=== PATIENT | female | born 1950 | race African-American/Black ===

== ENCOUNTER 2018-04-10 21:10 | Inpatient (IN) | payer OTHER ==
[~2018-04-10] VITALS: Ht 167.6 cm; Wt 100.3 kg
[2018-04-10] MEDS ORDERED: IPRATRPIUM/ALBUTEROL 0.5/2.5MG 3 ML NEBU. NEB ONE (21:15)
[2018-04-10] MEDS ORDERED: ONDANSETRON PF 4 MG/2 ML VIAL. ONE (21:19)
[2018-04-10] MEDS ORDERED: MORPHINE SULFATE 4 MG/ML VIAL. ONE (21:20)
[2018-04-10 21:27] LABS: BASO # 0.1 x10^3/uL (0.0-0.2); BASO % 1 % (0-3); EOS # 0.3 x10^3/uL (0.0-0.7); EOS % 3 % (0-3); HEMATOCRIT 41.5 % (36.0-47.0); HEMOGLOBIN 13.8 g/dL (12.0-15.5); LYMPH # 5.2 x10^3/uL (1.0-4.8); LYMPH % 49 % (24-48); MEAN CORPUSCULAR HEMOGLOBIN 32 pg (25-35); MEAN CORPUSCULAR HGB CONC 33 g/dL (31-37); MEAN CORPUSCULAR VOLUME 95 fL (79-100); MONO # 1.1 x10^3/uL (0.0-1.1); MONO % 10 % (0-9); NEUT # 3.9 x10^3uL (1.8-7.7); NEUT % 37 % (31-73); PLATELET COUNT 227 x10^3/uL (140-400); RED BLOOD COUNT 4.38 x10^6/uL (3.50-5.40); RED CELL DISTRIBUTION WIDTH 17.1 % (11.5-14.5); WHITE BLOOD COUNT 10.6 x10^3/uL (4.0-11.0)
[2018-04-10] MEDS ORDERED: ONDANSETRON PF 4 MG/2 ML VIAL. IV ONE (21:30)
[2018-04-10] MEDS ORDERED: MORPHINE SULFATE 4 MG/ML VIAL. IV ONE (21:30)
[2018-04-10] MEDS ORDERED: ALBUTEROL SULFATE 2.5 MG/3 ML NEBU. CONT NEB ONE (21:30)
--- NOTE | 2018-04-10 21:36 | PHYS DOC ---
Adult General Chief Complaint Chief Complaint: SHORTNESS OF BREATH HPI HPI Patient is a 68-year-old female who presents via EMS with report of acute onset of shortness of breath that started approximately 40 minutes prior to arrival to the emergency room. [email or web address] when the shortness of breath started. Patient indicates that she has no history of respiratory problems. Patient does indicate that she has a history of anxiety. She states that she just feels like she cannot get enough air in. Additional history is limited due to severity of condition. Review of Systems Review of Systems Constitutional: Denies fever or chills [] Respiratory: Complains of shortness of breath[] Cardiovascular: No additional information not addressed in HPI [] Musculoskeletal: Denies back pain or joint pain [] A full review of systems is limited due to severity of patient condition. Current Medications Current Medications Current Medications Medications (Trade) Dose Ordered Sig/Daquan Start Time Stop Time Status Last Admin Dose Admin Albuterol Sulfate (Ventolin Neb Soln) 5 mg 1X ONCE 04/10/18 21:30 04/10/18 21:31 DC Albuterol/ Ipratropium (Duoneb) 3 ml 1X ONCE 04/10/18 21:15 04/10/18 21:27 DC 04/10/18 21:24 3 ML Azithromycin (Zithromax) 500 mg 1X ONCE 04/10/18 23:00 04/10/18 23:01 DC Ceftriaxone Sodium 50 ml @ 100 mls/hr 1X ONCE 04/10/18 23:00 04/10/18 23:29 DC 04/10/18 23:48 100 MLS/HR Furosemide (Lasix) 40 mg 1X ONCE 04/10/18 22:15 04/10/18 22:16 DC 04/10/18 22:22 40 MG Lorazepam (Ativan) 2 mg 1X ONCE 04/10/18 22:00 04/10/18 22:01 DC 04/10/18 22:00 2 MG Morphine Sulfate (Morphine Sulfate) 4 mg STK-MED ONCE 04/10/18 21:20 04/10/18 21:21 DC Ondansetron HCl (Zofran) 4 mg 1X ONCE 04/10/18 21:30 04/10/18 21:31 DC 04/10/18 21:23 4 MG Potassium Chloride (Klor-Con) 40 meq 1X ONCE 04/10/18 22:15 04/10/18 22:16 DC Allergies Allergies Allergies Coded Allergies Type Severity Reaction Last Updated Verified No Known Drug Allergies 04/10/18 No Physical Exam Physical Exam Constitutional: Well developed, well nourished, in moderate respiratory distress with moderate to severe anxiety. [] HENT: Normocephalic, atraumatic, bilateral external ears normal, oropharynx moist, no oral exudates, nose normal. [] Eyes: PERRLA, EOMI, conjunctiva normal, no discharge. [] Neck: Normal range of motion, no tenderness, supple, no stridor. [] Cardiovascular:Heart rate regular rhythm [] Lungs & Thorax: There are coarse rales noted the right lung base. Both inspiratory and expiratory wheezes are noted in the upper lungs bilaterally[] Abdomen: Bowel sounds normal, soft, no tenderness. [] Skin: Warm, dry, no erythema, no rash. [] Extremities: No tenderness, no cyanosis, no clubbing, ROM intact, nonpitting edema is noted bilaterally. [] Neurologic: Alert and oriented X 3, normal motor function, normal sensory function, no focal deficits noted. [] Current Patient Data Vital Signs Vital Signs Date Time Temp Pulse Resp B/P (MAP) Pulse Ox O2 Delivery O2 Flow Rate FiO2 04/10/18 23:51 98 Nasal Cannula 3.0 04/10/18 22:10 56 18 156/71 (99) 04/10/18 21:10 98.9 98.9 Lab Values Laboratory Tests Test 04/10/18 21:19 04/10/18 21:35 White Blood Count 10.6 x10^3/uL (4.0-11.0) Red Blood Count 4.38 x10^6/uL (3.50-5.40) Hemoglobin 13.8 g/dL (12.0-15.5) Hematocrit 41.5 % (36.0-47.0) Mean Corpuscular Volume 95 fL (79-100) Mean Corpuscular Hemoglobin 32 pg (25-35) Mean Corpuscular Hemoglobin Concent 33 g/dL (31-37) Red Cell Distribution Width 17.1 % (11.5-14.5) H Platelet Count 227 x10^3/uL (140-400) Neutrophils (%) (Auto) 37 % (31-73) Lymphocytes (%) (Auto) 49 % (24-48) H Monocytes (%) (Auto) 10 % (0-9) H Eosinophils (%) (Auto) 3 % (0-3) Basophils (%) (Auto) 1 % (0-3) Neutrophils # (Auto) 3.9 x10^3uL (1.8-7.7) Lymphocytes # (Auto) 5.2 x10^3/uL (1.0-4.8) H Monocytes # (Auto) 1.1 x10^3/uL (0.0-1.1) Eosinophils # (Auto) 0.3 x10^3/uL (0.0-0.7) Basophils # (Auto) 0.1 x10^3/uL (0.0-0.2) D-Dimer (Nirmala) < 0.27 ug/mlFEU Sodium Level 147 mmol/L (136-145) H Potassium Level 2.9 mmol/L (3.5-5.1) *L Chloride Level 105 mmol/L (98-107) Carbon Dioxide Level 28 mmol/L (21-32) Anion Gap 14 (6-14) Blood Urea Nitrogen 13 mg/dL (7-20) Creatinine 1.2 mg/dL (0.6-1.0) H Estimated GFR (Cockcroft-Gault) 44.5 BUN/Creatinine Ratio 11 (6-20) Glucose Level 183 mg/dL (70-99) H Calcium Level 9.7 mg/dL (8.5-10.1) Total Bilirubin 0.7 mg/dL (0.2-1.0) Aspartate Amino Transferase (AST) 72 U/L (15-37) H Alanine Aminotransferase (ALT) 58 U/L (14-59) Alkaline Phosphatase 104 U/L (46-116) Troponin I Quantitative < 0.017 ng/mL (0.000-0.055) TF-Gcq-R-Type Natriuretic Peptide 2022 pg/mL (0-124) H Total Protein 7.8 g/dL (6.4-8.2) Albumin 3.8 g/dL (3.4-5.0) Albumin/Globulin Ratio 1.0 (1.0-1.7) O2 Saturation 96 % (92-99) Arterial Blood pH 7.25 (7.35-7.45) L Arterial Blood pCO2 at Patient Temp 56 mmHg (35-46) H Arterial Blood pO2 at Patient Temp 100 mmHg (65-108) Arterial Blood HCO3 24 mmol/L (21-28) Arterial Blood Base Excess -4 mmol/L (-3-3) L FiO2 100.0 Laboratory Tests 04/10/18 21:19 Laboratory Tests 04/10/18 21:19 EKG EKG [] Interpretation Time: EKG demonstrates sinus bradycardia with a rate of 55. Radiology/Procedures Radiology/Procedures [] Impressions: PROCEDURE: PORTABLE CHEST 1V EXAM: Chest, single view. HISTORY: Dyspnea. COMPARISON: None. FINDINGS: A frontal view of the chest obtained. There is diffuse interstitial infiltrate. There is focal opacity overlying the right lower thorax which is likely due to a component of overlying artifact. The possibility of partial consolidated infiltrate is not excluded. There are suspected trace pleural effusions. There is no pneumothorax. There is cardiomegaly. IMPRESSION: 1. Diffuse interstitial infiltrate. This may be infectious or due to congestion. 2. Focal opacity overlying the right lower thorax, a component of which is due to overlying artifact. The possibility of on underlying partial consolidated infiltrate is not completely excluded. 3. Cardiomegaly. Electronically signed by: Mary Finch MD (04/10/2018 9:42 PM) [facility] Course & Med Decision Making Course & Med Decision Making Pertinent Labs and Imaging studies reviewed. (See chart for details) [] Dragon Disclaimer Dragon Disclaimer This electronic medical record was generated, in whole or in part, using a voice recognition dictation system. Departure Departure Impression: Primary Impression: RLL pneumonia Disposition: ADMITTED INPATIENT Admitting Physician: Cristina High Condition: IMPROVED Problem Qualifiers Primary Impression: RLL pneumonia Pneumonia type: due to unspecified organism Qualified Codes: J18.1 - Lobar pneumonia, unspecified organism NEMO RÍOS Jr. DO Apr 10, 2018 21:36
[2018-04-10 21:41] LABS: ALBUMIN 3.8 g/dL (3.4-5.0); CALCIUM 9.7 mg/dL (8.5-10.1); CREATININE 1.2 mg/dL (0.6-1.0); GFR 44.5; TOTAL BILIRUBIN 0.7 mg/dL (0.2-1.0); TOTAL PROTEIN 7.8 g/dL (6.4-8.2)
[2018-04-10 21:44] LABS: POTASSIUM 2.9 mmol/L (3.5-5.1)
[2018-04-10 21:45] LABS: BASE EXCESS ABG -4 mmol/L (-3-3); HCO3 ABG 24 mmol/L (21-28); PCO2 ABG 56 mmHg (35-46); PO2 ABG 100 mmHg (65-108); SAT O2 ABG 96 % (92-99)
--- NOTE | 2018-04-10 21:46 | RAD ---
EXAM: Chest, single view. HISTORY: Dyspnea. COMPARISON: None. FINDINGS: A frontal view of the chest obtained. There is diffuse interstitial infiltrate. There is focal opacity overlying the right lower thorax which is likely due to a component of overlying artifact. The possibility of partial consolidated infiltrate is not excluded. There are suspected trace pleural effusions. There is no pneumothorax. There is cardiomegaly. IMPRESSION: 1. Diffuse interstitial infiltrate. This may be infectious or due to congestion. 2. Focal opacity overlying the right lower thorax, a component of which is due to overlying artifact. The possibility of on underlying partial consolidated infiltrate is not completely excluded. 3. Cardiomegaly. Electronically signed by: Mary Finch MD (04/10/2018 9:42 PM) [facility]
[2018-04-10] MEDS ORDERED: FUROSEMIDE 40 MG/4 ML VIAL. IVP ONE (22:15)
[2018-04-10] MEDS ORDERED: POTASSIUM CHLORIDE 20 MEQ TABLET.ER. PO ONE (22:15)
[2018-04-10] MEDS ORDERED: AMLO5TAB7 PO (22:47)
[2018-04-10] MEDS ORDERED: FOLI1TAB16 PO (22:49)
[2018-04-10] MEDS ORDERED: FLAX10003 PO (22:49)
[2018-04-10] MEDS ORDERED: OMEG1CAP38 PO (22:49)
[2018-04-10] MEDS ORDERED: LANS30CA PO (22:50)
[2018-04-10] MEDS ORDERED: METO-239 PO (22:52)
[2018-04-10] MEDS ORDERED: RIVA20TA2 PO (22:53)
[2018-04-10] MEDS ORDERED: LISI-334 PO (22:53)
[2018-04-10] MEDS ORDERED: ERGO500027 PO (22:54)
[2018-04-10] MEDS ORDERED: ATOR40TA59 PO (22:57)
[2018-04-10] MEDS ORDERED: ESCITALOPRAM OX10 MG PO (22:58)
[2018-04-10] MEDS ORDERED: AZITHROMYCIN 250 MG TABLET. PO ONE (23:00)
[2018-04-11] MEDS ORDERED: ONDANSETRON PF 4 MG/2 ML VIAL. IV PRN
[2018-04-11] MEDS ORDERED: ACETAMINOPHEN 325 MG TABLET. PO PRN
[2018-04-11 03:00] VITALS: BP 110/86
[2018-04-11 05:43] LABS: BASO % 0 % (0-3); EOS # 0.1 x10^3/uL (0.0-0.7); EOS % 1 % (0-3); HEMATOCRIT 34.8 % (36.0-47.0); LYMPH # 1.5 x10^3/uL (1.0-4.8); LYMPH % 24 % (24-48); MEAN CORPUSCULAR HEMOGLOBIN 32 pg (25-35); MEAN CORPUSCULAR HGB CONC 35 g/dL (31-37); MEAN CORPUSCULAR VOLUME 92 fL (79-100); MONO # 0.5 x10^3/uL (0.0-1.1); MONO % 7 % (0-9); NEUT # 4.2 x10^3uL (1.8-7.7); NEUT % 68 % (31-73); PLATELET COUNT 185 x10^3/uL (140-400); RED BLOOD COUNT 3.78 x10^6/uL (3.50-5.40); RED CELL DISTRIBUTION WIDTH 17.3 % (11.5-14.5); WHITE BLOOD COUNT 6.3 x10^3/uL (4.0-11.0)
[2018-04-11 06:28] LABS: ALBUMIN 3.3 g/dL (3.4-5.0); ALBUMIN/GLOBULIN RATIO 1.1 (1.0-1.7); CALCIUM 8.8 mg/dL (8.5-10.1); GFR 66.5; POTASSIUM 4.4 mmol/L (3.5-5.1); TOTAL BILIRUBIN 0.4 mg/dL (0.2-1.0); TOTAL PROTEIN 6.4 g/dL (6.4-8.2)
[2018-04-11 07:20] VITALS: BP 158/67
[2018-04-11] MEDS: IPRATRPIUM/ALBUTEROL 0.5/2.5MG 3 ML NEBU. NEB SCH ×4 (07:29→19:47)
--- NOTE | 2018-04-11 07:49 | EKG ---
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
[2018-04-11] MEDS ORDERED: TEMAZEPAM 15 MG CAPSULE PO PRN (09:30)
[2018-04-11] MEDS ORDERED: OLAN10TA9 PO (10:04)
[2018-04-11] MEDS ORDERED: TEMA15CA PO (10:04)
--- NOTE | 2018-04-11 10:12 | PDOC ---
PROGRESS NOTES Subjective Subjective Patient reports cough and breathing are a little better than last night. Denies CP presently. Objective Objective Vital Signs Date Time Temp Pulse Resp B/P (MAP) Pulse Ox O2 Delivery O2 Flow Rate FiO2 04/11/18 07:22 96 Nasal Cannula 3.0 04/11/18 07:20 98.3 89 18 158/67 (97) 98.3 Intake and Output 04/11/18 07:00 # Voids 1 Physical Exam Abdomen: Normal bowel sounds, Soft, No tenderness Heart: Regular rate (mildly bradycardic), Other (II/ systolic murmur) Extremities: Other (scant edema bilateral LE's) General: Alert, Oriented X3, No acute distress Lungs: Other (BS decreased throughout, especially R base, no wheezes or crackles heard) Assessment Assessment Problems Medical Problems: (1) RLL pneumonia Status: Acute Plan Plan of Care 1. Pneumonia - possible infiltrate seen on CXR and patient does report recent cough and SOA. Continue Rocephin and Zithromax, nebs, O2. CT chest ordered. 2. chest pain with hx of arrhythmias - Troponin mildly elevated but now decreasing. Patient sees an outside Assistant Research Scientist. Reports hx of arrhythmias, possible afib. Denies being told she had CHF or taking a diuretic previously. Will consult Cardiology to help with further evaluation and tx while she is here. 3. HTN - continue home meds and adjust as indicated, patient reports BP has been elevated at home recently. 4. COPD with tobaccoism - smoking cessation advised. Nicotine patch ordered. Patient denies using an inhaler regularly at home. 5. glucose intolerance - patient states she was told she was "borderline" diabetic but has not been prescribed medication for this. Check A1C. 6. Hx of psychosis - patient reports she sees a psychiatrist and has been doing well on present medications, will continue these. Comment Review of Relevant I have reviewed the following items amna (where applicable) has been applied. Labs Laboratory Tests Test 04/10/18 21:19 04/10/18 21:35 04/11/18 03:30 04/11/18 04:50 White Blood Count 10.6 x10^3/uL (4.0-11.0) 6.3 x10^3/uL (4.0-11.0) Red Blood Count 4.38 x10^6/uL (3.50-5.40) 3.78 x10^6/uL (3.50-5.40) Hemoglobin 13.8 g/dL (12.0-15.5) 12.0 g/dL (12.0-15.5) Hematocrit 41.5 % (36.0-47.0) 34.8 % (36.0-47.0) Mean Corpuscular Volume 95 fL (79-100) 92 fL (79-100) Mean Corpuscular Hemoglobin 32 pg (25-35) 32 pg (25-35) Mean Corpuscular Hemoglobin Concent 33 g/dL (31-37) 35 g/dL (31-37) Red Cell Distribution Width 17.1 % (11.5-14.5) 17.3 % (11.5-14.5) Platelet Count 227 x10^3/uL (140-400) 185 x10^3/uL (140-400) Neutrophils (%) (Auto) 37 % (31-73) 68 % (31-73) Lymphocytes (%) (Auto) 49 % (24-48) 24 % (24-48) Monocytes (%) (Auto) 10 % (0-9) 7 % (0-9) Eosinophils (%) (Auto) 3 % (0-3) 1 % (0-3) Basophils (%) (Auto) 1 % (0-3) 0 % (0-3) Neutrophils # (Auto) 3.9 x10^3uL (1.8-7.7) 4.2 x10^3uL (1.8-7.7) Lymphocytes # (Auto) 5.2 x10^3/uL (1.0-4.8) 1.5 x10^3/uL (1.0-4.8) Monocytes # (Auto) 1.1 x10^3/uL (0.0-1.1) 0.5 x10^3/uL (0.0-1.1) Eosinophils # (Auto) 0.3 x10^3/uL (0.0-0.7) 0.1 x10^3/uL (0.0-0.7) Basophils # (Auto) 0.1 x10^3/uL (0.0-0.2) 0.0 x10^3/uL (0.0-0.2) D-Dimer (Nirmala) < 0.27 ug/mlFEU Sodium Level 147 mmol/L (136-145) 144 mmol/L (136-145) Potassium Level 2.9 mmol/L (3.5-5.1) 4.4 mmol/L (3.5-5.1) Chloride Level 105 mmol/L (98-107) 106 mmol/L (98-107) Carbon Dioxide Level 28 mmol/L (21-32) 30 mmol/L (21-32) Anion Gap 14 (6-14) 8 (6-14) Blood Urea Nitrogen 13 mg/dL (7-20) 15 mg/dL (7-20) Creatinine 1.2 mg/dL (0.6-1.0) 1.0 mg/dL (0.6-1.0) Estimated GFR (Cockcroft-Gault) 44.5 66.5 BUN/Creatinine Ratio 11 (6-20) 15 (6-20) Glucose Level 183 mg/dL (70-99) 140 mg/dL (70-99) Calcium Level 9.7 mg/dL (8.5-10.1) 8.8 mg/dL (8.5-10.1) Total Bilirubin 0.7 mg/dL (0.2-1.0) 0.4 mg/dL (0.2-1.0) Aspartate Amino Transf (AST/SGOT) 72 U/L (15-37) 49 U/L (15-37) Alanine Aminotransferase (ALT/SGPT) 58 U/L (14-59) 47 U/L (14-59) Alkaline Phosphatase 104 U/L (46-116) 86 U/L (46-116) Troponin I Quantitative < 0.017 ng/mL (0.000-0.055) 0.324 ng/mL (0.000-0.055) RG-Dut-P-Type Natriuretic Peptide 2022 pg/mL (0-124) Total Protein 7.8 g/dL (6.4-8.2) 6.4 g/dL (6.4-8.2) Albumin 3.8 g/dL (3.4-5.0) 3.3 g/dL (3.4-5.0) Albumin/Globulin Ratio 1.0 (1.0-1.7) 1.1 (1.0-1.7) O2 Saturation 96 % (92-99) Arterial Blood pH 7.25 (7.35-7.45) Arterial Blood pCO2 at Patient Temp 56 mmHg (35-46) Arterial Blood pO2 at Patient Temp 100 mmHg (65-108) Arterial Blood HCO3 24 mmol/L (21-28) Arterial Blood Base Excess -4 mmol/L (-3-3) FiO2 100.0 Test 04/11/18 07:55 Troponin I Quantitative 0.307 ng/mL (0.000-0.055) Laboratory Tests Test 04/10/18 21:19 04/10/18 21:35 04/11/18 03:30 04/11/18 04:50 White Blood Count 10.6 x10^3/uL (4.0-11.0) 6.3 x10^3/uL (4.0-11.0) Red Blood Count 4.38 x10^6/uL (3.50-5.40) 3.78 x10^6/uL (3.50-5.40) Hemoglobin 13.8 g/dL (12.0-15.5) 12.0 g/dL (12.0-15.5) Hematocrit 41.5 % (36.0-47.0) 34.8 % (36.0-47.0) Mean Corpuscular Volume 95 fL (79-100) 92 fL (79-100) Mean Corpuscular Hemoglobin 32 pg (25-35) 32 pg (25-35) Mean Corpuscular Hemoglobin Concent 33 g/dL (31-37) 35 g/dL (31-37) Red Cell Distribution Width 17.1 % (11.5-14.5) 17.3 % (11.5-14.5) Platelet Count 227 x10^3/uL (140-400) 185 x10^3/uL (140-400) Neutrophils (%) (Auto) 37 % (31-73) 68 % (31-73) Lymphocytes (%) (Auto) 49 % (24-48) 24 % (24-48) Monocytes (%) (Auto) 10 % (0-9) 7 % (0-9) Eosinophils (%) (Auto) 3 % (0-3) 1 % (0-3) Basophils (%) (Auto) 1 % (0-3) 0 % (0-3) Neutrophils # (Auto) 3.9 x10^3uL (1.8-7.7) 4.2 x10^3uL (1.8-7.7) Lymphocytes # (Auto) 5.2 x10^3/uL (1.0-4.8) 1.5 x10^3/uL (1.0-4.8) Monocytes # (Auto) 1.1 x10^3/uL (0.0-1.1) 0.5 x10^3/uL (0.0-1.1) Eosinophils # (Auto) 0.3 x10^3/uL (0.0-0.7) 0.1 x10^3/uL (0.0-0.7) Basophils # (Auto) 0.1 x10^3/uL (0.0-0.2) 0.0 x10^3/uL (0.0-0.2) D-Dimer (Nirmala) < 0.27 ug/mlFEU Sodium Level 147 mmol/L (136-145) 144 mmol/L (136-145) Potassium Level 2.9 mmol/L (3.5-5.1) 4.4 mmol/L (3.5-5.1) Chloride Level 105 mmol/L (98-107) 106 mmol/L (98-107) Carbon Dioxide Level 28 mmol/L (21-32) 30 mmol/L (21-32) Anion Gap 14 (6-14) 8 (6-14) Blood Urea Nitrogen 13 mg/dL (7-20) 15 mg/dL (7-20) Creatinine 1.2 mg/dL (0.6-1.0) 1.0 mg/dL (0.6-1.0) Estimated GFR (Cockcroft-Gault) 44.5 66.5 BUN/Creatinine Ratio 11 (6-20) 15 (6-20) Glucose Level 183 mg/dL (70-99) 140 mg/dL (70-99) Calcium Level 9.7 mg/dL (8.5-10.1) 8.8 mg/dL (8.5-10.1) Total Bilirubin 0.7 mg/dL (0.2-1.0) 0.4 mg/dL (0.2-1.0) Aspartate Amino Transf (AST/SGOT) 72 U/L (15-37) 49 U/L (15-37) Alanine Aminotransferase (ALT/SGPT) 58 U/L (14-59) 47 U/L (14-59) Alkaline Phosphatase 104 U/L (46-116) 86 U/L (46-116) Troponin I Quantitative < 0.017 ng/mL (0.000-0.055) 0.324 ng/mL (0.000-0.055) DK-Ywo-S-Type Natriuretic Peptide 2022 pg/mL (0-124) Total Protein 7.8 g/dL (6.4-8.2) 6.4 g/dL (6.4-8.2) Albumin 3.8 g/dL (3.4-5.0) 3.3 g/dL (3.4-5.0) Albumin/Globulin Ratio 1.0 (1.0-1.7) 1.1 (1.0-1.7) O2 Saturation 96 % (92-99) Arterial Blood pH 7.25 (7.35-7.45) Arterial Blood pCO2 at Patient Temp 56 mmHg (35-46) Arterial Blood pO2 at Patient Temp 100 mmHg (65-108) Arterial Blood HCO3 24 mmol/L (21-28) Arterial Blood Base Excess -4 mmol/L (-3-3) FiO2 100.0 Test 04/11/18 07:55 Troponin I Quantitative 0.307 ng/mL (0.000-0.055) Medications Current Medications Albuterol/ Ipratropium (Duoneb) 3 ml 1X ONCE NEB Last administered on at 21:24; Start 04/10/18 at 21:15; Stop 04/10/18 at 21:27; Status DC Albuterol Sulfate (Ventolin Neb Soln) 5 mg 1X ONCE CONT NEB Last administered on 04/10/18at 21:30; Start 04/10/18 at 21:30; Stop 04/10/18 at 21:31; Status DC Lorazepam (Ativan) 1 mg 1X ONCE IV ; Start 04/10/18 at 21:15; Stop 04/10/18 at 21:35; Status DC Ondansetron HCl (Zofran) 4 mg STK-MED ONCE .ROUTE ; Start 04/10/18 at 21:19; Stop 04/10/18 at 21:20; Status DC Morphine Sulfate (Morphine Sulfate) 4 mg 1X ONCE IV Last administered on at 21:23; Start 04/10/18 at 21:30; Stop 04/10/18 at 21:31; Status DC Ondansetron HCl (Zofran) 4 mg 1X ONCE IV Last administered on 04/10/18at 21:23 ; Start 04/10/18 at 21:30; Stop 04/10/18 at 21:31; Status DC Morphine Sulfate (Morphine Sulfate) 4 mg STK-MED ONCE .ROUTE ; Start 04/10/18 at 21:20; Stop 04/10/18 at 21:21; Status DC Lorazepam (Ativan) 2 mg 1X ONCE IV Last administered on 04/10/18at 22:00; Start 04/10/18 at 22:00; Stop 04/10/18 at 22:01; Status DC Potassium Chloride (Klor-Con) 40 meq 1X ONCE PO Last administered on at 00:16; Start 04/10/18 at 22:15; Stop 04/10/18 at 22:16; Status DC Furosemide (Lasix) 40 mg 1X ONCE IVP Last administered on 04/10/18at 22:22; Start 04/10/18 at 22:15; Stop 04/10/18 at 22:16; Status DC Ceftriaxone Sodium 50 ml @ 100 mls/hr 1X ONCE IV Last administered on at 23:48; Start 04/10/18 at 23:00; Stop 04/10/18 at 23:29; Status DC Azithromycin (Zithromax) 500 mg 1X ONCE PO Last administered on 04/11/18at 00: 17; Start 04/10/18 at 23:00; Stop 04/10/18 at 23:01; Status DC Ondansetron HCl (Zofran) 4 mg PRN Q8HRS PRN IV NAUSEA/VOMITING 1ST CHOICE; Start 04/11/18 at 00:00; Stop 04/11/18 at 23:59 Acetaminophen (Tylenol) 650 mg PRN Q4HRS PRN PO FEVER; Start 04/11/18 at 00:00 ; Stop 04/11/18 at 23:59 Albuterol/ Ipratropium (Duoneb) 3 ml RTQID NEB Last administered on 04/11/18at 07:29; Start 04/11/18 at 08:00; Stop 04/12/18 at 07:59 Olanzapine (ZyPREXA) 15 mg QHS PO ; Start 04/11/18 at 21:00 Temazepam (Restoril) 15 mg PRN QHS PRN PO INSOMNIA; Start 04/11/18 at 09:30 Active Scripts Active Temazepam 15 Mg Capsule 1 Cap PO QHS Olanzapine 10 Mg Tablet 1.5 Tab PO QHS Reported Escitalopram Oxalate 10 Mg Tablet 10 Mg PO DAILY Atorvastatin Calcium 40 Mg Tablet 40 Mg PO DAILY Vitamin D2 (Ergocalciferol (Vitamin D2)) 50,000 Unit Capsule 50,000 Unit PO ONCE A WEEK Xarelto (Rivaroxaban) 20 Mg Tablet 20 Mg PO DAILY Lisinopril 20 Mg Tablet 20 Mg PO DAILY Metoprolol Succinate ( Xl ) (Metoprolol Succinate) 25 Mg Tab.er.24h 25 Mg PO DAILY Lansoprazole 30 Mg Capsule.dr 30 Mg PO DAILY [place] 3 Fish Oil Softgel ([place]-3 Fatty Acids/Fish Oil) 1 Each Capsule.dr 1 Each PO DAILY Folic Acid 1 Mg Tablet 1 Tab PO DAILY Flax Oil (Flaxseed Oil) 1,000 Mg Capsule 1,000 Mg PO Amlodipine Besylate 5 Mg Tablet 5 Mg PO DAILY Vitals/I & O Vital Sign - Last 24 Hours 04/10/18 04/10/18 04/10/18 04/10/18 21:10 21:10 21:23 21:33 Temp 98.9 98.9 Pulse 99 99 Resp 40 38 16 B/P (MAP) 151/102 (118) 151/102 (118) Pulse Ox 86 86 100 97 O2 Delivery NonRebreather Mask Room Air NonRebreather Mask O2 Flow Rate 15.0 04/10/18 04/10/18 04/10/18 04/10/18 21:40 21:42 21:50 22:10 Pulse 68 67 56 Resp 26 25 18 B/P (MAP) 219/108 (145) 166/75 (105) 156/71 (99) Pulse Ox 99 99 98 O2 Delivery NonRebreather Mask continuous nebulizer NonRebreather Mask BiPAP/ CPAP O2 Flow Rate 15.0 15.0 04/10/18 04/10/18 04/10/18 04/10/18 22:22 22:30 23:00 23:30 Pulse 54 55 48 Resp 17 16 15 B/P (MAP) 133/65 (87) 159/77 (104) 170/82 (111) Pulse Ox 100 99 100 100 O2 Delivery BiPAP/CPAP BiPAP/CPAP BiPAP/CPAP BiPAP/CPAP 04/10/18 04/10/18 04/10/18 04/11/18 23:31 23:45 23:51 00:22 Pulse 53 54 Resp 18 18 B/P (MAP) 185/81 (115) 156/72 (100) Pulse Ox 100 100 98 99 O2 Delivery BiPAP/CPAP BiPAP/CPAP Nasal Cannula Room Air O2 Flow Rate 3.0 04/11/18 04/11/18 04/11/18 04/11/18 00:42 02:05 03:00 07:20 Temp 97.6 98.3 97.6 98.3 Pulse 60 59 89 Resp 19 18 18 B/P (MAP) 176/77 (110) 110/86 (94) 158/67 (97) Pulse Ox 96 98 96 O2 Delivery Room Air Nasal Cannula Room Air Nasal Cannula O2 Flow Rate 3.0 3.0 04/11/18 07:22 Pulse Ox 96 O2 Delivery Nasal Cannula O2 Flow Rate 3.0 FERNANDO NEELY MD Apr 11, 2018 10:12
[2018-04-11] MEDS ORDERED: ANTI-COAG MONITOR BY PHARMACY. MC PRN (10:15)
--- NOTE | 2018-04-11 10:41 | HP ---
ADMIT DATE: 04/11/2018 CHIEF COMPLAINT: Shortness of breath. HISTORY OF PRESENT ILLNESS: The patient is a 68-year-old female who presented to the Emergency Room with the above complaint. She reported the abrupt onset of shortness of breath and fatigue when she was out shopping. She had been feeling some tiredness and gradually increasing dyspnea for several days, however, her symptoms abruptly worsened. She sat down and rested in the store, but did not improve and EMS was called. Initial evaluation in the Emergency Room showed the patient to be moderately short of breath. Chest x-ray showed a possible infiltrate. Treatment was started and she was admitted for further care. PAST MEDICAL HISTORY: History of cardiac arrhythmias. The patient is unsure of what kind of arrhythmia and there are no records presently available. 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 Hypertension, glucose intolerance, previous psychotic illness, hyperlipidemia, hearing loss. PAST SURGICAL HISTORY: Hysterectomy and cholecystectomy. ALLERGIES: The patient has no known drug allergies. HOME MEDICATIONS: Amlodipine 5 mg daily, atorvastatin 40 mg daily, vitamin D 50,000 units weekly, escitalopram 10 mg daily, flax seed oil daily, folic acid 1 mg daily, lansoprazole 30 mg daily, lisinopril 20 mg daily, Toprol-XL 25 mg daily, olanzapine 15 mg at bedtime, Xarelto 20 mg daily, temazepam 15 mg at bedtime p.r.n. FAMILY HISTORY: Noncontributory. SOCIAL HISTORY: The patient is retired. She smoked cigarettes about one-half pack per day. REVIEW OF SYSTEMS: The patient denies fever or chills. She denies a chronic cough, but has noticed a dry cough for the last several days with some dyspnea on exertion, which is not usual for her. She had some chest pain with her shortness of air last night in the Emergency Room, but denies other episodes of chest pain recently. She sees Dr. Bartlett for Cardiology. She denies abdominal pain, nausea or vomiting. She denies dysuria or problems with her urine. She was told that she was a borderline diabetic, but has not been prescribed medications for her blood sugar. The patient reports she had a psychiatric illness several years ago that was accompanied by some hallucinations. She sees a psychiatrist and she reports that she is doing very well on her present medications. PHYSICAL EXAMINATION: GENERAL: The patient is alert and oriented x 3, resting comfortably in bed, in no acute distress. HEENT: PERRL, EOMI, sclerae clear. Oropharynx: Mucous membranes moist. NECK: Supple, without lymphadenopathy. CHEST: Breath sounds mildly decreased throughout, moderately decreased in the right base. No wheezes heard. No cough during exam. CARDIOVASCULAR: Regular rhythm, mildly bradycardic, 2/6 systolic murmur. ABDOMEN: Soft, nontender, normoactive bowel sounds are present. EXTREMITIES: Show a trace of edema in the bilateral lower extremities. ASSESSMENT AND PLAN: 1. Pneumonia. A possible infiltrate was seen on the chest x-ray and the patient does report symptoms of cough and shortness of breath. She has been started on Rocephin and Zithromax with nebulized treatments and oxygen. A CT of the chest has been ordered for better evaluation of her cardiac and pulmonary issues. 2. Chest pain with a history of arrhythmias. Initial EKG in the Emergency Room reportedly showed sinus bradycardia. The patient's troponin was initially negative and did increase to 0.324 with the next troponin being 0.307. The patient denies any chest pain at this time. We will consult Cardiology to help with further evaluation and treatment of this. Her BNP was elevated and the chest x-ray showed possible pulmonary vascular congestion. She apparently received one dose of IV Lasix in the Emergency Room. 3. Hypertension. Continue home medications and adjust as indicated. The patient reports her blood pressure had been elevated at home recently, but she was continuing to take her medication daily. 4. Chronic obstructive pulmonary disease with tobaccoism. Smoking cessation was advised. We will have her to use a nicotine patch while she is here. 5. Glucose intolerance. The patient's blood sugar was 183 in the Emergency Room yesterday, but she was not fasting. We will check an A1c and give the patient a diabetic diet. 6. History of psychotic illness. The patient seems to be doing very well on present medications and we will continue these. FERNANDO NEELY MD DR: MADELINE/melani JOB#: [id number] / [id number] DALJIT
[2018-04-11 10:44] LABS: FREE T4 0.82 ng/dL (0.76-1.46); THYROID STIM HORMONE (TSH) 0.794 uIU/mL (0.358-3.74)
[2018-04-11 11:42] VITALS: BP 155/50
[2018-04-11] MEDS: NICOTINE 14MG PATCH. TD SCH (11:46)
[2018-04-11] MEDS: CITALOPRAM 20 MG TABLET. PO SCH (11:46)
[2018-04-11] MEDS: amLODIPine BESYLATE 5 MG TABLET PO SCH (11:46)
[2018-04-11] MEDS: PANTOPRAZOLE 40 MG TABLET.DR. PO SCH (11:46)
[2018-04-11] MEDS: METOPROLOL SUCC 24HR ER 25 MG TAB.ER.24H. PO SCH (11:47)
[2018-04-11] MEDS: LISINOPRIL 20 MG TABLET PO SCH (11:47)
[2018-04-11] MEDS: FOLIC ACID 1 MG TABLET. PO SCH (11:47)
[2018-04-11] MEDS: OMEGA-3 FATTY ACIDS/FISH OIL 1,000 MG CAPSULE. PO SCH (11:53)
[2018-04-11] MEDS ORDERED: IOHEXOL 300 MG/ML 100ML VIAL. IV ONE (12:00)
--- NOTE | 2018-04-11 12:14 | RAD ---
CT chest with contrast. HISTORY: Short of breath, cough CT scan of the chest was done using 75 mL Omnipaque 300 contrast. Comparison is made with a recent chest x-ray. Thyroid is homogeneous. Visualized portions of the liver and spleen are unremarkable. Patient's had a cholecystectomy. Pancreas was normal. There is no renal mass or hydronephrosis. There is atherosclerotic change in the aorta without an aneurysm. There is no pneumothorax or pleural effusion. There is atelectasis or infiltrate in both lower lobes. There is hilar adenopathy more on the right than on the left etiology is not determined. There are low-density mediastinal lymph nodes which are prominent as well. A follow-up study could be of benefit. IMPRESSION: 1. Low-density mediastinal and hilar lymph nodes which are mildly prominent, etiology is not determined. 2. Atelectasis or infiltrates in both lower lobes PQRS Compliance Statement: One or more of the following individualized dose reduction techniques were utilized for this examination: 1. Automated exposure control 2. Adjustment of the mA and/or kV according to patient size 3. Use of iterative reconstruction technique Electronically signed by: Fredy Marin MD (04/11/2018 12:11 PM) [facility]
[2018-04-11] MEDS ORDERED: CONTRAST GIVEN. MC PRN (12:15)
--- NOTE | 2018-04-11 13:17 | PDOC2 ---
CONSULT Date of Consult Date of Consult DATE: 04/11/18 TIME: 13:09 Reason for Consult Reason for Consult: Possible heart failure and history of arrhythmias Referring Physician Referring Physician: Dr. High Identification/Chief Complaint Chief Complaint Shortness of breath Source Source: Patient History of Present Illness Reason for Visit: The patient is a 68-year-old female who was admitted for abrupt onset of shortness of breath. Initial workup showed diffuse infiltrates in her lungs on chest x-ray. D-dimer levels were normal. EKG showed diffuse nonspecific ST-T wave changes but no acute ischemic changes. She was treated for pneumonia and this morning he reports feeling much better. Her shortness of breath has improved. She denies any chest pain. Her history from a cardiac viewpoint is significant for possible arrhythmia. Patient is on chronic anticoagulation. She also states that she has had heart catheterizations in the past but has had no stents or balloon placement. She is followed by Dr. Bartlett at [place]. This morning she is feeling much better. Past Medical History Cardiovascular: Hyperlipidemia, Other (cardiac arrhythmias, possible coronary artery disease.) Pulmonary: COPD Psych: Anxiety Past Surgical History Past Surgical History: Other (previous heart catheterization but no balloon or stent placement by patient report) Family History Family History: Heart Disease Social History <1 pack per day Current Problem List Problem List Problems Medical Problems: (1) RLL pneumonia Status: Acute Current Medications Current Medications Current Medications Albuterol/ Ipratropium (Duoneb) 3 ml 1X ONCE NEB Last administered on at 21:24; Start 04/10/18 at 21:15; Stop 04/10/18 at 21:27; Status DC Albuterol Sulfate (Ventolin Neb Soln) 5 mg 1X ONCE CONT NEB Last administered on 04/10/18at 21:30; Start 04/10/18 at 21:30; Stop 04/10/18 at 21:31; Status DC Lorazepam (Ativan) 1 mg 1X ONCE IV ; Start 04/10/18 at 21:15; Stop 04/10/18 at 21:35; Status DC Ondansetron HCl (Zofran) 4 mg STK-MED ONCE .ROUTE ; Start 04/10/18 at 21:19; Stop 04/10/18 at 21:20; Status DC Morphine Sulfate (Morphine Sulfate) 4 mg 1X ONCE IV Last administered on at 21:23; Start 04/10/18 at 21:30; Stop 04/10/18 at 21:31; Status DC Ondansetron HCl (Zofran) 4 mg 1X ONCE IV Last administered on 04/10/18at 21:23 ; Start 04/10/18 at 21:30; Stop 04/10/18 at 21:31; Status DC Morphine Sulfate (Morphine Sulfate) 4 mg STK-MED ONCE .ROUTE ; Start 04/10/18 at 21:20; Stop 04/10/18 at 21:21; Status DC Lorazepam (Ativan) 2 mg 1X ONCE IV Last administered on 04/10/18at 22:00; Start 04/10/18 at 22:00; Stop 04/10/18 at 22:01; Status DC Potassium Chloride (Klor-Con) 40 meq 1X ONCE PO Last administered on at 00:16; Start 04/10/18 at 22:15; Stop 04/10/18 at 22:16; Status DC Furosemide (Lasix) 40 mg 1X ONCE IVP Last administered on 04/10/18at 22:22; Start 04/10/18 at 22:15; Stop 04/10/18 at 22:16; Status DC Ceftriaxone Sodium 50 ml @ 100 mls/hr 1X ONCE IV Last administered on at 23:48; Start 04/10/18 at 23:00; Stop 04/10/18 at 23:29; Status DC Azithromycin (Zithromax) 500 mg 1X ONCE PO Last administered on 04/11/18at 00: 17; Start 04/10/18 at 23:00; Stop 04/10/18 at 23:01; Status DC Ondansetron HCl (Zofran) 4 mg PRN Q8HRS PRN IV NAUSEA/VOMITING 1ST CHOICE; Start 04/11/18 at 00:00; Stop 04/11/18 at 23:59 Acetaminophen (Tylenol) 650 mg PRN Q4HRS PRN PO FEVER; Start 04/11/18 at 00:00 ; Stop 04/11/18 at 23:59 Albuterol/ Ipratropium (Duoneb) 3 ml RTQID NEB Last administered on 04/11/18at 11:43; Start 04/11/18 at 08:00; Stop 04/12/18 at 07:59 Olanzapine (ZyPREXA) 15 mg QHS PO ; Start 04/11/18 at 21:00 Temazepam (Restoril) 15 mg PRN QHS PRN PO INSOMNIA; Start 04/11/18 at 09:30 Amlodipine Besylate (Norvasc) 5 mg DAILY PO Last administered on 04/11/18at 11: 46; Start 04/11/18 at 11:00 Atorvastatin Calcium (Lipitor) 40 mg QHS PO ; Start 04/11/18 at 21:00 Folic Acid (Folic Acid) 1 mg DAILY PO Last administered on 04/11/18at 11:47; Start 04/11/18 at 11:00 Lisinopril (Prinivil) 20 mg DAILY PO Last administered on 04/11/18at 11:47; Start 04/11/18 at 11:00 Metoprolol Succinate (Toprol Xl) 25 mg DAILY PO Last administered on at 11:47; Start 04/11/18 at 11:00 Citalopram Hydrobromide (CeleXA) 20 mg DAILY PO Last administered on at 11:46; Start 04/11/18 at 11:00 Pantoprazole Sodium (Protonix) 40 mg DAILYAC PO Last administered on at 11:46; Start 04/11/18 at 11:00 Fish Oil (Fish Oil) 1,000 mg DAILY PO Last administered on 04/11/18at 11:53; Start 04/11/18 at 11:00 Rivaroxaban (Xarelto) 20 mg DAILYWSUP PO ; Start 04/11/18 at 17:00 Nicotine (Nicoderm Cq 14mg) 1 patch DAILY TD Last administered on 04/11/18at 11 :46; Start 04/11/18 at 11:00 Info (Anti-Coagulation Monitoring By Pharmacy) 1 each PRN DAILY PRN MC SEE COMMENTS; Start 04/11/18 at 10:15 Ceftriaxone Sodium 1 gm/ Dextrose 50 ml @ 100 mls/hr Q24H IV ; Start 04/11/18 at 22:00; Status UNV Azithromycin (Zithromax) 250 mg QHS PO ; Start 04/12/18 at 21:00 Ceftriaxone Sodium (Rocephin) 1 gm Q24H IVP ; Start 04/11/18 at 21:00 Lactobacillus Rhamnosus (Culturelle) 1 cap BID PO ; Start 04/11/18 at 21:00 Iohexol (Omnipaque 300 Mg/ml) 75 ml 1X ONCE IV ; Start 04/11/18 at 12:00; Stop 04/11/18 at 12:01; Status DC Info (CONTRAST GIVEN -- Rx MONITORING) 1 each PRN DAILY PRN [facility] SEE COMMENTS; Start 04/11/18 at 12:15; Stop 04/13/18 at 12:14 Active Scripts Active Temazepam 15 Mg Capsule 1 Cap PO QHS Olanzapine 10 Mg Tablet 1.5 Tab PO QHS Reported Escitalopram Oxalate 10 Mg Tablet 10 Mg PO DAILY Atorvastatin Calcium 40 Mg Tablet 40 Mg PO DAILY Vitamin D2 (Ergocalciferol (Vitamin D2)) 50,000 Unit Capsule 50,000 Unit PO ONCE A WEEK Xarelto (Rivaroxaban) 20 Mg Tablet 20 Mg PO DAILY Lisinopril 20 Mg Tablet 20 Mg PO DAILY Metoprolol Succinate ( Xl ) (Metoprolol Succinate) 25 Mg Tab.er.24h 25 Mg PO DAILY Lansoprazole 30 Mg Capsule.dr 30 Mg PO DAILY [place] 3 Fish Oil Softgel ([place]-3 Fatty Acids/Fish Oil) 1 Each Capsule.dr 1 Each PO DAILY Folic Acid 1 Mg Tablet 1 Tab PO DAILY Flax Oil (Flaxseed Oil) 1,000 Mg Capsule 1,000 Mg PO Amlodipine Besylate 5 Mg Tablet 5 Mg PO DAILY Allergies Allergies: Coded Allergies: No Known Drug Allergies (Unverified , 04/10/18) ROS Respiratory: YES: Shortness of breath, SOB with excertion Physical Exam General: mild distress HEENT: Atraumatic Lungs: Other (decreased breath sounds bilaterally) Heart: Regular rate Abdomen: Normal bowel sounds Vitals VITALS Vital Signs Date Time Temp Pulse Resp B/P (MAP) Pulse Ox O2 Delivery O2 Flow Rate FiO2 04/11/18 11:47 85 155/50 04/11/18 11:45 Nasal Cannula 3.0 04/11/18 11:42 98.3 19 100 98.3 Labs Labs Laboratory Tests Test 04/10/18 21:19 04/10/18 21:35 04/11/18 03:30 04/11/18 04:50 White Blood Count 10.6 x10^3/uL (4.0-11.0) 6.3 x10^3/uL (4.0-11.0) Red Blood Count 4.38 x10^6/uL (3.50-5.40) 3.78 x10^6/uL (3.50-5.40) Hemoglobin 13.8 g/dL (12.0-15.5) 12.0 g/dL (12.0-15.5) Hematocrit 41.5 % (36.0-47.0) 34.8 % (36.0-47.0) Mean Corpuscular Volume 95 fL (79-100) 92 fL (79-100) Mean Corpuscular Hemoglobin 32 pg (25-35) 32 pg (25-35) Mean Corpuscular Hemoglobin Concent 33 g/dL (31-37) 35 g/dL (31-37) Red Cell Distribution Width 17.1 % (11.5-14.5) 17.3 % (11.5-14.5) Platelet Count 227 x10^3/uL (140-400) 185 x10^3/uL (140-400) Neutrophils (%) (Auto) 37 % (31-73) 68 % (31-73) Lymphocytes (%) (Auto) 49 % (24-48) 24 % (24-48) Monocytes (%) (Auto) 10 % (0-9) 7 % (0-9) Eosinophils (%) (Auto) 3 % (0-3) 1 % (0-3) Basophils (%) (Auto) 1 % (0-3) 0 % (0-3) Neutrophils # (Auto) 3.9 x10^3uL (1.8-7.7) 4.2 x10^3uL (1.8-7.7) Lymphocytes # (Auto) 5.2 x10^3/uL (1.0-4.8) 1.5 x10^3/uL (1.0-4.8) Monocytes # (Auto) 1.1 x10^3/uL (0.0-1.1) 0.5 x10^3/uL (0.0-1.1) Eosinophils # (Auto) 0.3 x10^3/uL (0.0-0.7) 0.1 x10^3/uL (0.0-0.7) Basophils # (Auto) 0.1 x10^3/uL (0.0-0.2) 0.0 x10^3/uL (0.0-0.2) D-Dimer ([place]irmala) < 0.27 ug/mlFEU Sodium Level 147 mmol/L (136-145) 144 mmol/L (136-145) Potassium Level 2.9 mmol/L (3.5-5.1) 4.4 mmol/L (3.5-5.1) Chloride Level 105 mmol/L (98-107) 106 mmol/L (98-107) Carbon Dioxide Level 28 mmol/L (21-32) 30 mmol/L (21-32) Anion Gap 14 (6-14) 8 (6-14) Blood Urea Nitrogen 13 mg/dL (7-20) 15 mg/dL (7-20) Creatinine 1.2 mg/dL (0.6-1.0) 1.0 mg/dL (0.6-1.0) Estimated GFR (Cockcroft-Gault) 44.5 66.5 BUN/Creatinine Ratio 11 (6-20) 15 (6-20) Glucose Level 183 mg/dL (70-99) 140 mg/dL (70-99) Calcium Level 9.7 mg/dL (8.5-10.1) 8.8 mg/dL (8.5-10.1) Total Bilirubin 0.7 mg/dL (0.2-1.0) 0.4 mg/dL (0.2-1.0) Aspartate Amino Transf (AST/SGOT) 72 U/L (15-37) 49 U/L (15-37) Alanine Aminotransferase (ALT/SGPT) 58 U/L (14-59) 47 U/L (14-59) Alkaline Phosphatase 104 U/L (46-116) 86 U/L (46-116) Troponin I Quantitative < 0.017 ng/mL (0.000-0.055) 0.324 ng/mL (0.000-0.055) DP-Fca-O-Type Natriuretic Peptide 2022 pg/mL (0-124) Total Protein 7.8 g/dL (6.4-8.2) 6.4 g/dL (6.4-8.2) Albumin 3.8 g/dL (3.4-5.0) 3.3 g/dL (3.4-5.0) Albumin/Globulin Ratio 1.0 (1.0-1.7) 1.1 (1.0-1.7) O2 Saturation 96 % (92-99) Arterial Blood pH 7.25 (7.35-7.45) Arterial Blood pCO2 at Patient Temp 56 mmHg (35-46) Arterial Blood pO2 at Patient Temp 100 mmHg (65-108) Arterial Blood HCO3 24 mmol/L (21-28) Arterial Blood Base Excess -4 mmol/L (-3-3) FiO2 100.0 Test 04/11/18 07:55 Troponin I Quantitative 0.307 ng/mL (0.000-0.055) Thyroid Stimulating Hormone (TSH) 0.794 uIU/mL (0.358-3.74) Free Thyroxine 0.82 ng/dL (0.76-1.46) Laboratory Tests Test 04/10/18 21:19 04/10/18 21:35 04/11/18 03:30 04/11/18 04:50 White Blood Count 10.6 x10^3/uL (4.0-11.0) 6.3 x10^3/uL (4.0-11.0) Red Blood Count 4.38 x10^6/uL (3.50-5.40) 3.78 x10^6/uL (3.50-5.40) Hemoglobin 13.8 g/dL (12.0-15.5) 12.0 g/dL (12.0-15.5) Hematocrit 41.5 % (36.0-47.0) 34.8 % (36.0-47.0) Mean Corpuscular Volume 95 fL (79-100) 92 fL (79-100) Mean Corpuscular Hemoglobin 32 pg (25-35) 32 pg (25-35) Mean Corpuscular Hemoglobin Concent 33 g/dL (31-37) 35 g/dL (31-37) Red Cell Distribution Width 17.1 % (11.5-14.5) 17.3 % (11.5-14.5) Platelet Count 227 x10^3/uL (140-400) 185 x10^3/uL (140-400) Neutrophils (%) (Auto) 37 % (31-73) 68 % (31-73) Lymphocytes (%) (Auto) 49 % (24-48) 24 % (24-48) Monocytes (%) (Auto) 10 % (0-9) 7 % (0-9) Eosinophils (%) (Auto) 3 % (0-3) 1 % (0-3) Basophils (%) (Auto) 1 % (0-3) 0 % (0-3) Neutrophils # (Auto) 3.9 x10^3uL (1.8-7.7) 4.2 x10^3uL (1.8-7.7) Lymphocytes # (Auto) 5.2 x10^3/uL (1.0-4.8) 1.5 x10^3/uL (1.0-4.8) Monocytes # (Auto) 1.1 x10^3/uL (0.0-1.1) 0.5 x10^3/uL (0.0-1.1) Eosinophils # (Auto) 0.3 x10^3/uL (0.0-0.7) 0.1 x10^3/uL (0.0-0.7) Basophils # (Auto) 0.1 x10^3/uL (0.0-0.2) 0.0 x10^3/uL (0.0-0.2) D-Dimer (Nirmala) < 0.27 ug/mlFEU Sodium Level 147 mmol/L (136-145) 144 mmol/L (136-145) Potassium Level 2.9 mmol/L (3.5-5.1) 4.4 mmol/L (3.5-5.1) Chloride Level 105 mmol/L (98-107) 106 mmol/L (98-107) Carbon Dioxide Level 28 mmol/L (21-32) 30 mmol/L (21-32) Anion Gap 14 (6-14) 8 (6-14) Blood Urea Nitrogen 13 mg/dL (7-20) 15 mg/dL (7-20) Creatinine 1.2 mg/dL (0.6-1.0) 1.0 mg/dL (0.6-1.0) Estimated GFR (Cockcroft-Gault) 44.5 66.5 BUN/Creatinine Ratio 11 (6-20) 15 (6-20) Glucose Level 183 mg/dL (70-99) 140 mg/dL (70-99) Calcium Level 9.7 mg/dL (8.5-10.1) 8.8 mg/dL (8.5-10.1) Total Bilirubin 0.7 mg/dL (0.2-1.0) 0.4 mg/dL (0.2-1.0) Aspartate Amino Transf (AST/SGOT) 72 U/L (15-37) 49 U/L (15-37) Alanine Aminotransferase (ALT/SGPT) 58 U/L (14-59) 47 U/L (14-59) Alkaline Phosphatase 104 U/L (46-116) 86 U/L (46-116) Troponin I Quantitative < 0.017 ng/mL (0.000-0.055) 0.324 ng/mL (0.000-0.055) CT-Irk-V-Type Natriuretic Peptide 2022 pg/mL (0-124) Total Protein 7.8 g/dL (6.4-8.2) 6.4 g/dL (6.4-8.2) Albumin 3.8 g/dL (3.4-5.0) 3.3 g/dL (3.4-5.0) Albumin/Globulin Ratio 1.0 (1.0-1.7) 1.1 (1.0-1.7) O2 Saturation 96 % (92-99) Arterial Blood pH 7.25 (7.35-7.45) Arterial Blood pCO2 at Patient Temp 56 mmHg (35-46) Arterial Blood pO2 at Patient Temp 100 mmHg (65-108) Arterial Blood HCO3 24 mmol/L (21-28) Arterial Blood Base Excess -4 mmol/L (-3-3) FiO2 100.0 Test 04/11/18 07:55 Troponin I Quantitative 0.307 ng/mL (0.000-0.055) Thyroid Stimulating Hormone (TSH) 0.794 uIU/mL (0.358-3.74) Free Thyroxine 0.82 ng/dL (0.76-1.46) Images Images Chest x-ray with diffuse interstitial infiltrates. Assessment/Plan Assessment/Plan 1. Probable pneumonia. On antibiotics and pulmonary treatments. 2. Possible heart failure. We'll check an echocardiogram. We'll monitor lab. 3. Possible history of coronary disease and cardiac arrhythmias. Patient is somewhat a difficult historian regarding this but as noted above reports previous heart catheterizations but no interventions performed. Additionally she is on chronic anticoagulation for possible atrial arrhythmias. At this time will continue present medications and telemetry. Echocardiogram as above. We'll attempt to obtain further records from [facility]. 4. Hypertension. We'll continue present medications and monitor. 5. Hyperlipidemia. We'll check lab. 6. History of COPD. Continued tobacco abuse. Continue medical treatment. Patient counseled on discontinuing smoking. Thank you for allowing us to participate in the care of your patient. JOSH PINON MD Apr 11, 2018 13:17
[2018-04-11 15:13] VITALS: BP 131/50
[2018-04-11] MEDS: RIVAROXABAN 10 MG TABLET. PO SCH (17:52)
[2018-04-11 19:00] VITALS: BP 154/67
[2018-04-11] MEDS: cefTRIAXone IV Push 1 GM VIAL. IVP SCH (21:03)
[2018-04-11] MEDS: LACTOBACILLUS RHAMNOSUS GG 1 CAPSULE. PO SCH (21:03)
[2018-04-11] MEDS: OLANZapine 5 MG TABLET PO SCH (21:03)
[2018-04-11] MEDS: ATORVASTATIN CALCIUM 40 MG TABLET. PO SCH (21:04)
[2018-04-11 23:00] VITALS: BP 187/83
[2018-04-12 03:00] VITALS: BP 199/86
[2018-04-12 05:14] LABS: CHOLESTEROL/HDL RATIO 3.3
[2018-04-12 07:38] VITALS: BP 183/104
[2018-04-12] MEDS: IPRATRPIUM/ALBUTEROL 0.5/2.5MG 3 ML NEBU. NEB SCH ×4 (07:44→19:56)
[2018-04-12] MEDS: METOPROLOL SUCC 24HR ER 25 MG TAB.ER.24H. PO SCH (09:03)
[2018-04-12] MEDS: OMEGA-3 FATTY ACIDS/FISH OIL 1,000 MG CAPSULE. PO SCH (09:03)
[2018-04-12] MEDS: CITALOPRAM 20 MG TABLET. PO SCH (09:04)
[2018-04-12] MEDS: amLODIPine BESYLATE 5 MG TABLET PO SCH (09:04)
[2018-04-12] MEDS: LISINOPRIL 20 MG TABLET PO SCH (09:05)
[2018-04-12] MEDS: LACTOBACILLUS RHAMNOSUS GG 1 CAPSULE. PO SCH ×2 (09:05→21:14)
[2018-04-12] MEDS: PANTOPRAZOLE 40 MG TABLET.DR. PO SCH (09:05)
[2018-04-12] MEDS: FOLIC ACID 1 MG TABLET. PO SCH (09:05)
[2018-04-12] MEDS: NICOTINE 14MG PATCH. TD SCH (09:06)
--- NOTE | 2018-04-12 10:02 | PDOC ---
PROGRESS NOTES Subjective Subjective Patient reports some cough and TRIVEDI persist. Denies CP or palpitations. Objective Objective Vital Signs Date Time Temp Pulse Resp B/P (MAP) Pulse Ox O2 Delivery O2 Flow Rate FiO2 04/12/18 09:05 130 183/104 04/12/18 07:44 95 Room Air 04/12/18 07:38 98.2 21 98.2 04/11/18 15:45 3.0 Intake and Output 04/12/18 07:00 Intake Total 1440 ml Balance 1440 ml Intake Oral 1440 ml # Voids 4 Physical Exam Abdomen: Normal bowel sounds, Soft, No tenderness Heart: Regular rate (frequent prematurities), Other (II/ systolic murmur) Extremities: No edema General: Alert, Oriented X3, No acute distress Lungs: Other (BS decreased throughout, no crackles or wheezes heard) Assessment Assessment Problems Medical Problems: (1) RLL pneumonia Status: Acute Plan Plan of Care 1. Possible pneumonia with COPD - CT chest showed atelectasis vs infiltrate bilateral lower lobes. Patient's symptoms are improving, continue O2, nebs and abx. 2. arrhythmias with possible CHF - frequent PVC's on telemetry. Vital sign report on chart shows HR of 130 this AM but telemetry does not show this and may be an error. Continue B pavel. Has been seen by Cardiology, Echo report pending. 3. glucose intolerance - A1C ordered yesterday but not back yet. Continue ADA diet. 4. HTN - BP elevated with home meds, will increase Lisinopril and Amlodipine and follow. 5. hx of psychiatric illness - stable, continue home meds. Comment Review of Relevant I have reviewed the following items amna (where applicable) has been applied. Labs Laboratory Tests Test 04/10/18 21:19 04/10/18 21:35 04/11/18 03:30 04/11/18 04:50 White Blood Count 10.6 x10^3/uL (4.0-11.0) 6.3 x10^3/uL (4.0-11.0) Red Blood Count 4.38 x10^6/uL (3.50-5.40) 3.78 x10^6/uL (3.50-5.40) Hemoglobin 13.8 g/dL (12.0-15.5) 12.0 g/dL (12.0-15.5) Hematocrit 41.5 % (36.0-47.0) 34.8 % (36.0-47.0) Mean Corpuscular Volume 95 fL (79-100) 92 fL (79-100) Mean Corpuscular Hemoglobin 32 pg (25-35) 32 pg (25-35) Mean Corpuscular Hemoglobin Concent 33 g/dL (31-37) 35 g/dL (31-37) Red Cell Distribution Width 17.1 % (11.5-14.5) 17.3 % (11.5-14.5) Platelet Count 227 x10^3/uL (140-400) 185 x10^3/uL (140-400) Neutrophils (%) (Auto) 37 % (31-73) 68 % (31-73) Lymphocytes (%) (Auto) 49 % (24-48) 24 % (24-48) Monocytes (%) (Auto) 10 % (0-9) 7 % (0-9) Eosinophils (%) (Auto) 3 % (0-3) 1 % (0-3) Basophils (%) (Auto) 1 % (0-3) 0 % (0-3) Neutrophils # (Auto) 3.9 x10^3uL (1.8-7.7) 4.2 x10^3uL (1.8-7.7) Lymphocytes # (Auto) 5.2 x10^3/uL (1.0-4.8) 1.5 x10^3/uL (1.0-4.8) Monocytes # (Auto) 1.1 x10^3/uL (0.0-1.1) 0.5 x10^3/uL (0.0-1.1) Eosinophils # (Auto) 0.3 x10^3/uL (0.0-0.7) 0.1 x10^3/uL (0.0-0.7) Basophils # (Auto) 0.1 x10^3/uL (0.0-0.2) 0.0 x10^3/uL (0.0-0.2) D-Dimer (Nirmala) < 0.27 ug/mlFEU Sodium Level 147 mmol/L (136-145) 144 mmol/L (136-145) Potassium Level 2.9 mmol/L (3.5-5.1) 4.4 mmol/L (3.5-5.1) Chloride Level 105 mmol/L (98-107) 106 mmol/L (98-107) Carbon Dioxide Level 28 mmol/L (21-32) 30 mmol/L (21-32) Anion Gap 14 (6-14) 8 (6-14) Blood Urea Nitrogen 13 mg/dL (7-20) 15 mg/dL (7-20) Creatinine 1.2 mg/dL (0.6-1.0) 1.0 mg/dL (0.6-1.0) Estimated GFR (Cockcroft-Gault) 44.5 66.5 BUN/Creatinine Ratio 11 (6-20) 15 (6-20) Glucose Level 183 mg/dL (70-99) 140 mg/dL (70-99) Calcium Level 9.7 mg/dL (8.5-10.1) 8.8 mg/dL (8.5-10.1) Total Bilirubin 0.7 mg/dL (0.2-1.0) 0.4 mg/dL (0.2-1.0) Aspartate Amino Transf (AST/SGOT) 72 U/L (15-37) 49 U/L (15-37) Alanine Aminotransferase (ALT/SGPT) 58 U/L (14-59) 47 U/L (14-59) Alkaline Phosphatase 104 U/L (46-116) 86 U/L (46-116) Troponin I Quantitative < 0.017 ng/mL (0.000-0.055) 0.324 ng/mL (0.000-0.055) UO-Nse-C-Type Natriuretic Peptide 2022 pg/mL (0-124) Total Protein 7.8 g/dL (6.4-8.2) 6.4 g/dL (6.4-8.2) Albumin 3.8 g/dL (3.4-5.0) 3.3 g/dL (3.4-5.0) Albumin/Globulin Ratio 1.0 (1.0-1.7) 1.1 (1.0-1.7) O2 Saturation 96 % (92-99) Arterial Blood pH 7.25 (7.35-7.45) Arterial Blood pCO2 at Patient Temp 56 mmHg (35-46) Arterial Blood pO2 at Patient Temp 100 mmHg (65-108) Arterial Blood HCO3 24 mmol/L (21-28) Arterial Blood Base Excess -4 mmol/L (-3-3) FiO2 100.0 Test 04/11/18 07:55 04/12/18 04:30 Troponin I Quantitative 0.307 ng/mL (0.000-0.055) Thyroid Stimulating Hormone (TSH) 0.794 uIU/mL (0.358-3.74) Free Thyroxine 0.82 ng/dL (0.76-1.46) Triglycerides Level 80 mg/dL (0-150) Cholesterol Level 170 mg/dL (0-200) LDL Cholesterol, Calculated 103 mg/dL (0-100) VLDL Cholesterol, Calculated 16 mg/dL (0-40) Non-HDL Cholesterol Calculated 119 mg/dL (0-129) HDL Cholesterol 51 mg/dL (40-60) Cholesterol/HDL Ratio 3.3 Laboratory Tests Test 04/12/18 04:30 Triglycerides Level 80 mg/dL (0-150) Cholesterol Level 170 mg/dL (0-200) LDL Cholesterol, Calculated 103 mg/dL (0-100) VLDL Cholesterol, Calculated 16 mg/dL (0-40) Non-HDL Cholesterol Calculated 119 mg/dL (0-129) HDL Cholesterol 51 mg/dL (40-60) Cholesterol/HDL Ratio 3.3 Microbiology 04/10/18 Blood Culture - Preliminary, Resulted NO GROWTH AFTER 1 DAY Medications Current Medications Albuterol/ Ipratropium (Duoneb) 3 ml 1X ONCE NEB Last administered on at 21:24; Start 04/10/18 at 21:15; Stop 04/10/18 at 21:27; Status DC Albuterol Sulfate (Ventolin Neb Soln) 5 mg 1X ONCE CONT NEB Last administered on 04/10/18at 21:30; Start 04/10/18 at 21:30; Stop 04/10/18 at 21:31; Status DC Lorazepam (Ativan) 1 mg 1X ONCE IV ; Start 04/10/18 at 21:15; Stop 04/10/18 at 21:35; Status DC Ondansetron HCl (Zofran) 4 mg STK-MED ONCE .ROUTE ; Start 04/10/18 at 21:19; Stop 04/10/18 at 21:20; Status DC Morphine Sulfate (Morphine Sulfate) 4 mg 1X ONCE IV Last administered on at 21:23; Start 04/10/18 at 21:30; Stop 04/10/18 at 21:31; Status DC Ondansetron HCl (Zofran) 4 mg 1X ONCE IV Last administered on 04/10/18at 21:23 ; Start 04/10/18 at 21:30; Stop 04/10/18 at 21:31; Status DC Morphine Sulfate (Morphine Sulfate) 4 mg STK-MED ONCE .ROUTE ; Start 04/10/18 at 21:20; Stop 04/10/18 at 21:21; Status DC Lorazepam (Ativan) 2 mg 1X ONCE IV Last administered on 04/10/18at 22:00; Start 04/10/18 at 22:00; Stop 04/10/18 at 22:01; Status DC Potassium Chloride (Klor-Con) 40 meq 1X ONCE PO Last administered on at 00:16; Start 04/10/18 at 22:15; Stop 04/10/18 at 22:16; Status DC Furosemide (Lasix) 40 mg 1X ONCE IVP Last administered on 04/10/18at 22:22; Start 04/10/18 at 22:15; Stop 04/10/18 at 22:16; Status DC Ceftriaxone Sodium 50 ml @ 100 mls/hr 1X ONCE IV Last administered on at 23:48; Start 04/10/18 at 23:00; Stop 04/10/18 at 23:29; Status DC Azithromycin (Zithromax) 500 mg 1X ONCE PO Last administered on 04/11/18at 00: 17; Start 04/10/18 at 23:00; Stop 04/10/18 at 23:01; Status DC Ondansetron HCl (Zofran) 4 mg PRN Q8HRS PRN IV NAUSEA/VOMITING 1ST CHOICE; Start 04/11/18 at 00:00; Stop 04/11/18 at 23:59; Status DC Acetaminophen (Tylenol) 650 mg PRN Q4HRS PRN PO FEVER; Start 04/11/18 at 00:00 ; Stop 04/11/18 at 23:59; Status DC Albuterol/ Ipratropium (Duoneb) 3 ml RTQID NEB Last administered on 04/12/18at 07:44; Start 04/11/18 at 08:00; Stop 04/12/18 at 07:59; Status DC Olanzapine (ZyPREXA) 15 mg QHS PO Last administered on 04/11/18at 21:03; Start 04/11/18 at 21:00 Temazepam (Restoril) 15 mg PRN QHS PRN PO INSOMNIA; Start 04/11/18 at 09:30 Amlodipine Besylate (Norvasc) 5 mg DAILY PO Last administered on 04/12/18at 09: 04; Start 04/11/18 at 11:00 Atorvastatin Calcium (Lipitor) 40 mg QHS PO Last administered on 04/11/18at 21: 04; Start 04/11/18 at 21:00 Folic Acid (Folic Acid) 1 mg DAILY PO Last administered on 04/12/18at 09:05; Start 04/11/18 at 11:00 Lisinopril (Prinivil) 20 mg DAILY PO Last administered on 04/12/18at 09:05; Start 04/11/18 at 11:00 Metoprolol Succinate (Toprol Xl) 25 mg DAILY PO Last administered on at 09:03; Start 04/11/18 at 11:00 Citalopram Hydrobromide (CeleXA) 20 mg DAILY PO Last administered on at 09:04; Start 04/11/18 at 11:00 Pantoprazole Sodium (Protonix) 40 mg DAILYAC PO Last administered on at 09:05; Start 04/11/18 at 11:00 Fish Oil (Fish Oil) 1,000 mg DAILY PO Last administered on 04/12/18at 09:03; Start 04/11/18 at 11:00 Rivaroxaban (Xarelto) 20 mg DAILYWSUP PO Last administered on 04/11/18at 17:52 ; Start 04/11/18 at 17:00 Nicotine (Nicoderm Cq 14mg) 1 patch DAILY TD Last administered on 04/12/18at 09 :06; Start 04/11/18 at 11:00 Info (Anti-Coagulation Monitoring By Pharmacy) 1 each PRN DAILY PRN MC SEE COMMENTS; Start 04/11/18 at 10:15 Ceftriaxone Sodium 1 gm/ Dextrose 50 ml @ 100 mls/hr Q24H IV ; Start 04/11/18 at 22:00; Status UNV Azithromycin (Zithromax) 250 mg QHS PO ; Start 04/12/18 at 21:00 Ceftriaxone Sodium (Rocephin) 1 gm Q24H IVP Last administered on 04/11/18at 21: 03; Start 04/11/18 at 21:00 Lactobacillus Rhamnosus (Culturelle) 1 cap BID PO Last administered on at 09:05; Start 04/11/18 at 21:00 Iohexol (Omnipaque 300 Mg/ml) 75 ml 1X ONCE IV Last administered on at 12:00; Start 04/11/18 at 12:00; Stop 04/11/18 at 12:01; Status DC Info (CONTRAST GIVEN -- Rx MONITORING) 1 each PRN DAILY PRN MC SEE COMMENTS; Start 04/11/18 at 12:15; Stop 04/13/18 at 12:14 Active Scripts Active Temazepam 15 Mg Capsule 1 Cap PO QHS Olanzapine 10 Mg Tablet 1.5 Tab PO QHS Reported Escitalopram Oxalate 10 Mg Tablet 10 Mg PO DAILY Atorvastatin Calcium 40 Mg Tablet 40 Mg PO DAILY Vitamin D2 (Ergocalciferol (Vitamin D2)) 50,000 Unit Capsule 50,000 Unit PO ONCE A WEEK Xarelto (Rivaroxaban) 20 Mg Tablet 20 Mg PO DAILY Lisinopril 20 Mg Tablet 20 Mg PO DAILY Metoprolol Succinate ( Xl ) (Metoprolol Succinate) 25 Mg Tab.er.24h 25 Mg PO DAILY Lansoprazole 30 Mg Capsule.dr 30 Mg PO DAILY [place] 3 Fish Oil Softgel ([place]-3 Fatty Acids/Fish Oil) 1 Each Capsule.dr 1 Each PO DAILY Folic Acid 1 Mg Tablet 1 Tab PO DAILY Flax Oil (Flaxseed Oil) 1,000 Mg Capsule 1,000 Mg PO Amlodipine Besylate 5 Mg Tablet 5 Mg PO DAILY Vitals/I & O Vital Sign - Last 24 Hours 04/11/18 04/11/18 04/11/18 04/11/18 11:42 11:45 11:46 11:47 Temp 98.3 98.3 Pulse 85 85 85 Resp 19 B/P (MAP) 155/50 (85) 155/50 155/50 Pulse Ox 100 O2 Delivery Nasal Cannula Nasal Cannula O2 Flow Rate 3.0 3.0 04/11/18 04/11/18 04/11/18 04/11/18 11:47 15:13 15:45 19:00 Temp 98.6 98.3 98.6 98.3 Pulse 85 80 Resp 19 20 B/P (MAP) 155/50 131/50 (77) 154/67 (96) Pulse Ox 99 94 O2 Delivery Nasal Cannula Nasal Cannula Room Air O2 Flow Rate 3.0 3.0 04/11/18 04/11/18 04/11/18 04/12/18 19:48 20:00 23:00 03:00 Temp 97.6 98.0 97.6 98.0 Pulse 58 63 Resp 20 20 B/P (MAP) 187/83 (117) 199/86 (123) Pulse Ox 99 93 95 O2 Delivery Room Air Room Air Room Air Room Air 04/12/18 04/12/18 04/12/18 04/12/18 07:38 07:44 09:03 09:04 Temp 98.2 98.2 Pulse 130 130 130 Resp 21 B/P (MAP) 183/104 (130) 183/104 183/104 Pulse Ox 95 95 O2 Delivery Room Air Room Air 04/12/18 09:05 Pulse 130 B/P (MAP) 183/104 Intake and Output 04/11/18 04/11/18 04/12/18 15:00 23:00 07:00 Intake Total 360 ml 540 ml 540 ml Balance 360 ml 540 ml 540 ml FERNANDO NEELY MD Apr 12, 2018 10:02
[2018-04-12] MEDS ORDERED: amLODIPine BESYLATE 5 MG TABLET PO ONE (10:30)
[2018-04-12] MEDS ORDERED: LISINOPRIL 10 MG TABLET PO ONE (10:30)
--- NOTE | 2018-04-12 11:04 | CARD ---
MR#: [id number] Date of Study: 04/12/2018 Ordering Physician: JOSH JAY, Referring Physician: FERNANDO NEELY Tech: Paulina Block MAGALIE APPROVED REPORT EXAM: Two-dimensional and M-mode echocardiogram with Doppler and color Doppler. Other Information Quality : GoodHR: 67bpm Rhythm : PVC's INDICATION Dyspnea 2D DIMENSIONS Left Atrium(2D)4.4 (1.6-4.0cm)IVSd1.4 (0.7-1.1cm) Aortic Root(2D)2.3 (2.0-3.7cm)LVDd5.0 (3.9-5.9cm) LVOT Diameter2.1 (1.8-2.4cm)PWd1.4 (0.7-1.1cm) LA Rvwjfq93 (18-58mL)LVDs3.1 (2.5-4.0cm) FS (%) 38.8 %SV81.8 ml CO7.0 L/min M-Mode DIMENSIONS Aortic Cusp Exc1.65 (1.5-2.0cm) Aortic Valve AoV Peak Socrates.228.8cm/sAoV VTI36.6cm AO Peak GR.20.9mmHgLVOT VTI 23.22cm AO Mean GR.8mmHg Mitral Valve MV E Mnhocjxz216.2cm/sMV DECEL [id number] MV A Uwospgmy599.5cm/sE/A Ratio0.9 MV A [id number] TDI Lateral E' P. V5.02cm/sMedial E' P. V7.66cm/s E/Lateral E'20.6E/Medial E'13.5 Pulmonary Valve PV Peak Ttssmtyg212.7cm/s Tricuspid Valve TR P. Zpnmzoju092ez/sTR Peak Gr.32mmHg Pulmonary Vein S1 Hndeeiqh51.9cm/sS2 Sxcthwds58.76cm/s D2 Peuveboi90.8cm/s LEFT VENTRICLE The left ventricle is normal size. There is mild left ventricular hypertrophy with mild to moderate s eptal hypertrophy. The left ventricular systolic function is normal and the ejection fraction is with in normal range. Left ventricular ejection fraction is 55-60%. There is normal LV segmental wall bernardino on. Transmitral Doppler flow pattern is Grade I-abnormal relaxation pattern. No left ventricle thromb us noted on this study. There is no ventricular septal defect visualized. There is no left ventricula r aneurysm. There is no mass noted in the left ventricle. RIGHT VENTRICLE The right ventricle is normal size. There is normal right ventricular wall thickness. The right ventr icular systolic function is normal. ATRIA The left atrium is mildly dilated. The right atrium size is normal. The interatrial septum is intact with no evidence for an atrial septal defect or patent foramen ovale as noted on 2-D or Doppler imagi ng. AORTIC VALVE The aortic valve is normal in structure and function. Doppler and Color Flow revealed no significant aortic regurgitation. There is no significant aortic valvular stenosis. There is no aortic valvular v egetation. MITRAL VALVE The mitral valve is normal in structure and function. There is no evidence of mitral valve prolapse. There is no mitral valve stenosis. Doppler and Color-flow revealed mild mitral regurgitation. TRICUSPID VALVE The tricuspid valve is normal in structure and function. Doppler and Color Flow revealed trace tricus pid regurgitation. There is no tricuspid valve prolapse or vegetation. There is no tricuspid valve st enosis. PULMONIC VALVE The pulmonary valve is normal in structure and function. Doppler and Color Flow revealed mild pulmoni c valvular regurgitation. There is no pulmonic valvular stenosis. GREAT VESSELS The aortic root is normal in size. Normal pulmonary venous flow (Doppler). The IVC is normal in size and collapses >50% with inspiration. PERICARDIAL EFFUSION There is no pleural effusion. There is no evidence of significant pericardial effusion. Critical Notification Critical Value: No <Conclusion> The left ventricle is normal size. The left ventricular systolic function is normal and the ejection fraction is within normal range. Left ventricular ejection fraction is 55-60%. There is mild left ventricular hypertrophy with mild to moderate septal hypertrophy. There is no significant aortic valvular stenosis. Doppler and Color Flow revealed no significant aortic regurgitation. Doppler and Color-flow revealed mild mitral regurgitation. Doppler and Color Flow revealed trace tricuspid regurgitation. Signed by : Josh Jay MD Electronically Approved : 04/12/2018 11:02:26
[2018-04-12 11:34] VITALS: BP 208/78
--- NOTE | 2018-04-12 11:50 | PDOC ---
PROGRESS NOTES Subjective Subjective Patient seen and examined She feels mildly better today. No chest discomfort. Objective Objective Vital Signs Date Time Temp Pulse Resp B/P (MAP) Pulse Ox O2 Delivery O2 Flow Rate FiO2 04/12/18 11:39 Nasal Cannula 2.0 04/12/18 11:34 97.5 94 20 208/78 (121) 93 97.5 Intake and Output 04/12/18 07:00 Intake Total 1440 ml Balance 1440 ml Intake Oral 1440 ml # Voids 4 Physical Exam Abdomen: Normal bowel sounds Heart: Regular rate General: mild distress Lungs: Other (decreased breath sounds) Assessment Assessment Problems Medical Problems: (1) RLL pneumonia Status: Acute 1. Probable pneumonia. On antibiotics and pulmonary treatments. 2. Possible heart failure. Echocardiogram today shows normal left ventricular systolic function with mild mitral regurgitation. Continuing present treatment. 3. Possible history of coronary disease and cardiac arrhythmias. Patient is a difficult historian regarding this but as noted above reports previous heart catheterizations but no interventions performed. Additionally she is on chronic anticoagulation for possible atrial arrhythmias. Rhythm has been stable. Troponin is mildly elevated at 0.307 and 0.324 consistent with demand ischemia. Normal LV systolic function on echocardiogram. Awaiting records from [facility]. Continuing medical treatment. Possible outpatient stress testing. 4. Hypertension. The patient's BP remains elevated. Medications increased as per the primary service. 5. Hyperlipidemia. 6. History of COPD. Continued tobacco abuse. Continue medical treatment. Patient counseled on discontinuing smoking. Comment Review of Relevant I have reviewed the following items amna (where applicable) has been applied. Labs Laboratory Tests Test 04/10/18 21:19 04/10/18 21:35 04/11/18 03:30 04/11/18 04:50 White Blood Count 10.6 x10^3/uL (4.0-11.0) 6.3 x10^3/uL (4.0-11.0) Red Blood Count 4.38 x10^6/uL (3.50-5.40) 3.78 x10^6/uL (3.50-5.40) Hemoglobin 13.8 g/dL (12.0-15.5) 12.0 g/dL (12.0-15.5) Hematocrit 41.5 % (36.0-47.0) 34.8 % (36.0-47.0) Mean Corpuscular Volume 95 fL (79-100) 92 fL (79-100) Mean Corpuscular Hemoglobin 32 pg (25-35) 32 pg (25-35) Mean Corpuscular Hemoglobin Concent 33 g/dL (31-37) 35 g/dL (31-37) Red Cell Distribution Width 17.1 % (11.5-14.5) 17.3 % (11.5-14.5) Platelet Count 227 x10^3/uL (140-400) 185 x10^3/uL (140-400) Neutrophils (%) (Auto) 37 % (31-73) 68 % (31-73) Lymphocytes (%) (Auto) 49 % (24-48) 24 % (24-48) Monocytes (%) (Auto) 10 % (0-9) 7 % (0-9) Eosinophils (%) (Auto) 3 % (0-3) 1 % (0-3) Basophils (%) (Auto) 1 % (0-3) 0 % (0-3) Neutrophils # (Auto) 3.9 x10^3uL (1.8-7.7) 4.2 x10^3uL (1.8-7.7) Lymphocytes # (Auto) 5.2 x10^3/uL (1.0-4.8) 1.5 x10^3/uL (1.0-4.8) Monocytes # (Auto) 1.1 x10^3/uL (0.0-1.1) 0.5 x10^3/uL (0.0-1.1) Eosinophils # (Auto) 0.3 x10^3/uL (0.0-0.7) 0.1 x10^3/uL (0.0-0.7) Basophils # (Auto) 0.1 x10^3/uL (0.0-0.2) 0.0 x10^3/uL (0.0-0.2) D-Dimer (Nirmala) < 0.27 ug/mlFEU Sodium Level 147 mmol/L (136-145) 144 mmol/L (136-145) Potassium Level 2.9 mmol/L (3.5-5.1) 4.4 mmol/L (3.5-5.1) Chloride Level 105 mmol/L (98-107) 106 mmol/L (98-107) Carbon Dioxide Level 28 mmol/L (21-32) 30 mmol/L (21-32) Anion Gap 14 (6-14) 8 (6-14) Blood Urea Nitrogen 13 mg/dL (7-20) 15 mg/dL (7-20) Creatinine 1.2 mg/dL (0.6-1.0) 1.0 mg/dL (0.6-1.0) Estimated GFR (Cockcroft-Gault) 44.5 66.5 BUN/Creatinine Ratio 11 (6-20) 15 (6-20) Glucose Level 183 mg/dL (70-99) 140 mg/dL (70-99) Calcium Level 9.7 mg/dL (8.5-10.1) 8.8 mg/dL (8.5-10.1) Total Bilirubin 0.7 mg/dL (0.2-1.0) 0.4 mg/dL (0.2-1.0) Aspartate Amino Transf (AST/SGOT) 72 U/L (15-37) 49 U/L (15-37) Alanine Aminotransferase (ALT/SGPT) 58 U/L (14-59) 47 U/L (14-59) Alkaline Phosphatase 104 U/L (46-116) 86 U/L (46-116) Troponin I Quantitative < 0.017 ng/mL (0.000-0.055) 0.324 ng/mL (0.000-0.055) WF-Xwa-X-Type Natriuretic Peptide 2022 pg/mL (0-124) Total Protein 7.8 g/dL (6.4-8.2) 6.4 g/dL (6.4-8.2) Albumin 3.8 g/dL (3.4-5.0) 3.3 g/dL (3.4-5.0) Albumin/Globulin Ratio 1.0 (1.0-1.7) 1.1 (1.0-1.7) O2 Saturation 96 % (92-99) Arterial Blood pH 7.25 (7.35-7.45) Arterial Blood pCO2 at Patient Temp 56 mmHg (35-46) Arterial Blood pO2 at Patient Temp 100 mmHg (65-108) Arterial Blood HCO3 24 mmol/L (21-28) Arterial Blood Base Excess -4 mmol/L (-3-3) FiO2 100.0 Test 04/11/18 07:55 04/12/18 04:30 Troponin I Quantitative 0.307 ng/mL (0.000-0.055) Thyroid Stimulating Hormone (TSH) 0.794 uIU/mL (0.358-3.74) Free Thyroxine 0.82 ng/dL (0.76-1.46) Triglycerides Level 80 mg/dL (0-150) Cholesterol Level 170 mg/dL (0-200) LDL Cholesterol, Calculated 103 mg/dL (0-100) VLDL Cholesterol, Calculated 16 mg/dL (0-40) Non-HDL Cholesterol Calculated 119 mg/dL (0-129) HDL Cholesterol 51 mg/dL (40-60) Cholesterol/HDL Ratio 3.3 Laboratory Tests Test 04/12/18 04:30 Triglycerides Level 80 mg/dL (0-150) Cholesterol Level 170 mg/dL (0-200) LDL Cholesterol, Calculated 103 mg/dL (0-100) VLDL Cholesterol, Calculated 16 mg/dL (0-40) Non-HDL Cholesterol Calculated 119 mg/dL (0-129) HDL Cholesterol 51 mg/dL (40-60) Cholesterol/HDL Ratio 3.3 Microbiology 04/10/18 Blood Culture - Preliminary, Resulted NO GROWTH AFTER 1 DAY Medications Current Medications Albuterol/ Ipratropium (Duoneb) 3 ml 1X ONCE NEB Last administered on at 21:24; Start 04/10/18 at 21:15; Stop 04/10/18 at 21:27; Status DC Albuterol Sulfate (Ventolin Neb Soln) 5 mg 1X ONCE CONT NEB Last administered on 04/10/18at 21:30; Start 04/10/18 at 21:30; Stop 04/10/18 at 21:31; Status DC Lorazepam (Ativan) 1 mg 1X ONCE IV ; Start 04/10/18 at 21:15; Stop 04/10/18 at 21:35; Status DC Ondansetron HCl (Zofran) 4 mg STK-MED ONCE .ROUTE ; Start 04/10/18 at 21:19; Stop 04/10/18 at 21:20; Status DC Morphine Sulfate (Morphine Sulfate) 4 mg 1X ONCE IV Last administered on at 21:23; Start 04/10/18 at 21:30; Stop 04/10/18 at 21:31; Status DC Ondansetron HCl (Zofran) 4 mg 1X ONCE IV Last administered on 04/10/18at 21:23 ; Start 04/10/18 at 21:30; Stop 04/10/18 at 21:31; Status DC Morphine Sulfate (Morphine Sulfate) 4 mg STK-MED ONCE .ROUTE ; Start 04/10/18 at 21:20; Stop 04/10/18 at 21:21; Status DC Lorazepam (Ativan) 2 mg 1X ONCE IV Last administered on 04/10/18at 22:00; Start 04/10/18 at 22:00; Stop 04/10/18 at 22:01; Status DC Potassium Chloride (Klor-Con) 40 meq 1X ONCE PO Last administered on at 00:16; Start 04/10/18 at 22:15; Stop 04/10/18 at 22:16; Status DC Furosemide (Lasix) 40 mg 1X ONCE IVP Last administered on 04/10/18at 22:22; Start 04/10/18 at 22:15; Stop 04/10/18 at 22:16; Status DC Ceftriaxone Sodium 50 ml @ 100 mls/hr 1X ONCE IV Last administered on at 23:48; Start 04/10/18 at 23:00; Stop 04/10/18 at 23:29; Status DC Azithromycin (Zithromax) 500 mg 1X ONCE PO Last administered on 04/11/18at 00: 17; Start 04/10/18 at 23:00; Stop 04/10/18 at 23:01; Status DC Ondansetron HCl (Zofran) 4 mg PRN Q8HRS PRN IV NAUSEA/VOMITING 1ST CHOICE; Start 04/11/18 at 00:00; Stop 04/11/18 at 23:59; Status DC Acetaminophen (Tylenol) 650 mg PRN Q4HRS PRN PO FEVER; Start 04/11/18 at 00:00 ; Stop 04/11/18 at 23:59; Status DC Albuterol/ Ipratropium (Duoneb) 3 ml RTQID NEB Last administered on 04/12/18at 11:39; Start 04/11/18 at 08:00; Stop 04/12/18 at 07:59; Status DC Olanzapine (ZyPREXA) 15 mg QHS PO Last administered on 04/11/18at 21:03; Start 04/11/18 at 21:00 Temazepam (Restoril) 15 mg PRN QHS PRN PO INSOMNIA; Start 04/11/18 at 09:30 Amlodipine Besylate (Norvasc) 5 mg DAILY PO Last administered on 04/12/18at 09: 04; Start 04/11/18 at 11:00; Stop 04/12/18 at 09:53; Status DC Atorvastatin Calcium (Lipitor) 40 mg QHS PO Last administered on 04/11/18at 21: 04; Start 04/11/18 at 21:00 Folic Acid (Folic Acid) 1 mg DAILY PO Last administered on 04/12/18at 09:05; Start 04/11/18 at 11:00 Lisinopril (Prinivil) 20 mg DAILY PO Last administered on 04/12/18at 09:05; Start 04/11/18 at 11:00; Stop 04/12/18 at 09:53; Status DC Metoprolol Succinate (Toprol Xl) 25 mg DAILY PO Last administered on at 09:03; Start 04/11/18 at 11:00 Citalopram Hydrobromide (CeleXA) 20 mg DAILY PO Last administered on at 09:04; Start 04/11/18 at 11:00 Pantoprazole Sodium (Protonix) 40 mg DAILYAC PO Last administered on at 09:05; Start 04/11/18 at 11:00 Fish Oil (Fish Oil) 1,000 mg DAILY PO Last administered on 04/12/18at 09:03; Start 04/11/18 at 11:00 Rivaroxaban (Xarelto) 20 mg DAILYWSUP PO Last administered on 04/11/18at 17:52 ; Start 04/11/18 at 17:00 Nicotine (Nicoderm Cq 14mg) 1 patch DAILY TD Last administered on 04/12/18at 09 :06; Start 04/11/18 at 11:00 Info (Anti-Coagulation Monitoring By Pharmacy) 1 each PRN DAILY PRN MC SEE COMMENTS; Start 04/11/18 at 10:15 Ceftriaxone Sodium 1 gm/ Dextrose 50 ml @ 100 mls/hr Q24H IV ; Start 04/11/18 at 22:00; Status UNV Azithromycin (Zithromax) 250 mg QHS PO ; Start 04/12/18 at 21:00 Ceftriaxone Sodium (Rocephin) 1 gm Q24H IVP Last administered on 04/11/18at 21: 03; Start 04/11/18 at 21:00 Lactobacillus Rhamnosus (Culturelle) 1 cap BID PO Last administered on at 09:05; Start 04/11/18 at 21:00 Iohexol (Omnipaque 300 Mg/ml) 75 ml 1X ONCE IV Last administered on at 12:00; Start 04/11/18 at 12:00; Stop 04/11/18 at 12:01; Status DC Info (CONTRAST GIVEN -- Rx MONITORING) 1 each PRN DAILY PRN MC SEE COMMENTS; Start 04/11/18 at 12:15; Stop 04/13/18 at 12:14 Amlodipine Besylate (Norvasc) 10 mg DAILY PO ; Start 04/13/18 at 09:00 Amlodipine Besylate (Norvasc) 5 mg 1X ONCE PO Last administered on 04/12/18at 10:48; Start 04/12/18 at 10:30; Stop 04/12/18 at 10:31; Status DC Lisinopril (Prinivil) 40 mg DAILY PO ; Start 04/13/18 at 09:00 Lisinopril (Prinivil) 20 mg 1X ONCE PO Last administered on 04/12/18at 10:47; Start 04/12/18 at 10:30; Stop 04/12/18 at 10:31; Status DC Active Scripts Active Temazepam 15 Mg Capsule 1 Cap PO QHS Olanzapine 10 Mg Tablet 1.5 Tab PO QHS Reported Escitalopram Oxalate 10 Mg Tablet 10 Mg PO DAILY Atorvastatin Calcium 40 Mg Tablet 40 Mg PO DAILY Vitamin D2 (Ergocalciferol (Vitamin D2)) 50,000 Unit Capsule 50,000 Unit PO ONCE A WEEK Xarelto (Rivaroxaban) 20 Mg Tablet 20 Mg PO DAILY Lisinopril 20 Mg Tablet 20 Mg PO DAILY Metoprolol Succinate ( Xl ) (Metoprolol Succinate) 25 Mg Tab.er.24h 25 Mg PO DAILY Lansoprazole 30 Mg Capsule.dr 30 Mg PO DAILY [place] 3 Fish Oil Softgel ([place]-3 Fatty Acids/Fish Oil) 1 Each Capsule.dr 1 Each PO DAILY Folic Acid 1 Mg Tablet 1 Tab PO DAILY Flax Oil (Flaxseed Oil) 1,000 Mg Capsule 1,000 Mg PO Amlodipine Besylate 5 Mg Tablet 5 Mg PO DAILY Vitals/I & O Vital Sign - Last 24 Hours 04/11/18 04/11/18 04/11/18 04/11/18 11:45 11:46 11:47 11:47 Pulse 85 85 85 B/P (MAP) 155/50 155/50 155/50 O2 Delivery Nasal Cannula O2 Flow Rate 3.0 04/11/18 04/11/18 04/11/18 04/11/18 15:13 15:45 19:00 19:48 Temp 98.6 98.3 98.6 98.3 Pulse 80 Resp 19 20 B/P (MAP) 131/50 (77) 154/67 (96) Pulse Ox 99 94 99 O2 Delivery Nasal Cannula Nasal Cannula Room Air Room Air O2 Flow Rate 3.0 3.0 04/11/18 04/11/18 04/12/18 04/12/18 20:00 23:00 03:00 07:38 Temp 97.6 98.0 98.2 97.6 98.0 98.2 Pulse 58 63 130 Resp 20 20 21 B/P (MAP) 187/83 (117) 199/86 (123) 183/104 (130) Pulse Ox 93 95 95 O2 Delivery Room Air Room Air Room Air Room Air 04/12/18 04/12/18 04/12/18 04/12/18 07:44 09:03 09:04 09:05 Pulse 130 130 130 B/P (MAP) 183/104 183/104 183/104 Pulse Ox 95 O2 Delivery Room Air 04/12/18 04/12/18 04/12/18 04/12/18 10:47 10:48 11:34 11:39 Temp 97.5 97.5 Pulse 130 130 94 Resp 20 B/P (MAP) 183/104 183/104 208/78 (121) Pulse Ox 93 O2 Delivery Room Air Nasal Cannula O2 Flow Rate 2.0 Intake and Output 04/11/18 04/11/18 04/12/18 15:00 23:00 07:00 Intake Total 360 ml 540 ml 540 ml Balance 360 ml 540 ml 540 ml JOSH PINON MD Apr 12, 2018 11:50
[2018-04-12 15:01] VITALS: BP 183/72
[2018-04-12] MEDS: RIVAROXABAN 10 MG TABLET. PO SCH (17:00)
[2018-04-12] MEDS ORDERED: ACETAMINOPHEN 500 MG TABLET PO PRN (18:45)
[2018-04-12 19:00] VITALS: BP 189/77
[2018-04-12] MEDS: ATORVASTATIN CALCIUM 40 MG TABLET. PO SCH (21:14)
[2018-04-12] MEDS: cefTRIAXone IV Push 1 GM VIAL. IVP SCH (21:14)
[2018-04-12] MEDS: OLANZapine 5 MG TABLET PO SCH (21:14)
[2018-04-12] MEDS: AZITHROMYCIN 250 MG TABLET. PO SCH (21:14)
[2018-04-12 23:00] VITALS: BP 182/80
[2018-04-13 03:00] VITALS: BP 193/92
[2018-04-13 07:00] VITALS: BP 188/80
[2018-04-13] MEDS: IPRATRPIUM/ALBUTEROL 0.5/2.5MG 3 ML NEBU. NEB SCH ×4 (07:31→20:05)
[2018-04-13] MEDS ORDERED: amLODIPine BESYLATE 10 MG TABLET PO SCH (09:00)
[2018-04-13] MEDS ORDERED: LISINOPRIL 20 MG TABLET PO SCH (09:00)
[2018-04-13] MEDS: OMEGA-3 FATTY ACIDS/FISH OIL 1,000 MG CAPSULE. PO SCH (09:41)
[2018-04-13] MEDS: CITALOPRAM 20 MG TABLET. PO SCH (09:42)
[2018-04-13] MEDS: METOPROLOL SUCC 24HR ER 25 MG TAB.ER.24H. PO SCH (09:42)
[2018-04-13] MEDS: LACTOBACILLUS RHAMNOSUS GG 1 CAPSULE. PO SCH ×2 (09:42→21:29)
[2018-04-13] MEDS: NICOTINE 14MG PATCH. TD SCH (09:43)
[2018-04-13] MEDS: FOLIC ACID 1 MG TABLET. PO SCH (09:44)
[2018-04-13] MEDS: PANTOPRAZOLE 40 MG TABLET.DR. PO SCH (09:44)
[2018-04-13 11:00] VITALS: BP 140/77
[2018-04-13 14:00] VITALS: BP 168/86
--- NOTE | 2018-04-13 14:21 | PDOC ---
PROGRESS NOTES Subjective Subjective Patient feeling much better. Patient wants to switch from Xarelto to coumadin. patient states her BP has gone up since she started Xarelto. Explained to patient that Xarelto does not usually increase BP. patient BP meds are being adjusted and that with control her BP. Old records from cardiology reviewed and placed in paper chart here in hospital. Old psych admit reviewed from [facility] from 2016. 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 Labs Laboratory Tests Test 04/12/18 04:30 Triglycerides Level 80 mg/dL (0-150) Cholesterol Level 170 mg/dL (0-200) LDL Cholesterol, Calculated 103 mg/dL (0-100) VLDL Cholesterol, Calculated 16 mg/dL (0-40) Non-HDL Cholesterol Calculated 119 mg/dL (0-129) HDL Cholesterol 51 mg/dL (40-60) Cholesterol/HDL Ratio 3.3 Microbiology 04/10/18 Blood Culture - Preliminary, Resulted NO GROWTH AFTER 2 DAYS Medications Current Medications Albuterol/ Ipratropium (Duoneb) 3 ml 1X ONCE NEB Last administered on at 21:24; Start 04/10/18 at 21:15; Stop 04/10/18 at 21:27; Status DC Albuterol Sulfate (Ventolin Neb Soln) 5 mg 1X ONCE CONT NEB Last administered on 04/10/18at 21:30; Start 04/10/18 at 21:30; Stop 04/10/18 at 21:31; Status DC Lorazepam (Ativan) 1 mg 1X ONCE IV ; Start 04/10/18 at 21:15; Stop 04/10/18 at 21:35; Status DC Ondansetron HCl (Zofran) 4 mg STK-MED ONCE .ROUTE ; Start 04/10/18 at 21:19; Stop 04/10/18 at 21:20; Status DC Morphine Sulfate (Morphine Sulfate) 4 mg 1X ONCE IV Last administered on at 21:23; Start 04/10/18 at 21:30; Stop 04/10/18 at 21:31; Status DC Ondansetron HCl (Zofran) 4 mg 1X ONCE IV Last administered on 04/10/18at 21:23 ; Start 04/10/18 at 21:30; Stop 04/10/18 at 21:31; Status DC Morphine Sulfate (Morphine Sulfate) 4 mg STK-MED ONCE .ROUTE ; Start 04/10/18 at 21:20; Stop 04/10/18 at 21:21; Status DC Lorazepam (Ativan) 2 mg 1X ONCE IV Last administered on 04/10/18at 22:00; Start 04/10/18 at 22:00; Stop 04/10/18 at 22:01; Status DC Potassium Chloride (Klor-Con) 40 meq 1X ONCE PO Last administered on at 00:16; Start 04/10/18 at 22:15; Stop 04/10/18 at 22:16; Status DC Furosemide (Lasix) 40 mg 1X ONCE IVP Last administered on 04/10/18at 22:22; Start 04/10/18 at 22:15; Stop 04/10/18 at 22:16; Status DC Ceftriaxone Sodium 50 ml @ 100 mls/hr 1X ONCE IV Last administered on at 23:48; Start 04/10/18 at 23:00; Stop 04/10/18 at 23:29; Status DC Azithromycin (Zithromax) 500 mg 1X ONCE PO Last administered on 04/11/18at 00: 17; Start 04/10/18 at 23:00; Stop 04/10/18 at 23:01; Status DC Ondansetron HCl (Zofran) 4 mg PRN Q8HRS PRN IV NAUSEA/VOMITING 1ST CHOICE; Start 04/11/18 at 00:00; Stop 04/11/18 at 23:59; Status DC Acetaminophen (Tylenol) 650 mg PRN Q4HRS PRN PO FEVER; Start 04/11/18 at 00:00 ; Stop 04/11/18 at 23:59; Status DC Albuterol/ Ipratropium (Duoneb) 3 ml RTQID NEB Last administered on 04/12/18at 11:39; Start 04/11/18 at 08:00; Stop 04/12/18 at 07:59; Status DC Olanzapine (ZyPREXA) 15 mg QHS PO Last administered on 04/12/18at 21:14; Start 04/11/18 at 21:00 Temazepam (Restoril) 15 mg PRN QHS PRN PO INSOMNIA; Start 04/11/18 at 09:30 Amlodipine Besylate (Norvasc) 5 mg DAILY PO Last administered on 04/12/18at 09: 04; Start 04/11/18 at 11:00; Stop 04/12/18 at 09:53; Status DC Atorvastatin Calcium (Lipitor) 40 mg QHS PO Last administered on 04/12/18at 21: 14; Start 04/11/18 at 21:00 Folic Acid (Folic Acid) 1 mg DAILY PO Last administered on 04/13/18at 09:44; Start 04/11/18 at 11:00 Lisinopril (Prinivil) 20 mg DAILY PO Last administered on 04/12/18at 09:05; Start 04/11/18 at 11:00; Stop 04/12/18 at 09:53; Status DC Metoprolol Succinate (Toprol Xl) 25 mg DAILY PO Last administered on at 09:42; Start 04/11/18 at 11:00 Citalopram Hydrobromide (CeleXA) 20 mg DAILY PO Last administered on at 09:42; Start 04/11/18 at 11:00 Pantoprazole Sodium (Protonix) 40 mg DAILYAC PO Last administered on at 09:44; Start 04/11/18 at 11:00 Fish Oil (Fish Oil) 1,000 mg DAILY PO Last administered on 04/13/18at 09:41; Start 04/11/18 at 11:00 Rivaroxaban (Xarelto) 20 mg DAILYWSUP PO Last administered on 04/12/18at 17:00 ; Start 04/11/18 at 17:00 Nicotine (Nicoderm Cq 14mg) 1 patch DAILY TD Last administered on 04/13/18at 09 :43; Start 04/11/18 at 11:00 Info (Anti-Coagulation Monitoring By Pharmacy) 1 each PRN DAILY PRN MC SEE COMMENTS; Start 04/11/18 at 10:15 Ceftriaxone Sodium 1 gm/ Dextrose 50 ml @ 100 mls/hr Q24H IV ; Start 04/11/18 at 22:00; Status UNV Azithromycin (Zithromax) 250 mg QHS PO Last administered on 04/12/18at 21:14; Start 04/12/18 at 21:00 Ceftriaxone Sodium (Rocephin) 1 gm Q24H IVP Last administered on 04/12/18at 21: 14; Start 04/11/18 at 21:00 Lactobacillus Rhamnosus (Culturelle) 1 cap BID PO Last administered on at 09:42; Start 04/11/18 at 21:00 Iohexol (Omnipaque 300 Mg/ml) 75 ml 1X ONCE IV Last administered on at 12:00; Start 04/11/18 at 12:00; Stop 04/11/18 at 12:01; Status DC Info (CONTRAST GIVEN -- Rx MONITORING) 1 each PRN DAILY PRN MC SEE COMMENTS; Start 04/11/18 at 12:15; Stop 04/13/18 at 12:14; Status DC Amlodipine Besylate (Norvasc) 10 mg DAILY PO Last administered on 04/13/18at 09 :44; Start 04/13/18 at 09:00 Amlodipine Besylate (Norvasc) 5 mg 1X ONCE PO Last administered on 04/12/18at 10:48; Start 04/12/18 at 10:30; Stop 04/12/18 at 10:31; Status DC Lisinopril (Prinivil) 40 mg DAILY PO Last administered on 04/13/18at 09:44; Start 04/13/18 at 09:00 Lisinopril (Prinivil) 20 mg 1X ONCE PO Last administered on 04/12/18at 10:47; Start 04/12/18 at 10:30; Stop 04/12/18 at 10:31; Status DC Albuterol/ Ipratropium (Duoneb) 3 ml RTQID NEB Last administered on 04/13/18at 11:18; Start 04/12/18 at 16:30 Acetaminophen (Tylenol) 1,000 mg PRN Q6HRS PRN PO HEADACHE Last administered on 04/12/18at 18:54; Start 04/12/18 at 18:45 Active Scripts Active Temazepam 15 Mg Capsule 1 Cap PO QHS Olanzapine 10 Mg Tablet 1.5 Tab PO QHS Reported Escitalopram Oxalate 10 Mg Tablet 10 Mg PO DAILY Atorvastatin Calcium 40 Mg Tablet 40 Mg PO DAILY Vitamin D2 (Ergocalciferol (Vitamin D2)) 50,000 Unit Capsule 50,000 Unit PO ONCE A WEEK Xarelto (Rivaroxaban) 20 Mg Tablet 20 Mg PO DAILY Lisinopril 20 Mg Tablet 20 Mg PO DAILY Metoprolol Succinate ( Xl ) (Metoprolol Succinate) 25 Mg Tab.er.24h 25 Mg PO BID Lansoprazole 30 Mg Capsule.dr 30 Mg PO DAILY [place] 3 Fish Oil Softgel ([place]-3 Fatty Acids/Fish Oil) 1 Each Capsule.dr 1 Each PO DAILY Folic Acid 1 Mg Tablet 1 Tab PO DAILY Flax Oil (Flaxseed Oil) 1,000 Mg Capsule 1,000 Mg PO Amlodipine Besylate 5 Mg Tablet 5 Mg PO DAILY Vitals/I & O Vital Sign - Last 24 Hours 04/12/18 04/12/18 04/12/18 04/12/18 15:01 16:08 19:00 19:58 Temp 98.7 98.3 98.7 98.3 Pulse 107 67 Resp 20 20 B/P (MAP) 183/72 (109) 189/77 (114) Pulse Ox 93 94 98 O2 Delivery Room Air Room Air Room Air Room Air 04/12/18 04/12/18 04/12/18 04/13/18 20:30 23:00 23:27 03:00 Temp 98.5 97.8 98.5 97.8 Pulse 67 59 Resp 20 20 B/P (MAP) 182/80 (114) 193/92 (125) Pulse Ox 94 100 95 O2 Delivery Room Air Room Air BiPAP/CPAP Room Air 04/13/18 04/13/18 04/13/18 04/13/18 07:00 07:32 09:42 09:44 Temp 97.8 97.8 Pulse 63 63 63 Resp 20 B/P (MAP) 188/80 (116) 188/80 188/80 Pulse Ox 94 99 O2 Delivery Nasal Cannula Room Air O2 Flow Rate 3.0 04/13/18 04/13/18 04/13/18 09:44 11:00 11:21 Temp 97.7 97.7 Pulse 63 66 Resp 22 B/P (MAP) 188/80 140/77 (98) Pulse Ox 97 99 O2 Delivery Nasal Cannula Room Air O2 Flow Rate 3.0 Intake and Output 04/12/18 04/12/18 04/13/18 15:00 23:00 07:00 Intake Total 700 ml 840 ml 240 ml Balance 700 ml 840 ml 240 ml LEIGHA CAMPOS MD Apr 13, 2018 14:21
--- NOTE | 2018-04-13 14:59 | PDOC ---
PROGRESS NOTES Subjective Subjective Patient seen and examined She looks and feels better today. Objective Objective Vital Signs Date Time Temp Pulse Resp B/P (MAP) Pulse Ox O2 Delivery O2 Flow Rate FiO2 04/13/18 14:00 64 18 168/86 (113) 96 Room Air 04/13/18 11:00 97.7 3.0 97.7 Intake and Output 04/13/18 07:00 Intake Total 1780 ml Balance 1780 ml Intake Oral 1780 ml # Voids 2 Physical Exam Abdomen: Normal bowel sounds Heart: Regular rate General: mild distress Lungs: Other (slightly decreased breath sounds) Assessment Assessment Problems Medical Problems: (1) RLL pneumonia Status: Acute 1. Probable pneumonia. On antibiotics and pulmonary treatments. 2. Possible heart failure. Echocardiogram shows normal left ventricular systolic function with mild mitral regurgitation. Continuing present treatment. 3. History of coronary disease and cardiac arrhythmias. Patient is a difficult historian regarding this but as noted above reports previous heart catheterizations but no interventions performed. Additionally she is on chronic anticoagulation for possible atrial arrhythmias. Rhythm has been stable. Troponin is mildly elevated at 0.307 and 0.324 consistent with demand ischemia. Normal LV systolic function on echocardiogram. Will review records from [facility]. Continuing medical treatment. Possible outpatient stress testing. 4. Hypertension. The patient's BP remains elevated but improved. Continue medical treatment. 5. Hyperlipidemia. 6. History of COPD. Continued tobacco abuse. Continue medical treatment. Patient counseled on discontinuing smoking. Comment Review of Relevant I have reviewed the following items amna (where applicable) has been applied. Labs Laboratory Tests Test 04/12/18 04:30 Triglycerides Level 80 mg/dL (0-150) Cholesterol Level 170 mg/dL (0-200) LDL Cholesterol, Calculated 103 mg/dL (0-100) VLDL Cholesterol, Calculated 16 mg/dL (0-40) Non-HDL Cholesterol Calculated 119 mg/dL (0-129) HDL Cholesterol 51 mg/dL (40-60) Cholesterol/HDL Ratio 3.3 Microbiology 04/10/18 Blood Culture - Preliminary, Resulted NO GROWTH AFTER 2 DAYS Medications Current Medications Albuterol/ Ipratropium (Duoneb) 3 ml 1X ONCE NEB Last administered on at 21:24; Start 04/10/18 at 21:15; Stop 04/10/18 at 21:27; Status DC Albuterol Sulfate (Ventolin Neb Soln) 5 mg 1X ONCE CONT NEB Last administered on 04/10/18at 21:30; Start 04/10/18 at 21:30; Stop 04/10/18 at 21:31; Status DC Lorazepam (Ativan) 1 mg 1X ONCE IV ; Start 04/10/18 at 21:15; Stop 04/10/18 at 21:35; Status DC Ondansetron HCl (Zofran) 4 mg STK-MED ONCE .ROUTE ; Start 04/10/18 at 21:19; Stop 04/10/18 at 21:20; Status DC Morphine Sulfate (Morphine Sulfate) 4 mg 1X ONCE IV Last administered on at 21:23; Start 04/10/18 at 21:30; Stop 04/10/18 at 21:31; Status DC Ondansetron HCl (Zofran) 4 mg 1X ONCE IV Last administered on 04/10/18at 21:23 ; Start 04/10/18 at 21:30; Stop 04/10/18 at 21:31; Status DC Morphine Sulfate (Morphine Sulfate) 4 mg STK-MED ONCE .ROUTE ; Start 04/10/18 at 21:20; Stop 04/10/18 at 21:21; Status DC Lorazepam (Ativan) 2 mg 1X ONCE IV Last administered on 04/10/18at 22:00; Start 04/10/18 at 22:00; Stop 04/10/18 at 22:01; Status DC Potassium Chloride (Klor-Con) 40 meq 1X ONCE PO Last administered on at 00:16; Start 04/10/18 at 22:15; Stop 04/10/18 at 22:16; Status DC Furosemide (Lasix) 40 mg 1X ONCE IVP Last administered on 04/10/18at 22:22; Start 04/10/18 at 22:15; Stop 04/10/18 at 22:16; Status DC Ceftriaxone Sodium 50 ml @ 100 mls/hr 1X ONCE IV Last administered on at 23:48; Start 04/10/18 at 23:00; Stop 04/10/18 at 23:29; Status DC Azithromycin (Zithromax) 500 mg 1X ONCE PO Last administered on 04/11/18at 00: 17; Start 04/10/18 at 23:00; Stop 04/10/18 at 23:01; Status DC Ondansetron HCl (Zofran) 4 mg PRN Q8HRS PRN IV NAUSEA/VOMITING 1ST CHOICE; Start 04/11/18 at 00:00; Stop 04/11/18 at 23:59; Status DC Acetaminophen (Tylenol) 650 mg PRN Q4HRS PRN PO FEVER; Start 04/11/18 at 00:00 ; Stop 04/11/18 at 23:59; Status DC Albuterol/ Ipratropium (Duoneb) 3 ml RTQID NEB Last administered on 04/12/18at 11:39; Start 04/11/18 at 08:00; Stop 04/12/18 at 07:59; Status DC Olanzapine (ZyPREXA) 15 mg QHS PO Last administered on 04/12/18at 21:14; Start 04/11/18 at 21:00; Stop 04/13/18 at 14:06; Status DC Temazepam (Restoril) 15 mg PRN QHS PRN PO INSOMNIA; Start 04/11/18 at 09:30 Amlodipine Besylate (Norvasc) 5 mg DAILY PO Last administered on 04/12/18at 09: 04; Start 04/11/18 at 11:00; Stop 04/12/18 at 09:53; Status DC Atorvastatin Calcium (Lipitor) 40 mg QHS PO Last administered on 04/12/18at 21: 14; Start 04/11/18 at 21:00 Folic Acid (Folic Acid) 1 mg DAILY PO Last administered on 04/13/18at 09:44; Start 04/11/18 at 11:00 Lisinopril (Prinivil) 20 mg DAILY PO Last administered on 04/12/18at 09:05; Start 04/11/18 at 11:00; Stop 04/12/18 at 09:53; Status DC Metoprolol Succinate (Toprol Xl) 25 mg DAILY PO Last administered on at 09:42; Start 04/11/18 at 11:00; Stop 04/13/18 at 14:06; Status DC Citalopram Hydrobromide (CeleXA) 20 mg DAILY PO Last administered on at 09:42; Start 04/11/18 at 11:00 Pantoprazole Sodium (Protonix) 40 mg DAILYAC PO Last administered on at 09:44; Start 04/11/18 at 11:00 Fish Oil (Fish Oil) 1,000 mg DAILY PO Last administered on 04/13/18at 09:41; Start 04/11/18 at 11:00 Rivaroxaban (Xarelto) 20 mg DAILYWSUP PO Last administered on 04/12/18at 17:00 ; Start 04/11/18 at 17:00 Nicotine (Nicoderm Cq 14mg) 1 patch DAILY TD Last administered on 04/13/18at 09 :43; Start 04/11/18 at 11:00 Info (Anti-Coagulation Monitoring By Pharmacy) 1 each PRN DAILY PRN MC SEE COMMENTS; Start 04/11/18 at 10:15 Ceftriaxone Sodium 1 gm/ Dextrose 50 ml @ 100 mls/hr Q24H IV ; Start 04/11/18 at 22:00; Status UNV Azithromycin (Zithromax) 250 mg QHS PO Last administered on 04/12/18at 21:14; Start 04/12/18 at 21:00 Ceftriaxone Sodium (Rocephin) 1 gm Q24H IVP Last administered on 04/12/18at 21: 14; Start 04/11/18 at 21:00 Lactobacillus Rhamnosus (Culturelle) 1 cap BID PO Last administered on at 09:42; Start 04/11/18 at 21:00 Iohexol (Omnipaque 300 Mg/ml) 75 ml 1X ONCE IV Last administered on at 12:00; Start 04/11/18 at 12:00; Stop 04/11/18 at 12:01; Status DC Info (CONTRAST GIVEN -- Rx MONITORING) 1 each PRN DAILY PRN MC SEE COMMENTS; Start 04/11/18 at 12:15; Stop 04/13/18 at 12:14; Status DC Amlodipine Besylate (Norvasc) 10 mg DAILY PO Last administered on 04/13/18at 09 :44; Start 04/13/18 at 09:00; Stop 04/13/18 at 14:06; Status DC Amlodipine Besylate (Norvasc) 5 mg 1X ONCE PO Last administered on 04/12/18at 10:48; Start 04/12/18 at 10:30; Stop 04/12/18 at 10:31; Status DC Lisinopril (Prinivil) 40 mg DAILY PO Last administered on 04/13/18at 09:44; Start 04/13/18 at 09:00; Stop 04/13/18 at 14:06; Status DC Lisinopril (Prinivil) 20 mg 1X ONCE PO Last administered on 04/12/18at 10:47; Start 04/12/18 at 10:30; Stop 04/12/18 at 10:31; Status DC Albuterol/ Ipratropium (Duoneb) 3 ml RTQID NEB Last administered on 04/13/18at 11:18; Start 04/12/18 at 16:30 Acetaminophen (Tylenol) 1,000 mg PRN Q6HRS PRN PO HEADACHE Last administered on 04/12/18at 18:54; Start 04/12/18 at 18:45 Amlodipine Besylate (Norvasc) 5 mg DAILY PO ; Start 04/14/18 at 09:00 Lisinopril (Prinivil) 20 mg BID PO ; Start 04/14/18 at 09:00 Quetiapine Fumarate (SEROquel) 50 mg QHS PO ; Start 04/13/18 at 21:00 Metoprolol Tartrate (Lopressor) 50 mg BID PO ; Start 04/13/18 at 21:00 Active Scripts Active Temazepam 15 Mg Capsule 1 Cap PO QHS Olanzapine 10 Mg Tablet 1.5 Tab PO QHS Reported Escitalopram Oxalate 10 Mg Tablet 10 Mg PO DAILY Atorvastatin Calcium 40 Mg Tablet 40 Mg PO DAILY Vitamin D2 (Ergocalciferol (Vitamin D2)) 50,000 Unit Capsule 50,000 Unit PO ONCE A WEEK Xarelto (Rivaroxaban) 20 Mg Tablet 20 Mg PO DAILY Lisinopril 20 Mg Tablet 20 Mg PO DAILY Metoprolol Succinate ( Xl ) (Metoprolol Succinate) 25 Mg Tab.er.24h 25 Mg PO BID Lansoprazole 30 Mg Capsule.dr 30 Mg PO DAILY [place] 3 Fish Oil Softgel ([place]-3 Fatty Acids/Fish Oil) 1 Each Capsule.dr 1 Each PO DAILY Folic Acid 1 Mg Tablet 1 Tab PO DAILY Flax Oil (Flaxseed Oil) 1,000 Mg Capsule 1,000 Mg PO Amlodipine Besylate 5 Mg Tablet 5 Mg PO DAILY Vitals/I & O Vital Sign - Last 24 Hours 04/12/18 04/12/18 04/12/18 04/12/18 15:01 16:08 19:00 19:58 Temp 98.7 98.3 98.7 98.3 Pulse 107 67 Resp 20 20 B/P (MAP) 183/72 (109) 189/77 (114) Pulse Ox 93 94 98 O2 Delivery Room Air Room Air Room Air Room Air 04/12/18 04/12/18 04/12/18 04/13/18 20:30 23:00 23:27 03:00 Temp 98.5 97.8 98.5 97.8 Pulse 67 59 Resp 20 20 B/P (MAP) 182/80 (114) 193/92 (125) Pulse Ox 94 100 95 O2 Delivery Room Air Room Air BiPAP/CPAP Room Air 04/13/18 04/13/18 04/13/18 04/13/18 07:00 07:32 09:42 09:44 Temp 97.8 97.8 Pulse 63 63 63 Resp 20 B/P (MAP) 188/80 (116) 188/80 188/80 Pulse Ox 94 99 O2 Delivery Nasal Cannula Room Air O2 Flow Rate 3.0 04/13/18 04/13/18 04/13/18 04/13/18 09:44 11:00 11:21 14:00 Temp 97.7 97.7 Pulse 63 66 64 Resp 22 18 B/P (MAP) 188/80 140/77 (98) 168/86 (113) Pulse Ox 97 99 96 O2 Delivery Nasal Cannula Room Air Room Air O2 Flow Rate 3.0 Intake and Output 04/12/18 04/12/18 04/13/18 15:00 23:00 07:00 Intake Total 700 ml 840 ml 240 ml Balance 700 ml 840 ml 240 ml JOSH PINON MD Apr 13, 2018 14:59
--- NOTE | 2018-04-13 16:17 | CONS ---
DATE OF CONSULTATION: ATTENDING PHYSICIAN: Dr. High. REASON FOR CONSULTATION: Dyspnea. HISTORY OF PRESENT ILLNESS: The patient is a 68-year-old female who probably has been a smoker for 30 years and was still smoking before coming to the hospital. She says she has chronic chest pains because of her cardiac history. She was brought into the hospital with chest pain. She had some abrupt onset of shortness of breath and fatigue. She did not have any significant cough. No fever, no chills. No leg edema or calf pain. No nausea, vomiting or diarrhea. The patient underwent a CT chest done on 04/11/2018 with contrast, which was reviewed by me. This was not with a pulmonary embolism protocol. There was mild hilar adenopathy, more on the right than on the left and there are also very mild mediastinal adenopathy. There was some atelectasis at the bases. She says she no longer has chest pain. She was in the interim treated with antibiotics. She is feeling much better. She said she has a history of aneurysm in her brain. She also had a history of a stroke. She has been on chronic anticoagulation. Currently, she is on Xarelto. I have been asked to see him for further evaluation. D-dimer was less than 0.5. PAST MEDICAL HISTORY: Significant for history of cardiac arrhythmias. History of tobacco use, suspect underlying COPD, history of hypertension, history of hearing loss, history of cerebrovascular accident, history of brain aneurysm. PAST SURGICAL HISTORY: Hysterectomy and cholecystectomy. ALLERGIES: None. REVIEW OF SYSTEMS: Twelve-point system obtained. Pertinent positives discussed in my history of present illness, otherwise noncontributory. All systems that were negative were reviewed as well. MEDICATIONS: All reviewed as listed in MRAD. FAMILY HISTORY: Noncontributory to lungs. SOCIAL HISTORY: She smokes cigarettes about a half pack a day and been still smoking for 30 years at least. PHYSICAL EXAMINATION: VITAL SIGNS: Reviewed. Blood pressure on the high side 168/86, pulse ox 96% room air. HEENT: His sclerae are nonicteric. NECK: Supple. LUNGS: Clear. CARDIOVASCULAR: Regular rate and rhythm. ABDOMEN: Soft. EXTREMITIES: With no pitting edema. LABORATORY DATA: Reviewed. D-dimer less than 0.27. BUN and creatinine 15 and 1.0. ABGs with a pH of 7.25, pCO2 of 56 and a pO2 100 on 100% FiO2 on admission on 04/10/2018. IMPRESSION: 1. Dyspnea secondary to acute exacerbation of chronic obstructive pulmonary disease. 2. Acute hypercapnic respiratory failure secondary to chronic obstructive pulmonary disease exacerbation. Clinically resolved. 3. Abnormal CT chest with mild hilar adenopathy and mediastinal adenopathy. Probably reactive. Needs to follow up to rule out the possibility of sarcoidosis. 5. Mild basal atelectasis. Clinically, less likely pneumonia. She has no symptoms suggesting pneumonia. 6. D-dimer less than 0.27. No reason to suspect pulmonary embolism. She is already on Xarelto. RECOMMENDATIONS: 1. Smoking cessation counseling provided. 2. Finished course of oral antibiotics with Zithromax and Rocephin can be discontinued. 3. Continue DuoNeb. 4. PFTs as an outpatient. 5. Anticoagulation to continue. 6. The patient could be discharged home from a pulmonary standpoint. 7. Repeat CT chest in 6 months with contrast to make sure adenopathy is resolved. TERI SHARP MD DR: GILBERTO/melani JOB#: [id number] / [id number] DALJIT
[2018-04-13] MEDS: RIVAROXABAN 10 MG TABLET. PO SCH (17:51)
[2018-04-13 19:00] VITALS: BP 168/73
[2018-04-13] MEDS ORDERED: QUEtiapine 25 MG TABLET. PO SCH (21:00)
[2018-04-13] MEDS: cefTRIAXone IV Push 1 GM VIAL. IVP SCH (21:29)
[2018-04-13] MEDS: ATORVASTATIN CALCIUM 40 MG TABLET. PO SCH (21:29)
[2018-04-13] MEDS: AZITHROMYCIN 250 MG TABLET. PO SCH (21:29)
[2018-04-13] MEDS: METOPROLOL TART IMMED RELEASE 50 MG TABLET. PO SCH (21:29)
[2018-04-13 23:00] VITALS: BP 131/66
[2018-04-13] MEDS ORDERED: OLANZapine 5 MG TABLET PO SCH (23:00)
[2018-04-14 03:00] VITALS: BP 179/91
[2018-04-14 07:00] VITALS: BP 123/66
[2018-04-14] MEDS: IPRATRPIUM/ALBUTEROL 0.5/2.5MG 3 ML NEBU. NEB SCH ×2 (07:25→11:04)
[2018-04-14] MEDS: PANTOPRAZOLE 40 MG TABLET.DR. PO SCH (08:22)
[2018-04-14] MEDS: LACTOBACILLUS RHAMNOSUS GG 1 CAPSULE. PO SCH (08:22)
[2018-04-14] MEDS: CITALOPRAM 20 MG TABLET. PO SCH (08:22)
[2018-04-14] MEDS: FOLIC ACID 1 MG TABLET. PO SCH (08:22)
[2018-04-14] MEDS: OMEGA-3 FATTY ACIDS/FISH OIL 1,000 MG CAPSULE. PO SCH (08:22)
[2018-04-14] MEDS: METOPROLOL TART IMMED RELEASE 50 MG TABLET. PO SCH (08:22)
[2018-04-14] MEDS: NICOTINE 14MG PATCH. TD SCH (08:24)
[2018-04-14] MEDS ORDERED: LISINOPRIL 20 MG TABLET PO SCH (09:00)
[2018-04-14] MEDS ORDERED: amLODIPine BESYLATE 5 MG TABLET PO SCH (09:00)
[2018-04-14 11:00] VITALS: BP 130/68
--- NOTE | 2018-04-14 11:44 | PDOC ---
CARDIO Progress Notes Date and Time Date of Service 04/14/2018 Time of Evaluation 1120 Subjective Subjective: No Chest Pain, No shortness of breath, No Palpitations Vitals Vitals Vital Signs Date Time Temp Pulse Resp B/P (MAP) Pulse Ox O2 Delivery O2 Flow Rate FiO2 04/14/18 11:05 96 Room Air 04/14/18 08:23 62 179/91 04/14/18 07:00 98.1 20 98.1 04/14/18 03:00 3.0 Weight Weight [ ] Input and Output Intake and Output Intake and Output 04/14/18 07:00 Intake Total 1190 ml Output Total 600 ml Balance 590 ml Intake Oral 1190 ml Output Urine Total 600 ml # Voids 1 Microbiology Micro Microbiology 04/10/18 Blood Culture - Preliminary, Resulted NO GROWTH AFTER 3 DAYS Physical Exam HEENT: Neck Supple W Full Motion Chest: Symmetric LUNGS: Clear to Auscultation Heart: S1S2, RRR (sb WITH pvcS) Abdomen: Soft N/T Extremities: No Calf Tenderness Neurology: alert, oriented, follow commands Assessment Assessment 1. AECOPD: per pulmonary 2. Suspect chronic diastolic CHF: compensated 3. NSTEMI: troponin peaked at 0.32. EKG SR with LVH. TTE with nml EF and WM. Possibly demand mediated, type2. 4. HTN: labile 5. Hyperlipidemia. 6. Chronic anticoagulation therapy: on xarelto. SR/SB lowest in the mid 40s. 7. CAD: see below 8. Arrhythmia: frequent PVC, known. Reviewed [facility] records. 1. Notable for LV aneurysm with noted anterior NE with suspicion of vasospasm in 1996- no significant CAD in 09/1998 2. Last MPI 10/2005 with large fixed anteroseptal defect with no ischemia 3. 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 TTE in 07/2017 with EF of 30-35% with akinesis to mid apical and anteroapical gonzalez and grade 2 diastolic dysfunction. Mod MR/Mild TR. PAP 54 mmHg 5. Prior holter monitor with multifocal PVC, past EP study negative for inducible VT nor SVT in 12/2000 Recommendations 1. Amlodipine has been added. Continue metoprolol. Obtain EKG and note QTc, check BMP and Mg. Replace K and/or Mg if low. 2. Continue xarelto therapy. 81 mg ECASA. 3. Continue with secondary prevention measures. 4. Remains CP free and with normal EF. Will plan for outpt stress test. Discussed with primary program coordinator executive education, DORI ALCALA APRN Apr 14, 2018 11:44
--- NOTE | 2018-04-14 12:02 | EKG ---
[facility] [address] [place] [address] Test Date: 2018-04-14 Test Time: 11:59:11 Pat Name: JOHAN CAMARGO Department: Room: 576 1 Gender: F Group Segment Consultant: AUGIE : 1950 Requested By: DORI ALCALA Order Number: [id number] Reading MD: Adalid Jay Measurements Intervals [place] Rate: 56 P: 32 IA: 194 QRS: -37 QRSD: 106 T: -94 QT: 500 QTc: 485 Interpretive Statements SINUS RHYTHM VENTRICULAR PREMATURE COMPLEX(ES) LEFT ATRIAL ABNORMALITY ABNORMAL LEFT AXIS DEVIATION R-S TRANSITION ZONE IN V LEADS DISPLACED TO THE LEFT LEFT ANTERIOR FASCICULAR BLOCK LVH WITH REPOLARIZATION ABNORMALITY PROLONGED QT ABNORMAL ECG RI6.01 Electronically Signed On 04-14-2018 16:08:22 [employer] by Adalid Jay
[2018-04-14] MEDS ORDERED: IPRA3AMP29 NEB (12:30)
[2018-04-14] MEDS ORDERED: LISI-130 PO (12:30)
--- NOTE | 2018-04-14 12:38 | PDOC ---
PULMONARY PROGRESS NOTES Subjective no soa Vitals Vital Signs Date Time Temp Pulse Resp B/P (MAP) Pulse Ox O2 Delivery O2 Flow Rate FiO2 04/14/18 11:05 96 Room Air 04/14/18 11:00 98.0 60 20 130/68 (88) 98.0 04/14/18 08:00 3.0 ROS: No Increase Cough General: Alert, No acute distress Lungs: Clear Cardiovascular: S1 Abdomen: Soft Neuro Exam: Alert Extremities: No Edema Skin: Warm Medications Active Scripts Medications Dose Route/Sig Max Daily Dose Days Date Category Lisinopril 40 Mg Tablet 20 Mg PO BID 90 04/14/18 Rx Duoneb 0.5-3(2.5) Mg/3 Ml (Albuterol/Ipratropium) 3 Ml Ampul.neb 3 Ml NEB RTQID 30 04/14/18 Rx Temazepam 15 Mg Capsule 1 Cap PO QHS 04/11/18 Rx Olanzapine 10 Mg Tablet 1.5 Tab PO QHS 04/11/18 Rx Escitalopram Oxalate 10 Mg Tablet 10 Mg PO DAILY 04/10/18 Reported Atorvastatin Calcium 40 Mg Tablet 40 Mg PO DAILY 04/10/18 Reported Vitamin D2 (Ergocalciferol (Vitamin D2)) 50,000 Unit Capsule 50,000 Unit PO ONCE A WEEK 04/10/18 Reported Xarelto (Rivaroxaban) 20 Mg Tablet 20 Mg PO DAILY 04/10/18 Reported Lisinopril 20 Mg Tablet 20 Mg PO DAILY 04/10/18 Reported Metoprolol Succinate ( Xl ) (Metoprolol Succinate) 25 Mg Tab.er.24h 25 Mg PO BID 04/10/18 Reported Lansoprazole 30 Mg Capsule.dr 30 Mg PO DAILY 04/10/18 Reported [place] 3 Fish Oil Softgel ([place]-3 Fatty Acids/Fish Oil) 1 Each Capsule.dr 1 Each PO DAILY 04/10/18 Reported Folic Acid 1 Mg Tablet 1 Tab PO DAILY 04/10/18 Reported Flax Oil (Flaxseed Oil) 1,000 Mg Capsule 1,000 Mg PO 04/10/18 Reported Amlodipine Besylate 5 Mg Tablet 5 Mg PO DAILY 04/10/18 Reported Impression . 1. Dyspnea secondary to acute exacerbation of chronic obstructive pulmonary disease. 2. Acute hypercapnic respiratory failure secondary to chronic obstructive pulmonary disease exacerbation. Clinically resolved. 3. Abnormal CT chest with mild hilar adenopathy and mediastinal adenopathy. Probably reactive. Needs to follow up to rule out the possibility of sarcoidosis. 5. Mild basal atelectasis. Clinically, less likely pneumonia. She has no symptoms suggesting pneumonia. 6. D-dimer less than 0.27. No reason to suspect pulmonary embolism. She is already on Xarelto. Plan . 1. Smoking cessation counseling provided. 2. Finished course of oral antibiotics with Zithromax and Rocephin can be discontinued. 3. Continue DuoNeb. 4. PFTs as an outpatient. 5. Anticoagulation to continue. 6. The patient could be discharged home from a pulmonary standpoint. 7. Repeat CT chest with with DR Campbell in 6 months with contrast to make sure adenopathy is resolved. d/w TERI WEBBER MD Apr 14, 2018 12:38
[2018-04-14] MEDS ORDERED: METO50TA6 PO (12:54)
[2018-04-14 13:06] LABS: CALCIUM 9.3 mg/dL (8.5-10.1); GFR 66.5; MAGNESIUM 2.1 mg/dL (1.8-2.4); POTASSIUM 3.8 mmol/L (3.5-5.1)
[2018-04-14] MEDS ORDERED: ASPIRIN ENTERIC COATED 81 MG TABLET.DR. PO SCH (14:00)
--- NOTE | 2018-04-14 17:54 | DS ---
DATE OF DISCHARGE: 04/14/2018 ADMITTING DIAGNOSIS: Acute respiratory failure. SECONDARY DIAGNOSES: 1. Suspected pneumonia. 2. Non-ST elevated myocardial infarction. 3. Sinus bradycardia. 4. Hypertension. 5. Chronic obstructive pulmonary disease with exacerbation. 6. Glucose intolerance. 7. Schizoaffective disorder. 8. Major depression. CHRONIC DIAGNOSES: 1. History of cardiac aneurysm with thrombus. 2. History of cerebrovascular accident. 3. History of myocardial infarction due to coronary spasm. 4. Hearing loss with history of cochlear implant. 5. History of atrial fibrillation. HOSPITAL COURSE: This patient was admitted with shortness of breath and weakness. She was found to have evidence of possible pneumonia and ongoing respiratory failure as well as significant hypokalemia and elevated troponin. Due to constellation of symptoms, the patient was admitted for further evaluation by Cardiology and Pulmonary Medicine and treatment for pneumonia was begun. The patient showed no further signs of pneumonia and antibiotics were discontinued at time of discharge. The patient's symptoms improved with pulmonary toilet and respiratory treatments and previous cardiac records were obtained and the patient's cardiac status stabilized during hospital stay. Blood pressure was controlled and the patient was back to baseline on room air oxygen; therefore, plans for discharge were made with cardiac followup planned with home manager federal. DISCHARGE MEDICATIONS: She will be discharged on the following medications: DuoNeb nebulizer treatments q.6h., lisinopril 20 mg b.i.d., amlodipine 5 mg daily, atorvastatin 40 mg daily, vitamin D 50,000 units weekly, Lexapro 10 mg daily, folic acid 1 mg daily, Prevacid 30 mg daily, metoprolol XL 25 mg daily, Zyprexa 15 mg at bedtime, Xarelto 20 mg daily, temazepam 50 mg at bedtime. DISCHARGE INSTRUCTIONS: She will follow up in the clinic in 1 week and with Cardiology in 1-2 weeks. LEIGHA CAMPOS MD DR: ANNETTE/melani JOB#: [id number] / [id number]
== END 2018-04-14 13:40 | disposition home or self-care (01) | DRG 871 ==
LOC: ER 21:10 → 5 SOUTH 04-11 00:23
PROVIDERS: ADMIT Family Medicine; ATTEND Family Medicine
PROC: 5A09357 Assistance with Respiratory Ventilation, Less than 24 Consecutive Hours, Continuous Positive Airway Pressure (ICD-10-PCS; principal; 2018-04-10)
PROC: 5A09357 Assistance with Respiratory Ventilation, Less than 24 Consecutive Hours, Continuous Positive Airway Pressure (ICD-10-PCS; 2018-04-12)
DX: A41.9 Sepsis, unspecified organism (principal); J18.9 Pneumonia, unspecified organism; J96.02 Acute respiratory failure with hypercapnia; I21.4 Non-ST elevation (NSTEMI) myocardial infarction; I24.8 Other forms of acute ischemic heart disease; J44.0 Chronic obstructive pulmonary disease with (acute) lower respiratory infection; J44.1 Chronic obstructive pulmonary disease with (acute) exacerbation; J98.11 Atelectasis; F41.9 Anxiety disorder, unspecified; E74.39 Other disorders of intestinal carbohydrate absorption; E78.5 Hyperlipidemia, unspecified; F25.9 Schizoaffective disorder, unspecified; F17.210 Nicotine dependence, cigarettes, uncomplicated; I10 Essential (primary) hypertension; H91.90 Unspecified hearing loss, unspecified ear; F32.9 Major depressive disorder, single episode, unspecified; E87.6 Hypokalemia; I25.10 Atherosclerotic heart disease of native coronary artery without angina pectoris; I34.0 Nonrheumatic mitral (valve) insufficiency; I49.3 Ventricular premature depolarization; I48.91 Unspecified atrial fibrillation; Z90.710 Acquired absence of both cervix and uterus; Z86.73 Personal history of transient ischemic attack (TIA), and cerebral infarction without residual deficits; Z86.79 Personal history of other diseases of the circulatory system; Z71.6 Tobacco abuse counseling; Z79.01 Long term (current) use of anticoagulants; I25.2 Old myocardial infarction; Z90.49 Acquired absence of other specified parts of digestive tract; Z79.899 Other long term (current) drug therapy; Z82.49 Family history of ischemic heart disease and other diseases of the circulatory system
CPT/HCPCS: 36415; 36600; 71045; 71260; 80048; 80053; 80061; 82805; 83036; 83735; 83880; 84439; 84443; 84484; 85025; 85379; 87040; 93005; 93306; 94618; 94640; 94660; 94760; 96374; 96375; J0690; J0696; J1940; J2060; J2270; J2405; J7613; J7620; Q0144; Q9967; 99285-25

== ENCOUNTER → 2018-04-28 | Outpatient (CLI) | payer OTHER ==
[2018-04-14 11:00] VITALS: BP 130/68
[~2018-04-28] MED LIST: AMLO5TAB7 PO; ATOR40TA59 PO; ERGO500027 PO; ESCITALOPRAM OX10 MG PO; FLAX10003 PO; FOLI1TAB16 PO; IPRA3AMP29 NEB; LANS30CA PO; LISI-130 PO; LISI-334 PO; METO-239 PO; METO50TA6 PO; OLAN10TA9 PO; OMEG1CAP38 PO; REGADENOSON 0.4 MG/5 ML DISP.SYRIN. IV ONE; RIVA20TA2 PO; TEMA15CA PO
--- NOTE | 2018-04-28 12:05 | RAD ---
MR#: [id number] Date of Study: 04/28/2018 Ordering Physician: JOSH PINON, Referring Physician: LAURA BARCLAY Tech: DEEPTHI Esteban APPROVED REPORT Test Type: Pharmacological Stress Nurse/Tech: Isi Pierson R.N. Test Indications: CAD Cardiac History: Family history, Hypertension, smoker, IA, Medications: See Electronic Medical Record Medical History: See Electronic Medical Record Resting ECG: NSR with freq. multifocal PVC's and couplets Resting Heart Rate: 63 bpm Resting Blood Pressure: 175/84mmHg Pretest Chest Pain: No chest pain Nurse/Tech Notes S1S2, coarse breath sounds Consent: The procedure was explained to the patient in lay terms. Informed consent was witnessed. Andres eout was entered into Dr. Scribbles. History and Stress Test performed by José De La RosaNGeorgina Pharm. Details Pharmacologic stress testing was performed using 0.4mg per 5ml of regadenoson given intravenously ove r 7-10 seconds. POST EXERCISE Reason for Termination: Infusion complete Target HR: 128 Max HR: 89 bpm Max Blood Pressure: 215/67mmHg Blood Pressure response to exercise: Normal blood pressure response during stress. Chest Pain: No. Arrhythmia: Yes. cont. to have a lot of PVCs, multifocal and couplets ST Change: No. INTERPRETATION Stress EKG Conclusion: Abnormal EKG response. Frequent PVC's. Imaging Protocol IMAGE PROTOCOL: Rest Tc-99m/stress Tc-99m 1 day Rest: Stress: Viability: Radiopharm.Tc99m [id number] [id number] Yxfh17gZw 34.6mCi Duration 17min. 13min. Img Date 04/28/2018 04/28/2018 Inj-Img Kyik09xai. 60min. Rest Admin Site:IV - Left AntecubitalAdministrator:Jama Bardales, RT (R)(N) Stress Admin Site: IV - Left AntecubitalAdministrator: Mary García, RT (R)(N) STRESS DATA End Diast. Vol.202.0mlLVEDV index BSA99.0ml End Syst. Vol.122.0mlLVESV index BSA60.0ml Myocardial Cbwh676.0gEject. Ekjmjgsv52.0% Stress Scores Regional WT1.00Summed WT34.00 Regional WM0.00Summed WM23.00 LV Perfusion There is a large sized, severe in intensity FIXED defect in the mid to distal anterior, septal, apica l and apical inferior gonzalez suggestive of prior LAD territory infarct without active ischemia. Wall Motion Severe LV dysfunction. EF 40% LV Perf. Quant 17 Seg. SSS22.00 17 Seg. SRS27.00 17 Seg. SDS1.00 Stress Defect Extent (% LAD)55.60Rest Defect Extent (% LAD)55.00Rev. Defect Extent (% LAD)0.00 Stress Defect Extent (% LCX) 36.30Rest Defect Extent (% LCX)50.00Rev. Defect Extent (% LCX)0.00 Stress Defect Extent (% RCA)31.10Rest Defect Extent (% RCA)38.90Rev. Defect Extent (% RCA)0.00 Stress Defect Extent (% DIA)46.30Rest Defect Extent (% DIA)52.20Rev. Defect Extent (% DIA)0.00 Other Information Quality:Average Risk Assessment: Moderate-High Risk Conclusion 1. Abnormal EKG with frequent PVC's. 2. Large fixed LAD territory infarct, no new ischemia. 3. Severe LV dysfunction. EF 40% 4. Moderate to high risk for future CV events. Signed by : Kranthi Augustine, Electronically Approved : 04/28/2018 12:04:38
== END | disposition home or self-care (01) ==
LOC: NM 08:28
PROVIDERS: ATTEND Internal Medicine Cardiovascular Disease
DX: R94.31 Abnormal electrocardiogram [ECG] [EKG] (principal); I49.3 Ventricular premature depolarization; I25.10 Atherosclerotic heart disease of native coronary artery without angina pectoris; I10 Essential (primary) hypertension; E66.9 Obesity, unspecified; F32.9 Major depressive disorder, single episode, unspecified; F17.200 Nicotine dependence, unspecified, uncomplicated; Z90.49 Acquired absence of other specified parts of digestive tract; Z90.710 Acquired absence of both cervix and uterus
CPT/HCPCS: 78452; 93017; 96374; 96375; 96376; A9500; J2785

== ENCOUNTER 2018-07-23 09:00 | Inpatient (IN) | payer OTHER ==
[~2018-07-23] VITALS: Ht 168.9 cm; Wt 102.7 kg
[~2018-07-23 09:00] MED LIST changes: +AMLO5TAB10 PO; -AMLO5TAB7 PO; -REGADENOSON 0.4 MG/5 ML DISP.SYRIN. IV ONE
[2018-07-23] MEDS ORDERED: LABETALOL 20 MG/4 ML DISP.SYRIN. IVP ONE (09:30)
[2018-07-23] MEDS ORDERED: ASPIRIN 325 MG TABLET PO ONE (09:30)
[2018-07-23] MEDS ORDERED: IPRATRPIUM/ALBUTEROL 0.5/2.5MG 3 ML NEBU. NEB ONE (09:30)
[2018-07-23 10:22] LABS: BASO # 0.1 x10^3/uL (0.0-0.2); BASO % 1 % (0-3); EOS % 1 % (0-3); HEMOGLOBIN 13.3 g/dL (12.0-15.5); LYMPH # 1.6 x10^3/uL (1.0-4.8); LYMPH % 31 % (24-48); MEAN CORPUSCULAR HEMOGLOBIN 30 pg (25-35); MEAN CORPUSCULAR HGB CONC 33 g/dL (31-37); MEAN CORPUSCULAR VOLUME 89 fL (79-100); MONO # 0.5 x10^3/uL (0.0-1.1); MONO % 9 % (0-9); NEUT % 58 % (31-73); PLATELET COUNT 222 x10^3/uL (140-400); RED CELL DISTRIBUTION WIDTH 15.9 % (11.5-14.5); WHITE BLOOD COUNT 5.2 x10^3/uL (4.0-11.0)
[2018-07-23 10:28] LABS: PROTHROMBIN TIME PATIENT 14.7 SEC (11.7-14.0)
[2018-07-23 10:29] LABS: BASE EXCESS ABG 1 mmol/L (-3-3); HCO3 ABG 24 mmol/L (21-28); PCO2 ABG 35 mmHg (35-46); PO2 ABG 52 mmHg (65-108); SAT O2 ABG 88 % (92-99)
[2018-07-23 10:31] LABS: FIO2 ABG 21
[2018-07-23 10:32] LABS: D-DIMER 0.7 ug/mlFEU (0.00-0.50)
--- NOTE | 2018-07-23 10:41 | RAD ---
Portable chest, 07/23/2018: HISTORY: Shortness of breath Comparison is made to a study from 04/10/2018. The heart is enlarged. The pulmonary vascularity is at the upper limits of normal. There is moderate patchy infiltrate in the left lower chest obscuring the hemidiaphragm. There is a lesser degree of atelectasis/infiltrate in the right base. No definite pleural fluid is seen. IMPRESSION: 1. Cardiomegaly with borderline vascular congestion. 2. Moderate left basilar infiltrate may reflect pneumonia or pulmonary edema. 3. Minimal right basilar infiltrate Electronically signed by: Jarod Ferrell MD (07/23/2018 10:38 AM) [facility]
[2018-07-23 10:53] LABS: CALCIUM 9.4 mg/dL (8.5-10.1); GFR 66.5; POTASSIUM 3.5 mmol/L (3.5-5.1)
[2018-07-23 11:00] LABS: ALBUMIN 3.9 g/dL (3.4-5.0); ALBUMIN/GLOBULIN RATIO 1.1 (1.0-1.7); MAGNESIUM 1.9 mg/dL (1.8-2.4); TOTAL BILIRUBIN 0.8 mg/dL (0.2-1.0); TOTAL PROTEIN 7.4 g/dL (6.4-8.2)
[2018-07-23] MEDS ORDERED: cloNIDine HCL 0.1 MG TABLET PO ONE (11:00)
[2018-07-23] MEDS ORDERED: CONTRAST GIVEN. MC PRN (11:15)
[2018-07-23] MEDS ORDERED: IOHEXOL 350 MG/ML 100 ML VIAL. IV ONE (11:15)
--- NOTE | 2018-07-23 11:42 | RAD ---
Examination: CT angiography chest HISTORY: History of chest pain, elevated d-dimer COMPARISON: 04/11/2018 TECHNIQUE: Axial CT angiographic images were performed with IV contrast. Coronal and sagittal 3-D MIP reformats are performed Exposure: One or more of the following individualized dose reduction techniques were utilized for this examination: 1. Automated exposure control 2. Adjustment of the mA and/or kV according to patient size 3. Use of iterative reconstruction technique FINDINGS: The central airways are patent. Moderate cardiomegaly. Coronary artery calcifications identified. There is no evidence of filling defect identified in the main pulmonary arterial trunk and right and left main pulmonary arteries. The evaluation of the the distal lobar, segmental branches of the pulmonary arteries is limited. Moderate lung emphysematous changes. Moderate bilateral pleural effusions right greater than left. There are patchy bibasilar lung airspace opacities likely atelectasis or infiltrates. The visualized liver demonstrates mild decreased attenuation. The visualized spleen, adrenals grossly appears unremarkable. Mild degenerative changes thoracic spine. IMPRESSION: 1. No evidence of central pulmonary embolism. 2. Moderate congestive changes with moderate bilateral pleural effusions, right greater than left. 3. Patchy bibasilar lung airspace opacities likely atelectasis or infiltrates. Follow-up to resolution. Electronically signed by: Yuri Castellanos MD (07/23/2018 11:39 AM) [place] [id number]
[2018-07-23] MEDS ORDERED: cefTRIAXone IV Push 1 GM VIAL. IVP ONE (12:00)
--- NOTE | 2018-07-23 12:37 | PHYS DOC ---
Past Medical History Past Medical History: CHF, Hypertension, [place], Stroke Past Surgical History: Hysterectomy Additional Past Surgical Histo: cardiac cath, cochlear implant Alcohol Use: None Drug Use: None Adult General Chief Complaint Chief Complaint: SHORTNESS OF BREATH HPI HPI Patient is a 68 year old female with a history of CHF, hypertension, CVA, who presents to the ED complaining of shortness of breath that she states has been going on since April 2018 when she was diagnosed with pneumonia. Patient is also complaining of chest pain that she believes has been going on since then, she states she has been following up with a catalogue librarian. Patient is currently had on hearing , she has a cochlear implant that has failed communication is difficult we are trying writing to communicate. Patient is also very poor historian. Review of Systems Review of Systems Constitutional: Denies fever or chills [] Eyes: Denies change in visual acuity, redness, or eye pain [] HENT: Denies nasal congestion or sore throat [] Respiratory: Reports shortness of breath Cardiovascular: Reports chest pain GI: Denies abdominal pain, nausea, vomiting, bloody stools or diarrhea [] : Denies dysuria or hematuria [] Musculoskeletal: Denies back pain or joint pain [] Integument: Denies rash or skin lesions [] Neurologic: Denies headache, focal weakness or sensory changes [] All other systems were reviewed and found to be within normal limits, except as documented in this note. Current Medications Current Medications Current Medications Medications (Trade) Dose Ordered Sig/Daquan Start Time Stop Time Status Last Admin Dose Admin Albuterol/ Ipratropium (Duoneb) 3 ml 1X ONCE 07/23/18 09:30 07/23/18 09:36 DC 07/23/18 09:52 3 ML Aspirin (Angel Aspirin) 325 mg 1X ONCE 07/23/18 09:30 07/23/18 09:36 DC 07/23/18 10:01 325 MG Ceftriaxone Sodium (Rocephin) 1 gm 1X ONCE 07/23/18 12:00 07/23/18 12:01 DC Clonidine HCl (Catapres) 0.2 mg 1X ONCE 07/23/18 11:00 07/23/18 11:01 DC Info (CONTRAST GIVEN -- Rx MONITORING) 1 each PRN DAILY PRN 07/23/18 11:15 07/25/18 11:14 Iohexol (Omnipaque 350 Mg/ml) 100 ml 1X ONCE 07/23/18 11:15 07/23/18 11:16 DC 07/23/18 11:19 100 ML Labetalol HCl (Normodyne Iv Push) 10 mg 1X ONCE 07/23/18 09:30 07/23/18 09:36 DC 07/23/18 09:58 10 MG Levofloxacin/ Dextrose 100 ml @ 100 mls/hr 1X ONCE 07/23/18 12:00 07/23/18 12:59 DC Allergies Allergies Allergies Coded Allergies Type Severity Reaction Last Updated Verified No Known Drug Allergies 04/10/18 No Physical Exam Physical Exam Constitutional: Well developed, well nourished, no acute distress, non-toxic appearance. [] HENT: Normocephalic, atraumatic, bilateral external ears normal, oropharynx moist, no oral exudates, nose normal. [place] Eyes: PERRLA, EOMI, conjunctiva normal, no discharge. [] Neck: Normal range of motion, no tenderness, supple, no stridor. [] Cardiovascular:Heart rate regular rhythm, no murmur [] Lungs & Thorax: Coarse lung sounds. Abdomen: Bowel sounds normal, soft, no tenderness, no masses, no pulsatile masses. [] Skin: Warm, dry, no erythema, no rash. [] Back: No tenderness, no CVA tenderness. [] Extremities: No tenderness, no cyanosis, no clubbing, ROM intact, no edema. [] Neurologic: Alert and oriented X 3, normal motor function, normal sensory function, no focal deficits noted. [] Psychologic: Affect normal, judgement normal, mood normal. [] Current Patient Data Vital Signs Vital Signs Date Time Temp Pulse Resp B/P (MAP) Pulse Ox O2 Delivery O2 Flow Rate FiO2 07/23/18 09:58 59 247/107 07/23/18 09:52 95 Room Air 07/23/18 09:03 97.4 40 97.4 Lab Values Laboratory Tests Test 07/23/18 10:10 07/23/18 10:20 White Blood Count 5.2 x10^3/uL (4.0-11.0) Red Blood Count 4.50 x10^6/uL (3.50-5.40) Hemoglobin 13.3 g/dL (12.0-15.5) Hematocrit 40.0 % (36.0-47.0) Mean Corpuscular Volume 89 fL (79-100) Mean Corpuscular Hemoglobin 30 pg (25-35) Mean Corpuscular Hemoglobin Concent 33 g/dL (31-37) Red Cell Distribution Width 15.9 % (11.5-14.5) H Platelet Count 222 x10^3/uL (140-400) Neutrophils (%) (Auto) 58 % (31-73) Lymphocytes (%) (Auto) 31 % (24-48) Monocytes (%) (Auto) 9 % (0-9) Eosinophils (%) (Auto) 1 % (0-3) Basophils (%) (Auto) 1 % (0-3) Neutrophils # (Auto) 3.0 x10^3uL (1.8-7.7) Lymphocytes # (Auto) 1.6 x10^3/uL (1.0-4.8) Monocytes # (Auto) 0.5 x10^3/uL (0.0-1.1) Eosinophils # (Auto) 0.0 x10^3/uL (0.0-0.7) Basophils # (Auto) 0.1 x10^3/uL (0.0-0.2) Prothrombin Time 14.7 SEC (11.7-14.0) H Prothrombin Time INR 1.2 (0.8-1.1) H D-Dimer (Nirmala) 0.70 ug/mlFEU (0.00-0.50) H Sodium Level 141 mmol/L (136-145) Potassium Level 3.5 mmol/L (3.5-5.1) Chloride Level 101 mmol/L (98-107) Carbon Dioxide Level 29 mmol/L (21-32) Anion Gap 11 (6-14) Blood Urea Nitrogen 9 mg/dL (7-20) Creatinine 1.0 mg/dL (0.6-1.0) Estimated GFR (Cockcroft-Gault) 66.5 BUN/Creatinine Ratio 9 (6-20) Glucose Level 115 mg/dL (70-99) H Calcium Level 9.4 mg/dL (8.5-10.1) Magnesium Level 1.9 mg/dL (1.8-2.4) Total Bilirubin 0.8 mg/dL (0.2-1.0) Aspartate Amino Transferase (AST) 27 U/L (15-37) Alanine Aminotransferase (ALT) 49 U/L (14-59) Alkaline Phosphatase 81 U/L (46-116) Creatine Kinase 99 U/L (26-192) Creatine Kinase MB (Mass) 1.6 ng/mL (0.0-3.6) Creatine Kinase MB Relative Index 1.6 % (0-4) Troponin I Quantitative 0.077 ng/mL (0.000-0.055) YI-Ctw-L-Type Natriuretic Peptide 8528 pg/mL (0-124) H Total Protein 7.4 g/dL (6.4-8.2) Albumin 3.9 g/dL (3.4-5.0) Albumin/Globulin Ratio 1.1 (1.0-1.7) Thyroid Stimulating Hormone (TSH) 2.517 uIU/mL (0.358-3.74) O2 Saturation 88 % (92-99) L Arterial Blood pH 7.46 (7.35-7.45) H Arterial Blood pCO2 at Patient Temp 35 mmHg (35-46) Arterial Blood pO2 at Patient Temp 52 mmHg (65-108) L Arterial Blood HCO3 24 mmol/L (21-28) Arterial Blood Base Excess 1 mmol/L (-3-3) FiO2 21 Laboratory Tests 07/23/18 10:10 Laboratory Tests 07/23/18 10:10 EKG EKG Interpreted by Dr. Sotelo sinus rhythm with occasional PVCs on the monitor, heart rate 61, no STEMI.[] Radiology/Procedures Radiology/Procedures []PROCEDURE: PORTABLE CHEST 1V Portable chest, 07/23/2018: HISTORY: Shortness of breath Comparison is made to a study from 04/10/2018. The heart is enlarged. The pulmonary vascularity is at the upper limits of normal. There is moderate patchy infiltrate in the left lower chest obscuring the hemidiaphragm. There is a lesser degree of atelectasis/infiltrate in the right base. No definite pleural fluid is seen. IMPRESSION: 1. Cardiomegaly with borderline vascular congestion. 2. Moderate left basilar infiltrate may reflect pneumonia or pulmonary edema. 3. Minimal right basilar infiltrate Electronically signed by: Jarod Ferrell MD (07/23/2018 10:38 AM) [facility] DICTATED and SIGNED BY: JAROD FERRELL MD DATE: 07/23/18 1036 Course & Med Decision Making Course & Med Decision Making Pertinent Labs and Imaging studies reviewed. (See chart for details) This is a 68-year-old female patient presenting to the ED today complaining of chest pain and shortness of breath. Symptoms since April 2018. CBC with normal WBC, 0.077, troponin was elevated during the previous admission in April. Chest x-ray noted for right lower lobe infiltrate. Patient was started on Rocephin and Levaquin. She is admitted. Dr. De Leon accepted patient for admission on behalf of Dr. Flynn. Spoke with Jessica PLATT catalogue librarian who will also follow-up with patient. Dragon Disclaimer Dragon Disclaimer This electronic medical record was generated, in whole or in part, using a voice recognition dictation system. Departure Departure Impression: Primary Impression: Right lower lobe pneumonia Additional Impressions: NSTEMI (non-ST elevated myocardial infarction) Acute and chronic respiratory failure Disposition: ADMITTED INPATIENT Condition: STABLE Referrals: LEIGHA FLYNN MD (PCP) Problem Qualifiers Primary Impression: Right lower lobe pneumonia Pneumonia type: due to unspecified organism Qualified Codes: J18.1 - Lobar pneumonia, unspecified organism JULIETTE LUIS APRN Jul 23, 2018 12:37
[2018-07-23] MEDS ORDERED: ONDANSETRON PF 4 MG/2 ML VIAL. IV PRN (13:00)
[2018-07-23] MEDS ORDERED: NITROGLYCERIN SUBLINGUAL 0.4 MG BOTTLE OF 25. SL PRN (13:00)
--- NOTE | 2018-07-23 13:52 | EKG ---
[facility] [address] [place] [address] Test Date: 2018-07-23 Test Time: 09:30:25 Pat Name: JOHAN CAMARGO Department: Room: 206 1 Gender: F Network Lead: : 1950 Requested By: JULIETTE LUIS Order Number: [id number] Reading MD: Kranthi Augustine MD Measurements Intervals [place] Rate: 61 P: 54 OK: 172 QRS: -28 QRSD: 114 T: -151 QT: 416 QTc: 420 Interpretive Statements SINUS RHYTHM PVC'S POOR R WAVE PROGRESSION Electronically Signed On 08-03-2018 12:12:34 [employer] by Kranthi Augustine MD
[2018-07-23 14:20] VITALS: BP 185/103
[2018-07-23] MEDS ORDERED: IMIP50TA3 PO (14:25)
[2018-07-23] MEDS ORDERED: LEVO5TAB2 PO (14:25)
[2018-07-23] MEDS ORDERED: ERGO500027 PO (14:25)
[2018-07-23] MEDS ORDERED: FURO40TA4 PO (14:25)
[2018-07-23] MEDS ORDERED: TRAZ-118 PO (14:25)
[2018-07-23] MEDS ORDERED: OMEG100021 PO (14:28)
[2018-07-23] MEDS ORDERED: OLAN15TA3 PO (15:00)
[2018-07-23] MEDS ORDERED: QUET25TA5 PO (15:00)
[2018-07-23] MEDS ORDERED: LANS30CA66 PO (15:00)
[2018-07-23] MEDS ORDERED: FOLI1TAB16 PO (15:00)
[2018-07-23] MEDS ORDERED: ESCITALOPRAM OX10 MG PO (15:00)
[2018-07-23] MEDS ORDERED: FURO20TA3 PO (15:00)
[2018-07-23] MEDS: hydrALAZINE 20 MG/ML VIAL. IVP PRN (15:54)
[2018-07-23] MEDS: IPRATRPIUM/ALBUTEROL 0.5/2.5MG 3 ML NEBU. NEB SCH ×2 (16:08→19:49)
[2018-07-23] MEDS: ACETAMINOPHEN 325 MG TABLET. PO PRN (17:33)
[2018-07-23] MEDS: MORPHINE SULFATE 4 MG/ML VIAL. IV PRN (17:33)
[2018-07-23 19:38] VITALS: BP 171/72
[2018-07-23 22:28] VITALS: BP 170/83
[2018-07-24] VITALS (18 sets, daily range): BP systolic 126–228; BP diastolic 58–97
[2018-07-24] MEDS: hydrALAZINE 20 MG/ML VIAL. IVP PRN (03:32)
[2018-07-24] MEDS: ACETAMINOPHEN 325 MG TABLET. PO PRN (04:20)
[2018-07-24] MEDS: MORPHINE SULFATE 4 MG/ML VIAL. IV PRN (04:22)
[2018-07-24 04:24] LABS: CALCIUM 9.2 mg/dL (8.5-10.1); GFR 66.5
[2018-07-24 04:28] LABS: BASO % 1 % (0-3); EOS # 0.1 x10^3/uL (0.0-0.7); EOS % 3 % (0-3); HEMATOCRIT 37.5 % (36.0-47.0); HEMOGLOBIN 12.6 g/dL (12.0-15.5); LYMPH # 1.8 x10^3/uL (1.0-4.8); LYMPH % 37 % (24-48); MEAN CORPUSCULAR HEMOGLOBIN 30 pg (25-35); MEAN CORPUSCULAR HGB CONC 34 g/dL (31-37); MEAN CORPUSCULAR VOLUME 89 fL (79-100); MONO # 0.6 x10^3/uL (0.0-1.1); MONO % 12 % (0-9); NEUT # 2.4 x10^3uL (1.8-7.7); NEUT % 48 % (31-73); PLATELET COUNT 203 x10^3/uL (140-400); RED BLOOD COUNT 4.21 x10^6/uL (3.50-5.40)
[2018-07-24 04:40] LABS: POTASSIUM 2.9 mmol/L (3.5-5.1)
[2018-07-24] MEDS ORDERED: POTASSIUM CHLORIDE 20 MEQ TABLET.ER. PO ONE ×3 (05:00→11:30)
[2018-07-24] MEDS ORDERED: LISINOPRIL 10 MG TABLET PO ONE (05:00)
--- NOTE | 2018-07-24 05:51 | NUR ---
CRITICAL POTASSIUM 2.9. BP 219/[address] PINON. SEE ORDERS. PLACED NEW IV IN RIGHT WRIST. LEFT AC RED AND LEAKING. PLACED NEW IV IN RIGHT WRIST. #20. AND GAVE PO MEDS. LCRN
[2018-07-24] MEDS: IPRATRPIUM/ALBUTEROL 0.5/2.5MG 3 ML NEBU. NEB SCH ×4 (07:06→20:56)
[2018-07-24] MEDS: CITALOPRAM 20 MG TABLET. PO SCH (10:15)
[2018-07-24] MEDS: LISINOPRIL 20 MG TABLET PO SCH ×2 (10:18→21:53)
[2018-07-24] MEDS: CETIRIZINE HCL 10 MG TABLET. PO SCH (10:18)
[2018-07-24] MEDS: OLANZapine 5 MG TABLET PO SCH (10:19)
[2018-07-24] MEDS: PANTOPRAZOLE 40 MG TABLET.DR. PO SCH (10:19)
[2018-07-24] MEDS: OMEGA-3 FATTY ACIDS/FISH OIL 1,000 MG CAPSULE. PO SCH (10:19)
[2018-07-24] MEDS: METOPROLOL TART IMMED RELEASE 50 MG TABLET. PO SCH ×2 (10:19→21:00)
[2018-07-24] MEDS: cefTRIAXone IV Push 1 GM VIAL. IVP SCH (10:20)
--- NOTE | 2018-07-24 10:25 | PDOC2 ---
CARDIAC CONSULT DATE OF CONSULT Date of Consult DATE: 07/24/18 TIME: 10:09 REASON FOR CONSULT Reason for Consult: Chest pain REFERRING PHYSICIAN Referring Physician: Rina SOURCE Source: Chart review, Patient HISTORY OF PRESENT ILLNESS HISTORY OF PRESENT ILLNESS This is a 68 yo female admitted for complains of SOA and chest pain. She said that her CP and SOA has been going since 04/2018 since she had pneumonia. she has been treated with multiple antibiotics. Her cough and productive cough have decreased and it s better according to her. She remains to be weak, SOA particularly with exertion and having chest pressure and nausea and diaphoresis sometimes. No vomiting or palpitations. She has been complaint with her medications. She has been frustrated as her hearing aid is not helping she also continues to be exhausted, tired still has CP and SOA. Pt is [place] [employer] and I communicated with her by writing. PAST MEDICAL HISTORY Cardiovascular: AFIB, CAD, CHF, HTN, Hyperlipidemia, Other (PVs- Prior holter monitor with multifocal PVC, past EP study negative for inducible VT nor SVT in 12/2000; LV thormbus; cardiomyopathy) Pulmonary: COPD, Pneumonia CENTRAL NERVOUS SYSTEM: CVA GI: GERD Hepatobiliary: No pertinent hx Psych: Anxiety, Depression Musculoskeletal: Osteoarthritis ENT: Other (BAD R[place]) PAST SURGICAL HISTORY Past Surgical History: Hysterectomy (partial) FAMILY HISTORY Family History: Stroke (sister) SOCIAL HISTORY Smoke: Quit ALCOHOL: none Drugs: None Lives: Alone CURRENT MEDICATIONS CURRENT MEDICATIONS Current Medications Medications (Trade) Dose Ordered Sig/Daquan Route PRN Reason Start Time Stop Time Status Last Admin Dose Admin Iohexol (Omnipaque 350 Mg/ml) 100 ml 1X ONCE IV 07/23/18 11:15 07/23/18 11:16 DC 07/23/18 11:19 Ceftriaxone Sodium (Rocephin) 1 gm 1X ONCE IVP 07/23/18 12:00 07/23/18 12:01 DC 07/23/18 13:30 Levofloxacin/ Dextrose 100 ml @ 100 mls/hr 1X ONCE IV 07/23/18 12:00 07/23/18 12:59 DC 07/23/18 13:36 Morphine Sulfate (Morphine Sulfate) 2 mg PRN Q2HR PRN IV PAIN 07/23/18 13:00 07/24/18 12:59 07/24/18 04:22 Acetaminophen (Tylenol) 650 mg PRN Q4HRS PRN PO FEVER 07/23/18 13:00 07/24/18 12:59 07/24/18 04:20 Albuterol/ Ipratropium (Duoneb) 3 ml RTQID NEB 07/23/18 16:00 07/24/18 07:06 Hydralazine HCl (Apresoline Inj) 10 mg PRN Q4HRS PRN IVP ELEVATED BP, SEE COMMENTS 07/23/18 15:15 07/24/18 03:32 Nicardipine HCl 50 mg/Sodium Chloride 250 ml @ 25 mls/hr CONT PRN IV SEE I/O RECORD 07/24/18 05:00 07/24/18 05:23 Potassium Chloride (Klor-Con) 40 meq 1X ONCE PO 07/24/18 05:00 07/24/18 05:06 DC 07/24/18 05:25 Lisinopril (Prinivil) 20 mg 1X ONCE PO 07/24/18 05:00 07/24/18 05:06 DC 07/24/18 05:24 ALLERGIES ALLERGIES: Coded Allergies: No Known Drug Allergies (Unverified , 04/10/18) ROS Review of System 14 point ROS evaluated with pertinent positives noted per HPI PHYSICAL EXAM General: Alert, Oriented X3, Cooperative, No acute distress HEENT: Atraumatic, Mucous membr. moist/pink Lungs: Other (faint basilar crackles) Heart: Regular rate (Sr with PVCs), Normal S1, Normal S2, Other (2/6 systolic murmur to LLS border) Extremities: No cyanosis, Other (1+ bilateral LE pitting edema) Skin: No significant lesion Neuro: Normal speech, Sensation intact Psych/Mental Status: Mental status NL, Mood NL MUSCULOSKELETAL: Osteoarthritic changes both hands VITALS VITALS Vital Signs Date Time Temp Pulse Resp B/P (MAP) Pulse Ox O2 Delivery O2 Flow Rate FiO2 07/24/18 08:16 Nasal Cannula 4.0 07/24/18 07:22 97.7 66 20 162/69 (100) 96 97.7 LABS Lab: Laboratory Tests Test 07/23/18 10:10 07/23/18 10:20 07/23/18 14:10 07/24/18 03:00 White Blood Count 5.2 x10^3/uL (4.0-11.0) 5.0 x10^3/uL (4.0-11.0) Red Blood Count 4.50 x10^6/uL (3.50-5.40) 4.21 x10^6/uL (3.50-5.40) Hemoglobin 13.3 g/dL (12.0-15.5) 12.6 g/dL (12.0-15.5) Hematocrit 40.0 % (36.0-47.0) 37.5 % (36.0-47.0) Mean Corpuscular Volume 89 fL (79-100) 89 fL (79-100) Mean Corpuscular Hemoglobin 30 pg (25-35) 30 pg (25-35) Mean Corpuscular Hemoglobin Concent 33 g/dL (31-37) 34 g/dL (31-37) Red Cell Distribution Width 15.9 % (11.5-14.5) 16.0 % (11.5-14.5) Platelet Count 222 x10^3/uL (140-400) 203 x10^3/uL (140-400) Neutrophils (%) (Auto) 58 % (31-73) 48 % (31-73) Lymphocytes (%) (Auto) 31 % (24-48) 37 % (24-48) Monocytes (%) (Auto) 9 % (0-9) 12 % (0-9) Eosinophils (%) (Auto) 1 % (0-3) 3 % (0-3) Basophils (%) (Auto) 1 % (0-3) 1 % (0-3) Neutrophils # (Auto) 3.0 x10^3uL (1.8-7.7) 2.4 x10^3uL (1.8-7.7) Lymphocytes # (Auto) 1.6 x10^3/uL (1.0-4.8) 1.8 x10^3/uL (1.0-4.8) Monocytes # (Auto) 0.5 x10^3/uL (0.0-1.1) 0.6 x10^3/uL (0.0-1.1) Eosinophils # (Auto) 0.0 x10^3/uL (0.0-0.7) 0.1 x10^3/uL (0.0-0.7) Basophils # (Auto) 0.1 x10^3/uL (0.0-0.2) 0.0 x10^3/uL (0.0-0.2) Prothrombin Time 14.7 SEC (11.7-14.0) Prothromb Time International Ratio 1.2 (0.8-1.1) D-Dimer (Nirmala) 0.70 ug/mlFEU (0.00-0.50) Sodium Level 141 mmol/L (136-145) 143 mmol/L (136-145) Potassium Level 3.5 mmol/L (3.5-5.1) 2.9 mmol/L (3.5-5.1) Chloride Level 101 mmol/L (98-107) 106 mmol/L (98-107) Carbon Dioxide Level 29 mmol/L (21-32) 29 mmol/L (21-32) Anion Gap 11 (6-14) 8 (6-14) Blood Urea Nitrogen 9 mg/dL (7-20) 10 mg/dL (7-20) Creatinine 1.0 mg/dL (0.6-1.0) 1.0 mg/dL (0.6-1.0) Estimated GFR (Cockcroft-Gault) 66.5 66.5 BUN/Creatinine Ratio 9 (6-20) Glucose Level 115 mg/dL (70-99) 88 mg/dL (70-99) Calcium Level 9.4 mg/dL (8.5-10.1) 9.2 mg/dL (8.5-10.1) Magnesium Level 1.9 mg/dL (1.8-2.4) Total Bilirubin 0.8 mg/dL (0.2-1.0) Aspartate Amino Transf (AST/SGOT) 27 U/L (15-37) Alanine Aminotransferase (ALT/SGPT) 49 U/L (14-59) Alkaline Phosphatase 81 U/L (46-116) Creatine Kinase 99 U/L (26-192) Creatine Kinase MB (Mass) 1.6 ng/mL (0.0-3.6) Creatine Kinase MB Relative Index 1.6 % (0-4) Troponin I Quantitative 0.077 ng/mL (0.000-0.055) 0.091 ng/mL (0.000-0.055) 0.086 ng/mL (0.000-0.055) SG-Rmt-H-Type Natriuretic Peptide 8528 pg/mL (0-124) Total Protein 7.4 g/dL (6.4-8.2) Albumin 3.9 g/dL (3.4-5.0) Albumin/Globulin Ratio 1.1 (1.0-1.7) Thyroid Stimulating Hormone (TSH) 2.517 uIU/mL (0.358-3.74) O2 Saturation 88 % (92-99) Arterial Blood pH 7.46 (7.35-7.45) Arterial Blood pCO2 at Patient Temp 35 mmHg (35-46) Arterial Blood pO2 at Patient Temp 52 mmHg (65-108) Arterial Blood HCO3 24 mmol/L (21-28) Arterial Blood Base Excess 1 mmol/L (-3-3) FiO2 21 ECHOCARDIOGRAM ECHOCARDIOGRAM <Conclusion> The left ventricle is normal size. The left ventricular systolic function is normal and the ejection fraction is within normal range. Left ventricular ejection fraction is 55-60%. There is mild left ventricular hypertrophy with mild to moderate septal hypertrophy. There is no significant aortic valvular stenosis. Doppler and Color Flow revealed no significant aortic regurgitation. Doppler and Color-flow revealed mild mitral regurgitation. Doppler and Color Flow revealed trace tricuspid regurgitation. DATE: 04/12/18 1102 STRESS TEST STRESS TEST Conclusion 1. Abnormal EKG with frequent PVC's. 2. Large fixed LAD territory infarct, no new ischemia. 3. Severe LV dysfunction. EF 40% 4. Moderate to high risk for future CV events. DATE: 04/28/18 1204 ASSESSMENT/PLAN ASSESSMENT/PLAN 1. Chest pain: possibly ischemic induced as pt continues to have UA features. 2. Accelerated HTN: highest at 228/97 3. Acute on chronic diastolic CHF 4. AECOPD: recently treated with PO antibiotics with past pneumonia. 5. Elevated troponin: peaked at 0.09, EKG SR LVH without acute changes by comparison. Multifactorial. but concerning for ischemia. 6. Hypokalemia 7. CAD: Last LHC>5 yrs ago. No interventions per pt 8. Hx of cardiomyopathy: recovered to 55% 9. PAFIB with past hx of cardioembolic CVA 10. Chronic anticoagulation 11. 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 B[employer] [place] [employer]: hx of cochlear implant and its broken. Recommendations 1. Recent MPI 04/22/2018 with large fixed defect. Continues tohave UA features. Will completely rule out ischemia, LHC today, risks and benefits discussed and agreeable to proceed. Staff will provide video if available. 2. On cardene will titrate off, and will restart home meds. Hold xarelto. Limited TTE 3. Replace K. Lasix therapy 4. May need REJI outpt w/u DORI ALCALA APRN Jul 24, 2018 10:25
--- NOTE | 2018-07-24 11:40 | NUR ---
SS following for discharge planning. SS reviewed pt chart. Pt is from home and currently requiring oxygen. No discharge needs noted at this time. SS will continue to follow for pending discharge needs.
[2018-07-24] MEDS ORDERED: FUROSEMIDE 20 MG TABLET PO SCH (12:00)
[2018-07-24] MEDS ORDERED: RIVAROXABAN 10 MG TABLET. PO SCH (12:00)
--- NOTE | 2018-07-24 12:00 | NUR ---
Holding Xarelto for possible cath tomorrow per Dr. Jay.
[2018-07-24] MEDS: FUROSEMIDE 40 MG/4 ML VIAL. IVP SCH (12:27)
[2018-07-24] MEDS: FOLIC ACID 1 MG TABLET. PO SCH (12:27)
--- NOTE | 2018-07-24 13:13 | CONS ---
DATE OF CONSULTATION: ATTENDING PHYSICIAN: Dr. Flynn. REASON FOR CONSULTATION: Dyspnea. HISTORY OF PRESENT ILLNESS: The patient is a 68-year-old who has history of 40 years of tobacco use. She also has history of inducible VT. The patient was brought into the hospital with increasing shortness of breath. She had a cough which has been nonproductive. No fever, no chills. The patient had some chest pain as well. The patient underwent imaging study, which was reviewed by me. There was no evidence of any pulmonary embolism. She has evidence of bilateral pleural effusion, more on the right than on the left and interstitial markings suggesting congestive heart failure. The findings have worsened since her films from April of last year. She denies any significant increase in her leg edema, but she does have some ankle edema. Her last echo had a normal ejection fraction, but evidence of LVH. Her systolic blood pressure was high of 215 on admission. She is on a Cardene drip. PAST MEDICAL HISTORY: Significant for atrial fibrillation on chronic anticoagulation, history of CAD, CHF, diastolic CHF, hypertension, hyperlipidemia, history of prior Holter monitor with multifocal PVCs. History of EP study, which was negative for inducible VT. History of cerebrovascular accident, anxiety and depression. PAST SURGICAL HISTORY: Hysterectomy. REVIEW OF SYSTEMS: Twelve-point system obtained. Pertinent positives discussed in my history of present illness, otherwise noncontributory. All systems that were negative were reviewed as well. FAMILY HISTORY: Stroke in the sister. SOCIAL HISTORY: Smoker for 40 years. MEDICATIONS: Reviewed as listed in the MRAD including antibiotic Rocephin and Zithromax. PHYSICAL EXAMINATION: VITAL SIGNS: Reviewed. Systolic blood pressure was 215 now down to 182. Afebrile, pulse ox 95% on 2 liters. NECK: Supple. LUNGS: With diminished breath sounds at the bases. CARDIOVASCULAR: Regular rate. ABDOMEN: Soft and nontender. Obese. EXTREMITIES: With trace ankle edema. LABORATORY DATA: Reviewed. White cell count 5.0, hemoglobin 12.6 and platelets are 203. Potassium 2.9. BUN 10 and creatinine 1.0. Troponin level 0.091. ABGs with a pH of 7.46, pCO2 of 35 and pO2 of 52 on room air. IMPRESSION: 1. Acute hypoxic respiratory failure secondary to acute on chronic diastolic heart failure. 2. Abnormal CT chest with evidence of congestive heart failure. She has interstitial infiltrates and bilateral pleural effusions more on the right than on the left. 3. Clinically less likely pneumonia. 4. Chest pain, possible non-ST myocardial infarction. Cardiac catheterization is planned by Cardiology. 5. Chronic atrial fibrillation on home Xarelto. RECOMMENDATIONS: 1. Continue with present oxygen to keep saturation 92-94% and gradually wean off. 2. Diuresis as you have ordered. 3. Obtain procalcitonin level. Clinically, less likely pneumonia and if the level is normal antibiotics can be discontinued. 4. Cardiac catheterization per Cardiology. 5. Xarelto on hold in anticipation of her cath. 6. Continue DuoNeb. Smoking cessation counseling provided. Discussed with RN. TERI SHARP MD DR: GILBERTO/melani JOB#: [id number] / [id number]
--- NOTE | 2018-07-24 14:01 | HP ---
ADMIT DATE: 07/23/2018 CHIEF COMPLAINT: Shortness of breath. HISTORY OF PRESENT ILLNESS AND HOSPITAL COURSE: This patient is a 68-year-old -Maldivian female with multiple medical issues. States for the last several months, she has been having difficulty with cough and congestion. She states she has received at least one treatment with antibiotics and steroids in April and since then she has also gone to urgent care and Emergency Clinics and been treating at least over the last 4 weeks without significant improvement. These ER visits cannot be documented in the office chart or in the current hospital chart. The patient states on the day of admission, she began having increasing shortness of breath and more pressure along the front of her chest. She came to the Emergency Room for evaluation, where she was found to have evidence of right basilar pneumonia, as well as evidence of vascular congestion and early congestive heart failure. The patient also had elevated troponins. Due to these findings, she was admitted for cardiac evaluation and pulmonary evaluation, and started on IV antibiotics and routine pulmonary toilet. PAST MEDICAL HISTORY: Significant for: 1. Coronary artery disease. 2. Previous CVA. 3. Severe hearing loss with history of cochlear implant. 4. Hypertension. 5. Hyperlipidemia. 6. Type 2 diabetes. 7. Major depression. 8. History of dementia with psychosis. 9. Atrial fibrillation. 10. Hypertension. 11. Chronic obstructive pulmonary disease. 12. Diastolic heart failure. 13. Chronic sinusitis. FAMILY HISTORY: Significant for a stroke in her sister at age 59; otherwise, unknown family history. SOCIAL HISTORY: The patient is a previous smoker, but quit smoking more than 5 years ago. The patient is . She does not use alcohol. She does live alone. She has moderate support from son and family members in town. PAST SURGICAL HISTORY: Significant for partial hysterectomy as well as cochlear implant. ALLERGIES: The patient denies drug allergies. REVIEW OF SYSTEMS: Positive for chest pain, shortness of breath and productive cough. Negative for nausea, vomiting, diarrhea or weight loss. PHYSICAL EXAMINATION: GENERAL: This is a well-nourished, moderately obese -Maldivian female who is very hard of hearing and unable to give clear history and unable to understand questions. HEENT: Otherwise benign. NECK: Supple. CARDIAC: Regular rate and rhythm. LUNGS: Revealed crackles in the right base and diminished breath sounds in bilateral bases. EXTREMITIES: Revealed 2+ pulses. NEUROLOGIC: Showed no significant residual from CVA. ASSESSMENT: 1. Mofkh-sd-gbtgbnm respiratory failure. 2. Community-acquired pneumonia. 3. Wucxv-dw-ilbbwer diastolic congestive heart failure. 4. Severe hearing loss. 5. Non-ST elevated myocardial infarction. 6. Hypokalemia. 7. Type 2 diabetes. PLAN: To proceed with IV antibiotics, pulmonary toilet. Consult Pulmonary Medicine. Consult Cardiology. Restart home medications and monitor the patient's progress. Also, ST, PT and OT modalities. LEIGHA CAMPOS MD DR: ANNETTE/melani JOB#: [id number] / [id number]
[2018-07-24] MEDS ORDERED: RIVAROXABAN 10 MG TABLET. PO ONE (14:15)
--- NOTE | 2018-07-24 14:15 | CARD ---
MR#: [id number] Date of Study: 07/24/2018 Ordering Physician: DORI ALCALA, Referring Physician: LEIGHA CAMPOS Tech: Anca Arreguin MAGALIE APPROVED REPORT EXAM: LIMITED Two-dimensional and M-mode echocardiogram with Doppler and color Doppler. Other Information Quality : GoodHR: 67bpm Rhythm : NSR INDICATION Cardiomyopathy 2D DIMENSIONS RVDd2.5 (2.9-3.5cm)Left Atrium(2D)4.4 (1.6-4.0cm) IVSd1.7 (0.7-1.1cm)Aortic Root(2D)3.0 (2.0-3.7cm) LVDd5.4 (3.9-5.9cm)PWd1.4 (0.7-1.1cm) LVDs3.7 (2.5-4.0cm)FS (%) 31.1 % SV81.3 mlLVEF(%)55.0 (>50%) LEFT VENTRICLE The left ventricle is normal size. There is mild to moderate concentric left ventricular hypertrophy. Left ventricle systolic function is low normal. The Ejection Fraction is 50-55%. There is severe hyp okinesis in the apical septal wall. No left ventricle thrombus noted on this study. AORTIC VALVE The aortic valve is thickened but opens well. The aortic valve is trileaflet. GREAT VESSELS The aortic root is normal in size. PERICARDIAL EFFUSION There is no evidence of significant pericardial effusion. Critical Notification Critical Value: No <Conclusion> The left ventricle is normal size. Left ventricle systolic function is low normal. The Ejection Fraction is 50-55%. There is severe hypokinesis in the apical septal wall. There is mild to moderate concentric left ventricular hypertrophy. Signed by : Adalid Jay MD Electronically Approved : 07/24/2018 14:15:14
[2018-07-24] MEDS: AZITHROMYCIN 500 MG in IV NORMAL SALINE 250ML 250 ML IV SCH (14:28)
[2018-07-24] MEDS: TEMAZEPAM 15 MG CAPSULE PO SCH (21:00)
[2018-07-24] MEDS: QUEtiapine 25 MG TABLET. PO SCH (21:52)
[2018-07-24] MEDS: ATORVASTATIN CALCIUM 40 MG TABLET. PO SCH (21:53)
[2018-07-24] MEDS: traZODone 50 MG TABLET. PO SCH (21:53)
[2018-07-25] VITALS (11 sets, daily range): BP systolic 147–227; BP diastolic 57–102
[2018-07-25 04:28] LABS: BASO % 1 % (0-3); EOS # 0.2 x10^3/uL (0.0-0.7); EOS % 2 % (0-3); HEMATOCRIT 41.2 % (36.0-47.0); HEMOGLOBIN 13.4 g/dL (12.0-15.5); LYMPH # 1.9 x10^3/uL (1.0-4.8); LYMPH % 27 % (24-48); MEAN CORPUSCULAR HEMOGLOBIN 29 pg (25-35); MEAN CORPUSCULAR HGB CONC 33 g/dL (31-37); MEAN CORPUSCULAR VOLUME 90 fL (79-100); MONO # 0.7 x10^3/uL (0.0-1.1); MONO % 10 % (0-9); NEUT # 4.2 x10^3uL (1.8-7.7); NEUT % 61 % (31-73); PLATELET COUNT 244 x10^3/uL (140-400); RED CELL DISTRIBUTION WIDTH 16.1 % (11.5-14.5)
[2018-07-25 04:46] LABS: CALCIUM 9.5 mg/dL (8.5-10.1); CREATININE 1.1 mg/dL (0.6-1.0); GFR 59.6
--- NOTE | 2018-07-25 07:18 | PDOC ---
PULMONARY PROGRESS NOTES Subjective deaf, sob better, no pain, has occ cough Vitals Vital Signs Date Time Temp Pulse Resp B/P (MAP) Pulse Ox O2 Delivery O2 Flow Rate FiO2 07/25/18 03:00 98.1 62 18 162/73 (102) 94 Room Air 98.1 07/24/18 20:57 3.5 ROS: No Nausea General: Alert, No acute distress HEENT: Other (nc at perrl) Lungs: Crackles Cardiovascular: Other (irreg irreg) Abdomen: Soft Neuro Exam: Alert Extremities: No Edema Skin: Warm Labs Laboratory Tests Test 07/23/18 10:10 07/23/18 10:20 07/23/18 14:10 07/24/18 03:00 White Blood Count 5.2 x10^3/uL (4.0-11.0) 5.0 x10^3/uL (4.0-11.0) Red Blood Count 4.50 x10^6/uL (3.50-5.40) 4.21 x10^6/uL (3.50-5.40) Hemoglobin 13.3 g/dL (12.0-15.5) 12.6 g/dL (12.0-15.5) Hematocrit 40.0 % (36.0-47.0) 37.5 % (36.0-47.0) Mean Corpuscular Volume 89 fL (79-100) 89 fL (79-100) Mean Corpuscular Hemoglobin 30 pg (25-35) 30 pg (25-35) Mean Corpuscular Hemoglobin Concent 33 g/dL (31-37) 34 g/dL (31-37) Red Cell Distribution Width 15.9 % (11.5-14.5) 16.0 % (11.5-14.5) Platelet Count 222 x10^3/uL (140-400) 203 x10^3/uL (140-400) Neutrophils (%) (Auto) 58 % (31-73) 48 % (31-73) Lymphocytes (%) (Auto) 31 % (24-48) 37 % (24-48) Monocytes (%) (Auto) 9 % (0-9) 12 % (0-9) Eosinophils (%) (Auto) 1 % (0-3) 3 % (0-3) Basophils (%) (Auto) 1 % (0-3) 1 % (0-3) Neutrophils # (Auto) 3.0 x10^3uL (1.8-7.7) 2.4 x10^3uL (1.8-7.7) Lymphocytes # (Auto) 1.6 x10^3/uL (1.0-4.8) 1.8 x10^3/uL (1.0-4.8) Monocytes # (Auto) 0.5 x10^3/uL (0.0-1.1) 0.6 x10^3/uL (0.0-1.1) Eosinophils # (Auto) 0.0 x10^3/uL (0.0-0.7) 0.1 x10^3/uL (0.0-0.7) Basophils # (Auto) 0.1 x10^3/uL (0.0-0.2) 0.0 x10^3/uL (0.0-0.2) Prothrombin Time 14.7 SEC (11.7-14.0) Prothromb Time International Ratio 1.2 (0.8-1.1) D-Dimer (Nirmala) 0.70 ug/mlFEU (0.00-0.50) Sodium Level 141 mmol/L (136-145) 143 mmol/L (136-145) Potassium Level 3.5 mmol/L (3.5-5.1) 2.9 mmol/L (3.5-5.1) Chloride Level 101 mmol/L (98-107) 106 mmol/L (98-107) Carbon Dioxide Level 29 mmol/L (21-32) 29 mmol/L (21-32) Anion Gap 11 (6-14) 8 (6-14) Blood Urea Nitrogen 9 mg/dL (7-20) 10 mg/dL (7-20) Creatinine 1.0 mg/dL (0.6-1.0) 1.0 mg/dL (0.6-1.0) Estimated GFR (Cockcroft-Gault) 66.5 66.5 BUN/Creatinine Ratio 9 (6-20) Glucose Level 115 mg/dL (70-99) 88 mg/dL (70-99) Calcium Level 9.4 mg/dL (8.5-10.1) 9.2 mg/dL (8.5-10.1) Magnesium Level 1.9 mg/dL (1.8-2.4) 2.0 mg/dL (1.8-2.4) Total Bilirubin 0.8 mg/dL (0.2-1.0) Aspartate Amino Transf (AST/SGOT) 27 U/L (15-37) Alanine Aminotransferase (ALT/SGPT) 49 U/L (14-59) Alkaline Phosphatase 81 U/L (46-116) Creatine Kinase 99 U/L (26-192) Creatine Kinase MB (Mass) 1.6 ng/mL (0.0-3.6) Creatine Kinase MB Relative Index 1.6 % (0-4) Troponin I Quantitative 0.077 ng/mL (0.000-0.055) 0.091 ng/mL (0.000-0.055) 0.086 ng/mL (0.000-0.055) HC-Yde-Q-Type Natriuretic Peptide 8528 pg/mL (0-124) Total Protein 7.4 g/dL (6.4-8.2) Albumin 3.9 g/dL (3.4-5.0) Albumin/Globulin Ratio 1.1 (1.0-1.7) Thyroid Stimulating Hormone (TSH) 2.517 uIU/mL (0.358-3.74) O2 Saturation 88 % (92-99) Arterial Blood pH 7.46 (7.35-7.45) Arterial Blood pCO2 at Patient Temp 35 mmHg (35-46) Arterial Blood pO2 at Patient Temp 52 mmHg (65-108) Arterial Blood HCO3 24 mmol/L (21-28) Arterial Blood Base Excess 1 mmol/L (-3-3) FiO2 21 Procalcitonin < 0.10 ng/mL (0.00-0.10) Test 07/25/18 04:00 White Blood Count 7.0 x10^3/uL (4.0-11.0) Red Blood Count 4.60 x10^6/uL (3.50-5.40) Hemoglobin 13.4 g/dL (12.0-15.5) Hematocrit 41.2 % (36.0-47.0) Mean Corpuscular Volume 90 fL (79-100) Mean Corpuscular Hemoglobin 29 pg (25-35) Mean Corpuscular Hemoglobin Concent 33 g/dL (31-37) Red Cell Distribution Width 16.1 % (11.5-14.5) Platelet Count 244 x10^3/uL (140-400) Neutrophils (%) (Auto) 61 % (31-73) Lymphocytes (%) (Auto) 27 % (24-48) Monocytes (%) (Auto) 10 % (0-9) Eosinophils (%) (Auto) 2 % (0-3) Basophils (%) (Auto) 1 % (0-3) Neutrophils # (Auto) 4.2 x10^3uL (1.8-7.7) Lymphocytes # (Auto) 1.9 x10^3/uL (1.0-4.8) Monocytes # (Auto) 0.7 x10^3/uL (0.0-1.1) Eosinophils # (Auto) 0.2 x10^3/uL (0.0-0.7) Basophils # (Auto) 0.0 x10^3/uL (0.0-0.2) Sodium Level 144 mmol/L (136-145) Potassium Level 4.0 mmol/L (3.5-5.1) Chloride Level 106 mmol/L (98-107) Carbon Dioxide Level 27 mmol/L (21-32) Anion Gap 11 (6-14) Blood Urea Nitrogen 12 mg/dL (7-20) Creatinine 1.1 mg/dL (0.6-1.0) Estimated GFR (Cockcroft-Gault) 59.6 Glucose Level 95 mg/dL (70-99) Calcium Level 9.5 mg/dL (8.5-10.1) Magnesium Level 2.1 mg/dL (1.8-2.4) Laboratory Tests Test 07/25/18 04:00 White Blood Count 7.0 x10^3/uL (4.0-11.0) Red Blood Count 4.60 x10^6/uL (3.50-5.40) Hemoglobin 13.4 g/dL (12.0-15.5) Hematocrit 41.2 % (36.0-47.0) Mean Corpuscular Volume 90 fL (79-100) Mean Corpuscular Hemoglobin 29 pg (25-35) Mean Corpuscular Hemoglobin Concent 33 g/dL (31-37) Red Cell Distribution Width 16.1 % (11.5-14.5) Platelet Count 244 x10^3/uL (140-400) Neutrophils (%) (Auto) 61 % (31-73) Lymphocytes (%) (Auto) 27 % (24-48) Monocytes (%) (Auto) 10 % (0-9) Eosinophils (%) (Auto) 2 % (0-3) Basophils (%) (Auto) 1 % (0-3) Neutrophils # (Auto) 4.2 x10^3uL (1.8-7.7) Lymphocytes # (Auto) 1.9 x10^3/uL (1.0-4.8) Monocytes # (Auto) 0.7 x10^3/uL (0.0-1.1) Eosinophils # (Auto) 0.2 x10^3/uL (0.0-0.7) Basophils # (Auto) 0.0 x10^3/uL (0.0-0.2) Sodium Level 144 mmol/L (136-145) Potassium Level 4.0 mmol/L (3.5-5.1) Chloride Level 106 mmol/L (98-107) Carbon Dioxide Level 27 mmol/L (21-32) Anion Gap 11 (6-14) Blood Urea Nitrogen 12 mg/dL (7-20) Creatinine 1.1 mg/dL (0.6-1.0) Estimated GFR (Cockcroft-Gault) 59.6 Glucose Level 95 mg/dL (70-99) Calcium Level 9.5 mg/dL (8.5-10.1) Magnesium Level 2.1 mg/dL (1.8-2.4) Medications Active Scripts Medications Dose Route/Sig Max Daily Dose Days Date Category Seroquel (Quetiapine Fumarate) 25 Mg Tablet 25 Mg PO HS 07/23/18 Reported Furosemide 20 Mg Tablet 20 Mg PO DAILY 07/23/18 Reported Zyprexa (Olanzapine) 15 Mg Tablet 15 Mg PO DAILY 07/23/18 Reported Prevacid (Lansoprazole) 30 Mg Capsule.dr 30 Mg PO DAILY 07/23/18 Reported Folic Acid 1 Mg Tablet 1 Mg PO DAILY 07/23/18 Reported Escitalopram Oxalate 10 Mg Tablet 10 Mg PO DAILY 07/23/18 Reported Fish Oil 1,000 mg Softgel ([place]-3/Dha/Epa/Fish Oil) 1,000 Mg Capsule 1,000 Mg PO DAILY 07/23/18 Reported Trazodone Hcl 50 Mg Tablet 50 Mg PO HS 07/23/18 Reported Vitamin D2 (Ergocalciferol (Vitamin D2)) 50,000 Unit Capsule 50,000 Unit PO WEEKLY 07/23/18 Reported Levocetirizine Dihydrochloride 5 Mg Tablet 5 Mg PO DAILY 07/23/18 Reported Metoprolol Tartrate 50 Mg Tablet 50 Mg PO BID 90 04/14/18 Rx Lisinopril 40 Mg Tablet 20 Mg PO BID 90 04/14/18 Rx Temazepam 15 Mg Capsule 1 Cap PO QHS 04/11/18 Rx Atorvastatin Calcium 40 Mg Tablet 40 Mg PO DAILY 04/10/18 Reported Xarelto (Rivaroxaban) 20 Mg Tablet 20 Mg PO DAILY 04/10/18 Reported Lansoprazole 30 Mg Capsule.dr 30 Mg PO DAILY 04/10/18 Reported Impression . IMPRESSION: 1. Acute hypoxic respiratory failure secondary to acute on chronic diastolic heart failure. 2. Abnormal CT chest with evidence of congestive heart failure. She has interstitial infiltrates and bilateral pleural effusions more on the right than on the left. 3. Clinically less likely pneumonia. 4. Chest pain, possible non-ST myocardial infarction. Cardiac catheterization is planned by Cardiology. 5. Chronic atrial fibrillation on home Xarelto. Plan . RECOMMENDATIONS: 1. oxygen titration to keep saturation 91% 2. Diuresis, keep I<O, monitor k, cr 3. procalcitonin level <0.1, low risk of infection, antibiotics can be discontinued. 4. Cardiac catheterization per Cardiology on Friday. 5. Xarelto . 6. Continue BD, DuoNeb. Smoking cessation counseling provided. ken w rn, pt SAVANNAH NATHONY MD Jul 25, 2018 07:18
[2018-07-25] MEDS: IPRATRPIUM/ALBUTEROL 0.5/2.5MG 3 ML NEBU. NEB SCH ×4 (07:38→19:36)
[2018-07-25] MEDS: CETIRIZINE HCL 10 MG TABLET. PO SCH (09:28)
[2018-07-25] MEDS: CITALOPRAM 20 MG TABLET. PO SCH (09:28)
[2018-07-25] MEDS: OLANZapine 5 MG TABLET PO SCH (09:28)
[2018-07-25] MEDS: FOLIC ACID 1 MG TABLET. PO SCH (09:28)
[2018-07-25] MEDS: OMEGA-3 FATTY ACIDS/FISH OIL 1,000 MG CAPSULE. PO SCH (09:28)
[2018-07-25] MEDS: METOPROLOL TART IMMED RELEASE 50 MG TABLET. PO SCH ×2 (09:29)
[2018-07-25] MEDS: PANTOPRAZOLE 40 MG TABLET.DR. PO SCH (09:29)
[2018-07-25] MEDS: LISINOPRIL 20 MG TABLET PO SCH ×2 (09:29→21:17)
[2018-07-25] MEDS: FUROSEMIDE 40 MG/4 ML VIAL. IVP SCH (09:29)
[2018-07-25] MEDS: AZITHROMYCIN 500 MG in IV NORMAL SALINE 250ML 250 ML IV SCH (09:31)
[2018-07-25] MEDS: hydrALAZINE 20 MG/ML VIAL. IVP PRN ×3 (10:30→23:12)
[2018-07-25] MEDS: cefTRIAXone IV Push 1 GM VIAL. IVP SCH (10:31)
--- NOTE | 2018-07-25 11:55 | PDOC ---
PROGRESS NOTES Subjective Subjective Patient reports she still has TRIVEDI with some CP. Symptoms better with rest. Objective Objective Vital Signs Date Time Temp Pulse Resp B/P (MAP) Pulse Ox O2 Delivery O2 Flow Rate FiO2 07/25/18 11:25 99 Room Air 07/25/18 10:52 60 161/69 (99) 07/25/18 07:39 3.5 07/25/18 07:30 97.4 20 97.4 Intake and Output 07/25/18 06:59 Intake Total 1624 ml Output Total 2025 ml Balance -401 ml Intake Oral 1130 ml IV Total 494 ml Output Urine Total 2025 ml # Voids 3 Physical Exam Abdomen: Normal bowel sounds, Soft, No tenderness Heart: Regular rate Extremities: No edema General: Alert, Oriented X3, No acute distress Lungs: Other (BS decreased throughout, CTA, no cough during exam) Assessment Assessment Problems Medical Problems: (1) Right lower lobe pneumonia Status: Acute Plan Plan of Care 1. Acute respiratory failure with COPD and possible pneumonia - stable, continue abx, nebs and O2. Pulmonary following. 2. AMI with AE diastolic CHF - continue Lasix daily. Cardiology plans cath on Friday. 3. hypokalemia - improved, will continue daily po dose and follow lab. 4. HTN - fair control, adjust meds as indicated. 5. PAF - stable, anticoagulation on hold for cath. Comment Review of Relevant I have reviewed the following items amna (where applicable) has been applied. Labs Laboratory Tests Test 07/23/18 14:10 07/24/18 03:00 07/25/18 04:00 Troponin I Quantitative 0.091 ng/mL (0.000-0.055) 0.086 ng/mL (0.000-0.055) White Blood Count 5.0 x10^3/uL (4.0-11.0) 7.0 x10^3/uL (4.0-11.0) Red Blood Count 4.21 x10^6/uL (3.50-5.40) 4.60 x10^6/uL (3.50-5.40) Hemoglobin 12.6 g/dL (12.0-15.5) 13.4 g/dL (12.0-15.5) Hematocrit 37.5 % (36.0-47.0) 41.2 % (36.0-47.0) Mean Corpuscular Volume 89 fL (79-100) 90 fL (79-100) Mean Corpuscular Hemoglobin 30 pg (25-35) 29 pg (25-35) Mean Corpuscular Hemoglobin Concent 34 g/dL (31-37) 33 g/dL (31-37) Red Cell Distribution Width 16.0 % (11.5-14.5) 16.1 % (11.5-14.5) Platelet Count 203 x10^3/uL (140-400) 244 x10^3/uL (140-400) Neutrophils (%) (Auto) 48 % (31-73) 61 % (31-73) Lymphocytes (%) (Auto) 37 % (24-48) 27 % (24-48) Monocytes (%) (Auto) 12 % (0-9) 10 % (0-9) Eosinophils (%) (Auto) 3 % (0-3) 2 % (0-3) Basophils (%) (Auto) 1 % (0-3) 1 % (0-3) Neutrophils # (Auto) 2.4 x10^3uL (1.8-7.7) 4.2 x10^3uL (1.8-7.7) Lymphocytes # (Auto) 1.8 x10^3/uL (1.0-4.8) 1.9 x10^3/uL (1.0-4.8) Monocytes # (Auto) 0.6 x10^3/uL (0.0-1.1) 0.7 x10^3/uL (0.0-1.1) Eosinophils # (Auto) 0.1 x10^3/uL (0.0-0.7) 0.2 x10^3/uL (0.0-0.7) Basophils # (Auto) 0.0 x10^3/uL (0.0-0.2) 0.0 x10^3/uL (0.0-0.2) Sodium Level 143 mmol/L (136-145) 144 mmol/L (136-145) Potassium Level 2.9 mmol/L (3.5-5.1) 4.0 mmol/L (3.5-5.1) Chloride Level 106 mmol/L (98-107) 106 mmol/L (98-107) Carbon Dioxide Level 29 mmol/L (21-32) 27 mmol/L (21-32) Anion Gap 8 (6-14) 11 (6-14) Blood Urea Nitrogen 10 mg/dL (7-20) 12 mg/dL (7-20) Creatinine 1.0 mg/dL (0.6-1.0) 1.1 mg/dL (0.6-1.0) Estimated GFR (Cockcroft-Gault) 66.5 59.6 Glucose Level 88 mg/dL (70-99) 95 mg/dL (70-99) Calcium Level 9.2 mg/dL (8.5-10.1) 9.5 mg/dL (8.5-10.1) Magnesium Level 2.0 mg/dL (1.8-2.4) 2.1 mg/dL (1.8-2.4) Procalcitonin < 0.10 ng/mL (0.00-0.10) Laboratory Tests Test 07/25/18 04:00 White Blood Count 7.0 x10^3/uL (4.0-11.0) Red Blood Count 4.60 x10^6/uL (3.50-5.40) Hemoglobin 13.4 g/dL (12.0-15.5) Hematocrit 41.2 % (36.0-47.0) Mean Corpuscular Volume 90 fL (79-100) Mean Corpuscular Hemoglobin 29 pg (25-35) Mean Corpuscular Hemoglobin Concent 33 g/dL (31-37) Red Cell Distribution Width 16.1 % (11.5-14.5) Platelet Count 244 x10^3/uL (140-400) Neutrophils (%) (Auto) 61 % (31-73) Lymphocytes (%) (Auto) 27 % (24-48) Monocytes (%) (Auto) 10 % (0-9) Eosinophils (%) (Auto) 2 % (0-3) Basophils (%) (Auto) 1 % (0-3) Neutrophils # (Auto) 4.2 x10^3uL (1.8-7.7) Lymphocytes # (Auto) 1.9 x10^3/uL (1.0-4.8) Monocytes # (Auto) 0.7 x10^3/uL (0.0-1.1) Eosinophils # (Auto) 0.2 x10^3/uL (0.0-0.7) Basophils # (Auto) 0.0 x10^3/uL (0.0-0.2) Sodium Level 144 mmol/L (136-145) Potassium Level 4.0 mmol/L (3.5-5.1) Chloride Level 106 mmol/L (98-107) Carbon Dioxide Level 27 mmol/L (21-32) Anion Gap 11 (6-14) Blood Urea Nitrogen 12 mg/dL (7-20) Creatinine 1.1 mg/dL (0.6-1.0) Estimated GFR (Cockcroft-Gault) 59.6 Glucose Level 95 mg/dL (70-99) Calcium Level 9.5 mg/dL (8.5-10.1) Magnesium Level 2.1 mg/dL (1.8-2.4) Microbiology 07/23/18 Blood Culture - Preliminary, Resulted NO GROWTH AFTER 1 DAY Medications Current Medications Albuterol/ Ipratropium (Duoneb) 3 ml 1X ONCE NEB Last administered on at 09:52; Start 07/23/18 at 09:30; Stop 07/23/18 at 09:36; Status DC Labetalol HCl (Normodyne Iv Push) 10 mg 1X ONCE IVP Last administered on at 09:58; Start 07/23/18 at 09:30; Stop 07/23/18 at 09:36; Status DC Aspirin (Angel Aspirin) 325 mg 1X ONCE PO Last administered on 07/23/18at 10:01 ; Start 07/23/18 at 09:30; Stop 07/23/18 at 09:36; Status DC Clonidine HCl (Catapres) 0.2 mg 1X ONCE PO ; Start 07/23/18 at 11:00; Stop at 11:01; Status DC Iohexol (Omnipaque 350 Mg/ml) 100 ml 1X ONCE IV Last administered on at 11:19; Start 07/23/18 at 11:15; Stop 07/23/18 at 11:16; Status DC Info (CONTRAST GIVEN -- Rx MONITORING) 1 each PRN DAILY PRN MC SEE COMMENTS; Start 07/23/18 at 11:15; Stop 07/25/18 at 11:14; Status DC Ceftriaxone Sodium (Rocephin) 1 gm 1X ONCE IVP Last administered on 07/23/18at 13:30; Start 07/23/18 at 12:00; Stop 07/23/18 at 12:01; Status DC Levofloxacin/ Dextrose 100 ml @ 100 mls/hr 1X ONCE IV Last administered on at 13:36; Start 07/23/18 at 12:00; Stop 07/23/18 at 12:59; Status DC Ondansetron HCl (Zofran) 4 mg PRN Q8HRS PRN IV NAUSEA/VOMITING; Start 07/23/18 at 13:00; Stop 07/24/18 at 12:59; Status DC Morphine Sulfate (Morphine Sulfate) 2 mg PRN Q2HR PRN IV PAIN Last administered on 07/24/18at 04:22; Start 07/23/18 at 13:00; Stop 07/24/18 at 12:59 ; Status DC Acetaminophen (Tylenol) 650 mg PRN Q4HRS PRN PO FEVER Last administered on 07/24at 04:20; Start 07/23/18 at 13:00; Stop 07/24/18 at 12:59; Status DC Nitroglycerin (Nitrostat) 0.4 mg PRN Q5MIN PRN SL CHEST PAIN; Start 07/23/18 at 13:00; Stop 07/24/18 at 12:59; Status DC Albuterol/ Ipratropium (Duoneb) 3 ml RTQID NEB Last administered on 07/25/18at 11:23; Start 07/23/18 at 16:00 Hydralazine HCl (Apresoline Inj) 10 mg PRN Q4HRS PRN IVP ELEVATED BP, SEE COMMENTS Last administered on 07/25/18at 10:30; Start 07/23/18 at 15:15 Nicardipine HCl 50 mg/Sodium Chloride 250 ml @ 25 mls/hr CONT PRN IV SEE I/O RECORD Last administered on 07/24/18at 05:23; Start 07/24/18 at 05:00 Potassium Chloride (Klor-Con) 40 meq 1X ONCE PO Last administered on at 05:25; Start 07/24/18 at 05:00; Stop 07/24/18 at 05:06; Status DC Potassium Chloride (Klor-Con) 20 meq 1X ONCE PO ; Start 07/24/18 at 11:30; Stop 07/24/18 at 11:30; Status DC Lisinopril (Prinivil) 20 mg 1X ONCE PO Last administered on 07/24/18at 05:24; Start 07/24/18 at 05:00; Stop 07/24/18 at 05:06; Status DC Atorvastatin Calcium (Lipitor) 40 mg QHS PO Last administered on 07/24/18at 21: 53; Start 07/24/18 at 21:00 Ergocalciferol (Vitamin D2) 50,000 unit WEEKLY PO ; Start 07/31/18 at 09:00 Folic Acid (Folic Acid) 1 mg DAILY PO Last administered on 07/25/18 09:28; Start 07/24/18 at 12:00 Furosemide (Lasix) 20 mg DAILY PO ; Start 07/24/18 at 12:00; Stop 07/24/18 at 12 :00; Status DC Lisinopril (Prinivil) 20 mg BID PO Last administered on 07/25/18 09:29; Start 07/24/18 at 10:00 Metoprolol Tartrate (Lopressor) 50 mg BID PO Last administered on 07/25/18 09: 29; Start 07/24/18 at 10:00 Temazepam (Restoril) 15 mg QHS PO ; Start 07/24/18 at 21:00 Trazodone HCl (Desyrel) 50 mg HS PO Last administered on 07/24/18 21:53; Start 07/24/18 at 21:00 Citalopram Hydrobromide (CeleXA) 20 mg DAILY PO Last administered on 07/25/18 09:28; Start 07/24/18 at 10:00 Pantoprazole Sodium (Protonix) 40 mg DAILYAC PO Last administered on 07/25/18 09:29; Start 07/24/18 at 10:00 Cetirizine HCl (ZyrTEC) 10 mg DAILY PO Last administered on 07/25/18 09:28; Start 07/24/18 at 10:00 Olanzapine (ZyPREXA) 15 mg DAILY PO Last administered on 07/25/18 09:28; Start 07/24/18 at 10:00 Fish Oil (Fish Oil) 1,000 mg DAILY PO Last administered on 07/25/18 09:28; Start 07/24/18 at 10:00 Quetiapine Fumarate (SEROquel) 25 mg QHS PO Last administered on 07/24/18 21: 52; Start 07/24/18 at 21:00 Rivaroxaban (Xarelto) 20 mg DAILYWBKFT PO ; Start 07/24/18 at 12:00; Stop at 12:57; Status DC Ceftriaxone Sodium (Rocephin) 1 gm Q24H IVP Last administered on 07/25/18 10: 31; Start 07/24/18 at 11:00 Azithromycin 500 mg/Sodium Chloride 250 ml @ 250 mls/hr Q24H IV Last administered on 07/25/18 09:31; Start 07/24/18 at 10:00; Stop 07/26/18 at 09:59 Potassium Chloride (Klor-Con) 40 meq 1X ONCE PO Last administered on 12:27; Start 07/24/18 at 10:45; Stop 07/24/18 at 10:48; Status DC Furosemide (Lasix) 40 mg DAILY IVP Last administered on 07/25/18 09:29; Start 07/24/18 at 11:00 Rivaroxaban (Xarelto) 20 mg 1X ONCE PO Last administered on 07/24/18 14:29; Start 07/24/18 at 14:15; Stop 07/24/18 at 14:16; Status DC Active Scripts Active Metoprolol Tartrate 50 Mg Tablet 50 Mg PO BID 90 Days Lisinopril 40 Mg Tablet 20 Mg PO BID 90 Days Temazepam 15 Mg Capsule 1 Cap PO QHS Reported Seroquel (Quetiapine Fumarate) 25 Mg Tablet 25 Mg PO HS Furosemide 20 Mg Tablet 20 Mg PO DAILY Zyprexa (Olanzapine) 15 Mg Tablet 15 Mg PO DAILY Prevacid (Lansoprazole) 30 Mg Capsule.dr 30 Mg PO DAILY Folic Acid 1 Mg Tablet 1 Mg PO DAILY Escitalopram Oxalate 10 Mg Tablet 10 Mg PO DAILY Fish Oil 1,000 mg Softgel ([place]-3/Dha/Epa/Fish Oil) 1,000 Mg Capsule 1,000 Mg PO DAILY Trazodone Hcl 50 Mg Tablet 50 Mg PO HS Vitamin D2 (Ergocalciferol (Vitamin D2)) 50,000 Unit Capsule 50,000 Unit PO WEEKLY Levocetirizine Dihydrochloride 5 Mg Tablet 5 Mg PO DAILY Atorvastatin Calcium 40 Mg Tablet 40 Mg PO DAILY Xarelto (Rivaroxaban) 20 Mg Tablet 20 Mg PO DAILY Lansoprazole 30 Mg Capsule.dr 30 Mg PO DAILY Vitals/I & O Vital Sign - Last 24 Hours 07/24/18 07/24/18 07/24/18 07/24/18 12:10 13:15 14:30 15:03 Pulse 58 56 59 B/P (MAP) 143/67 (92) 131/63 (85) 146/65 (92) Pulse Ox 95 O2 Delivery Nasal Cannula O2 Flow Rate 3.5 07/24/18 07/24/18 07/24/18 07/24/18 15:15 19:00 19:39 20:57 Temp 97.9 98.3 97.9 98.3 Pulse 61 63 Resp 20 18 B/P (MAP) 126/58 (80) 157/72 (100) Pulse Ox 98 97 96 O2 Delivery Nasal Cannula Nasal Cannula Room Air Nasal Cannula O2 Flow Rate 3.5 3.5 3.5 07/24/18 07/24/18 07/25/18 07/25/18 21:53 23:20 00:00 03:00 Temp 98.0 98.1 98.0 98.1 Pulse 63 67 67 62 Resp 18 18 B/P (MAP) 157/72 182/78 (112) 182/78 162/73 (102) Pulse Ox 96 94 O2 Delivery Room Air Room Air 07/25/18 07/25/18 07/25/18 07/25/18 07:30 07:39 09:25 09:27 Temp 97.4 97.4 Pulse 67 65 Resp 20 B/P (MAP) 174/57 (96) 200/86 (124) 189/78 (115) Pulse Ox 99 96 O2 Delivery Nasal Cannula Nasal Cannula O2 Flow Rate 3.0 3.5 07/25/18 07/25/18 07/25/18 07/25/18 09:29 09:29 10:25 10:30 Pulse 65 65 65 65 B/P (MAP) 189/78 189/78 206/95 (132) 206/95 07/25/18 07/25/18 10:52 11:25 Pulse 60 B/P (MAP) 161/69 (99) Pulse Ox 99 O2 Delivery Room Air Intake and Output 07/24/18 07/24/18 07/25/18 14:59 22:59 06:59 Intake Total 1124 ml 250 ml 250 ml Output Total 1775 ml 250 ml Balance -651 ml 250 ml 0 ml FERNANDO NEELY MD Jul 25, 2018 11:55
[2018-07-25] MEDS: POTASSIUM CHLORIDE 10 MEQ TABLET.ER. PO SCH (12:04)
--- NOTE | 2018-07-25 15:50 | PDOC ---
PROGRESS NOTES Subjective Subjective Somnolent but comfortable Objective Objective Vital Signs Date Time Temp Pulse Resp B/P (MAP) Pulse Ox O2 Delivery O2 Flow Rate FiO2 07/25/18 15:44 61 192/81 07/25/18 15:16 99 Room Air 07/25/18 15:15 97.5 12 97.5 07/25/18 12:00 2.0 Intake and Output 07/25/18 07:00 Intake Total 1624 ml Output Total 2025 ml Balance -401 ml Intake Oral 1130 ml IV Total 494 ml Output Urine Total 2025 ml # Voids 3 Physical Exam Abdomen: Normal bowel sounds, Soft, No tenderness Heart: Regular rate Extremities: No edema General: No acute distress HEENT: Atraumatic, Mucous membr. moist/pink Lungs: Other (BS decreased throughout, CTA, no cough during exam) Neck: Supple Skin: No significant lesion Assessment Assessment 1. Chest pain: Suspicious for unstable angina. 2-D echo showed LVEF 50-55% with wall motion abnormalities. Plan for cardiac catheterization on Friday. Hold Xarelto. 2. Accelerated HTN: Blood pressure continues to be elevated. Change metoprolol to labetalol and check renal arterial duplex scan to rule out renal vascular hypertension. 3. Acute on chronic diastolic CHF: Better compensated. Continue diuresis. 4. AECOPD: Per pulmonary team. 5. PAFIB with past hx of cardioembolic CVA. Maintaining sinus rhythm. Hold Xarelto for cardiac catheterization as stated above and resume post procedure. Plan Plan of Care Problems Medical Problems: (1) Right lower lobe pneumonia Status: Acute Comment Review of Relevant I have reviewed the following items amna (where applicable) has been applied. Labs Laboratory Tests Test 07/25/18 04:00 White Blood Count 7.0 x10^3/uL (4.0-11.0) Red Blood Count 4.60 x10^6/uL (3.50-5.40) Hemoglobin 13.4 g/dL (12.0-15.5) Hematocrit 41.2 % (36.0-47.0) Mean Corpuscular Volume 90 fL (79-100) Mean Corpuscular Hemoglobin 29 pg (25-35) Mean Corpuscular Hemoglobin Concent 33 g/dL (31-37) Red Cell Distribution Width 16.1 % (11.5-14.5) Platelet Count 244 x10^3/uL (140-400) Neutrophils (%) (Auto) 61 % (31-73) Lymphocytes (%) (Auto) 27 % (24-48) Monocytes (%) (Auto) 10 % (0-9) Eosinophils (%) (Auto) 2 % (0-3) Basophils (%) (Auto) 1 % (0-3) Neutrophils # (Auto) 4.2 x10^3uL (1.8-7.7) Lymphocytes # (Auto) 1.9 x10^3/uL (1.0-4.8) Monocytes # (Auto) 0.7 x10^3/uL (0.0-1.1) Eosinophils # (Auto) 0.2 x10^3/uL (0.0-0.7) Basophils # (Auto) 0.0 x10^3/uL (0.0-0.2) Sodium Level 144 mmol/L (136-145) Potassium Level 4.0 mmol/L (3.5-5.1) Chloride Level 106 mmol/L (98-107) Carbon Dioxide Level 27 mmol/L (21-32) Anion Gap 11 (6-14) Blood Urea Nitrogen 12 mg/dL (7-20) Creatinine 1.1 mg/dL (0.6-1.0) Estimated GFR (Cockcroft-Gault) 59.6 Glucose Level 95 mg/dL (70-99) Calcium Level 9.5 mg/dL (8.5-10.1) Magnesium Level 2.1 mg/dL (1.8-2.4) Microbiology 07/23/18 Blood Culture - Preliminary, Resulted NO GROWTH AFTER 2 DAYS Medications Current Medications Atorvastatin Calcium (Lipitor) 40 mg QHS PO Last administered on 07/24/18at 21: 53; Start 07/24/18 at 21:00 Ergocalciferol (Vitamin D2) 50,000 unit WEEKLY PO ; Start 07/31/18 at 09:00 Potassium Chloride (Klor-Con) 10 meq DAILYWBKFT PO Last administered on at 12:04; Start 07/25/18 at 11:45 Quetiapine Fumarate (SEROquel) 25 mg QHS PO Last administered on 07/24/18at 21: 52; Start 07/24/18 at 21:00 Temazepam (Restoril) 15 mg QHS PO ; Start 07/24/18 at 21:00 Trazodone HCl (Desyrel) 50 mg HS PO Last administered on 07/24/18at 21:53; Start 07/24/18 at 21:00 Vitals/I & O Vital Sign - Last 24 Hours 07/24/18 07/24/18 07/24/18 07/24/18 19:00 19:39 20:57 21:53 Temp 98.3 98.3 Pulse 63 63 Resp 18 B/P (MAP) 157/72 (100) 157/72 Pulse Ox 97 96 O2 Delivery Nasal Cannula Room Air Nasal Cannula O2 Flow Rate 3.5 3.5 07/24/18 07/25/18 07/25/18 07/25/18 23:20 00:00 03:00 07:30 Temp 98.0 98.1 97.4 98.0 98.1 97.4 Pulse 67 67 62 67 Resp 18 18 20 B/P (MAP) 182/78 (112) 182/78 162/73 (102) 174/57 (96) Pulse Ox 96 94 99 O2 Delivery Room Air Room Air Nasal Cannula O2 Flow Rate 3.0 07/25/18 07/25/18 07/25/18 07/25/18 07:39 08:00 09:25 09:27 Pulse 65 B/P (MAP) 200/86 (124) 189/78 (115) Pulse Ox 96 O2 Delivery Nasal Cannula Room Air O2 Flow Rate 3.5 07/25/18 07/25/18 07/25/18 07/25/18 09:29 09:29 10:25 10:30 Pulse 65 65 65 65 B/P (MAP) 189/78 189/78 206/95 (132) 206/95 07/25/18 07/25/18 07/25/18 07/25/18 10:52 11:25 12:00 15:15 Temp 97.1 97.5 97.1 97.5 Pulse 60 58 61 Resp 28 12 B/P (MAP) 161/69 (99) 147/65 (92) 192/81 (118) Pulse Ox 99 100 98 O2 Delivery Room Air Nasal Cannula Room Air O2 Flow Rate 2.0 07/25/18 07/25/18 15:16 15:44 Pulse 61 B/P (MAP) 192/81 Pulse Ox 99 O2 Delivery Room Air Intake and Output 07/24/18 07/24/18 07/25/18 15:00 23:00 07:00 Intake Total 1124 ml 250 ml 250 ml Output Total 1775 ml 250 ml Balance -651 ml 250 ml 0 ml ASMITA MARROQUIN MD Jul 25, 2018 15:50
--- NOTE | 2018-07-25 21:00 | NUR ---
PT APPEARED VERY AGITATED. PT VERBALIZED CONCERNS REGARDING RENAL US, AND WHY TEST ARE BEING DONE. PT HAS CONCERNS REGARDING HEART CATH SCHEDULED FOR FRIDAY. SUPPORT OFFERED/GIVEN TO PT AND FAMILY. CALL LIGHT IN REACH WILL CONT TO MONITOR. PMRN
[2018-07-25] MEDS: TEMAZEPAM 15 MG CAPSULE PO SCH (21:16)
[2018-07-25] MEDS: QUEtiapine 25 MG TABLET. PO SCH (21:16)
[2018-07-25] MEDS: traZODone 50 MG TABLET. PO SCH (21:16)
[2018-07-25] MEDS: LABETALOL HCL 200 MG TABLET PO SCH (21:17)
[2018-07-25] MEDS: ATORVASTATIN CALCIUM 40 MG TABLET. PO SCH (21:17)
[2018-07-25] MEDS ORDERED: HYDROcodone/APAP 5/325MG 1 TAB TABLET PO PRN (23:45)
[2018-07-25] MEDS ORDERED: ACETAMINOPHEN 500 MG TABLET PO PRN (23:45)
[2018-07-26] VITALS (9 sets, daily range): BP systolic 145–203; BP diastolic 65–90
[2018-07-26] MEDS ORDERED: IMIP50TA3 PO (04:20)
[2018-07-26 04:24] LABS: CALCIUM 9.1 mg/dL (8.5-10.1); CREATININE 1.2 mg/dL (0.6-1.0); GFR 53.9; POTASSIUM 3.6 mmol/L (3.5-5.1)
--- NOTE | 2018-07-26 06:59 | PDOC ---
PULMONARY PROGRESS NOTES Subjective deaf, has episodes of sob, no pain, has occ cough Vitals Vital Signs Date Time Temp Pulse Resp B/P (MAP) Pulse Ox O2 Delivery O2 Flow Rate FiO2 07/26/18 03:15 97.5 63 16 174/72 (106) 99 Nasal Cannula 3.0 97.5 ROS: No Nausea General: Alert, No acute distress HEENT: Other (nc at perrl) Lungs: Crackles Cardiovascular: Other (irreg irreg) Abdomen: Soft, Non-tender Neuro Exam: Alert Extremities: No Edema Skin: Warm Labs Laboratory Tests Test 07/25/18 04:00 07/26/18 03:30 White Blood Count 7.0 x10^3/uL (4.0-11.0) Red Blood Count 4.60 x10^6/uL (3.50-5.40) Hemoglobin 13.4 g/dL (12.0-15.5) Hematocrit 41.2 % (36.0-47.0) Mean Corpuscular Volume 90 fL (79-100) Mean Corpuscular Hemoglobin 29 pg (25-35) Mean Corpuscular Hemoglobin Concent 33 g/dL (31-37) Red Cell Distribution Width 16.1 % (11.5-14.5) Platelet Count 244 x10^3/uL (140-400) Neutrophils (%) (Auto) 61 % (31-73) Lymphocytes (%) (Auto) 27 % (24-48) Monocytes (%) (Auto) 10 % (0-9) Eosinophils (%) (Auto) 2 % (0-3) Basophils (%) (Auto) 1 % (0-3) Neutrophils # (Auto) 4.2 x10^3uL (1.8-7.7) Lymphocytes # (Auto) 1.9 x10^3/uL (1.0-4.8) Monocytes # (Auto) 0.7 x10^3/uL (0.0-1.1) Eosinophils # (Auto) 0.2 x10^3/uL (0.0-0.7) Basophils # (Auto) 0.0 x10^3/uL (0.0-0.2) Sodium Level 144 mmol/L (136-145) 141 mmol/L (136-145) Potassium Level 4.0 mmol/L (3.5-5.1) 3.6 mmol/L (3.5-5.1) Chloride Level 106 mmol/L (98-107) 104 mmol/L (98-107) Carbon Dioxide Level 27 mmol/L (21-32) 26 mmol/L (21-32) Anion Gap 11 (6-14) 11 (6-14) Blood Urea Nitrogen 12 mg/dL (7-20) 17 mg/dL (7-20) Creatinine 1.1 mg/dL (0.6-1.0) 1.2 mg/dL (0.6-1.0) Estimated GFR (Cockcroft-Gault) 59.6 53.9 Glucose Level 95 mg/dL (70-99) 120 mg/dL (70-99) Calcium Level 9.5 mg/dL (8.5-10.1) 9.1 mg/dL (8.5-10.1) Magnesium Level 2.1 mg/dL (1.8-2.4) Laboratory Tests Test 07/26/18 03:30 Sodium Level 141 mmol/L (136-145) Potassium Level 3.6 mmol/L (3.5-5.1) Chloride Level 104 mmol/L (98-107) Carbon Dioxide Level 26 mmol/L (21-32) Anion Gap 11 (6-14) Blood Urea Nitrogen 17 mg/dL (7-20) Creatinine 1.2 mg/dL (0.6-1.0) Estimated GFR (Cockcroft-Gault) 53.9 Glucose Level 120 mg/dL (70-99) Calcium Level 9.1 mg/dL (8.5-10.1) Medications Active Scripts Medications Dose Route/Sig Max Daily Dose Days Date Category Seroquel (Quetiapine Fumarate) 25 Mg Tablet 25 Mg PO HS 07/23/18 Reported Furosemide 20 Mg Tablet 20 Mg PO DAILY 07/23/18 Reported Zyprexa (Olanzapine) 15 Mg Tablet 15 Mg PO DAILY 07/23/18 Reported Prevacid (Lansoprazole) 30 Mg Capsule.dr 30 Mg PO DAILY 07/23/18 Reported Folic Acid 1 Mg Tablet 1 Mg PO DAILY 07/23/18 Reported Escitalopram Oxalate 10 Mg Tablet 10 Mg PO DAILY 07/23/18 Reported Fish Oil 1,000 mg Softgel ([place]-3/Dha/Epa/Fish Oil) 1,000 Mg Capsule 1,000 Mg PO DAILY 07/23/18 Reported Trazodone Hcl 50 Mg Tablet 50 Mg PO HS 07/23/18 Reported Vitamin D2 (Ergocalciferol (Vitamin D2)) 50,000 Unit Capsule 50,000 Unit PO WEEKLY 07/23/18 Reported Levocetirizine Dihydrochloride 5 Mg Tablet 5 Mg PO DAILY 07/23/18 Reported Metoprolol Tartrate 50 Mg Tablet 50 Mg PO BID 90 04/14/18 Rx Lisinopril 40 Mg Tablet 20 Mg PO BID 90 04/14/18 Rx Temazepam 15 Mg Capsule 1 Cap PO QHS 04/11/18 Rx Atorvastatin Calcium 40 Mg Tablet 40 Mg PO DAILY 04/10/18 Reported Xarelto (Rivaroxaban) 20 Mg Tablet 20 Mg PO DAILY 04/10/18 Reported Lansoprazole 30 Mg Capsule.dr 30 Mg PO DAILY 04/10/18 Reported Impression . IMPRESSION: 1. Acute hypoxic respiratory failure secondary to acute on chronic diastolic heart failure. 2. Abnormal CT chest with evidence of congestive heart failure. She has interstitial infiltrates and bilateral pleural effusions more on the right than on the left. 3. Clinically less likely pneumonia. 4. Chest pain, possible non-ST myocardial infarction. Cardiac catheterization is planned by Cardiology. 5. Chronic atrial fibrillation on home Xarelto. 6. obesity, ? dahlia Plan . RECOMMENDATIONS: 1. oxygen titration to keep saturation 91% 2. Diuresis, keep I<O, monitor k, cr 3. procalcitonin level <0.1, low risk of infection, antibiotics can be discontinued. 4. Cardiac catheterization per Cardiology on Friday. 5. Xarelto . 6. Continue BD, DuoNeb. Smoking cessation counseling provided. 7. may consider psg as out pt ken w rn, pt SAVANNAH ANTHONY MD Jul 26, 2018 06:59
[2018-07-26] MEDS: IPRATRPIUM/ALBUTEROL 0.5/2.5MG 3 ML NEBU. NEB SCH ×4 (07:17→20:08)
[2018-07-26] MEDS: CITALOPRAM 20 MG TABLET. PO SCH (07:35)
[2018-07-26] MEDS: PANTOPRAZOLE 40 MG TABLET.DR. PO SCH (08:04)
[2018-07-26] MEDS: OLANZapine 5 MG TABLET PO SCH (08:04)
[2018-07-26] MEDS: FOLIC ACID 1 MG TABLET. PO SCH (08:04)
[2018-07-26] MEDS: LISINOPRIL 20 MG TABLET PO SCH (08:05)
[2018-07-26] MEDS: OMEGA-3 FATTY ACIDS/FISH OIL 1,000 MG CAPSULE. PO SCH (08:05)
[2018-07-26] MEDS: CETIRIZINE HCL 10 MG TABLET. PO SCH (08:05)
[2018-07-26] MEDS: LABETALOL HCL 200 MG TABLET PO SCH ×2 (08:05→20:41)
[2018-07-26] MEDS: POTASSIUM CHLORIDE 10 MEQ TABLET.ER. PO SCH (08:06)
--- NOTE | 2018-07-26 10:04 | PDOC ---
PROGRESS NOTES Subjective Subjective Patient denied any chest pain today Objective Objective Vital Signs Date Time Temp Pulse Resp B/P (MAP) Pulse Ox O2 Delivery O2 Flow Rate FiO2 07/26/18 09:50 58 156/68 (97) 07/26/18 08:00 Room Air 07/26/18 07:48 97.3 18 98 97.3 07/26/18 07:17 3.5 Intake and Output 07/26/18 06:59 Intake Total 1120 ml Output Total 2600 ml Balance -1480 ml Intake Oral 1120 ml Output Urine Total 2600 ml # Voids 1 Physical Exam Abdomen: Normal bowel sounds, Soft, No tenderness Heart: Regular rate Extremities: No edema General: No acute distress HEENT: Atraumatic, Mucous membr. moist/pink Lungs: Other (BS decreased throughout, CTA, no cough during exam) Neck: Supple Skin: No significant lesion Assessment Assessment 1. Chest pain: Suspicious for unstable angina. 2-D echo showed LVEF 50-55% with wall motion abnormalities. Plan for cardiac catheterization on Friday. Hold Xarelto. 2. Accelerated HTN: Blood pressure continues to be elevated despite changing metoprolol to labetalol yesterday. Start Norvasc for better blood pressure control. Renal arterial duplex scan to rule out renal artery stenosis pending. 3. Acute on chronic diastolic CHF: Better compensated. Continue diuresis. 4. AECOPD: Per pulmonary team. 5. PAFIB with past hx of cardioembolic CVA. Maintaining sinus rhythm. Hold Xarelto for cardiac catheterization as stated above and resume post procedure. Plan Plan of Care Problems Medical Problems: (1) Right lower lobe pneumonia Status: Acute Comment Review of Relevant I have reviewed the following items amna (where applicable) has been applied. Labs Laboratory Tests Test 07/26/18 03:30 Sodium Level 141 mmol/L (136-145) Potassium Level 3.6 mmol/L (3.5-5.1) Chloride Level 104 mmol/L (98-107) Carbon Dioxide Level 26 mmol/L (21-32) Anion Gap 11 (6-14) Blood Urea Nitrogen 17 mg/dL (7-20) Creatinine 1.2 mg/dL (0.6-1.0) Estimated GFR (Cockcroft-Gault) 53.9 Glucose Level 120 mg/dL (70-99) Calcium Level 9.1 mg/dL (8.5-10.1) Microbiology 07/23/18 Blood Culture - Preliminary, Resulted NO GROWTH AFTER 2 DAYS Medications Current Medications Acetaminophen (Tylenol) 1,000 mg PRN Q6HRS PRN PO PAIN Last administered on at 00:00; Start 07/25/18 at 23:45 Acetaminophen/ Hydrocodone Bitart (Lortab 5/325) 1 tab PRN Q6HRS PRN PO PAIN; Start 07/25/18 at 23:45 Ergocalciferol (Vitamin D2) 50,000 unit WEEKLY PO ; Start 07/31/18 at 09:00 Labetalol HCl (Trandate) 200 mg BID PO Last administered on 07/26/18at 08:05; Start 07/25/18 at 21:00 Potassium Chloride (Klor-Con) 10 meq DAILYWBKFT PO Last administered on at 08:06; Start 07/25/18 at 11:45 Vitals/I & O Vital Sign - Last 24 Hours 07/25/18 07/25/18 07/25/18 07/25/18 10:25 10:30 10:52 11:25 Pulse 65 65 60 B/P (MAP) 206/95 (132) 206/95 161/69 (99) Pulse Ox 99 O2 Delivery Room Air 07/25/18 07/25/18 07/25/18 07/25/18 12:00 15:15 15:16 15:44 Temp 97.1 97.5 97.1 97.5 Pulse 58 61 61 Resp 28 12 B/P (MAP) 147/65 (92) 192/81 (118) 192/81 Pulse Ox 100 98 99 O2 Delivery Nasal Cannula Room Air Room Air O2 Flow Rate 2.0 07/25/18 07/25/18 07/25/18 07/25/18 16:16 19:15 20:15 21:17 Temp 97.9 97.9 Pulse 67 74 74 Resp 16 B/P (MAP) 177/74 (108) 227/102 (143) 227/102 Pulse Ox 99 O2 Delivery Room Air Room Air 07/25/18 07/25/18 07/25/18 07/26/18 21:17 23:12 23:17 03:15 Temp 98.0 97.5 98.0 97.5 Pulse 74 74 66 63 Resp 16 16 B/P (MAP) 227/102 227/102 208/79 (122) 174/72 (106) Pulse Ox 100 99 O2 Delivery Room Air Nasal Cannula O2 Flow Rate 3.0 07/26/18 07/26/18 07/26/18 07/26/18 07:17 07:48 08:00 08:05 Temp 97.3 97.3 Pulse 78 78 Resp 18 B/P (MAP) 203/84 (123) 203/84 Pulse Ox 100 98 O2 Delivery Nasal Cannula Room Air Room Air O2 Flow Rate 3.5 07/26/18 07/26/18 08:05 09:50 Pulse 78 58 B/P (MAP) 203/84 156/68 (97) Intake and Output 07/25/18 07/25/18 07/26/18 14:59 22:59 06:59 Intake Total 0 ml 480 ml 640 ml Output Total 1050 ml 1150 ml 400 ml Balance -1050 ml -670 ml 240 ml ASMITA MARROQUIN MD Jul 26, 2018 10:04
[2018-07-26] MEDS: amLODIPine BESYLATE 10 MG TABLET PO SCH (11:01)
--- NOTE | 2018-07-26 12:33 | PDOC ---
PROGRESS NOTES Subjective Subjective Patient sleeping soundly, does not awaken with exam. Objective Objective Vital Signs Date Time Temp Pulse Resp B/P (MAP) Pulse Ox O2 Delivery O2 Flow Rate FiO2 07/26/18 11:44 59 149/65 (93) 07/26/18 11:32 97 Room Air 07/26/18 10:40 97.9 18 97.9 07/26/18 07:17 3.5 Intake and Output 07/26/18 06:59 Intake Total 1120 ml Output Total 2600 ml Balance -1480 ml Intake Oral 1120 ml Output Urine Total 2600 ml # Voids 1 Physical Exam Abdomen: Normal bowel sounds, Soft, No tenderness Heart: Regular rate Extremities: No edema General: No acute distress Lungs: Clear to auscultation (anteriorly) Assessment Assessment Problems Medical Problems: (1) Right lower lobe pneumonia Status: Acute Plan Plan of Care 1. Acute respiratory failure with COPD - improved. Abx now d/c per Pulmonary. Continue nebs and O2 if needed. 2. AMI with diastolic CHF - stable, continue lasix and telemetry. Cardiology plans cardiac cath tomorrow. 3. HTN - BP continues elevated, Dr Cruz adjusting meds, renal dopplers ordered. 4. hypokalemia - good, continue po replacement. 5. PAF - remains in sinus on telemetry. Anticoagulation on hold for cath. 6. psychiatric disorder - adjusting meds per family report of home meds she actually takes. Comment Review of Relevant I have reviewed the following items amna (where applicable) has been applied. Labs Laboratory Tests Test 07/25/18 04:00 07/26/18 03:30 White Blood Count 7.0 x10^3/uL (4.0-11.0) Red Blood Count 4.60 x10^6/uL (3.50-5.40) Hemoglobin 13.4 g/dL (12.0-15.5) Hematocrit 41.2 % (36.0-47.0) Mean Corpuscular Volume 90 fL (79-100) Mean Corpuscular Hemoglobin 29 pg (25-35) Mean Corpuscular Hemoglobin Concent 33 g/dL (31-37) Red Cell Distribution Width 16.1 % (11.5-14.5) Platelet Count 244 x10^3/uL (140-400) Neutrophils (%) (Auto) 61 % (31-73) Lymphocytes (%) (Auto) 27 % (24-48) Monocytes (%) (Auto) 10 % (0-9) Eosinophils (%) (Auto) 2 % (0-3) Basophils (%) (Auto) 1 % (0-3) Neutrophils # (Auto) 4.2 x10^3uL (1.8-7.7) Lymphocytes # (Auto) 1.9 x10^3/uL (1.0-4.8) Monocytes # (Auto) 0.7 x10^3/uL (0.0-1.1) Eosinophils # (Auto) 0.2 x10^3/uL (0.0-0.7) Basophils # (Auto) 0.0 x10^3/uL (0.0-0.2) Sodium Level 144 mmol/L (136-145) 141 mmol/L (136-145) Potassium Level 4.0 mmol/L (3.5-5.1) 3.6 mmol/L (3.5-5.1) Chloride Level 106 mmol/L (98-107) 104 mmol/L (98-107) Carbon Dioxide Level 27 mmol/L (21-32) 26 mmol/L (21-32) Anion Gap 11 (6-14) 11 (6-14) Blood Urea Nitrogen 12 mg/dL (7-20) 17 mg/dL (7-20) Creatinine 1.1 mg/dL (0.6-1.0) 1.2 mg/dL (0.6-1.0) Estimated GFR (Cockcroft-Gault) 59.6 53.9 Glucose Level 95 mg/dL (70-99) 120 mg/dL (70-99) Calcium Level 9.5 mg/dL (8.5-10.1) 9.1 mg/dL (8.5-10.1) Magnesium Level 2.1 mg/dL (1.8-2.4) Laboratory Tests Test 07/26/18 03:30 Sodium Level 141 mmol/L (136-145) Potassium Level 3.6 mmol/L (3.5-5.1) Chloride Level 104 mmol/L (98-107) Carbon Dioxide Level 26 mmol/L (21-32) Anion Gap 11 (6-14) Blood Urea Nitrogen 17 mg/dL (7-20) Creatinine 1.2 mg/dL (0.6-1.0) Estimated GFR (Cockcroft-Gault) 53.9 Glucose Level 120 mg/dL (70-99) Calcium Level 9.1 mg/dL (8.5-10.1) Microbiology 07/23/18 Blood Culture - Preliminary, Resulted NO GROWTH AFTER 2 DAYS Medications Current Medications Albuterol/ Ipratropium (Duoneb) 3 ml 1X ONCE NEB Last administered on at 09:52; Start 07/23/18 at 09:30; Stop 07/23/18 at 09:36; Status DC Labetalol HCl (Normodyne Iv Push) 10 mg 1X ONCE IVP Last administered on at 09:58; Start 07/23/18 at 09:30; Stop 07/23/18 at 09:36; Status DC Aspirin (Angel Aspirin) 325 mg 1X ONCE PO Last administered on 07/23/18at 10:01 ; Start 07/23/18 at 09:30; Stop 07/23/18 at 09:36; Status DC Clonidine HCl (Catapres) 0.2 mg 1X ONCE PO ; Start 07/23/18 at 11:00; Stop at 11:01; Status DC Iohexol (Omnipaque 350 Mg/ml) 100 ml 1X ONCE IV Last administered on at 11:19; Start 07/23/18 at 11:15; Stop 07/23/18 at 11:16; Status DC Info (CONTRAST GIVEN -- Rx MONITORING) 1 each PRN DAILY PRN MC SEE COMMENTS; Start 07/23/18 at 11:15; Stop 07/25/18 at 11:14; Status DC Ceftriaxone Sodium (Rocephin) 1 gm 1X ONCE IVP Last administered on 07/23/18at 13:30; Start 07/23/18 at 12:00; Stop 07/23/18 at 12:01; Status DC Levofloxacin/ Dextrose 100 ml @ 100 mls/hr 1X ONCE IV Last administered on at 13:36; Start 07/23/18 at 12:00; Stop 07/23/18 at 12:59; Status DC Ondansetron HCl (Zofran) 4 mg PRN Q8HRS PRN IV NAUSEA/VOMITING; Start 07/23/18 at 13:00; Stop 07/24/18 at 12:59; Status DC Morphine Sulfate (Morphine Sulfate) 2 mg PRN Q2HR PRN IV PAIN Last administered on 07/24/18at 04:22; Start 07/23/18 at 13:00; Stop 07/24/18 at 12:59 ; Status DC Acetaminophen (Tylenol) 650 mg PRN Q4HRS PRN PO FEVER Last administered on 07/24at 04:20; Start 07/23/18 at 13:00; Stop 07/24/18 at 12:59; Status DC Nitroglycerin (Nitrostat) 0.4 mg PRN Q5MIN PRN SL CHEST PAIN; Start 07/23/18 at 13:00; Stop 07/24/18 at 12:59; Status DC Albuterol/ Ipratropium (Duoneb) 3 ml RTQID NEB Last administered on 07/26/18at 11:31; Start 07/23/18 at 16:00 Hydralazine HCl (Apresoline Inj) 10 mg PRN Q4HRS PRN IVP ELEVATED BP, SEE COMMENTS Last administered on 07/25/18at 23:12; Start 07/23/18 at 15:15 Nicardipine HCl 50 mg/Sodium Chloride 250 ml @ 25 mls/hr CONT PRN IV SEE I/O RECORD Last administered on 07/24/18at 05:23; Start 07/24/18 at 05:00 Potassium Chloride (Klor-Con) 40 meq 1X ONCE PO Last administered on at 05:25; Start 07/24/18 at 05:00; Stop 07/24/18 at 05:06; Status DC Potassium Chloride (Klor-Con) 20 meq 1X ONCE PO ; Start 07/24/18 at 11:30; Stop 07/24/18 at 11:30; Status DC Lisinopril (Prinivil) 20 mg 1X ONCE PO Last administered on 07/24/18at 05:24; Start 07/24/18 at 05:00; Stop 07/24/18 at 05:06; Status DC Atorvastatin Calcium (Lipitor) 40 mg QHS PO Last administered on 07/25/18at 21: 17; Start 07/24/18 at 21:00 Ergocalciferol (Vitamin D2) 50,000 unit WEEKLY PO ; Start 07/31/18 at 09:00 Folic Acid (Folic Acid) 1 mg DAILY PO Last administered on 07/26/18 08:04; Start 07/24/18 at 12:00 Furosemide (Lasix) 20 mg DAILY PO ; Start 07/24/18 at 12:00; Stop 07/24/18 at 12 :00; Status DC Lisinopril (Prinivil) 20 mg BID PO Last administered on 07/26/18 08:05; Start 07/24/18 at 10:00; Stop 07/26/18 at 10:05; Status DC Metoprolol Tartrate (Lopressor) 50 mg BID PO Last administered on 07/25/18 09: 29; Start 07/24/18 at 10:00; Stop 07/25/18 at 17:18; Status DC Temazepam (Restoril) 15 mg QHS PO Last administered on 07/25/18 21:16; Start 07/24/18 at 21:00 Trazodone HCl (Desyrel) 50 mg HS PO Last administered on 07/25/18 21:16; Start 07/24/18 at 21:00 Citalopram Hydrobromide (CeleXA) 20 mg DAILY PO Last administered on 07/25/18 09:28; Start 07/24/18 at 10:00 Pantoprazole Sodium (Protonix) 40 mg DAILYAC PO Last administered on 07/26/18 08:04; Start 07/24/18 at 10:00 Cetirizine HCl (ZyrTEC) 10 mg DAILY PO Last administered on 07/26/18 08:05; Start 07/24/18 at 10:00 Olanzapine (ZyPREXA) 15 mg DAILY PO Last administered on 07/26/18 08:04; Start 07/24/18 at 10:00 Fish Oil (Fish Oil) 1,000 mg DAILY PO Last administered on 07/26/18 08:05; Start 07/24/18 at 10:00 Quetiapine Fumarate (SEROquel) 25 mg QHS PO Last administered on 07/25/18 21: 16; Start 07/24/18 at 21:00 Rivaroxaban (Xarelto) 20 mg DAILYWBKFT PO ; Start 07/24/18 at 12:00; Stop at 12:57; Status DC Ceftriaxone Sodium (Rocephin) 1 gm Q24H IVP Last administered on 07/25/18 10: 31; Start 07/24/18 at 11:00; Stop 07/26/18 at 10:56; Status DC Azithromycin 500 mg/Sodium Chloride 250 ml @ 250 mls/hr Q24H IV Last administered on 07/25/18 09:31; Start 07/24/18 at 10:00; Stop 07/26/18 at 09:59 ; Status DC Potassium Chloride (Klor-Con) 40 meq 1X ONCE PO Last administered on at 12:27; Start 07/24/18 at 10:45; Stop 07/24/18 at 10:48; Status DC Furosemide (Lasix) 40 mg DAILY IVP Last administered on 07/25/18 09:29; Start 07/24/18 at 11:00 Rivaroxaban (Xarelto) 20 mg 1X ONCE PO Last administered on 07/24/18 14:29; Start 07/24/18 at 14:15; Stop 07/24/18 at 14:16; Status DC Potassium Chloride (Klor-Con) 10 meq DAILYWBKFT PO Last administered on 08:06; Start 07/25/18 at 11:45 Labetalol HCl (Trandate) 200 mg BID PO Last administered on 07/26/18 08:05; Start 07/25/18 at 21:00 Acetaminophen (Tylenol) 1,000 mg PRN Q6HRS PRN PO PAIN Last administered on at 00:00; Start 07/25/18 at 23:45 Acetaminophen/ Hydrocodone Bitart (Lortab 5/325) 1 tab PRN Q6HRS PRN PO PAIN; Start 07/25/18 at 23:45 Lisinopril (Prinivil) 40 mg DAILY PO ; Start 07/27/18 at 09:00 Amlodipine Besylate (Norvasc) 10 mg DAILY PO Last administered on 07/26/18at 11: 01; Start 07/26/18 at 10:15 Active Scripts Active Metoprolol Tartrate 50 Mg Tablet 50 Mg PO BID 90 Days Lisinopril 40 Mg Tablet 20 Mg PO BID 90 Days Temazepam 15 Mg Capsule 1 Cap PO QHS Reported Imipramine Hcl 50 Mg Tablet 50 Mg PO DAILY Seroquel (Quetiapine Fumarate) 25 Mg Tablet 25 Mg PO HS Furosemide 20 Mg Tablet 20 Mg PO DAILY Zyprexa (Olanzapine) 15 Mg Tablet 15 Mg PO DAILY Prevacid (Lansoprazole) 30 Mg Capsule.dr 30 Mg PO DAILY Folic Acid 1 Mg Tablet 1 Mg PO DAILY Escitalopram Oxalate 10 Mg Tablet 10 Mg PO DAILY Fish Oil 1,000 mg Softgel ([place]-3/Dha/Epa/Fish Oil) 1,000 Mg Capsule 1,000 Mg PO DAILY Trazodone Hcl 50 Mg Tablet 50 Mg PO HS Vitamin D2 (Ergocalciferol (Vitamin D2)) 50,000 Unit Capsule 50,000 Unit PO WEEKLY Levocetirizine Dihydrochloride 5 Mg Tablet 5 Mg PO DAILY Atorvastatin Calcium 40 Mg Tablet 40 Mg PO DAILY Xarelto (Rivaroxaban) 20 Mg Tablet 20 Mg PO DAILY Lansoprazole 30 Mg Capsule.dr 30 Mg PO DAILY Vitals/I & O Vital Sign - Last 24 Hours 07/25/18 07/25/18 07/25/18 07/25/18 15:15 15:16 15:44 16:16 Temp 97.5 97.5 Pulse 61 61 67 Resp 12 B/P (MAP) 192/81 (118) 192/81 177/74 (108) Pulse Ox 98 99 O2 Delivery Room Air Room Air 07/25/18 07/25/18 07/25/18 07/25/18 19:15 20:15 21:17 21:17 Temp 97.9 97.9 Pulse 74 74 74 Resp 16 B/P (MAP) 227/102 (143) 227/102 227/102 Pulse Ox 99 O2 Delivery Room Air Room Air 07/25/18 07/25/18 07/26/18 07/26/18 23:12 23:17 03:15 07:17 Temp 98.0 97.5 98.0 97.5 Pulse 74 66 63 Resp 16 16 B/P (MAP) 227/102 208/79 (122) 174/72 (106) Pulse Ox 100 99 100 O2 Delivery Room Air Nasal Cannula Nasal Cannula O2 Flow Rate 3.0 3.5 07/26/18 07/26/18 07/26/18 07/26/18 07:48 08:00 08:05 08:05 Temp 97.3 97.3 Pulse 78 78 78 Resp 18 B/P (MAP) 203/84 (123) 203// Pulse Ox 98 O2 Delivery Room Air Room Air 07/26/18 07/26/18 07/26/18 07/26/18 09:45 09:50 10:40 11:01 Temp 97.9 97.9 Pulse 58 62 62 Resp 18 B/P (MAP) 156/68 (97) 156/68 (97) 187/77 (113) 187/77 Pulse Ox 97 O2 Delivery Room Air 07/26/18 07/26/18 11:32 11:44 Pulse 59 B/P (MAP) 149/65 (93) Pulse Ox 97 O2 Delivery Room Air Intake and Output 07/25/18 07/25/18 07/26/18 14:59 22:59 06:59 Intake Total 0 ml 480 ml 640 ml Output Total 1050 ml 1150 ml 400 ml Balance -1050 ml -670 ml 240 ml FERNANDO NEELY MD Jul 26, 2018 12:33
[2018-07-26] MEDS ORDERED: IMIPRAMINE 25 MG TABLET PO SCH (12:45)
[2018-07-26] MEDS: FUROSEMIDE 40 MG TABLET. PO SCH (14:33)
[2018-07-26] MEDS: ATORVASTATIN CALCIUM 40 MG TABLET. PO SCH (20:42)
[2018-07-26] MEDS: traZODone 50 MG TABLET. PO SCH (20:42)
[2018-07-26] MEDS: QUEtiapine 25 MG TABLET. PO SCH (20:42)
[2018-07-26] MEDS: TEMAZEPAM 15 MG CAPSULE PO SCH (20:42)
[2018-07-27] VITALS (15 sets, daily range): BP systolic 125–197; BP diastolic 58–103
[2018-07-27] MEDS ORDERED: HEPARIN for ARTERIAL LINE 0 ML ONE (07:20)
[2018-07-27] MEDS ORDERED: IODIXANOL 320 MG/ML 100 ML VIAL. ONE (07:20)
[2018-07-27] MEDS ORDERED: LIDOCAINE 1% Multi-Dose 20 ML VIAL. ONE ×2 (07:20→10:00)
[2018-07-27 07:45] LABS: CALCIUM 9.6 mg/dL (8.5-10.1); CREATININE 0.9 mg/dL (0.6-1.0); GFR 75.1; POTASSIUM 4.3 mmol/L (3.5-5.1)
[2018-07-27] MEDS: IPRATRPIUM/ALBUTEROL 0.5/2.5MG 3 ML NEBU. NEB SCH ×4 (08:33→19:49)
[2018-07-27] MEDS: LABETALOL HCL 200 MG TABLET PO SCH ×2 (08:57→21:07)
[2018-07-27] MEDS: amLODIPine BESYLATE 10 MG TABLET PO SCH (08:58)
[2018-07-27] MEDS: LISINOPRIL 20 MG TABLET PO SCH (08:58)
[2018-07-27] MEDS: hydrALAZINE 20 MG/ML VIAL. IVP PRN (08:59)
[2018-07-27] MEDS ORDERED: FUROSEMIDE 40 MG TABLET. PO SCH (09:00)
--- NOTE | 2018-07-27 09:14 | RAD ---
RENAL ARTERY ARTERIAL DOPPLER ULTRASOUND Clinical Indication: Uncontrolled HTN Comparison: CT chest with contrast, 2 days ago Technique: Multiple grayscale, color flow, and Doppler spectral waveform analysis images of the abdominal aorta and renal arteries were obtained. Findings: Abdominal aorta peak systolic velocity: 69 cm/sec. Right main renal artery peak systolic velocity: 145 cm/sec. Right renal artery to aorta ratio: 2.1 Left main renal artery peak systolic velocity: 116 cm/sec. Left renal artery to aorta ratio: 1.7 Renal veins are patent. The right kidney measures 9.6 cm. The left kidney measures 11.8 cm. Kidneys are normal in echotexture. No hydronephrosis. IMPRESSION: No evidence of hemodynamically significant renal artery stenosis. Electronically signed by: Marcio Littlejohn MD (07/27/2018 9:11 AM) [id number]
--- NOTE | 2018-07-27 10:23 | PDOC ---
PULMONARY PROGRESS NOTES Subjective deaf, NO SOA Vitals Vital Signs Date Time Temp Pulse Resp B/P (MAP) Pulse Ox O2 Delivery O2 Flow Rate FiO2 07/27/18 08:59 75 197/86 07/27/18 08:34 Room Air 07/27/18 07:45 97.4 24 97 97.4 07/26/18 07:17 3.5 ROS: No Nausea General: Alert, No acute distress HEENT: Other (nc at perrl) Lungs: Other Cardiovascular: Other (irreg irreg) Abdomen: Soft, Non-tender Neuro Exam: Alert Extremities: No Edema Skin: Warm Labs Laboratory Tests Test 07/26/18 03:30 07/27/18 06:30 Sodium Level 141 mmol/L (136-145) 144 mmol/L (136-145) Potassium Level 3.6 mmol/L (3.5-5.1) 4.3 mmol/L (3.5-5.1) Chloride Level 104 mmol/L (98-107) 107 mmol/L (98-107) Carbon Dioxide Level 26 mmol/L (21-32) 28 mmol/L (21-32) Anion Gap 11 (6-14) 9 (6-14) Blood Urea Nitrogen 17 mg/dL (7-20) 12 mg/dL (7-20) Creatinine 1.2 mg/dL (0.6-1.0) 0.9 mg/dL (0.6-1.0) Estimated GFR (Cockcroft-Gault) 53.9 75.1 Glucose Level 120 mg/dL (70-99) 94 mg/dL (70-99) Calcium Level 9.1 mg/dL (8.5-10.1) 9.6 mg/dL (8.5-10.1) Laboratory Tests Test 07/27/18 06:30 Sodium Level 144 mmol/L (136-145) Potassium Level 4.3 mmol/L (3.5-5.1) Chloride Level 107 mmol/L (98-107) Carbon Dioxide Level 28 mmol/L (21-32) Anion Gap 9 (6-14) Blood Urea Nitrogen 12 mg/dL (7-20) Creatinine 0.9 mg/dL (0.6-1.0) Estimated GFR (Cockcroft-Gault) 75.1 Glucose Level 94 mg/dL (70-99) Calcium Level 9.6 mg/dL (8.5-10.1) Medications Active Scripts Medications Dose Route/Sig Max Daily Dose Days Date Category Seroquel (Quetiapine Fumarate) 25 Mg Tablet 25 Mg PO HS 07/23/18 Reported Furosemide 20 Mg Tablet 20 Mg PO DAILY 07/23/18 Reported Zyprexa (Olanzapine) 15 Mg Tablet 15 Mg PO DAILY 07/23/18 Reported Prevacid (Lansoprazole) 30 Mg Capsule.dr 30 Mg PO DAILY 07/23/18 Reported Folic Acid 1 Mg Tablet 1 Mg PO DAILY 07/23/18 Reported Escitalopram Oxalate 10 Mg Tablet 10 Mg PO DAILY 07/23/18 Reported Fish Oil 1,000 mg Softgel ([place]-3/Dha/Epa/Fish Oil) 1,000 Mg Capsule 1,000 Mg PO DAILY 07/23/18 Reported Trazodone Hcl 50 Mg Tablet 50 Mg PO HS 07/23/18 Reported Vitamin D2 (Ergocalciferol (Vitamin D2)) 50,000 Unit Capsule 50,000 Unit PO WEEKLY 07/23/18 Reported Levocetirizine Dihydrochloride 5 Mg Tablet 5 Mg PO DAILY 07/23/18 Reported Metoprolol Tartrate 50 Mg Tablet 50 Mg PO BID 90 04/14/18 Rx Lisinopril 40 Mg Tablet 20 Mg PO BID 90 04/14/18 Rx Temazepam 15 Mg Capsule 1 Cap PO QHS 04/11/18 Rx Atorvastatin Calcium 40 Mg Tablet 40 Mg PO DAILY 04/10/18 Reported Xarelto (Rivaroxaban) 20 Mg Tablet 20 Mg PO DAILY 04/10/18 Reported Lansoprazole 30 Mg Capsule.dr 30 Mg PO DAILY 04/10/18 Reported Impression . IMPRESSION: 1. Acute hypoxic respiratory failure secondary to acute on chronic diastolic heart failure. 2. Abnormal CT chest with evidence of congestive heart failure. She has interstitial infiltrates and bilateral pleural effusions more on the right than on the left. 3. Clinically less likely pneumonia. 4. Chest pain, possible non-ST myocardial infarction. Cardiac catheterization is planned by Cardiology. 5. Chronic atrial fibrillation on home Xarelto. 6. obesity, ? dahlia Plan . RECOMMENDATIONS: 1. oxygen titration to keep saturation 91% 2. Diuresis, keep I<O, monitor k, cr 3. procalcitonin level <0.1, low risk of infection, antibiotics discontinued. 4. Cardiac catheterization per Cardiology today 5. Xarelto on hold 6. Continue BD, DuoNeb. Smoking cessation counseling provided. 7. may consider psg as out pt ken w rn, pt TERI SHARP MD Jul 27, 2018 10:23
[2018-07-27] MEDS ORDERED: IOHEXOL 300 MG/ML 100ML VIAL. ONE ×3 (11:26→13:22)
--- NOTE | 2018-07-27 11:56 | PDOC ---
MODERATE SEDATION ASSESSMENT RISKS/ALTERNATIVES Risks/Alternatives Risks and alternatives of this type of sedation and procedure discussed with: RISK/ALTERNATIVES: Patient H & P ON CHART H & P H & P on chart and reviewed for co-morbid conditions and appropriate labs. H&P ON CHART: Yes STATUS PREG STATUS ASSESSED: Yes MEDS/ALLERGIES REVIEWED Meds/Allergies Reviewed Medications and Allergies including time and route of recently administered narcotics and sedatives. MEDS/ALLERGIES REVIEWED: Yes ASA RATING ASA RATING: II AIRWAY ASSESSMENT Airway Assessment Airway patency, oral function limitations, presence of caps, crowns, dentures, partials, and ability to extend neck assessed. AIRWAY ASSESSMENT: Yes MALLAMPATI SCORE MALLAMPATI SCORE: II PRE-SEDATION ASSESSMENT PRE-SEDATION ASSESSMENT: Yes JOSH PINON MD Jul 27, 2018 11:56
[2018-07-27] MEDS ORDERED: fentaNYL PF VIAL 100 MCG/2 ML VIAL ONE (12:01)
[2018-07-27] MEDS ORDERED: MIDAZOLAM HCL/PF 2 MG/2 ML VIAL. ONE ×2 (12:01→12:36)
[2018-07-27] MEDS ORDERED: NITROGLYCERIN OINT 1 GM PACKET. ONE (12:01)
[2018-07-27] MEDS ORDERED: VERAPAMIL 5 MG/2 ML VIAL. ONE (12:05)
[2018-07-27] MEDS ORDERED: HEPARIN for IV BOLUS 10,000 UNIT/10 ML VIAL. ONE (12:05)
[2018-07-27] MEDS ORDERED: NITROGLYCERIN 200 MCG/2 ML SYRINGE FOR CATH/VASC LAB. ONE (12:05)
--- NOTE | 2018-07-27 12:09 | NUR ---
SS following up with discharge planning. Pt receiving Heart Cath today. Pt is from home and has had services with [facility] in the past for nebulizer. PT evaluated pt and recommending home with home health at discharge. SS will continue to follow for pending discharge needs.
[2018-07-27] MEDS ORDERED: MIDAZOLAM HCL/PF 2 MG/2 ML VIAL. IV ONE ×2 (12:15→12:45)
[2018-07-27] MEDS ORDERED: IOHEXOL 350 MG/ML 100 ML VIAL. IART ONE (12:15)
[2018-07-27] MEDS ORDERED: VERAPAMIL 5 MG/2 ML VIAL. IART ONE (12:15)
[2018-07-27] MEDS ORDERED: NITROGLYCERIN 200 MCG/2 ML SYRINGE FOR CATH/VASC LAB. IART ONE (12:15)
[2018-07-27] MEDS ORDERED: LIDOCAINE 1% PF 2 ML VIAL. INJ ONE (12:15)
[2018-07-27] MEDS ORDERED: HEPARIN for IV BOLUS 10,000 UNIT/10 ML VIAL. IART ONE (12:15)
[2018-07-27] MEDS ORDERED: NITROGLYCERIN OINT 1 GM PACKET. TP ONE (12:15)
[2018-07-27] MEDS ORDERED: fentaNYL PF VIAL 100 MCG/2 ML VIAL IV ONE (12:15)
[2018-07-27] MEDS ORDERED: CONTRAST GIVEN. MC PRN (12:30)
[2018-07-27] MEDS ORDERED: BIVALIRUDIN 250 MG VIAL. IV ONE ×4 (12:32→13:30)
[2018-07-27] MEDS ORDERED: IV NORMAL SALINE 1000ML BAG 1,000 ML IV SCH (13:34)
[2018-07-27] MEDS ORDERED: CLOPIDOGREL BISULFATE 75 MG TABLET ONE (13:39)
--- NOTE | 2018-07-27 13:41 | PDOC4 ---
PROCEDURE Procedure Brief note. No significant lesions in the left system >95% lesion in RCA. Placed bare metal stent to RCA with residual 0%. ASA and Plavix today. Resume anticoagulation tomorrow. Discussed with the family. Full report to follow. JOSH PINON MD Jul 27, 2018 13:41
[2018-07-27] MEDS ORDERED: 0.9 % SODIUM CHLORIDE 10 ML DISP.SYRIN. IV PRN (13:45)
[2018-07-27] MEDS ORDERED: ACETAMINOPHEN 325 MG TABLET. PO PRN (13:45)
[2018-07-27] MEDS ORDERED: LIDOCAINE 2% 100 MG/5 ML SYRINGE. IV PRN (13:45)
[2018-07-27] MEDS ORDERED: CLOPIDOGREL BISULFATE 75 MG TABLET PO ONE (13:45)
[2018-07-27] MEDS ORDERED: AMIODARONE 150 MG in IV DEXTROSE 5% 100ML 100 ML IV PRN (13:45)
[2018-07-27] MEDS ORDERED: ATROPINE 0.5 MG/5 ML DISP.SYRINGE. IV PRN (13:45)
[2018-07-27] MEDS ORDERED: fentaNYL PF VIAL 100 MCG/2 ML VIAL IV PRN (13:45)
[2018-07-27] MEDS ORDERED: ASPIRIN ENTERIC COATED 325 MG TABLET.DR. PO ONE (13:45)
[2018-07-27] MEDS ORDERED: NITROGLYCERIN SUBLINGUAL 0.4 MG BOTTLE OF 25. SL PRN (13:45)
[2018-07-27] MEDS: OMEGA-3 FATTY ACIDS/FISH OIL 1,000 MG CAPSULE. PO SCH (14:34)
[2018-07-27] MEDS: CETIRIZINE HCL 10 MG TABLET. PO SCH (14:34)
[2018-07-27] MEDS: PANTOPRAZOLE 40 MG TABLET.DR. PO SCH (14:34)
[2018-07-27] MEDS: POTASSIUM CHLORIDE 10 MEQ TABLET.ER. PO SCH (14:34)
[2018-07-27] MEDS: FOLIC ACID 1 MG TABLET. PO SCH (14:35)
[2018-07-27] MEDS: OLANZapine 5 MG TABLET PO SCH (14:35)
[2018-07-27] MEDS: FUROSEMIDE 40 MG TABLET. PO SCH (14:35)
--- NOTE | 2018-07-27 16:14 | EKG ---
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
--- NOTE | 2018-07-27 17:01 | PDOC ---
PROGRESS NOTES Subjective Subjective Patient s/p cath with stent to RCA. Patient in good spirits and chest pain gone. Objective Objective Vital Signs Date Time Temp Pulse Resp B/P (MAP) Pulse Ox O2 Delivery O2 Flow Rate FiO2 07/27/18 16:27 94 Room Air 07/27/18 15:45 66 07/27/18 15:15 1.0 07/27/18 15:00 96.5 16 130/66 (87) 96.5 Intake and Output 07/27/18 07:00 Intake Total 1600 ml Output Total 400 ml Balance 1200 ml Intake Oral 1600 ml Output Urine Total 400 ml # Voids 2 Physical Exam Abdomen: Normal bowel sounds Heart: Regular rate Extremities: No edema General: Alert Lungs: Clear to auscultation Assessment Assessment Problems Medical Problems: (1) Right lower lobe pneumonia Status: Acute 1. CAD s/p Cath with stent to RCA 2. AMI with diastolic CHF 3. HTN 4. hypokalemia 5. PAF 6. Bipolar disorder suspected 7. Acute respiratory failure with COPD Plan Plan of Care Continue care care Proceed with PO meds 6 min walk tomorrow Comment Review of Relevant I have reviewed the following items amna (where applicable) has been applied. Labs Laboratory Tests Test 07/26/18 03:30 07/27/18 06:30 Sodium Level 141 mmol/L (136-145) 144 mmol/L (136-145) Potassium Level 3.6 mmol/L (3.5-5.1) 4.3 mmol/L (3.5-5.1) Chloride Level 104 mmol/L (98-107) 107 mmol/L (98-107) Carbon Dioxide Level 26 mmol/L (21-32) 28 mmol/L (21-32) Anion Gap 11 (6-14) 9 (6-14) Blood Urea Nitrogen 17 mg/dL (7-20) 12 mg/dL (7-20) Creatinine 1.2 mg/dL (0.6-1.0) 0.9 mg/dL (0.6-1.0) Estimated GFR (Cockcroft-Gault) 53.9 75.1 Glucose Level 120 mg/dL (70-99) 94 mg/dL (70-99) Calcium Level 9.1 mg/dL (8.5-10.1) 9.6 mg/dL (8.5-10.1) Laboratory Tests Test 07/27/18 06:30 Sodium Level 144 mmol/L (136-145) Potassium Level 4.3 mmol/L (3.5-5.1) Chloride Level 107 mmol/L (98-107) Carbon Dioxide Level 28 mmol/L (21-32) Anion Gap 9 (6-14) Blood Urea Nitrogen 12 mg/dL (7-20) Creatinine 0.9 mg/dL (0.6-1.0) Estimated GFR (Cockcroft-Gault) 75.1 Glucose Level 94 mg/dL (70-99) Calcium Level 9.6 mg/dL (8.5-10.1) Microbiology 07/23/18 Blood Culture - Preliminary, Resulted NO GROWTH AFTER 4 DAYS Medications Current Medications Albuterol/ Ipratropium (Duoneb) 3 ml 1X ONCE NEB Last administered on at 09:52; Start 07/23/18 at 09:30; Stop 07/23/18 at 09:36; Status DC Labetalol HCl (Normodyne Iv Push) 10 mg 1X ONCE IVP Last administered on at 09:58; Start 07/23/18 at 09:30; Stop 07/23/18 at 09:36; Status DC Aspirin (Angel Aspirin) 325 mg 1X ONCE PO Last administered on 07/23/18at 10:01 ; Start 07/23/18 at 09:30; Stop 07/23/18 at 09:36; Status DC Clonidine HCl (Catapres) 0.2 mg 1X ONCE PO ; Start 07/23/18 at 11:00; Stop at 11:01; Status DC Iohexol (Omnipaque 350 Mg/ml) 100 ml 1X ONCE IV Last administered on at 11:19; Start 07/23/18 at 11:15; Stop 07/23/18 at 11:16; Status DC Info (CONTRAST GIVEN -- Rx MONITORING) 1 each PRN DAILY PRN MC SEE COMMENTS; Start 07/23/18 at 11:15; Stop 07/25/18 at 11:14; Status DC Ceftriaxone Sodium (Rocephin) 1 gm 1X ONCE IVP Last administered on 07/23/18at 13:30; Start 07/23/18 at 12:00; Stop 07/23/18 at 12:01; Status DC Levofloxacin/ Dextrose 100 ml @ 100 mls/hr 1X ONCE IV Last administered on at 13:36; Start 07/23/18 at 12:00; Stop 07/23/18 at 12:59; Status DC Ondansetron HCl (Zofran) 4 mg PRN Q8HRS PRN IV NAUSEA/VOMITING; Start 07/23/18 at 13:00; Stop 07/24/18 at 12:59; Status DC Morphine Sulfate (Morphine Sulfate) 2 mg PRN Q2HR PRN IV PAIN Last administered on 07/24/18at 04:22; Start 07/23/18 at 13:00; Stop 07/24/18 at 12:59 ; Status DC Acetaminophen (Tylenol) 650 mg PRN Q4HRS PRN PO FEVER Last administered on 07/24at 04:20; Start 07/23/18 at 13:00; Stop 07/24/18 at 12:59; Status DC Nitroglycerin (Nitrostat) 0.4 mg PRN Q5MIN PRN SL CHEST PAIN; Start 07/23/18 at 13:00; Stop 07/24/18 at 12:59; Status DC Albuterol/ Ipratropium (Duoneb) 3 ml RTQID NEB Last administered on 07/27/18at 16:27; Start 07/23/18 at 16:00 Hydralazine HCl (Apresoline Inj) 10 mg PRN Q4HRS PRN IVP ELEVATED BP, SEE COMMENTS Last administered on 07/27/18at 08:59; Start 07/23/18 at 15:15 Nicardipine HCl 50 mg/Sodium Chloride 250 ml @ 25 mls/hr CONT PRN IV SEE I/O RECORD Last administered on 07/24/18at 05:23; Start 07/24/18 at 05:00 Potassium Chloride (Klor-Con) 40 meq 1X ONCE PO Last administered on at 05:25; Start 07/24/18 at 05:00; Stop 07/24/18 at 05:06; Status DC Potassium Chloride (Klor-Con) 20 meq 1X ONCE PO ; Start 07/24/18 at 11:30; Stop 07/24/18 at 11:30; Status DC Lisinopril (Prinivil) 20 mg 1X ONCE PO Last administered on 07/24/18 05:24; Start 07/24/18 at 05:00; Stop 07/24/18 at 05:06; Status DC Atorvastatin Calcium (Lipitor) 40 mg QHS PO Last administered on 07/26/18 20: 42; Start 07/24/18 at 21:00 Ergocalciferol (Vitamin D2) 50,000 unit WEEKLY PO ; Start 07/31/18 at 09:00 Folic Acid (Folic Acid) 1 mg DAILY PO Last administered on 07/27/18 14:35; Start 07/24/18 at 12:00 Furosemide (Lasix) 20 mg DAILY PO ; Start 07/24/18 at 12:00; Stop 07/24/18 at 12 :00; Status DC Lisinopril (Prinivil) 20 mg BID PO Last administered on 07/26/18 08:05; Start 07/24/18 at 10:00; Stop 07/26/18 at 10:05; Status DC Metoprolol Tartrate (Lopressor) 50 mg BID PO Last administered on 07/25/18 09: 29; Start 07/24/18 at 10:00; Stop 07/25/18 at 17:18; Status DC Temazepam (Restoril) 15 mg QHS PO Last administered on 07/26/18 20:42; Start 07/24/18 at 21:00 Trazodone HCl (Desyrel) 50 mg HS PO Last administered on 07/26/18 20:42; Start 07/24/18 at 21:00 Citalopram Hydrobromide (CeleXA) 20 mg DAILY PO Last administered on 07/25/18 09:28; Start 07/24/18 at 10:00; Stop 07/26/18 at 12:34; Status DC Pantoprazole Sodium (Protonix) 40 mg DAILYAC PO Last administered on 07/27/18 14:34; Start 07/24/18 at 10:00 Cetirizine HCl (ZyrTEC) 10 mg DAILY PO Last administered on 07/27/18 14:34; Start 07/24/18 at 10:00 Olanzapine (ZyPREXA) 15 mg DAILY PO Last administered on 07/27/18 14:35; Start 07/24/18 at 10:00 Fish Oil (Fish Oil) 1,000 mg DAILY PO Last administered on 07/27/18 14:34; Start 07/24/18 at 10:00 Quetiapine Fumarate (SEROquel) 25 mg QHS PO Last administered on 07/26/18at 20: 42; Start 07/24/18 at 21:00 Rivaroxaban (Xarelto) 20 mg DAILYWBKFT PO ; Start 07/24/18 at 12:00; Stop at 12:57; Status DC Ceftriaxone Sodium (Rocephin) 1 gm Q24H IVP Last administered on 07/25/18 10: 31; Start 07/24/18 at 11:00; Stop 07/26/18 at 10:56; Status DC Azithromycin 500 mg/Sodium Chloride 250 ml @ 250 mls/hr Q24H IV Last administered on 07/25/18 09:31; Start 07/24/18 at 10:00; Stop 07/26/18 at 09:59 ; Status DC Potassium Chloride (Klor-Con) 40 meq 1X ONCE PO Last administered on 12:27; Start 07/24/18 at 10:45; Stop 07/24/18 at 10:48; Status DC Furosemide (Lasix) 40 mg DAILY IVP Last administered on 07/25/18 09:29; Start 07/24/18 at 11:00; Stop 07/26/18 at 12:28; Status DC Rivaroxaban (Xarelto) 20 mg 1X ONCE PO Last administered on 07/24/18 14:29; Start 07/24/18 at 14:15; Stop 07/24/18 at 14:16; Status DC Potassium Chloride (Klor-Con) 10 meq DAILYWBKFT PO Last administered on 14:34; Start 07/25/18 at 11:45 Labetalol HCl (Trandate) 200 mg BID PO Last administered on 07/27/18 08:57; Start 07/25/18 at 21:00 Acetaminophen (Tylenol) 1,000 mg PRN Q6HRS PRN PO PAIN Last administered on 00:00; Start 07/25/18 at 23:45 Acetaminophen/ Hydrocodone Bitart (Lortab 5/325) 1 tab PRN Q6HRS PRN PO PAIN; Start 07/25/18 at 23:45 Lisinopril (Prinivil) 40 mg DAILY PO Last administered on 07/27/18at 08:58; Start 07/27/18 at 09:00 Amlodipine Besylate (Norvasc) 10 mg DAILY PO Last administered on 07/27/18at 08: 58; Start 07/26/18 at 10:15 Furosemide (Lasix) 40 mg DAILY PO ; Start 07/27/18 at 09:00; Stop 07/27/18 at 09 :00; Status DC Imipramine HCl (Tofranil) 50 mg 07/26/18 PO Last administered on 07/26/18at 14: 32; Start 07/26/18 at 12:45; Stop 07/26/18 at 12:46; Status DC Furosemide (Lasix) 40 mg DAILY PO Last administered on 07/27/18at 14:35; Start 07/26/18 at 14:15 Iodixanol (Visipaque 320) 100 ml STK-MED ONCE .ROUTE ; Start 07/27/18 at 07:20; Stop 07/27/18 at 07:21; Status DC Lidocaine HCl (Lidocaine 1% 20ml Vial) 20 ml STK-MED ONCE .ROUTE ; Start at 07:20; Stop 07/27/18 at 07:21; Status DC Heparin Sodium/ Sodium Chloride 0 ml @ As Directed STK-MED ONCE .ROUTE ; Start 07/27/18 at 07:20; Stop 07/27/18 at 07:21; Status DC Lidocaine HCl (Lidocaine 1% 20ml Vial) 20 ml STK-MED ONCE .ROUTE ; Start at 10:00; Stop 07/27/18 at 10:01; Status DC Heparin Sodium/ Sodium Chloride 1,000 ml @ As Directed STK-MED ONCE .ROUTE ; Start 07/27/18 at 10:00; Stop 07/27/18 at 10:01; Status DC Iohexol (Omnipaque 300 Mg/ml) 100 ml STK-MED ONCE .ROUTE ; Start 07/27/18 at 11: 26; Stop 07/27/18 at 11:27; Status DC Midazolam HCl (Versed) 2 mg STK-MED ONCE .ROUTE ; Start 07/27/18 at 12:01; Stop 07/27/18 at 12:02; Status DC Fentanyl Citrate (Fentanyl 2ml Vial) 100 mcg STK-MED ONCE .ROUTE ; Start at 12:01; Stop 07/27/18 at 12:02; Status DC Nitroglycerin (Nitro-Bid Oint) 1 inch STK-MED ONCE .ROUTE ; Start 07/27/18 at 12 :01; Stop 07/27/18 at 12:02; Status DC Verapamil HCl (Verapamil) 5 mg STK-MED ONCE .ROUTE ; Start 07/27/18 at 12:05; Stop 07/27/18 at 12:06; Status DC Heparin Sodium (Porcine) (Heparin Sodium) 10,000 unit STK-MED ONCE .ROUTE ; Start 07/27/18 at 12:05; Stop 07/27/18 at 12:06; Status DC Nitroglycerin (Nitroglycerin) 200 mcg STK-MED ONCE .ROUTE ; Start 07/27/18 at 12 :05; Stop 07/27/18 at 12:06; Status DC Nitroglycerin (Nitroglycerin) 200 mcg 1X ONCE IART Last administered on at 12:15; Start 07/27/18 at 12:15; Stop 07/27/18 at 12:21; Status DC Verapamil HCl (Verapamil) 2.5 mg 1X ONCE IART Last administered on 07/27/18at 12:15; Start 07/27/18 at 12:15; Stop 07/27/18 at 12:21; Status DC Heparin Sodium (Porcine) (Heparin Sodium) 2,500 unit 1X ONCE IART Last administered on 07/27/18at 12:15; Start 07/27/18 at 12:15; Stop 07/27/18 at 12:21 ; Status DC Heparin Sodium/ Sodium Chloride (HEPARIN for ARTERIAL LINE FLUSH) 1,000 unit 1X ONCE IART Last administered on 07/27/18at 12:15; Start 07/27/18 at 12:15; Stop 07/27/18 at 12:21; Status DC Midazolam HCl (Versed) 2 mg 1X ONCE IV Last administered on 07/27/18at 12:15; Start 07/27/18 at 12:15; Stop 07/27/18 at 12:21; Status DC Fentanyl Citrate (Fentanyl 2ml Vial) 100 mcg 1X ONCE IV Last administered on at 12:15; Start 07/27/18 at 12:15; Stop 07/27/18 at 12:21; Status DC Iohexol (Omnipaque 350 Mg/ml) 100 ml 1X ONCE IART Last administered on at 12:15; Start 07/27/18 at 12:15; Stop 07/27/18 at 12:21; Status DC Lidocaine HCl (Xylocaine-Mpf 1% 2ml Vial) 2 ml 1X ONCE INJ Last administered on 07/27/18at 12:15; Start 07/27/18 at 12:15; Stop 07/27/18 at 12:21; Status DC Nitroglycerin (Nitro-Bid Oint) 2 inch 1X ONCE TP Last administered on at 12:15; Start 07/27/18 at 12:15; Stop 07/27/18 at 12:21; Status DC Info (CONTRAST GIVEN -- Rx MONITORING) 1 each PRN DAILY PRN MC SEE COMMENTS; Start 07/27/18 at 12:30; Stop 07/29/18 at 12:29 Iohexol (Omnipaque 300 Mg/ml) 100 ml STK-MED ONCE .ROUTE ; Start 07/27/18 at 12: 31; Stop 07/27/18 at 12:32; Status DC Bivalirudin (Angiomax) 250 mg STK-MED ONCE IV ; Start 07/27/18 at 12:32; Stop at 12:33; Status DC Midazolam HCl (Versed) 2 mg STK-MED ONCE .ROUTE ; Start 07/27/18 at 12:36; Stop 07/27/18 at 12:37; Status DC Midazolam HCl (Versed) 2 mg 1X ONCE IV Last administered on 07/27/18at 12:45; Start 07/27/18 at 12:45; Stop 07/27/18 at 12:49; Status DC Bivalirudin (Angiomax) 250 mg 1X ONCE IV Last administered on 07/27/18at 12:45 ; Start 07/27/18 at 12:45; Stop 07/27/18 at 12:49; Status DC Bivalirudin (Angiomax) 250 mg STK-MED ONCE IV ; Start 07/27/18 at 13:18; Stop at 13:19; Status DC Iohexol (Omnipaque 300 Mg/ml) 100 ml STK-MED ONCE .ROUTE ; Start 07/27/18 at 13: 22; Stop 07/27/18 at 13:23; Status DC Bivalirudin (Angiomax) 250 mg 1X ONCE IV Last administered on 07/27/18at 13:29 ; Start 07/27/18 at 13:30; Stop 07/27/18 at 13:31; Status DC Sodium Chloride (Normal Saline Flush) 3 ml QSHIFT PRN IV AFTER MEDS AND BLOOD DRAWS; Start 07/27/18 at 13:45 Sodium Chloride 1,000 ml @ 75 mls/hr [id number] IV Last administered on at 14:37; Start 07/27/18 at 13:34; Stop 07/27/18 at 18:33 Aspirin (Ecotrin) 325 mg 1X ONCE PO Last administered on 07/27/18at 14:34; Start 07/27/18 at 13:45; Stop 07/27/18 at 13:46; Status DC Aspirin (Ecotrin) 325 mg DAILYWBKFT PO ; Start 07/28/18 at 08:00 Clopidogrel Bisulfate (Plavix) 75 mg DAILYWBKFT PO ; Start 07/28/18 at 08:00 Acetaminophen (Tylenol) 650 mg PRN Q6HRS PRN PO MILD PAIN / TEMP; Start at 13:45 Fentanyl Citrate (Fentanyl 2ml Vial) 50 mcg PRN Q1HR PRN IV MODERATE OR SEVERE PAIN; Start 07/27/18 at 13:45 Nitroglycerin (Nitrostat) 0.4 mg PRN Q5MIN PRN SL CHEST PAIN; Start 07/27/18 at 13:45 Amiodarone HCl 150 mg/Dextrose 103 ml @ 600 mls/hr 1X PRN PRN IV FOR VENTRICULAR TACHYCARDIA; Start 07/27/18 at 13:45 Lidocaine HCl (Lidocaine HCl 2% Abboject) 100 mg 1X PRN PRN IV FOR VENTRICULAR TACHYCARDIA; Start 07/27/18 at 13:45 Atropine Sulfate (ATROPINE 0.5mg SYRINGE) 0.5 mg PRN 1X PRN IV BRADYCARDIA; Start 07/27/18 at 13:45 Clopidogrel Bisulfate (Plavix) 75 mg STK-MED ONCE .ROUTE ; Start 07/27/18 at 13: 39; Stop 07/27/18 at 13:40; Status DC Clopidogrel Bisulfate (Plavix) 600 mg 1X ONCE PO Last administered on at 13:45; Start 07/27/18 at 13:45; Stop 07/27/18 at 13:46; Status DC Active Scripts Active Metoprolol Tartrate 50 Mg Tablet 50 Mg PO BID 90 Days Lisinopril 40 Mg Tablet 20 Mg PO BID 90 Days Temazepam 15 Mg Capsule 1 Cap PO QHS Reported Imipramine Hcl 50 Mg Tablet 50 Mg PO DAILY Seroquel (Quetiapine Fumarate) 25 Mg Tablet 25 Mg PO HS Furosemide 20 Mg Tablet 20 Mg PO DAILY Zyprexa (Olanzapine) 15 Mg Tablet 15 Mg PO DAILY Prevacid (Lansoprazole) 30 Mg Capsule.dr 30 Mg PO DAILY Folic Acid 1 Mg Tablet 1 Mg PO DAILY Escitalopram Oxalate 10 Mg Tablet 10 Mg PO DAILY Fish Oil 1,000 mg Softgel ([place]-3/Dha/Epa/Fish Oil) 1,000 Mg Capsule 1,000 Mg PO DAILY Trazodone Hcl 50 Mg Tablet 50 Mg PO HS Vitamin D2 (Ergocalciferol (Vitamin D2)) 50,000 Unit Capsule 50,000 Unit PO WEEKLY Levocetirizine Dihydrochloride 5 Mg Tablet 5 Mg PO DAILY Atorvastatin Calcium 40 Mg Tablet 40 Mg PO DAILY Xarelto (Rivaroxaban) 20 Mg Tablet 20 Mg PO DAILY Lansoprazole 30 Mg Capsule.dr 30 Mg PO DAILY Vitals/I & O Vital Sign - Last 24 Hours 07/26/18 07/26/18 07/26/18 07/26/18 18:56 19:30 20:09 20:41 Temp 97.7 97.7 Pulse 71 71 Resp 18 B/P (MAP) 145/90 (108) 145/90 Pulse Ox 99 O2 Delivery Room Air Room Air Room Air 07/26/18 07/27/18 07/27/18 07/27/18 22:22 02:26 07:45 08:00 Temp 97.9 97.9 97.4 97.9 97.9 97.4 Pulse 68 70 75 Resp 17 17 24 B/P (MAP) 169/77 (107) 169/103 (125) 197/86 (123) Pulse Ox 99 99 97 O2 Delivery Room Air Room Air Room Air Room Air O2 Flow Rate 3.5 07/27/18 07/27/18 07/27/18 07/27/18 08:34 08:57 08:58 08:58 Pulse 75 75 75 B/P (MAP) 197/86 197/86 197/86 O2 Delivery Room Air 07/27/18 07/27/18 07/27/18 07/27/18 08:59 11:20 12:15 12:15 Temp 97.4 97.4 Pulse 75 67 64 Resp 24 14 B/P (MAP) 197/86 159/73 (101) Pulse Ox 97 94 O2 Delivery Room Air Nasal Cannula O2 Flow Rate 2.0 07/27/18 07/27/18 07/27/18 07/27/18 12:15 13:37 14:00 14:00 Temp 97.4 97.4 Pulse 64 61 91 91 Resp 22 20 18 B/P (MAP) 183/83 139/65 (89) Pulse Ox 93 97 97 O2 Delivery Nasal Cannula Nasal Cannula Nasal Cannula O2 Flow Rate 3.0 1.0 1.0 07/27/18 07/27/18 07/27/18 07/27/18 14:15 14:30 14:45 15:00 Temp 96.5 96.5 Pulse 62 64 66 61 Resp 16 B/P (MAP) 130/66 (87) Pulse Ox 97 97 97 98 O2 Delivery Nasal Cannula Nasal Cannula Nasal Cannula Room Air O2 Flow Rate 1.0 1.0 1.0 07/27/18 07/27/18 07/27/18 15:15 15:45 16:27 Pulse 68 66 Pulse Ox 98 98 94 O2 Delivery Nasal Cannula Room Air Room Air O2 Flow Rate 1.0 Intake and Output 07/26/18 07/26/18 07/27/18 15:00 23:00 07:00 Intake Total 300 ml 1300 ml Output Total 400 ml 0 ml Balance -100 ml 1300 ml 0 ml LEIGHA CAMPOS MD Jul 27, 2018 17:01
[2018-07-27] MEDS: ATORVASTATIN CALCIUM 40 MG TABLET. PO SCH (21:07)
[2018-07-27] MEDS: traZODone 50 MG TABLET. PO SCH (21:08)
[2018-07-27] MEDS: QUEtiapine 25 MG TABLET. PO SCH (21:08)
[2018-07-27] MEDS: TEMAZEPAM 15 MG CAPSULE PO SCH (21:08)
--- NOTE | 2018-07-27 22:42 | NUR ---
TR band removed at 1944, site cleaned and tegaderm applied. Arm board in place, instructed patient that the arm board will remain in place until tomorrow after breakfast. Pt v/u. no complaints of pain, no evidence of hematoma or bleeding. Will continue to monitor.
[2018-07-28 02:54] VITALS: BP 167/72
[2018-07-28 04:39] LABS: CALCIUM 9.1 mg/dL (8.5-10.1); CREATININE 1.1 mg/dL (0.6-1.0); GFR 59.6; POTASSIUM 4.2 mmol/L (3.5-5.1)
[2018-07-28 05:16] LABS: BASO % 1 % (0-3); EOS # 0.2 x10^3/uL (0.0-0.7); EOS % 4 % (0-3); HEMATOCRIT 36.2 % (36.0-47.0); HEMOGLOBIN 12.1 g/dL (12.0-15.5); LYMPH # 1.7 x10^3/uL (1.0-4.8); LYMPH % 34 % (24-48); MEAN CORPUSCULAR HEMOGLOBIN 30 pg (25-35); MEAN CORPUSCULAR HGB CONC 33 g/dL (31-37); MEAN CORPUSCULAR VOLUME 89 fL (79-100); MONO # 0.6 x10^3/uL (0.0-1.1); MONO % 11 % (0-9); NEUT # 2.4 x10^3uL (1.8-7.7); NEUT % 50 % (31-73); PLATELET COUNT 268 x10^3/uL (140-400); RED BLOOD COUNT 4.06 x10^6/uL (3.50-5.40); RED CELL DISTRIBUTION WIDTH 16.8 % (11.5-14.5); WHITE BLOOD COUNT 4.9 x10^3/uL (4.0-11.0)
[2018-07-28 07:10] VITALS: BP 173/112
[2018-07-28] MEDS: IPRATRPIUM/ALBUTEROL 0.5/2.5MG 3 ML NEBU. NEB SCH ×3 (07:13→15:57)
[2018-07-28] MEDS ORDERED: CLOPIDOGREL BISULFATE 75 MG TABLET PO SCH (08:00)
[2018-07-28] MEDS ORDERED: ASPIRIN ENTERIC COATED 325 MG TABLET.DR. PO SCH (08:00)
[2018-07-28] MEDS: amLODIPine BESYLATE 10 MG TABLET PO SCH (09:07)
[2018-07-28] MEDS: OLANZapine 5 MG TABLET PO SCH (09:07)
--- NOTE | 2018-07-28 09:07 | PDOC ---
PULMONARY PROGRESS NOTES Subjective deaf, NO SOA Vitals Vital Signs Date Time Temp Pulse Resp B/P (MAP) Pulse Ox O2 Delivery O2 Flow Rate FiO2 07/28/18 07:33 Room Air 07/28/18 07:15 97 07/28/18 07:10 97.3 70 17 173/112 (132) 97.3 07/27/18 17:15 1.0 ROS: No Nausea General: Alert, No acute distress HEENT: Other (nc at perrl) Lungs: Other Cardiovascular: Other (irreg irreg) Abdomen: Soft, Non-tender Neuro Exam: Alert Extremities: No Edema Skin: Warm Labs Laboratory Tests Test 07/27/18 06:30 07/28/18 02:50 Sodium Level 144 mmol/L (136-145) 141 mmol/L (136-145) Potassium Level 4.3 mmol/L (3.5-5.1) 4.2 mmol/L (3.5-5.1) Chloride Level 107 mmol/L (98-107) 106 mmol/L (98-107) Carbon Dioxide Level 28 mmol/L (21-32) 27 mmol/L (21-32) Anion Gap 9 (6-14) 8 (6-14) Blood Urea Nitrogen 12 mg/dL (7-20) 11 mg/dL (7-20) Creatinine 0.9 mg/dL (0.6-1.0) 1.1 mg/dL (0.6-1.0) Estimated GFR (Cockcroft-Gault) 75.1 59.6 Glucose Level 94 mg/dL (70-99) 85 mg/dL (70-99) Calcium Level 9.6 mg/dL (8.5-10.1) 9.1 mg/dL (8.5-10.1) White Blood Count 4.9 x10^3/uL (4.0-11.0) Red Blood Count 4.06 x10^6/uL (3.50-5.40) Hemoglobin 12.1 g/dL (12.0-15.5) Hematocrit 36.2 % (36.0-47.0) Mean Corpuscular Volume 89 fL (79-100) Mean Corpuscular Hemoglobin 30 pg (25-35) Mean Corpuscular Hemoglobin Concent 33 g/dL (31-37) Red Cell Distribution Width 16.8 % (11.5-14.5) Platelet Count 268 x10^3/uL (140-400) Neutrophils (%) (Auto) 50 % (31-73) Lymphocytes (%) (Auto) 34 % (24-48) Monocytes (%) (Auto) 11 % (0-9) Eosinophils (%) (Auto) 4 % (0-3) Basophils (%) (Auto) 1 % (0-3) Neutrophils # (Auto) 2.4 x10^3uL (1.8-7.7) Lymphocytes # (Auto) 1.7 x10^3/uL (1.0-4.8) Monocytes # (Auto) 0.6 x10^3/uL (0.0-1.1) Eosinophils # (Auto) 0.2 x10^3/uL (0.0-0.7) Basophils # (Auto) 0.0 x10^3/uL (0.0-0.2) Laboratory Tests Test 07/28/18 02:50 White Blood Count 4.9 x10^3/uL (4.0-11.0) Red Blood Count 4.06 x10^6/uL (3.50-5.40) Hemoglobin 12.1 g/dL (12.0-15.5) Hematocrit 36.2 % (36.0-47.0) Mean Corpuscular Volume 89 fL (79-100) Mean Corpuscular Hemoglobin 30 pg (25-35) Mean Corpuscular Hemoglobin Concent 33 g/dL (31-37) Red Cell Distribution Width 16.8 % (11.5-14.5) Platelet Count 268 x10^3/uL (140-400) Neutrophils (%) (Auto) 50 % (31-73) Lymphocytes (%) (Auto) 34 % (24-48) Monocytes (%) (Auto) 11 % (0-9) Eosinophils (%) (Auto) 4 % (0-3) Basophils (%) (Auto) 1 % (0-3) Neutrophils # (Auto) 2.4 x10^3uL (1.8-7.7) Lymphocytes # (Auto) 1.7 x10^3/uL (1.0-4.8) Monocytes # (Auto) 0.6 x10^3/uL (0.0-1.1) Eosinophils # (Auto) 0.2 x10^3/uL (0.0-0.7) Basophils # (Auto) 0.0 x10^3/uL (0.0-0.2) Sodium Level 141 mmol/L (136-145) Potassium Level 4.2 mmol/L (3.5-5.1) Chloride Level 106 mmol/L (98-107) Carbon Dioxide Level 27 mmol/L (21-32) Anion Gap 8 (6-14) Blood Urea Nitrogen 11 mg/dL (7-20) Creatinine 1.1 mg/dL (0.6-1.0) Estimated GFR (Cockcroft-Gault) 59.6 Glucose Level 85 mg/dL (70-99) Calcium Level 9.1 mg/dL (8.5-10.1) Medications Active Scripts Medications Dose Route/Sig Max Daily Dose Days Date Category Seroquel (Quetiapine Fumarate) 25 Mg Tablet 25 Mg PO HS 07/23/18 Reported Furosemide 20 Mg Tablet 20 Mg PO DAILY 07/23/18 Reported Zyprexa (Olanzapine) 15 Mg Tablet 15 Mg PO DAILY 07/23/18 Reported Prevacid (Lansoprazole) 30 Mg Capsule.dr 30 Mg PO DAILY 07/23/18 Reported Folic Acid 1 Mg Tablet 1 Mg PO DAILY 07/23/18 Reported Escitalopram Oxalate 10 Mg Tablet 10 Mg PO DAILY 07/23/18 Reported Fish Oil 1,000 mg Softgel (Ismay-3/Dha/Epa/Fish Oil) 1,000 Mg Capsule 1,000 Mg PO DAILY 07/23/18 Reported Trazodone Hcl 50 Mg Tablet 50 Mg PO HS 07/23/18 Reported Vitamin D2 (Ergocalciferol (Vitamin D2)) 50,000 Unit Capsule 50,000 Unit PO WEEKLY 07/23/18 Reported Levocetirizine Dihydrochloride 5 Mg Tablet 5 Mg PO DAILY 07/23/18 Reported Metoprolol Tartrate 50 Mg Tablet 50 Mg PO BID 04/14/18 Rx Lisinopril 40 Mg Tablet 20 Mg PO BID 04/14/18 Rx Temazepam 15 Mg Capsule 1 Cap PO QHS 04/11/18 Rx Atorvastatin Calcium 40 Mg Tablet 40 Mg PO DAILY 04/10/18 Reported Xarelto (Rivaroxaban) 20 Mg Tablet 20 Mg PO DAILY 04/10/18 Reported Lansoprazole 30 Mg Capsule. 30 Mg PO DAILY 04/10/18 Reported Impression . IMPRESSION: 1. Acute hypoxic respiratory failure secondary to acute on chronic diastolic heart failure. 2. Abnormal CT chest with evidence of congestive heart failure. She has interstitial infiltrates and bilateral pleural effusions more on the right than on the left. 3. Clinically less likely pneumonia. 4. Chest pain, possible non-ST myocardial infarction. Cardiac catheterization is planned by Cardiology. 5. Chronic atrial fibrillation on home Xarelto. 6. obesity, ? dahlia Plan . home ok today 6 min walk follow up with dr avalos if she needs 02 RAMY DEMPSEY MD Jul 28, 2018 09:06
[2018-07-28] MEDS: POTASSIUM CHLORIDE 10 MEQ TABLET.ER. PO SCH (09:08)
[2018-07-28] MEDS: LISINOPRIL 20 MG TABLET PO SCH (09:08)
[2018-07-28] MEDS: FOLIC ACID 1 MG TABLET. PO SCH (09:08)
[2018-07-28] MEDS: PANTOPRAZOLE 40 MG TABLET.DR. PO SCH (09:09)
[2018-07-28] MEDS: LABETALOL HCL 200 MG TABLET PO SCH (09:09)
[2018-07-28] MEDS: CETIRIZINE HCL 10 MG TABLET. PO SCH (09:09)
[2018-07-28] MEDS: OMEGA-3 FATTY ACIDS/FISH OIL 1,000 MG CAPSULE. PO SCH (09:09)
[2018-07-28] MEDS: FUROSEMIDE 40 MG TABLET. PO SCH (09:09)
[2018-07-28 11:00] VITALS: BP 144/100
--- NOTE | 2018-07-28 13:01 | CARD ---
MR#: [id number] Date of Study: 07/27/2018 Ordering Physician: LEIGHA CAMPOS, Referring Physician: LEIGHA CAMPOS, Tech: VANNA CONNAULISSETTEOBEY RTR APPROVED REPORT Procedures Left heart catheterization Selective coronary angiogram Left ventriculogram Bare-metal stent placement to the right coronary artery The patient is a 68-year-old female with episodes of chest discomfort and shortness of breath. Previo us nuclear stress testing showed a fixed anterior wall defect. Patient however had new-onset of incre ased chest discomfort that was progressive. Cardiac catheter was recommended. Risks and benefits were discussed the patient and she agreed to proceed. After informed consent was obtained the patient was brought to the heart catheterization lab. The are a of the right radial artery was prepared in the usual manner with Betadine, sterile draping and loca l anesthetic after a acceptable Jono's test. A quick catheter device was used to enter the right rad ial artery, a wire placed and a 6 Maldivian sheath placed over the wire. The standard mixture of heparin and anti-spasm medications was administered through the sheath. A J-wire was used and 6 Maldivian JL3.5 diagnostic catheter was advanced to the ascending aorta. This catheter was used to engage the left c oronary system and sequential injections in various views were obtained. It also engage the right cor onary artery and sequential injections in various views were obtained. A pigtail catheter was advance d to the ascending aorta. It was passed to the left ventricle. A 30 MARCIAL left ventricular gram was pe rformed. Pullback pressures were measured. At this time a 95% mid right coronary lesion was identifie d and we proceeded to revascularize the vessel. Angiomax as per protocol was administered. A 6 Maldivian JR4 guide with side holes was used to engage th e right coronary system. A PT choice wire was used to cross the lesion. A 2.5 x 15 Trek balloon was u sed to cross the lesion and 3 inflations maximum pressure of 12 fide maximum time of 20 seconds was us ed to dilate the lesion but the tightest point of the lesion did not dilate. The balloon was removed and a 2.5 x 15 noncompliant Trek was attempted to be placed. This balloon would not cross the lesion . After discussion, Dr. Moses then used a guide liner for increased support. After extensive manipu lation a 2.5 x 15 NC trek was able to engage the lesion and 2 inflations at 12 fide for 15 seconds wer e performed. This balloon was removed and a 3.0 Trek balloon was then used and was able to be cross t he lesion cleanly. An additional 2 inflations at 12 fide for 20 seconds was performed. Then a 3.0 x 18 mm MultiLink vision bare metal stent was deployed with one inflation at 12 fide for 15 seconds. The lesion was then postdilated with a noncompliant 3.25 x 12 Trek with 2 inflations at 14 fide for 10 se conds. Residual lesion was less than 10%. The guiding system and guide liner were removed from the pa tient. The sheath was removed in standard fashion using TR band for hemostasis. The patient was moved to the holding area in stable condition. Findings. Hemodynamics. LV pressure of 140/16 , Aortic root pressure of 138/78 Coronaries. Left main. The left main was a moderate size vessel with no lesions. Left anterior descending. The LAD was a moderate size vessel with a mid 20% lesion and a distal 20% l esion. Left circumflex. The left circumflex vessel was a dominant vessel with a mid 30% lesion. Right coronary artery the right coronary was a moderate size vessel with a mid calcified 95% lesion. LV gram The left ventrical had distal septal,apical hypokinesis. EF was estimated at 50%. 3 g. <Conclusion> Severe single-vessel coronary disease with a 95% mid right coronary lesion. Mild to moderate disease in the LAD and left circumflex. Successful bare metal stenting of the right coronary artery and a difficult case decreasing the lesio n to less than 10%. Distal septal apical hypokinesis on LV gram with overall intact LV systolic function. Signed by : Adalid Jay MD Electronically Approved : 07/28/2018 13:01:23
[2018-07-28] MEDS ORDERED: AMLO10TA8 PO (13:05)
[2018-07-28] MEDS ORDERED: POTA10TA12 PO (13:05)
[2018-07-28] MEDS ORDERED: ASPI-630 PO (13:05)
[2018-07-28] MEDS ORDERED: HYDR-2869 PO (13:05)
[2018-07-28] MEDS ORDERED: CLOP75TA PO (13:05)
[2018-07-28] MEDS ORDERED: LABE200T4 PO (13:05)
[2018-07-28] MEDS ORDERED: IPRA3AMP29 NEB (13:05)
--- NOTE | 2018-07-28 13:09 | DISCH ---
DISCHARGE WITH HOME HEALTH DISCHARGE INFORMATION: Final Diagnosis: Problems Medical Problems: (1) Right lower lobe pneumonia Status: Acute Condition on Discharge: Stable CODE STATUS: Code Status: Full HOME HEALTH: Face to Face: I certify this patient is under my care and that I, or a nurse practitioner or physician's assistant corporate controller working with me, had a face to face encounter that meets the physician face to face encounter requirements with this patient on []. 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 Home Meds Active Scripts Aspirin (ASPIRIN) 81 Mg Tab.chew, 1 TAB PO DAILY for cad, #30 TAB 3 Refills Prov:LEIGHA FLYNN MD 07/28/18 Potassium Chloride (KLOR-CON 10) 10 Meq Tablet.er, 10 MEQ PO DAILYWBKFT for chf for 30 Days, #30 TAB.SR Prov:LEIGHA FLYNN MD 07/28/18 Amlodipine Besylate (AMLODIPINE BESYLATE) 10 Mg Tablet, 10 MG PO DAILY for htn for 30 Days, #30 TAB Prov:LEIGHA FLYNN MD 07/28/18 Labetalol Hcl (LABETALOL HCL) 200 Mg Tablet, 200 MG PO BID for htn for 30 Days, #60 TAB Prov:LEIGHA FLYNN MD 07/28/18 Hydralazine Hcl (HYDRALAZINE HCL) 50 Mg Tablet, 50 MG PO BID for htn for 30 Days , #60 TAB Prov:LEIGHA FLYNN MD 07/28/18 Clopidogrel Bisulfate (CLOPIDOGREL) 75 Mg Tablet, 75 MG PO DAILYWBKFT for stent for 30 Days, #30 TAB Prov:LEIGHA FLYNN MD 07/28/18 Ipratropium/Albuterol Sulfate (DUONEB 0.5-3(2.5) MG/3 ML) 3 Ml Ampul.neb, 3 ML NEB RTQID for copd for 30 Days, #120 EACH Prov:LEIGHA FLYNN MD 07/28/18 Lisinopril (LISINOPRIL) 40 Mg Tablet, 20 MG PO BID for htn for 90 Days, #90 TAB 3 Refills Prov:LEIGHA FLYNN MD 04/14/18 Temazepam (TEMAZEPAM) 15 Mg Capsule, 1 CAP PO QHS for sleep, #30 CAP 1 Refill Prov:FERNANDO NEELY MD 04/11/18 Reported Medications Imipramine Hcl (IMIPRAMINE HCL) 50 Mg Tablet, 50 MG PO DAILY for ANTIDEPRESSANT , TAB 07/26/18 Quetiapine Fumarate (SEROQUEL) 25 Mg Tablet, 25 MG PO HS for Qhs, TAB 07/23/18 Furosemide (FUROSEMIDE) 20 Mg Tablet, 20 MG PO DAILY for diurisis, TAB 07/23/18 Olanzapine (ZYPREXA) 15 Mg Tablet, 15 MG PO DAILY for med, TAB 07/23/18 Lansoprazole (PREVACID) 30 Mg Capsule.dr, 30 MG PO DAILY for Dr. Flynn , TAB 07/23/18 Folic Acid (FOLIC ACID) 1 Mg Tablet, 1 MG PO DAILY for vitamin, TAB 07/23/18 Escitalopram Oxalate (ESCITALOPRAM OXALATE) 10 Mg Tablet, 10 MG PO DAILY for ANTI-DEPRESSANT, #30 TAB 0 Refills 07/23/18 [place]-3/Dha/Epa/Fish Oil (Fish Oil 1,000 mg Softgel) 1,000 Mg Capsule, 1000 MG PO DAILY for vitamin, CAP 07/23/18 Trazodone Hcl (TRAZODONE HCL) 50 Mg Tablet, 50 MG PO HS for ds, TAB 07/23/18 Ergocalciferol (Vitamin D2) (VITAMIN D2) 50,000 Unit Capsule, 01118 UNIT PO WEEKLY for sdf, CAP 07/23/18 Levocetirizine Dihydrochloride (LEVOCETIRIZINE DIHYDROCHLORIDE) 5 Mg Tablet, 5 MG PO DAILY for MD order, TAB 07/23/18 Atorvastatin Calcium (ATORVASTATIN CALCIUM) 40 Mg Tablet, 40 MG PO DAILY for FOR CHOLESTEROL, #30 TAB 0 Refills 04/10/18 Rivaroxaban (XARELTO) 20 Mg Tablet, 20 MG PO DAILY, TAB 04/10/18 Lansoprazole (LANSOPRAZOLE) 30 Mg Capsule.dr, 30 MG PO DAILY, CAP 04/10/18 Discontinued Reported Medications Imipramine Hcl (IMIPRAMINE HCL) 50 Mg Tablet, 50 MG PO QHS for we, TAB 07/23/18 Escitalopram Oxalate (ESCITALOPRAM OXALATE) 10 Mg Tablet, 10 MG PO DAILY for ANTI-DEPRESSANT, #30 TAB 0 Refills 04/10/18 Ergocalciferol (Vitamin D2) (VITAMIN D2) 50,000 Unit Capsule, 46416 UNIT PO once a week, CAP 04/10/18 Folic Acid (FOLIC ACID) 1 Mg Tablet, 1 TAB PO DAILY, #90 TAB 1 Refill 04/10/18 Amlodipine Besylate (AMLODIPINE BESYLATE) 5 Mg Tablet, 5 MG PO DAILY, TAB 04/10/18 Discontinued Scripts Metoprolol Tartrate (METOPROLOL TARTRATE) 50 Mg Tablet, 50 MG PO BID for pvc for 90 Days, #180 TAB Prov:LEIGHA FLYNN MD 04/14/18 LEIGHA FLYNN MD Jul 28, 2018 13:09
--- NOTE | 2018-07-28 14:15 | NUR ---
SS following up with discharge planning. Discharge orders received for home healthcare. Pt agreeable to [facility] at discharge. SS phoned and faxed discharge orders and referral to [facility], ; fax [phone]. Pt's RN notified.
[2018-07-28 15:00] VITALS: BP 135/87
--- NOTE | 2018-07-28 15:15 | PDOC ---
CARDIO Progress Notes Date and Time Date of Service 07/28/2018 Time of Evaluation 1500 Subjective Subjective: No Chest Pain, No shortness of breath, No Palpitations Vitals Vitals Vital Signs Date Time Temp Pulse Resp B/P (MAP) Pulse Ox O2 Delivery O2 Flow Rate FiO2 07/28/18 13:10 73 144/100 07/28/18 11:49 Room Air 07/28/18 11:00 98.6 18 96 98.6 07/27/18 17:15 1.0 Weight Weight [ ] Input and Output Intake and Output Intake and Output 07/28/18 07:00 Intake Total 900 ml Output Total 3400 ml Balance -2500 ml Intake Oral 900 ml Output Urine Total 3400 ml Laboratory Labs Laboratory Tests Test 07/28/18 02:50 White Blood Count 4.9 x10^3/uL (4.0-11.0) Red Blood Count 4.06 x10^6/uL (3.50-5.40) Hemoglobin 12.1 g/dL (12.0-15.5) Hematocrit 36.2 % (36.0-47.0) Mean Corpuscular Volume 89 fL (79-100) Mean Corpuscular Hemoglobin 30 pg (25-35) Mean Corpuscular Hemoglobin Concent 33 g/dL (31-37) Red Cell Distribution Width 16.8 % (11.5-14.5) Platelet Count 268 x10^3/uL (140-400) Neutrophils (%) (Auto) 50 % (31-73) Lymphocytes (%) (Auto) 34 % (24-48) Monocytes (%) (Auto) 11 % (0-9) Eosinophils (%) (Auto) 4 % (0-3) Basophils (%) (Auto) 1 % (0-3) Neutrophils # (Auto) 2.4 x10^3uL (1.8-7.7) Lymphocytes # (Auto) 1.7 x10^3/uL (1.0-4.8) Monocytes # (Auto) 0.6 x10^3/uL (0.0-1.1) Eosinophils # (Auto) 0.2 x10^3/uL (0.0-0.7) Basophils # (Auto) 0.0 x10^3/uL (0.0-0.2) Sodium Level 141 mmol/L (136-145) Potassium Level 4.2 mmol/L (3.5-5.1) Chloride Level 106 mmol/L (98-107) Carbon Dioxide Level 27 mmol/L (21-32) Anion Gap 8 (6-14) Blood Urea Nitrogen 11 mg/dL (7-20) Creatinine 1.1 mg/dL (0.6-1.0) Estimated GFR (Cockcroft-Gault) 59.6 Glucose Level 85 mg/dL (70-99) Calcium Level 9.1 mg/dL (8.5-10.1) Microbiology Micro Microbiology 07/23/18 Blood Culture - Final, Complete NO GROWTH AFTER 5 DAYS Physical Exam HEENT: Neck Supple W Full Motion Chest: Symmetric LUNGS: Clear to Auscultation Heart: S1S2, RRR (SR) Abdomen: Soft N/T Extremities: No Calf Tenderness Neurology: alert, oriented, follow commands Other Exams right wrist arteriotomy site intact, no swelling, redness. Neurovascualr status to right hand intact. Assessment Assessment 1. NSTEMI: PCI/BMS to RCA 2. HTN: controlled 3. AECOPD: better 4. Acute on chronic diastolic CHF: compensated 5. CAD 6. Hx of cardiomyopathy: recovered to 55% 7. PAFIB with past hx of cardioembolic CVA 8. Known hx of frequent PVCs Recommendations 1. ASA 325 and plavix. Will consider reducing antiplatelet to 1 in a month with xarelto use. 2. Continue with BP regimen, hydralazine just got added. HBPM bid then BP check next week. 3. Cardiac rehab 4. Follow up in 1 month. 5. Will consider event monitor and note PVC burden if none done recent DORI ALCALA APRN Jul 28, 2018 15:15
[2018-07-28] MEDS ORDERED: ASPI325T8 PO (15:16)
--- NOTE | 2018-07-28 16:10 | NUR ---
Discharge Note: JOHAN CAMARGO Discharge instructions and discharge home medications reviewed with Patient and family and a copy given. All questions have been answered and understanding verbalized. The following instructions and handouts were given to the patient. Patient was wheeled to private vehicle with family and was A&Ox4. Cath site was c/d/i.
[2018-07-28] MEDS ORDERED: RIVAROXABAN 10 MG TABLET. PO SCH (17:00)
--- NOTE | 2018-07-28 22:01 | DS ---
DATE OF DISCHARGE: 07/28/2018 ADMITTING DIAGNOSIS: Acute on chronic respiratory failure. SECONDARY DIAGNOSES: 1. Suspected Community-acquired pneumonia. 2. Acute on chronic congestive heart failure. 3. Chest pain. 4. Non-ST elevated myocardial infarction. 5. Type 2 diabetes. 6. Hypokalemia. 7. Severe chronic hearing loss. HISTORY OF PRESENT ILLNESS AND HOSPITAL COURSE: This patient is a 68-year-old female who states she has been having cough and congestion for over a month. On the day of admission, the patient had increasing cough and congestion, this time became short of breath and had chest pressure. She came to the Emergency Room, was felt to have a lower lobe infiltrate as well as evidence of pulmonary vascular congestion. She was admitted and treated initially for pneumonia and Cardiology was consulted due to a small bump in troponin. Pulmonary was also consulted and the patient's x-ray changes became more consistent with congestive heart failure. The patient's story became more consistent with unstable angina. She underwent cardiac catheterization discovering a right coronary artery lesion which was stented. Her pain completely resolved. The patient had significantly high blood pressures during hospitalization and medicines were adjusted. The patient was back nearly to baseline, was able to ambulate without assistance for over 200 feet and passed a 6-minute walk O2 sats test. DISCHARGE MEDICATIONS: She will be sent home with home health and the following medications: 1. Amlodipine 10 mg daily. 2. Plavix 75 mg daily. 3. Hydralazine 50 mg b.i.d. 4. DuoNeb nebulizer treatments q.i.d. 5. Labetalol 200 mg b.i.d. 6. Potassium 10 mEq daily. 7. Aspirin 325 mg daily. 8. Aspirin 40 mg daily. 9. Vitamin D 50,000 international units daily. 10. Lexapro 10 mg daily. 11. Folic acid 1 mg daily. 12. Lasix 20 mg daily. 13. Imipramine 50 mg at bedtime. 14. Prevacid 30 mg daily. 15. Xyzal 5 mg daily. 16. Lisinopril 20 mg b.i.d. 17. Zyprexa 15 mg daily. 18. Fish oil 1000 mg daily. 19. Seroquel 25 mg at bedtime. 20. Xarelto 20 mg daily. 21. Temazepam 15 mg at bedtime. 22. Trazodone 50 mg at bedtime. 23. Metoprolol was discontinued on this admission. DISCHARGE INSTRUCTIONS: The patient will follow up in the office in 1 week for continued management and medical evaluation and monitoring of medication use and follow up with Cardiology in 2-4 weeks. LEIGHA CAMPOS MD DR: ANNETTE/melani JOB#: [id number] / [id number]
[2018-07-31] MEDS ORDERED: ERGOCALCIFEROL (VITAMIN D2) 50,000 UNIT CAPSULE. PO SCH (09:00)
== END 2018-07-28 16:10 | disposition home health service (06) | DRG 248 ==
LOC: ER 09:00 → 2 NORTH 12:09
PROVIDERS: ADMIT Family Medicine; ATTEND Family Medicine
PROC: 02703DZ Dilation of Coronary Artery, One Artery with Intraluminal Device, Percutaneous Approach (ICD-10-PCS; principal; 2018-07-28)
PROC: 4A023N7 Measurement of Cardiac Sampling and Pressure, Left Heart, Percutaneous Approach (ICD-10-PCS; 2018-07-28)
PROC: B2111ZZ Fluoroscopy of Multiple Coronary Arteries using Low Osmolar Contrast (ICD-10-PCS; 2018-07-28)
PROC: B2151ZZ Fluoroscopy of Left Heart using Low Osmolar Contrast (ICD-10-PCS; 2018-07-28)
DX: I21.4 Non-ST elevation (NSTEMI) myocardial infarction (principal); I50.33 Acute on chronic diastolic (congestive) heart failure; J96.21 Acute and chronic respiratory failure with hypoxia; J18.1 Lobar pneumonia, unspecified organism; I42.9 Cardiomyopathy, unspecified; J44.1 Chronic obstructive pulmonary disease with (acute) exacerbation; J44.0 Chronic obstructive pulmonary disease with (acute) lower respiratory infection; E11.9 Type 2 diabetes mellitus without complications; E78.5 Hyperlipidemia, unspecified; E87.6 Hypokalemia; F03.90 Unspecified dementia, unspecified severity, without behavioral disturbance, psychotic disturbance, mood disturbance, and anxiety; G47.33 Obstructive sleep apnea (adult) (pediatric); H91.90 Unspecified hearing loss, unspecified ear; I11.0 Hypertensive heart disease with heart failure; F41.9 Anxiety disorder, unspecified; F32.9 Major depressive disorder, single episode, unspecified; M19.90 Unspecified osteoarthritis, unspecified site; I48.0 Paroxysmal atrial fibrillation; I25.10 Atherosclerotic heart disease of native coronary artery without angina pectoris; I48.2 Chronic atrial fibrillation; J32.9 Chronic sinusitis, unspecified; K21.9 Gastro-esophageal reflux disease without esophagitis; Z96.21 Cochlear implant status; E66.9 Obesity, unspecified; Z79.01 Long term (current) use of anticoagulants; Z82.3 Family history of stroke; Z86.73 Personal history of transient ischemic attack (TIA), and cerebral infarction without residual deficits; Z87.891 Personal history of nicotine dependence; Z90.710 Acquired absence of both cervix and uterus; Z71.6 Tobacco abuse counseling; Z68.36 Body mass index [BMI] 36.0-36.9, adult
CPT/HCPCS: 36415; 36600; 71045; 71275; 76770; 80048; 80053; 82553; 82805; 83735; 83880; 84145; 84443; 84484; 85025; 85379; 85610; 87040; 92928; 93005; 93308; 93325; 93458; 94618; 94640; 94760; 96374; 96375; 99152; 99153; C1725; C1769; C1876; C1887; C1892; J0360; J0456; J0583; J0696; J1644; J1940; J1956; J2250; J2270; J3010; J3490; J7030; J7050; J7620; Q9967; 97110; 97530; 99285-25

== ENCOUNTER 2020-01-12 21:07 | Inpatient (IN) | payer OTHER, MEDICAID ==
[~2020-01-12] VITALS: Ht 167.6 cm; Wt 110.7 kg
[~2020-01-12 21:07] MED LIST changes: +AMLO10TA8 PO; +ASPI-630 PO; +ASPI325T8 PO; +CLOP75TA PO; +ERGOCALCIFEROL (VITAMIN D2) 50,000 UNIT CAPSULE. PO SCH; +FURO20TA3 PO; +FURO40TA4 PO; +HYDR-2869 PO; +IMIP50TA3 PO; +LABE200T4 PO; +LANS30CA66 PO; +LEVO5TAB2 PO; +OLAN15TA3 PO; +OMEG100021 PO; +POTA10TA12 PO; +QUET25TA5 PO; +TRAZ-118 PO
[2020-01-12 22:51] LABS: BASO % 1 % (0-3); EOS # 0.1 x10^3/uL (0.0-0.7); EOS % 2 % (0-3); HEMATOCRIT 36.8 % (36.0-47.0); HEMOGLOBIN 12.5 g/dL (12.0-15.5); LYMPH # 1.2 x10^3/uL (1.0-4.8); LYMPH % 28 % (24-48); MEAN CORPUSCULAR HEMOGLOBIN 30 pg (25-35); MEAN CORPUSCULAR HGB CONC 34 g/dL (31-37); MEAN CORPUSCULAR VOLUME 88 fL (79-100); MONO # 0.4 x10^3/uL (0.0-1.1); MONO % 9 % (0-9); NEUT # 2.7 x10^3/uL (1.8-7.7); NEUT % 60 % (31-73); PLATELET COUNT 254 x10^3/uL (140-400); RED BLOOD COUNT 4.17 x10^6/uL (3.50-5.40); RED CELL DISTRIBUTION WIDTH 17.1 % (11.5-14.5); WHITE BLOOD COUNT 4.4 x10^3/uL (4.0-11.0)
[2020-01-12 23:00] LABS: PROTHROMBIN TIME PATIENT 18.4 SEC (11.7-14.0)
[2020-01-12] MEDS ORDERED: LABETALOL 20 MG/4 ML DISP.SYRIN. IVP ONE (23:00)
[2020-01-12] MEDS ORDERED: NITROGLYCERIN OINT 1 GM PACKET. TP ONE (23:00)
[2020-01-12 23:10] LABS: CALCIUM 9.3 mg/dL (8.5-10.1); CREATININE 1.2 mg/dL (0.6-1.0); GFR 53.7; POTASSIUM 3.6 mmol/L (3.5-5.1)
[2020-01-12 23:21] LABS: ALBUMIN 3.5 g/dL (3.4-5.0); ALBUMIN/GLOBULIN RATIO 0.9 (1.0-1.7); MAGNESIUM 2.3 mg/dL (1.8-2.4); TOTAL BILIRUBIN 0.6 mg/dL (0.2-1.0); TOTAL PROTEIN 7.4 g/dL (6.4-8.2)
--- NOTE | 2020-01-12 23:21 | PHYS DOC ---
Past Medical History Past Medical History: CAD, CHF, Hypertension, IN, Stroke Past Surgical History: Hysterectomy Additional Past Surgical Histo: cardiac cath, cochlear implant, STENTS Smoking Status: Current Every Day Smoker Alcohol Use: None Drug Use: None General Adult EDM: Chief Complaint: SHORTNESS OF BREATH HPI: HPI: 69-year-old female presents with report of increased shortness of air and fatigue that has been progressive over the last 2 weeks. Patient reports sen sation that she "cannot catch her breath ". Patient also reports some pleuritic pain. Denies fever or chills. Reports cough. Patient does report use of blood thinners secondary to prior CVA and aneurysm. Denies trauma. Denies calf tenderness but reports some increased leg swelling. Patient does report significant cardiac risk factors. Denies history of PE or DVT. Patient does report being tested for COVID-19 approximately 2 weeks ago which she reports was negative. Review of Systems: Review of Systems: Constitutional: Denies fever or chills; reports malaise Eyes: Denies redness or eye pain HENT: Denies nasal congestion or sore throat Respiratory: Reports cough and shortness of breath Cardiovascular: Reports chest pain; denies palpitations GI: Denies abdominal pain, nausea, or vomiting : Denies dysuria or hematuria Musculoskeletal: Denies back pain; reports bilateral lower extremity edema Integument: Denies rash or skin lesions Neurologic: Denies headache, focal weakness or sensory changes Complete systems were reviewed and found to be within normal limits, except as documented in this note. Heart Score: HEART Score for Chest Pain: HEART Score for Chest Pain Response (Comments) Value History Moderately Suspicious 1 ECG Normal 0 Age > 65 2 Risk Factors >3 Risk Factors or Hx CAD 2 Troponin < Normal Limit 0 Total 5 Risk Factors: Risk Factors: DM, Current or recent (<one month) smoker, HTN, HLP, family history of CAD, obesity. Risk Scores: Score 0 - 3: 2.5% MACE over next 6 weeks - Discharge Home Score 4 - 6: 20.3% MACE over next 6 weeks - Admit for Clinical Observation Score 7 - 10: 72.7% MACE over next 6 weeks - Early Invasive Strategies Current Medications: Current Medications Medications (Trade) Dose Ordered Sig/Daquan Start Time Stop Time Status Last Admin Dose Admin Labetalol HCl (Normodyne Iv Push) 10 mg 1X ONCE 01/12/20 23:00 01/12/20 23:01 DC 01/12/20 22:59 10 MG Nitroglycerin (Nitro-Bid Oint) 0.5 inch 1X ONCE 01/12/20 23:00 01/12/20 23:01 DC 01/12/20 23:00 0.5 INCH Allergies: Allergies: Allergies Coded Allergies Type Severity Reaction Last Updated Verified No Known Drug Allergies 04/10/18 No Physical Exam: PE: Constitutional: Well developed, obese, no acute distress, non-toxic appearance, hard of hearing HENT: Normocephalic, atraumatic, cochlear implant noted to left scalp Eyes: Conjunctiva normal, no discharge Neck: Normal range of motion, supple Lungs & Thorax: No respiratory distress, equal chest rise and fall Abdomen: Soft, no tenderness Skin: Warm, dry, no erythema, no rash Extremities: No tenderness, ROM intact, 2+ bilateral lower extremity edema Neurologic: Alert and oriented X 3, normal motor function, normal sensory function, no focal deficits noted Psychologic: Affect normal, judgment normal Current Patient Data: Labs: Laboratory Tests Test 01/12/20 22:24 White Blood Count 4.4 x10^3/uL (4.0-11.0) Red Blood Count 4.17 x10^6/uL (3.50-5.40) Hemoglobin 12.5 g/dL (12.0-15.5) Hematocrit 36.8 % (36.0-47.0) Mean Corpuscular Volume 88 fL (79-100) Mean Corpuscular Hemoglobin 30 pg (25-35) Mean Corpuscular Hemoglobin Concent 34 g/dL (31-37) Red Cell Distribution Width 17.1 % (11.5-14.5) H Platelet Count 254 x10^3/uL (140-400) Neutrophils (%) (Auto) 60 % (31-73) Lymphocytes (%) (Auto) 28 % (24-48) Monocytes (%) (Auto) 9 % (0-9) Eosinophils (%) (Auto) 2 % (0-3) Basophils (%) (Auto) 1 % (0-3) Neutrophils # (Auto) 2.7 x10^3/uL (1.8-7.7) Lymphocytes # (Auto) 1.2 x10^3/uL (1.0-4.8) Monocytes # (Auto) 0.4 x10^3/uL (0.0-1.1) Eosinophils # (Auto) 0.1 x10^3/uL (0.0-0.7) Basophils # (Auto) 0.0 x10^3/uL (0.0-0.2) Prothrombin Time 18.4 SEC (11.7-14.0) H Prothrombin Time INR 1.6 (0.8-1.1) H Activated Partial Thromboplast Time 38 SEC (24-38) Sodium Level 141 mmol/L (136-145) Potassium Level 3.6 mmol/L (3.5-5.1) Chloride Level 103 mmol/L (98-107) Carbon Dioxide Level 31 mmol/L (21-32) Anion Gap 7 (6-14) Blood Urea Nitrogen 13 mg/dL (7-20) Creatinine 1.2 mg/dL (0.6-1.0) H Estimated GFR (Cockcroft-Gault) 53.7 BUN/Creatinine Ratio 11 (6-20) Glucose Level 92 mg/dL (70-99) Calcium Level 9.3 mg/dL (8.5-10.1) Magnesium Level Pending Total Bilirubin Pending Aspartate Amino Transferase (AST) Pending Alanine Aminotransferase (ALT) Pending Alkaline Phosphatase Pending Troponin I Quantitative < 0.017 ng/mL (0.000-0.055) Total Protein Pending Albumin Pending Albumin/Globulin Ratio Pending Lipase Pending Laboratory Tests 01/12/20 22:24 Laboratory Tests 01/12/20 22:24 Vital Signs: Vital Signs Date Time Temp Pulse Resp B/P (MAP) Pulse Ox O2 Delivery O2 Flow Rate FiO2 01/12/20 23:00 68 230/98 01/12/20 21:55 98.1 22 98 Room Air 98.1 EKG: EKG: @2234 NSR at 63bpm, NO ST elevation, QRS 134ms, QT/QTc 468/472ms Radiology/Procedures: Radiology/Procedures: PROCEDURE: CT HEAD WO CONTRAST CT head without contrast PQRS statement: CT scans at this facility use dose reduction including either automated exposure control, iterative reconstructions, and /or weight based radiation dosing via mA and kV modification when appropriate to reduce radiation dose to as low as reasonably achievable. HISTORY: Headache. FINDINGS: Streak artifact from left cochlear implant decreases sensitivity to detect subtle abnormalities however diagnostic information still remains. Encephalomalacia of the left lower occipital lobe above the tentorium likely due to an old chronic infarct. Cavum septum interpositum, an anatomic variant. Mild cerebral periventricular white matter hypoattenuation in a patient this age most likely represents imaging changes of chronic small vessel ischemic disease. No acute infarct or acute ischemic change evident. No intracranial hemorrhage, mass or hydrocephalus. IMPRESSION: No acute abnormality. Encephalomalacia of the left occipital lobe likely due to a chronic infarct. Electronically signed by: Torres Banks MD (01/13/2020 12:34 AM) [facility]: CT ANGIOGRAPHY CHEST ABDOMEN CT angiography chest, abdomen and pelvis with contrast Contrast: 90 mL Isovue 370 intravenous contrast with 3-D MIP reconstructions of the arteries acquired. HISTORY: Chest pain, history of abdominal aortic aneurysm stent repair. Chest findings: There is mild motion reconstruction artifact of the ascending aorta due to cardiac pulsatility decreasing sensitivity to detect a subtle intimal lap or intramural hematoma thickening of the vessel, in light of this there is no discrete thoracic aortic dissection. No thoracic aortic aneurysm ascending thoracic aorta diameter is 3.2 cm. There is calcified plaque thoracic aorta. Coronary calcified plaque. There is marked cardiomegaly. Chronic left ventricle apical and septal and inferior wall infarct with myocardial thinning and calcification stable. Pulmonary vessels unremarkable. Esophagus unremarkable. There is a mild volume of superior pericardial fluid similar the prior study from 2019. No adenopathy. There is a mild right pleural effusion thickness of 3 cm at the lower lobe tapering towards the apex. Small left pleural effusion subcentimeter thickness of the upper lobe. Pulmonary interstitial edema. There is a 2 x 1 cm subpleural groundglass opacity in the right upper lobe image 32 new from prior imaging. Subcentimeter 3 cm groundglass subpleural opacity right upper lobe apex image 18 also new. Bronchial wall thickening with luminal narrowing. Mild volume loss and discoid atelectasis left lower lobe. There is mild bilateral hilar adenopathy lymph nodes measuring up to 1 cm. Bones are unremarkable. Abdomen findings: Calcified plaque abdominal aorta and abdominal arteries, no aneurysm, dissection or occlusion. There is moderate stenotic disease of the abdominal aorta of 30-40 percent. Kidneys, adrenal glands, pancreas, spleen, liver unremarkable. Cholecystectomy. No abdominal fluid or adenopathy. Moderate volume of stool. Appendix is negative. Lumbar disc disease and mild scoliosis. Pelvis findings: Calcified plaque iliac arteries no aneurysm, dissection, high-grade stenosis or occlusion. There is mild pelvic free fluid. Hysterectomy. Bladder, ovaries, rectum and bones are unremarkable. IMPRESSION: 1. No thoracic aortic aneurysm or dissection evident 2. Congestive heart failure with marked cardiomegaly, moderate right and mild left pleural effusions, and pulmonary edema. 3. 2 subpleural groundglass opacities of the right upper lobe measuring 3 cm and 2 cm respectively, could represent an infectious/inflammatory process or pulmonary infarcts. Consider follow-up CT imaging in 3 months to document that these resolve. 4. Mild hilar adenopathy. 5. Atherosclerotic calcified plaque of the thoracic aorta and coronary arteries and abdominal arteries and iliac arteries. 6. Chronic left ventricular myocardial infarct again demonstrated. 7. Bronchial wall thickening may indicate bronchitis. Exposure: One or more of the following individualized dose reduction techniques were utilized for this examination: 1. Automated exposure control 2. Adjustment of the mA and/or kV according to patient size 3. Use of iterative reconstruction technique Electronically signed by: Torres Banks MD (01/13/2020 1:07 AM) [facility] Course & Med Decision Making: Course & Med Decision Making Pertinent Labs and Imaging studies reviewed. (See chart for details) Patient presents with report of dyspnea with associated pleuritic pain and bilateral lower extremity edema. EKG stable. Labs obtained and posted to chart. Initial troponin within normal limits. BNP significantly elevated. CTA chest with findings consistent for acute CHF. Aspirin provided. Bumex given secondary to elevated creatinine. Blood pressure continued to be elevated and was addressed. Patient requiring admission for further evaluation and treatment. Discussed with Dr. Gomez (hospitalist) who is in agreement with admission. Discussed findings and plan with patient, who acknowledges understanding and agreement. COVID-19 CRITERIA: The patient was evaluated during the global COVID-19 pandemic, and that diagnosis was suspected/considered upon their initial presentation. Their evaluation, treatment and testing was consistent with current guidelines for patients who present with complaints or symptoms that may be related to COVID-19. Dragon Disclaimer: Dragon Disclaimer: This electronic medical record was generated, in whole or in part, using a voice recognition dictation system. Departure Departure Impression: Primary Impression: Acute exacerbation of CHF (congestive heart failure) Qualified Codes: I50.9 - Heart failure, unspecified Additional Impressions: Hypertensive urgency Suspected 2019 novel coronavirus infection Disposition: ADMITTED INPATIENT Admitting Physician: SATINDER (Patricia) Condition: GUARDED Referrals: LEIGHA CAMPOS MD (PCP) Justicifation of Admission Dx: Justifications for Admission: Justification of Admission Dx: Yes Comments: CHF exacerbation, COVID PUI, Hypertensive Urgency COVID-19 Assessment: COVID-19 Patient Risks: Age 65 or older: Yes Sign of co-morbidity: Yes Exp to person + for COVID: No Exp to PUI: No Travel from affected area: No Lower respiratory symptoms: Yes Fever: No PPE Use: Full PPE with N95 mask or PAPR: Yes Critical Care Time Critical care time was 30 minutes which includes time at bedside, spent in discussion of patient's care with specialists and/or family members, with interpretation of laboratory and/or radiological studies and is exclusive of procedures. LEIGHA GIL DO Jan 12, 2020 23:21
[2020-01-12] MEDS ORDERED: CONTRAST GIVEN. MC PRN (23:45)
[2020-01-13] MEDS ORDERED: IOHEXOL 350 MG/ML 100 ML VIAL. IV ONE
--- NOTE | 2020-01-13 00:37 | RAD ---
CT head without contrast PQRS statement: CT scans at this facility use dose reduction including either automated exposure control, iterative reconstructions, and /or weight based radiation dosing via mA and kV modification when appropriate to reduce radiation dose to as low as reasonably achievable. HISTORY: Headache. FINDINGS: Streak artifact from left cochlear implant decreases sensitivity to detect subtle abnormalities however diagnostic information still remains. Encephalomalacia of the left lower occipital lobe above the tentorium likely due to an old chronic infarct. Cavum septum interpositum, an anatomic variant. Mild cerebral periventricular white matter hypoattenuation in a patient this age most likely represents imaging changes of chronic small vessel ischemic disease. No acute infarct or acute ischemic change evident. No intracranial hemorrhage, mass or hydrocephalus. IMPRESSION: No acute abnormality. Encephalomalacia of the left occipital lobe likely due to a chronic infarct. Electronically signed by: Torres Banks MD (01/13/2020 12:34 AM) [facility]
[2020-01-13] MEDS ORDERED: hydrALAZINE 20 MG/ML VIAL. IVP ONE (01:00)
[2020-01-13] MEDS ORDERED: hydrALAZINE 20 MG/ML VIAL. IVP PRN (01:00)
[2020-01-13] MEDS ORDERED: ONDANSETRON PF 4 MG/2 ML VIAL. IV PRN (01:00)
[2020-01-13] MEDS ORDERED: fentaNYL PF VIAL 100 MCG/2 ML VIAL IV ONE (01:00)
[2020-01-13] MEDS ORDERED: fentaNYL PF VIAL 100 MCG/2 ML VIAL IV PRN (01:00)
[2020-01-13] MEDS ORDERED: BUMETANIDE 1 MG/4 ML VIAL. IV ONE (01:00)
--- NOTE | 2020-01-13 01:09 | RAD ---
CT angiography chest, abdomen and pelvis with contrast Contrast: 90 mL Isovue 370 intravenous contrast with 3-D MIP reconstructions of the arteries acquired. HISTORY: Chest pain, history of abdominal aortic aneurysm stent repair. Chest findings: There is mild motion reconstruction artifact of the ascending aorta due to cardiac pulsatility decreasing sensitivity to detect a subtle intimal lap or intramural hematoma thickening of the vessel, in light of this there is no discrete thoracic aortic dissection. No thoracic aortic aneurysm ascending thoracic aorta diameter is 3.2 cm. There is calcified plaque thoracic aorta. Coronary calcified plaque. There is marked cardiomegaly. Chronic left ventricle apical and septal and inferior wall infarct with myocardial thinning and calcification stable. Pulmonary vessels unremarkable. Esophagus unremarkable. There is a mild volume of superior pericardial fluid similar the prior study from 2019. No adenopathy. There is a mild right pleural effusion thickness of 3 cm at the lower lobe tapering towards the apex. Small left pleural effusion subcentimeter thickness of the upper lobe. Pulmonary interstitial edema. There is a 2 x 1 cm subpleural groundglass opacity in the right upper lobe image 32 new from prior imaging. Subcentimeter 3 cm groundglass subpleural opacity right upper lobe apex image 18 also new. Bronchial wall thickening with luminal narrowing. Mild volume loss and discoid atelectasis left lower lobe. There is mild bilateral hilar adenopathy lymph nodes measuring up to 1 cm. Bones are unremarkable. Abdomen findings: Calcified plaque abdominal aorta and abdominal arteries, no aneurysm, dissection or occlusion. There is moderate stenotic disease of the abdominal aorta of 30-40 percent. Kidneys, adrenal glands, pancreas, spleen, liver unremarkable. Cholecystectomy. No abdominal fluid or adenopathy. Moderate volume of stool. Appendix is negative. Lumbar disc disease and mild scoliosis. Pelvis findings: Calcified plaque iliac arteries no aneurysm, dissection, high-grade stenosis or occlusion. There is mild pelvic free fluid. Hysterectomy. Bladder, ovaries, rectum and bones are unremarkable. IMPRESSION: 1. No thoracic aortic aneurysm or dissection evident 2. Congestive heart failure with marked cardiomegaly, moderate right and mild left pleural effusions, and pulmonary edema. 3. 2 subpleural groundglass opacities of the right upper lobe measuring 3 cm and 2 cm respectively, could represent an infectious/inflammatory process or pulmonary infarcts. Consider follow-up CT imaging in 3 months to document that these resolve. 4. Mild hilar adenopathy. 5. Atherosclerotic calcified plaque of the thoracic aorta and coronary arteries and abdominal arteries and iliac arteries. 6. Chronic left ventricular myocardial infarct again demonstrated. 7. Bronchial wall thickening may indicate bronchitis. Exposure: One or more of the following individualized dose reduction techniques were utilized for this examination: 1. Automated exposure control 2. Adjustment of the mA and/or kV according to patient size 3. Use of iterative reconstruction technique Electronically signed by: Torres Banks MD (01/13/2020 1:07 AM) [facility]
[2020-01-13] MEDS ORDERED: ASPIRIN 325 MG TABLET PO ONE (01:30)
[2020-01-13 02:20] VITALS: BP 179/86
[2020-01-13 02:32] LABS: BILIRUBIN,URINE NEGATIVE (NEG); CLARITY,URINE CLEAR; COLOR,URINE YELLOW; NITRITE,URINE NEGATIVE (NEG); PROTEIN,URINE NEGATIVE (NEG-TRACE)
[2020-01-13 02:36] LABS: BACTERIA,URINE FEW /HPF (0-FEW); RBC,URINE 0 /HPF (0-2); SQUAMOUS EPITHELIAL CELL,UR FEW /LPF
--- NOTE | 2020-01-13 06:37 | EKG ---
[facility] [address] [place] [address] Test Date: 2020-01-12 Test Time: 22:34:55 Pat Name: JOHAN CAMARGO Department: Room: Gender: F [employer]: : [id number] Requested By: LEIGHA GIL Order Number: [id number] Reading MD: Measurements Intervals [place] Rate: 63 P: 60 AL: 178 QRS: -41 QRSD: 134 T: 114 QT: 458 QTc: 472 Interpretive Statements SINUS RHYTHM ATRIAL PREMATURE COMPLEX(ES) LEFT ATRIAL ABNORMALITY ABNORMAL LEFT AXIS DEVIATION NON SPECIFIC INTRAVENTRICULAR BLOCK QRS(T) CONTOUR ABNORMALITY CONSIDER ANTEROSEPTAL MYOCARDIAL DAMAGE ABNORMAL ECG RI6.01 No previous ECG available for comparison
--- NOTE | 2020-01-13 08:18 | PDOC1 ---
History and Physical Date of Admission Date of Admission DATE: 01/13/20 TIME: 08:14 Past Medical History Past Medical History Past Medical History Past Medical History Past Medical History: CAD, CHF, Hypertension, DE, Stroke Past Surgical History: Hysterectomy Additional Past Surgical Histo: cardiac cath, cochlear implant, STENTS Smoking Status: Current Every Day Smoker Alcohol Use: None Drug Use: None Cardiovascular: AFIB, CAD, CHF, HTN, Hyperlipidemia, Other Pulmonary: COPD, Pneumonia CENTRAL NERVOUS SYSTEM: CVA GI: GERD Hepatobiliary: No pertinent hx Psych: Anxiety, Depression Musculoskeletal: Osteoarthritis Past Surgical History Past Surgical History: Hysterectomy Family History Family History: Stroke Social History ALCOHOL: none Drugs: None Current Problem List Problem List Problems Medical Problems: (1) Acute exacerbation of CHF (congestive heart failure) Status: Acute (2) Hypertensive urgency Status: Acute (3) Suspected 2019 novel coronavirus infection Status: Acute Current Medications Current Medications Current Medications Labetalol HCl (Normodyne Iv Push) 10 mg 1X ONCE IVP Last administered on 01/12/20at 22:59; Start 01/12/20 at 23:00; Stop 01/12/20 at 23:01; Status DC Nitroglycerin (Nitro-Bid Oint) 0.5 inch 1X ONCE TP Last administered on 01/12/20at 23:00; Start 01/12/20 at 23:00; Stop 01/12/20 at 23:01; Status DC Iohexol (Omnipaque 350 Mg/ml) 90 ml 1X ONCE IV Last administered on 01/13/20at 00:00; Start 01/13/20 at 00:00; Stop 01/13/20 at 00:01; Status DC Info (CONTRAST GIVEN -- Rx MONITORING) 1 each PRN DAILY PRN MC SEE COMMENTS; Start 01/12/20 at 23:45; Stop 01/14/20 at 23:44 Bumetanide (Bumex) 0.5 mg 1X ONCE IV Last administered on 01/13/20at 01:06; Start 01/13/20 at 01:00; Stop 01/13/20 at 01:01; Status DC Fentanyl Citrate (Fentanyl 2ml Vial) 50 mcg 1X ONCE IV Last administered on 01/13/20at 01:00; Start 01/13/20 at 01:00; Stop 01/13/20 at 01:01; Status DC Hydralazine HCl (Apresoline Inj) 10 mg 1X ONCE IVP Last administered on 01/13/20at 01:01; Start 01/13/20 at 01:00; Stop 01/13/20 at 01:01; Status DC Ondansetron HCl (Zofran) 4 mg PRN Q8HRS PRN IV NAUSEA/VOMITING 1ST CHOICE; Start 01/13/20 at 01:00; Stop 01/14/20 at 00:59 Fentanyl Citrate (Fentanyl 2ml Vial) 25 mcg PRN Q2HRS PRN IV SEVERE PAIN 7-10; Start 01/13/20 at 01:00 Aspirin (Angel Aspirin) 325 mg 1X ONCE PO Last administered on 01/13/20at 01:05; Start 01/13/20 at 01:30; Stop 01/13/20 at 01:31; Status DC Hydralazine HCl (Apresoline Inj) 10 mg PRN Q4HRS PRN IVP ELEVATED BP, SEE COMMENTS; Start 01/13/20 at 01:00; Stop 01/14/20 at 00:59 Active Scripts Active Klor-Con 10 (Potassium Chloride) 10 Meq Tablet.er 10 Meq PO DAILYWBKFT 30 Days Amlodipine Besylate 10 Mg Tablet 10 Mg PO DAILY 30 Days Labetalol Hcl 200 Mg Tablet 200 Mg PO BID 30 Days Hydralazine Hcl 50 Mg Tablet 50 Mg PO BID 30 Days Clopidogrel (Clopidogrel Bisulfate) 75 Mg Tablet 75 Mg PO DAILYWBKFT 30 Days Duoneb 0.5-3(2.5) Mg/3 Ml (Albuterol/Ipratropium) 3 Ml Ampul.neb 3 Ml NEB RTQID 30 Days Lisinopril 40 Mg Tablet 20 Mg PO BID 90 Days Temazepam 15 Mg Capsule 1 Cap PO QHS Reported Aspirin 325 Mg Tablet 1 Tab PO DAILY Imipramine Hcl 50 Mg Tablet 50 Mg PO DAILY Seroquel (Quetiapine Fumarate) 25 Mg Tablet 25 Mg PO HS Furosemide 20 Mg Tablet 20 Mg PO DAILY Zyprexa (Olanzapine) 15 Mg Tablet 15 Mg PO DAILY Prevacid (Lansoprazole) 30 Mg Capsule.dr 30 Mg PO DAILY Folic Acid 1 Mg Tablet 1 Mg PO DAILY Escitalopram Oxalate 10 Mg Tablet 10 Mg PO DAILY Fish Oil 1,000 mg Softgel ([place]-3/Dha/Epa/Fish Oil) 1,000 Mg Capsule 1,000 Mg PO DAILY Trazodone Hcl 50 Mg Tablet 50 Mg PO HS Vitamin D2 (Ergocalciferol (Vitamin D2)) 50,000 Unit Capsule 50,000 Unit PO WEEKLY Levocetirizine Dihydrochloride 5 Mg Tablet 5 Mg PO DAILY Atorvastatin Calcium 40 Mg Tablet 40 Mg PO DAILY Xarelto (Rivaroxaban) 20 Mg Tablet 20 Mg PO DAILY Lansoprazole 30 Mg Capsule.dr 30 Mg PO DAILY Allergies Allergies: Coded Allergies: No Known Drug Allergies (Unverified , 04/10/18) Vitals Vitals Vital Signs Date Time Temp Pulse Resp B/P (MAP) Pulse Ox O2 Delivery O2 Flow Rate FiO2 01/13/20 02:30 Room Air 01/13/20 02:20 98.8 70 26 179/86 (117) 97 98.8 Labs Labs Laboratory Tests Test 01/12/20 22:24 01/13/20 02:00 01/13/20 04:05 White Blood Count 4.4 x10^3/uL (4.0-11.0) Red Blood Count 4.17 x10^6/uL (3.50-5.40) Hemoglobin 12.5 g/dL (12.0-15.5) Hematocrit 36.8 % (36.0-47.0) Mean Corpuscular Volume 88 fL (79-100) Mean Corpuscular Hemoglobin 30 pg (25-35) Mean Corpuscular Hemoglobin Concent 34 g/dL (31-37) Red Cell Distribution Width 17.1 % (11.5-14.5) Platelet Count 254 x10^3/uL (140-400) Neutrophils (%) (Auto) 60 % (31-73) Lymphocytes (%) (Auto) 28 % (24-48) Monocytes (%) (Auto) 9 % (0-9) Eosinophils (%) (Auto) 2 % (0-3) Basophils (%) (Auto) 1 % (0-3) Neutrophils # (Auto) 2.7 x10^3/uL (1.8-7.7) Lymphocytes # (Auto) 1.2 x10^3/uL (1.0-4.8) Monocytes # (Auto) 0.4 x10^3/uL (0.0-1.1) Eosinophils # (Auto) 0.1 x10^3/uL (0.0-0.7) Basophils # (Auto) 0.0 x10^3/uL (0.0-0.2) Prothrombin Time 18.4 SEC (11.7-14.0) Prothromb Time International Ratio 1.6 (0.8-1.1) Activated Partial Thromboplast Time 38 SEC (24-38) Sodium Level 141 mmol/L (136-145) Potassium Level 3.6 mmol/L (3.5-5.1) Chloride Level 103 mmol/L (98-107) Carbon Dioxide Level 31 mmol/L (21-32) Anion Gap 7 (6-14) Blood Urea Nitrogen 13 mg/dL (7-20) Creatinine 1.2 mg/dL (0.6-1.0) Estimated GFR (Cockcroft-Gault) 53.7 BUN/Creatinine Ratio 11 (6-20) Glucose Level 92 mg/dL (70-99) Lactic Acid Level 0.8 mmol/L (0.4-2.0) Calcium Level 9.3 mg/dL (8.5-10.1) Magnesium Level 2.3 mg/dL (1.8-2.4) Total Bilirubin 0.6 mg/dL (0.2-1.0) Aspartate Amino Transf (AST/SGOT) 20 U/L (15-37) Alanine Aminotransferase (ALT/SGPT) 31 U/L (14-59) Alkaline Phosphatase 91 U/L (46-116) Creatine Kinase 137 U/L (26-192) Creatine Kinase MB (Mass) 2.3 ng/mL (0.0-3.6) Creatine Kinase MB Relative Index 1.7 % (0-4) Troponin I Quantitative < 0.017 ng/mL (0.000-0.055) < 0.017 ng/mL (0.000-0.055) VG-Pqh-P-Type Natriuretic Peptide 3310 pg/mL (0-124) Total Protein 7.4 g/dL (6.4-8.2) Albumin 3.5 g/dL (3.4-5.0) Albumin/Globulin Ratio 0.9 (1.0-1.7) Lipase 48 U/L (73-393) Urine Collection Type Unknown Urine Color Yellow Urine Clarity Clear Urine pH 7.0 (<5.0-8.0) Urine Specific [place] 1.020 (1.000-1.030) Urine Protein Negative mg/dL (NEG-TRACE) Urine Glucose (UA) Negative mg/dL (NEG) Urine Ketones (Stick) Negative mg/dL (NEG) Urine Blood Negative (NEG) Urine Nitrite Negative (NEG) Urine Bilirubin Negative (NEG) Urine Urobilinogen Dipstick 1.0 mg/dL (0.2 mg/dL) Urine Leukocyte Esterase Small (NEG) Urine RBC 0 /HPF (0-2) Urine WBC 5-10 /HPF (0-4) Urine Squamous Epithelial Cells Few /LPF Urine Bacteria Few /HPF (0-FEW) Laboratory Tests Test 01/12/20 22:24 01/13/20 02:00 01/13/20 04:05 White Blood Count 4.4 x10^3/uL (4.0-11.0) Red Blood Count 4.17 x10^6/uL (3.50-5.40) Hemoglobin 12.5 g/dL (12.0-15.5) Hematocrit 36.8 % (36.0-47.0) Mean Corpuscular Volume 88 fL (79-100) Mean Corpuscular Hemoglobin 30 pg (25-35) Mean Corpuscular Hemoglobin Concent 34 g/dL (31-37) Red Cell Distribution Width 17.1 % (11.5-14.5) Platelet Count 254 x10^3/uL (140-400) Neutrophils (%) (Auto) 60 % (31-73) Lymphocytes (%) (Auto) 28 % (24-48) Monocytes (%) (Auto) 9 % (0-9) Eosinophils (%) (Auto) 2 % (0-3) Basophils (%) (Auto) 1 % (0-3) Neutrophils # (Auto) 2.7 x10^3/uL (1.8-7.7) Lymphocytes # (Auto) 1.2 x10^3/uL (1.0-4.8) Monocytes # (Auto) 0.4 x10^3/uL (0.0-1.1) Eosinophils # (Auto) 0.1 x10^3/uL (0.0-0.7) Basophils # (Auto) 0.0 x10^3/uL (0.0-0.2) Prothrombin Time 18.4 SEC (11.7-14.0) Prothromb Time International Ratio 1.6 (0.8-1.1) Activated Partial Thromboplast Time 38 SEC (24-38) Sodium Level 141 mmol/L (136-145) Potassium Level 3.6 mmol/L (3.5-5.1) Chloride Level 103 mmol/L (98-107) Carbon Dioxide Level 31 mmol/L (21-32) Anion Gap 7 (6-14) Blood Urea Nitrogen 13 mg/dL (7-20) Creatinine 1.2 mg/dL (0.6-1.0) Estimated GFR (Cockcroft-Gault) 53.7 BUN/Creatinine Ratio 11 (6-20) Glucose Level 92 mg/dL (70-99) Lactic Acid Level 0.8 mmol/L (0.4-2.0) Calcium Level 9.3 mg/dL (8.5-10.1) Magnesium Level 2.3 mg/dL (1.8-2.4) Total Bilirubin 0.6 mg/dL (0.2-1.0) Aspartate Amino Transf (AST/SGOT) 20 U/L (15-37) Alanine Aminotransferase (ALT/SGPT) 31 U/L (14-59) Alkaline Phosphatase 91 U/L (46-116) Creatine Kinase 137 U/L (26-192) Creatine Kinase MB (Mass) 2.3 ng/mL (0.0-3.6) Creatine Kinase MB Relative Index 1.7 % (0-4) Troponin I Quantitative < 0.017 ng/mL (0.000-0.055) < 0.017 ng/mL (0.000-0.055) XF-Yfk-S-Type Natriuretic Peptide 3310 pg/mL (0-124) Total Protein 7.4 g/dL (6.4-8.2) Albumin 3.5 g/dL (3.4-5.0) Albumin/Globulin Ratio 0.9 (1.0-1.7) Lipase 48 U/L (73-393) Urine Collection Type Unknown Urine Color Yellow Urine Clarity Clear Urine pH 7.0 (<5.0-8.0) Urine Specific [place] 1.020 (1.000-1.030) Urine Protein Negative mg/dL (NEG-TRACE) Urine Glucose (UA) Negative mg/dL (NEG) Urine Ketones (Stick) Negative mg/dL (NEG) Urine Blood Negative (NEG) Urine Nitrite Negative (NEG) Urine Bilirubin Negative (NEG) Urine Urobilinogen Dipstick 1.0 mg/dL (0.2 mg/dL) Urine Leukocyte Esterase Small (NEG) Urine RBC 0 /HPF (0-2) Urine WBC 5-10 /HPF (0-4) Urine Squamous Epithelial Cells Few /LPF Urine Bacteria Few /HPF (0-FEW) Images Images LEFT VENTRICLE The left ventricle is normal size. There is mild left ventricular hypertrophy with mild to moderate septal hypertrophy. The left ventricular systolic function is normal and the ejection fraction is within normal range. Left ventricular ejection fraction is 55-60%. There is normal LV segmental wall motion. Transmitral Doppler flow pattern is Grade I-abnormal relaxation pattern. No left ventricle thrombus noted on this study. There is no ventricular septal defect visualized. There is no left ventricular aneurysm. There is no mass noted in the left ventricle. RIGHT VENTRICLE The right ventricle is normal size. There is normal right ventricular wall thickness. The right ventricular systolic function is normal. ATRIA The left atrium is mildly dilated. The right atrium size is normal. The interatrial septum is intact with no evidence for an atrial septal defect or patent foramen ovale as noted on 2-D or Doppler imaging. AORTIC VALVE The aortic valve is normal in structure and function. Doppler and Color Flow revealed no significant aortic regurgitation. There is no significant aortic valvular stenosis. There is no aortic valvular vegetation. MITRAL VALVE The mitral valve is normal in structure and function. There is no evidence of mitral valve prolapse. There is no mitral valve stenosis. Doppler and Color-flow revealed mild mitral regurgitation. TRICUSPID VALVE The tricuspid valve is normal in structure and function. Doppler and Color Flow revealed trace tricuspid regurgitation. There is no tricuspid valve prolapse or vegetation. There is no tricuspid valve stenosis. PULMONIC VALVE The pulmonary valve is normal in structure and function. Doppler and Color Flow revealed mild pulmonic valvular regurgitation. There is no pulmonic valvular stenosis. GREAT VESSELS The aortic root is normal in size. Normal pulmonary venous flow (Doppler). The IVC is normal in size and collapses >50% with inspiration. PERICARDIAL EFFUSION There is no pleural effusion. There is no evidence of significant pericardial effusion. Critical Notification Critical Value: No <Conclusion> The left ventricle is normal size. The left ventricular systolic function is normal and the ejection fraction is within normal range. Left ventricular ejection fraction is 55-60%. There is mild left ventricular hypertrophy with mild to moderate septal hypertrophy. There is no significant aortic valvular stenosis. Doppler and Color Flow revealed no significant aortic regurgitation. Doppler and Color-flow revealed mild mitral regurgitation. Doppler and Color Flow revealed trace tricuspid regurgitation. Signed by : Josh Jay MD Electronically Approved : 04/12/2018 11:02:26 DICTATED and SIGNED BY: JOSH JAY MD DATE: 04/12/[address] head without contrast PQRS statement: CT scans at this facility use dose reduction including either automated exposure control, iterative reconstructions, and /or weight based radiation dosing via mA and kV modification when appropriate to reduce radiation dose to as low as reasonably achievable. HISTORY: Headache. FINDINGS: Streak artifact from left cochlear implant decreases sensitivity to detect subtle abnormalities however diagnostic information still remains. Encephalomalacia of the left lower occipital lobe above the tentorium likely due to an old chronic infarct. Cavum septum interpositum, an anatomic variant. Mild cerebral periventricular white matter hypoattenuation in a patient this age most likely represents imaging changes of chronic small vessel ischemic disease. No acute infarct or acute ischemic change evident. No intracranial hemorrhage, mass or hydrocephalus. IMPRESSION: No acute abnormality. Encephalomalacia of the left occipital lobe likely due to a chronic infarct. Electronically signed by: Yoli Banks MD (01/13/2020 12:34 AM) [facility] [place] S[place] BY: YOLI BANKS MD DATE: 01/13/20 0034 STATUS: REG ER ORD. PHYSICIAN: LEIGHA GIL DO REASON: chest pain, hx of prior AAA s/p stent PROCEDURE: CT ANGIOGRAPHY CHEST ABDOMEN CT angiography chest, abdomen and pelvis with contrast Contrast: 90 mL Isovue 370 intravenous contrast with 3-D MIP reconstructions of the arteries acquired. HISTORY: Chest pain, history of abdominal aortic aneurysm stent repair. Chest findings: There is mild motion reconstruction artifact of the ascending aorta due to cardiac pulsatility decreasing sensitivity to detect a subtle intimal lap or intramural hematoma thickening of the vessel, in light of this there is no discrete thoracic aortic dissection. No thoracic aortic aneurysm ascending thoracic aorta diameter is 3.2 cm. There is calcified plaque thoracic aorta. Coronary calcified plaque. There is marked cardiomegaly. Chronic left ventricle apical and septal and inferior wall infarct with myocardial thinning and calcification stable. Pulmonary vessels unremarkable. Esophagus unremarkable. There is a mild volume of superior pericardial fluid similar the prior study from 2019. No adenopathy. There is a mild right pleural effusion thickness of 3 cm at the lower lobe tapering towards the apex. Small left pleural effusion subcentimeter thickness of the upper lobe. Pulmonary interstitial edema. There is a 2 x 1 cm subpleural groundglass opacity in the right upper lobe image 32 new from prior imaging. Subcentimeter 3 cm groundglass subpleural opacity right upper lobe apex image 18 also new. Bronchial wall thickening with luminal narrowing. Mild volume loss and discoid atelectasis left lower lobe. There is mild bilateral hilar adenopathy lymph nodes measuring up to 1 cm. Bones are unremarkable. Abdomen findings: Calcified plaque abdominal aorta and abdominal arteries, no aneurysm, dissection or occlusion. There is moderate stenotic disease of the abdominal aorta of 30-40 percent. Kidneys, adrenal glands, pancreas, spleen, liver unremarkable. Cholecystectomy. No abdominal fluid or adenopathy. Moderate volume of stool. Appendix is negative. Lumbar disc disease and mild scoliosis. Pelvis findings: Calcified plaque iliac arteries no aneurysm, dissection, high-grade stenosis or occlusion. There is mild pelvic free fluid. Hysterectomy. Bladder, ovaries, rectum and bones are unremarkable. IMPRESSION: 1. No thoracic aortic aneurysm or dissection evident 2. Congestive heart failure with marked cardiomegaly, moderate right and mild left pleural effusions, and pulmonary edema. 3. 2 subpleural groundglass opacities of the right upper lobe measuring 3 cm and 2 cm respectively, could represent an infectious/inflammatory process or pulmonary infarcts. Consider follow-up CT imaging in 3 months to document that these resolve. 4. Mild hilar adenopathy. 5. Atherosclerotic calcified plaque of the thoracic aorta and coronary arteries and abdominal arteries and iliac arteries. 6. Chronic left ventricular myocardial infarct again demonstrated. 7. Bronchial wall thickening may indicate bronchitis. Exposure: One or more of the following individualized dose reduction techniques were utilized for this examination: 1. Automated exposure control 2. Adjustment of the mA and/or kV according to patient size 3. Use of iterative reconstruction technique Electronically signed by: Yoli Banks MD (01/13/2020 1:07 AM) [facility] [place] S[place] BY: YOLI BANKS MD DATE: 01/13/20 0107 VTE Prophylaxis Ordered VTE Prophylaxis Devices: Yes VTE Pharmacological Prophylaxi: Yes Assessment/Plan Assessment/Plan IMPRESSION: 1. No thoracic aortic aneurysm or dissection evident 2. Congestive heart failure with marked cardiomegaly, moderate right and mild left pleural effusions, and pulmonary edema. 3. 2 subpleural groundglass opacities of the right upper lobe measuring 3 cm and 2 cm respectively, could represent an infectious/inflammatory process or pulmonary infarcts. Consider follow-up CT imaging in 3 months 4. Mild hilar adenopathy. 5. Atherosclerotic calcified plaque of the thoracic aorta and coronary arteries and abdominal arteries and iliac arteries. 6. Chronic left ventricular myocardial infarct on ct 7. Bronchial wall thickening may indicate bronchitis. plan consult cardiology consult PULM Justicifation of Admission Dx: Justifications for Admission: Justification of Admission Dx: Yes TANISHA NINO MD Jan 13, 2020 08:18
[2020-01-13] MEDS ORDERED: IPRATRPIUM/ALBUTEROL 0.5/2.5MG 3 ML NEBU. NEB SCH (09:00)
[2020-01-13] MEDS ORDERED: LISINOPRIL 20 MG TABLET PO SCH (09:00)
[2020-01-13] MEDS ORDERED: CITALOPRAM 20 MG TABLET. PO SCH (09:00)
[2020-01-13] MEDS ORDERED: LABETALOL HCL 200 MG TABLET PO SCH (09:00)
[2020-01-13] MEDS ORDERED: OMEGA-3 FATTY ACIDS/FISH OIL 1,000 MG CAPSULE. PO SCH (09:00)
[2020-01-13] MEDS ORDERED: POTASSIUM CHLORIDE 10 MEQ TABLET.ER. PO SCH (09:00)
[2020-01-13] MEDS ORDERED: FOLIC ACID 1 MG TABLET. PO SCH (09:00)
[2020-01-13] MEDS ORDERED: CLOPIDOGREL BISULFATE 75 MG TABLET PO SCH (09:00)
[2020-01-13] MEDS ORDERED: amLODIPine BESYLATE 10 MG TABLET PO SCH (09:00)
[2020-01-13] MEDS ORDERED: IMIPRAMINE 25 MG TABLET PO SCH (09:00)
[2020-01-13] MEDS ORDERED: FUROSEMIDE 20 MG TABLET PO SCH (09:00)
[2020-01-13] MEDS ORDERED: ASPIRIN 325 MG TABLET PO SCH (09:00)
[2020-01-13] MEDS ORDERED: OLANZapine 5 MG TABLET PO SCH (09:15)
--- NOTE | 2020-01-13 12:55 | NUR ---
SW following. Reviewed chart and discussed with RN. Pt from home, room air, cardiac diet. Pt on PO medications. MERLYN attempted to call into the room but there was no answer. Pt COVID pending. SW to follow as needed. Addendum: 01/14/20 at 1116 by KEILA ZULETA Pt discharged AMA last night per RN.
[2020-01-13] MEDS ORDERED: RIVAROXABAN 10 MG TABLET. PO SCH (17:00)
[2020-01-13] MEDS ORDERED: QUEtiapine 25 MG TABLET. PO SCH (21:00)
[2020-01-13] MEDS ORDERED: traZODone 50 MG TABLET. PO SCH (21:00)
[2020-01-13] MEDS ORDERED: ATORVASTATIN CALCIUM 40 MG TABLET. PO SCH (21:00)
[2020-01-14] MEDS ORDERED: PANTOPRAZOLE 40 MG TABLET.DR. PO SCH (07:30)
[2020-01-14] MEDS ORDERED: CETIRIZINE HCL 10 MG TABLET. PO SCH (09:15)
== END 2020-01-13 07:10 | disposition left against medical advice (07) | DRG 305 ==
LOC: ER 21:07 → 6 SOUTH 01-13 00:49
PROVIDERS: ADMIT Internal Medicine; ATTEND Internal Medicine
DX: I16.0 Hypertensive urgency (principal); I11.0 Hypertensive heart disease with heart failure; G93.89 Other specified disorders of brain; I25.10 Atherosclerotic heart disease of native coronary artery without angina pectoris; I50.9 Heart failure, unspecified; Z20.828 Contact with and (suspected) exposure to other viral communicable diseases; Z86.73 Personal history of transient ischemic attack (TIA), and cerebral infarction without residual deficits; Z87.891 Personal history of nicotine dependence; Z90.710 Acquired absence of both cervix and uterus; Z53.29 Procedure and treatment not carried out because of patient's decision for other reasons
CPT/HCPCS: 36415; 70450; 71275; 74175; 80053; 81001; 82553; 83605; 83690; 83735; 83880; 84484; 85025; 85610; 85730; 87086; 93005; 96374; 96375; J0360; J3010; J3490; Q9967; 99285-25; G0378; U0003-CS

== ENCOUNTER → 2020-03-03 | Outpatient (CLI) | payer OTHER, MEDICAID ==
[~2020-03-03] MED LIST changes: -ERGOCALCIFEROL (VITAMIN D2) 50,000 UNIT CAPSULE. PO SCH; +REGADENOSON 0.4 MG/5 ML DISP.SYRIN. IV ONE
--- NOTE | 2020-03-03 13:34 | CARD ---
MR#: [id number] Date of Study: 03/03/2020 Ordering Physician: JOSH PINON, Referring Physician: JOSH PINON, Tech: Krysta Foy MAGALIE APPROVED REPORT EXAM: Two-dimensional and M-mode echocardiogram with Doppler and color Doppler. Other Information Quality : Good INDICATION Systolic/Diastolic Heart Failure 2D DIMENSIONS RVDd2.6 (2.9-3.5cm)Left Atrium(2D)4.1 (1.6-4.0cm) IVSd1.5 (0.7-1.1cm)Aortic Root(2D)2.8 (2.0-3.7cm) LVDd5.9 (3.9-5.9cm)LVOT Diameter2.2 (1.8-2.4cm) PWd1.4 (0.7-1.1cm)LVDs4.7 (2.5-4.0cm) FS (%) 20.2 %SV69.3 ml LVEF(%)40.7 (>50%) M-Mode DIMENSIONS MV EPSS1.6 (<0.5cm) Aortic Valve AoV Peak Socrates.171.1cm/sAoV VTI36.5cm AO Peak GR.11.7mmHgLVOT Peak Socrates.91.9cm/s AO Mean GR.6mmHgAVA (VMAX)1.99cm2 Mitral Valve MV E Dwakdlyl440.4cm/sMV DECEL FTWI181jp MV A Gktouhzw506.8cm/sE/A Ratio1.0 Tricuspid Valve TR P. Negvvmmd387mw/sRAP ZYIQLURF3scDq TR Peak Gr.84huPvAHUN18haEj Pulmonary Vein S1 Xouvxdoh41.6cm/sD2 Tsvmbdik42.4cm/s LEFT VENTRICLE The left ventricle is normal size. There is mild to moderate concentric left ventricular hypertrophy. Left ventricle systolic function is severely impaired. EF 30-35% Septal motion consistent with condu ction abnormality. There is severe global hypokinesis of the left ventricle. Tissue Doppler imaging r eveals severe left ventricular diastolic dysfunction. RIGHT VENTRICLE The right ventricle is normal size. The right ventricular systolic function is normal. ATRIA The left atrium is mildly dilated. The right atrium size is normal. The interatrial septum is intact with no evidence for an atrial septal defect or patent foramen ovale as noted on 2-D or Doppler imagi ng. AORTIC VALVE The aortic valve is calcified but opens well. Doppler and Color Flow revealed no significant aortic r egurgitation. There is no significant aortic valvular stenosis. MITRAL VALVE The mitral valve is calcified but opens well. There is no evidence of mitral valve prolapse. There is no mitral valve stenosis. Doppler and Color-flow revealed mild to moderate mitral regurgitation. TRICUSPID VALVE The tricuspid valve is normal in structure and function. Doppler and Color Flow revealed trace tricus pid regurgitation. There is moderate pulmonary hypertension. The PA pressure was estimated at 47 mmHg . There is no tricuspid valve stenosis. PULMONIC VALVE The pulmonary valve is normal in structure and function. Doppler and Color Flow revealed trace to mil d pulmonic valvular regurgitation. There is no pulmonic valvular stenosis. GREAT VESSELS The aortic root is normal in size. The ascending aorta is normal in size. The IVC is normal in size a nd collapses >50% with inspiration. PERICARDIAL EFFUSION There is no evidence of significant pericardial effusion. Critical Notification Critical Value: No <Conclusion> Left ventricle systolic function is severely impaired. EF 30-35% Septal motion consistent with conduction abnormality. There is severe global hypokinesis of the left ventricle. Doppler and Color-flow revealed mild to moderate mitral regurgitation. Signed by : Kranthi Augustine, Electronically Approved : 03/03/2020 13:34:04
--- NOTE | 2020-03-03 13:57 | RAD ---
MR#: [id number] Date of Study: 03/03/2020 Ordering Physician: JOSH PINON, Referring Physician: LAURA BARCLAY Tech: RT Heike Townsend) (N) APPROVED REPORT Test Type: Pharmacological Stress Nurse/Tech: Maylin Palacios RN Test Indications: CAD, chest pain, fatigue Cardiac History: Stent 2019, Smoker, HTN Medications: See Electronic Medical Record Medical History: See Electronic Medical Record Resting ECG: SR Resting Heart Rate: 59 bpm Resting Blood Pressure: 199/77mmHg Pretest Chest Pain: None Nurse/Tech Notes lungs CTA, S1S2. Pt will take blood pressure medications at termination of exam Consent: The procedure was explained to the patient in lay terms. Informed consent was witnessed. Andres eout was entered into [facility] [facility].. History and Stress Test performed by RT Kristian (Marquita) (N) Pharm. Details Pharmacologic stress testing was performed using 0.4mg per 5ml of regadenoson given intravenously ove r 7-10 seconds. Stress Symptoms Dyspnea POST EXERCISE Reason for Termination: Infusion complete Max HR: 83 bpm Max Blood Pressure: 196/84mmHg Blood Pressure response to exercise: Normal blood pressure response during stress. Heart Rate response to exercise: normal response Chest Pain: No. Arrhythmia: No. ST Change: No. INTERPRETATION Stress EKG Conclusion: No evidence of stress induced EKG changes. Imaging Protocol IMAGE PROTOCOL: Rest Tc-99m/stress Tc-99m 1 day Rest: Stress: Viability: Radiopharm.Tc99m [id number] Sestamibi Dose10.6mCi 26.7mCi Duration 13min. 13min. Img Date 03/03/2020 03/03/2020 Inj-Img [id number]. 60min. Rest Admin Site:IV - Left AntecubitalAdministrator: RT Kristian (R)(N) Stress Admin Site: IV - Left AntecubitalAdministrator: RT Heike Townsend)(N) STRESS DATA End Diast. Vol.272.0mlLVEDV index BFJ092.0ml End Syst. Vol.179.0mlLVESV index BSA86.0ml Myocardial Ctkk735.0gEject. Hekoiejc66.0% Stress Scores Regional WT2.00Summed WT36.00 Regional WM0.00Summed WM26.00 LV Perfusion There is a moderate to large sized, severe in intensity mid to apical anterior, anterolateral and dis rui inferior wall FIXED defect suggestive of prior infarct without active ischemia. Wall Motion Severe LV dysfunction. EF 30-35% LV Perf. Quant 17 Seg. SSS15.00 17 Seg. SRS24.00 17 Seg. SDS0.00 Stress Defect Extent (% LAD)48.80Rest Defect Extent (% LAD)55.00Rev. Defect Extent (% LAD)0.00 Stress Defect Extent (% LCX) 10.00Rest Defect Extent (% LCX)25.00Rev. Defect Extent (% LCX)0.00 Stress Defect Extent (% RCA)34.40Rest Defect Extent (% RCA)42.20Rev. Defect Extent (% RCA)0.00 Stress Defect Extent (% DIA)37.40Rest Defect Extent (% DIA)46.70Rev. Defect Extent (% DIA)0.00 Other Information Quality:Average Risk Assessment: Moderate-High Risk Conclusion 1. No evidence of stress induced EKG changes. 2. Large prior LAD territory infarct without active ischemia. 3. Severe LV dysfunction. EF 35% 4. Moderate to high risk for future CV events. Signed by : Kranthi Augustine, Electronically Approved : 03/03/2020 13:57:09
== END | disposition home or self-care (01) ==
LOC: NM 06:38
PROVIDERS: ATTEND Internal Medicine Cardiovascular Disease
DX: I08.8 Other rheumatic multiple valve diseases (principal); I25.10 Atherosclerotic heart disease of native coronary artery without angina pectoris; I27.20 Pulmonary hypertension, unspecified; Z95.5 Presence of coronary angioplasty implant and graft; Z87.891 Personal history of nicotine dependence
CPT/HCPCS: 78452; 93017; 93306; A9500; J2785

== ENCOUNTER → 2021-02-15 | Outpatient (CLI) | payer OTHER, MEDICAID ==
[2020-08-13 14:09] VITALS: BP 166/79
[~2021-02-15] MED LIST changes: +AMLO-186 PO; +AMLO-187 PO; -AMLO10TA8 PO; -AMLO5TAB10 PO; +CARV12.511 PO; +CYCL10TA2 PO; +DOXE10CA PO; +FLUT16SP NS; +GUAI1CAP9 PO; +LABE100T5 PO; -LISI-334 PO; +LISI20TA18 PO; +NAPR-695 PO; +OLAN10TA69 PO; -OLAN10TA9 PO; -REGADENOSON 0.4 MG/5 ML DISP.SYRIN. IV ONE; +SACU1TAB PO; +SACU1TAB7 PO; +TIZA4TAB8 PO
--- NOTE | 2021-02-15 16:02 | RAD ---
EXAM: Chest, 2 views. HISTORY: COPD. COMPARISON: 08/09/2020 FINDINGS: 2 views of the chest are obtained. There are chronic appearing interstitial changes. There is stable cardiomegaly. There is no consolidation, pleural effusion or pneumothorax. IMPRESSION: 1. Stable chronic appearing interstitial changes and cardiomegaly. 2. No acute pulmonary finding. Electronically signed by: Mary Finch MD (02/15/2021 3:59 PM) [id number]
== END ==
LOC: RAD 15:26
PROVIDERS: ATTEND Family Medicine
DX: J44.9 Chronic obstructive pulmonary disease, unspecified (principal); I51.7 Cardiomegaly
CPT/HCPCS: 71046

== ENCOUNTER 2021-04-06 13:54 | Emergency (ER) | payer OTHER, MEDICAID ==
[~2021-04-06] VITALS: Ht 167.6 cm; Wt 107.0 kg
[~2021-04-06 13:54] MED LIST changes: +CYCL10TA19 PO; -CYCL10TA2 PO
[2021-04-06 15:58] VITALS: BP 208/99
--- NOTE | 2021-04-06 15:59 | PHYS DOC ---
Past Medical History Past Medical History: CAD, CHF, Hypertension, [place], Stroke (ELVIS JARRETT APRN) Past Surgical History: Angioplasty, Cholecystectomy Additional Past Surgical Histo: cochlear implant (ELVIS JARRETT APRN) Smoking Status: Current Every Day Smoker Alcohol Use: None Drug Use: None (ELVIS JARRETT APRN) General Adult EDM: Chief Complaint: WRIST PAIN HPI: HPI: Patient is a 70-year-old female that presents to the emergency department today with nontraumatic left wrist pain. Patient states that she has had the pain for little over 2 weeks she states it was evaluated by Dr. Chamberlain at her last visit about a week and a half ago he thought it might be arthritis and sent her home with some pain medications and told her to take it easy. She was at the pulmonary office today over the medical building and decided to stop into the emergency department to have the wrist checked out. Patient denies swelling, trauma, any skin trauma. (ELVIS JARRETT APRN) Review of Systems: Review of Systems: Constitutional: Denies fever or chills. [] Eyes: Denies change in visual acuity. [] HENT: Denies nasal congestion or sore throat. [] Respiratory: Denies cough or shortness of breath. [] Cardiovascular: Denies chest pain or edema. [] GI: Denies abdominal pain, nausea, vomiting, bloody stools or diarrhea. [] : Denies dysuria. [] Musculoskeletal: Left wrist pain Integument: Denies rash. [] Neurologic: Denies headache, focal weakness or sensory changes. [] Endocrine: Denies polyuria or polydipsia. [] Lymphatic: Denies swollen glands. [] Psychiatric: Denies depression or anxiety. [] (ELVIS JARRETT INCOME TAX PREPARER) Heart Score: C/O Chest Pain: N/A Risk Factors: Risk Factors: DM, Current or recent (<one month) smoker, HTN, HLP, family history of CAD, obesity. Risk Scores: Score 0 - 3: 2.5% MACE over next 6 weeks - Discharge Home Score 4 - 6: 20.3% MACE over next 6 weeks - Admit for Clinical Observation Score 7 - 10: 72.7% MACE over next 6 weeks - Early Invasive Strategies (ELVIS JARRETT APRN) Allergies: Allergies: Allergies Coded Allergies Type Severity Reaction Last Updated Verified No Known Drug Allergies 04/10/18 No (ELVIS JARRETT APRN) Physical Exam: PE: Constitutional: Well developed, well nourished, no acute distress, non-toxic appearance. [] HENT: Normocephalic, atraumatic, bilateral external ears normal, oropharynx moist, no oral exudates, nose normal. [] Eyes: PERRLA, EOMI, conjunctiva normal, no discharge. [] Neck: Normal range of motion, no tenderness, supple, no stridor. [] Cardiovascular:Heart rate regular rhythm, no murmur [] Lungs & Thorax: Bilateral breath sounds clear to auscultation [] Abdomen: Bowel sounds normal, soft, no tenderness, no masses, no pulsatile suhail s. [] Skin: Warm, dry, no erythema, no rash. [] Back: No tenderness, no CVA tenderness. [] Extremities: Left wrist tender with palpation, no swelling, no ecchymosis, no wound noted. Neurovascular intact distal to the injury, cap refill less than 2 seconds, radial pulses 2+ Neurologic: Alert and oriented X 3, normal motor function, normal sensory function, no focal deficits noted. [] Psychologic: Affect normal, judgement normal, mood normal. [] (ELVIS JARRETT APRN) Current Patient Data: Vital Signs: Vital Signs Date Time Temp Pulse Resp B/P (MAP) Pulse Ox O2 Delivery O2 Flow Rate FiO2 04/06/21 15:38 98.0 60 16 216/100 (138) 96 98.0 (ELVIS JARRETT APRN) EKG: EKG: [] (ELVIS JARRETT APRN) Radiology/Procedures: Radiology/Procedures: PROCEDURE: WRIST 3V LEFT EXAM: 3 views of the left wrist DATE: 04/06/2021 3:50 PM INDICATION: Reason: pain, DENIES INJURY / Spl. Instructions: / History: COMPARISON: No Prior FINDINGS: No acute fracture or dislocation. Joint spaces are preserved without significant degenerative/proliferative change. No significant soft tissue swelling. IMPRESSION: No acute fracture or dislocation. Electronically signed by: Naresh Ambrosio MD (04/06/2021 4:05 PM) HAYLEE[] (ELVIS JARRETT APRN) Course & Med Decision Making: Course & Med Decision Making Pertinent Labs and Imaging studies reviewed. (See chart for details) Reviewed radiology exam, no acute finding. Will place patient in a cock-up splint have her take her prescribed medications as directed and follow-up with Dr. Flynn a next week. Did note blood pressure was elevated blood pressure upon discharge was 208/99, patient states that her blood pressure has been pretty elevated recently and that Dr. Flynn has been changing her blood pressure medications patient denies chest pain or shortness of breath. She is to follow- up with Dr. Flynn next week regarding her blood pressure as previously arranged [] (ELVIS JARRETT APRN) Course & Med Decision Making I have participated in the care of this patient and I have reviewed and agree with all pertinent clinical information above including history, exam, and recommendations. Patient has no evidence of acute end organ damage from hypertension. INCOME TAX PREPARER counseled the patient on their high blood pressure and the need to follow-up in the clinic to get this addressed as documented above. Shannon Foy DO (SHANNON FOY DO) Geoff Disclaimer: Geoff Disclaimer: This electronic medical record was generated, in whole or in part, using a voice recognition dictation system. (ELVIS JARRETT APRN) Departure Departure Impression: Primary Impression: Wrist pain Qualified Codes: M25.532 - Pain in left wrist Disposition: HOME / SELF CARE / HOMELESS Condition: STABLE Referrals: LEIGHA FLYNN MD (PCP) YAQUELIN BEE DO Patient Instructions: Wrist Pain Additional Instructions: Wear cock-up splint as needed for pain and comfort Take prescribed medications as directed Follow-up with Dr. Flynn for further evaluation of wrist pain ELVIS JARRETT APRN Apr 06, 2021 15:58 SHANNON FOY DO Apr 07, 2021 06:11
--- NOTE | 2021-04-06 16:07 | RAD ---
EXAM: 3 views of the left wrist DATE: 04/06/2021 3:50 PM INDICATION: Reason: pain, DENIES INJURY / Spl. Instructions: / History: COMPARISON: No Prior FINDINGS: No acute fracture or dislocation. Joint spaces are preserved without significant degenerative/prolife rative change. No significant soft tissue swelling. IMPRESSION: No acute fracture or dislocation. Electronically signed by: Naresh Ambrosio MD (04/06/2021 4:05 PM) HAYLEE
== END 2021-04-06 16:50 | disposition home or self-care (01) ==
LOC: ER 13:54
DX: M25.532 Pain in left wrist (principal); I11.0 Hypertensive heart disease with heart failure; I50.9 Heart failure, unspecified; I25.2 Old myocardial infarction; I25.10 Atherosclerotic heart disease of native coronary artery without angina pectoris; F17.200 Nicotine dependence, unspecified, uncomplicated; Z86.73 Personal history of transient ischemic attack (TIA), and cerebral infarction without residual deficits
CPT/HCPCS: 29125; 73120; 99283

== ENCOUNTER 2021-05-26 08:33 | Emergency (ER) | payer OTHER, MEDICAID ==
[~2021-05-26] VITALS: Ht 167.6 cm; Wt 105.8 kg
--- NOTE | 2021-05-26 09:06 | PHYS DOC ---
Past Medical History Past Medical History: CAD, CHF, Hypertension, [place], Stroke Past Surgical History: Angioplasty, Cholecystectomy Additional Past Surgical Histo: cochlear implant Smoking Status: Current Every Day Smoker Alcohol Use: None Drug Use: None General Adult EDM: Chief Complaint: MECHANICAL FALL HPI: HPI: 71-year-old female past medical history of CVA, CAD (on xarelto), HFrEF (reports admitted at 1 wk ago for CHF), HTN and HLD presents to the ED with complaints of right knee pain and posterior neck pain stating she fell going down stairs at approximately 6 PM last night while carrying a basket. Reports she landed on her back, unsure how she injured her right knee, believes her left wrist broke her fall. Denies head injury or loss of consciousness. Not on an anticoagulants. No relief with Naprosyn 375 mg. Reports she has chronic chest pain-denies any new chest pain. Came to the ed because she still has pain. Also c/o swelling and pain to the left lateral wrist. No prior injury to left wrist or right knee. Is able to bear weight. Also reports diffuse low back pain. Review of Systems: Review of Systems: Constitutional: Denies fever or chills. [] Eyes: Denies change in visual acuity. [] HENT: Denies nasal congestion or sore throat. [] Respiratory: Denies cough or shortness of breath. [] Cardiovascular: Denies chest pain or edema. [] GI: Denies abdominal pain, nausea, vomiting, bloody stools or diarrhea. [] : Denies incontinence or saddle anesthesia Musculoskeletal: Denies flank pain or joint deformity Integument: Denies rash or diaphoresis Neurologic: Denies headache, focal weakness or sensory changes. [] Endocrine: Denies polyuria or polydipsia. [] Lymphatic: Denies swollen glands. [] Psychiatric: Denies depression or anxiety. [] Heart Score: C/O Chest Pain: No Risk Factors: Risk Factors: DM, Current or recent (<one month) smoker, HTN, HLP, family history of CAD, obesity. Risk Scores: Score 0 - 3: 2.5% MACE over next 6 weeks - Discharge Home Score 4 - 6: 20.3% MACE over next 6 weeks - Admit for Clinical Observation Score 7 - 10: 72.7% MACE over next 6 weeks - Early Invasive Strategies Allergies: Allergies: Allergies Coded Allergies Type Severity Reaction Last Updated Verified No Known Drug Allergies 05/26/21 No Physical Exam: PE: Constitutional: Well developed, well nourished, no acute distress, non-toxic appearance. HENT: Normocephalic, atraumatic, Eyes: PERRLA, EOMI, conjunctiva normal, no discharge. Neck: Normal range of motion, supple, exus C-spine criteria are negative: There is no post midline tenderness, the patient is not intoxicated, there is a normal level of alertness, there are no focal neurologic deficits and there are no distracting injuriesremoved. Cardiovascular: S1/2 present, regular rhythm Lungs & Thorax: Speaking in full sentences, bilateral equal chest rise, no ta chypnea or increased work of breathing Skin: Warm, dry, no erythema, no rash. [] Back: No reproducible midline tenderness or step-offs, no CVA tenderness. [] Extremities: tyson to fully flex/extend right knee-no deformity, lateral left wrist w/no swelling or deformity-ttp over distal ulna, pulses equal, sensation and motor intact, no cyanosis, no lower extremity edema Neurologic: Alert and oriented X 3, normal motor function, normal sensory function, no focal deficits noted. [] Psychologic: Affect normal, judgement normal, mood normal. [] EKG: EKG: [] Radiology/Procedures: Radiology/Procedures: IMAGING REPORT Signed PATIENT: JOHAN CAMARGO ACCOUNT: [id number] : 1950 LOCATION: ER AGE: 71 SEX: F EXAM STATUS: REG ER ORD. PHYSICIAN: BROOKS ADAMS DO REASON: fall on ac PROCEDURE: CT HEAD AND CERVICAL SPINE WO CT HEAD AND C-SPINE WO History: Fall on anticoagulation. Comparison: CT head 01/13/2020 Technique: Noncontrast CT of the head and cervical spine. Findings: CT HEAD: There is no evidence for intracranial mass or hemorrhage. There is no hydrocephalus or midline shift. No abnormal extra-axial fluid collections are present. No evidence of acute territorial infarction. Redemonstrated left occipital encephalomalacia change. The visualized paranasal sinuses and mastoid air cells are clear. There is a left temporal bone anchored hearing aid which causes metallic streak artifact. CT CERVICAL SPINE: There is no evidence for fracture in the cervical spine. Straightening of the normal cervical lordosis. Multilevel degenerative disc disease greatest at C5-C6 where osteophytes narrow the spinal canal to approximately 6 mm AP. Uncovertebral and facet hypertrophy narrow the neuroforamina at multiple levels greatest on the left at C6-C7 and C5-C6. No destructive osseous lesions are seen. Limited evaluation of the soft tissues of the neck and of the upper chest is unremarkable. Impression: 1. No acute intracranial findings. Chronic left occipital encephalomalacia. 2. No acute osseous abnormality in the cervical spine. 3. Degenerative disc and facet disease of the cervical spine narrowing the spinal canal to approximately 6 mm at the level of C5-C6 and causing multiple foraminal stenoses. ------- Exposure: One or more of the following individualized dose reduction techniques were utilized for this examination: 1. Automated exposure control 2. Adjustment of the mA and/or kV according to patient size 3. Use of iterative reconstruction technique. Electronically signed by: Markus Solano MD (05/26/2021 9:38 AM) [facility] DICTATED and SIGNED BY: MARKUS SOLANO MD DATE: 05/26/21 [id number] IMAGING REPORT Signed PATIENT: JOHAN CAMARGO ACCOUNT: [id number] : 1950 LOCATION: ER AGE: 71 SEX: F EXAM STATUS: REG ER ORD. PHYSICIAN: BROOKS ADAMS DO REASON: anterior knee pain s/p fall PROCEDURE: KNEE RIGHT 3V KNEE 3 VIEWS RIGHT Clinical Indication: Reason: anterior knee pain s/p fall / Spl. Instructions: / History: Comparison: None. Findings: There is no acute fracture or dislocation. There is mild joint space narrowing. There are tiny patellar enthesophytes. The patella is in anatomic position. There may be mild prepatellar subcutaneous induration. Mild arterial calcifications. There is no obvious joint effusion. IMPRESSION: No acute fracture. Electronically signed by: Marcio Littlejohn MD (05/26/2021 9:38 AM) [facility] DICTATED and SIGNED BY: MARCIO LITTLEJOHN MD DATE: 05/26/21 [id number] IMAGING REPORT Signed PATIENT: JOHAN CAMARGO ACCOUNT: [id number] : 1950 LOCATION: ER AGE: 71 SEX: F EXAM STATUS: REG ER ORD. PHYSICIAN: BROOKS ADAMS DO REASON: lateral wrist pain PROCEDURE: WRIST 3V LEFT XR LT WRIST 3VIEWS History: Lateral wrist pain. Comparison: 04/06/2021. Technique: 3 views of the left wrist. Findings: Osseous mineralization is normal. No acute fracture or dislocaton. Mild degenerative changes of the first CMC joint and thumb MCP joint. No focal soft tissue swelling. Impression: 1. Mild degenerative changes in the left wrist. No acute osseous abnormality. Electronically signed by: Markus Solano MD (05/26/2021 11:53 AM) [facility] DICTATED and SIGNED BY: MARKUS SOLANO MD DATE: 05/26/21 [id number] Course & Med Decision Making: Course & Med Decision Making Pertinent Labs and Imaging studies reviewed. (See chart for details) Concern for fall downstairs with blunt back injury. Complains of neck pain, left wrist pain and right knee pain. Physical exam with no evidence of trauma or deformity. Patient is neurovascularly intact with steady gait. Labs and imaging unremarkable. Will discharge home with strict ED return precautions were given for head injury, neurologic deficits or repeat injury. Encouraged urgent outpatient follow-up with PMD for reevaluation and routine care. Life-th reatening processes were considered but are low suspicion at this time, given history, physical exam and ED workup. Pt was educated on all prescription medications and adverse effects. All patient's questions were answered and pt was stable at time of discharge. Life/limb-threatening differential includes but is not limited to, intracranial hemorrhage, diffuse axonal injury, spinal cord syndrome, unstable cervical fracture or SCIWORA, fractures or joint dislocations, neurovascular injuries, organ injury or laceration, pneumothorax, pneumoperitoneum, pericardial tamponade, unstable pelvic fracture, compartment syndrome, flail chest or respiratory distress, burn injury or asphyxiation I have spoken with the patient and/or caregivers. I explained the patient's condition, diagnoses and treatment plan based on the information available to me at this time. I have answered the patient and/or caregiver's questions and addressed any concerns. The patient and/or caregivers have a good understanding of patient's diagnosis, condition and treatment plan as can be expected at this point. Vital signs have been stable. Patient's condition is stable and appropriate for discharge from the emergency department. Patient will pursue further outpatient evaluation with primary care physician or other designated or consulting physician as outlined in the discharge instructions. The patient and/or caregivers are agreeable to this plan of care and follow-up instructions have been explained in detail. The patient and/or caregivers have received these instructions in written form and have expressed an understanding of the discharge instructions. The patient and/or caregivers are aware that any significant change of condition or worsening of symptoms should prompt immediate return to this or the closest emergency department or call to 911. Geoff Disclaimer: [employer] Disclaimer: This electronic medical record was generated, in whole or in part, using a voice recognition dictation system. Departure Departure Impression: Primary Impression: Fall Additional Impressions: Knee pain, right CKD (chronic kidney disease) Disposition: HOME / SELF CARE / HOMELESS Condition: STABLE Referrals: LEIGHA CAMOPS MD (PCP) Follow-up with your primary care physician in 24 to 48 hours OR FOLLOW UP WITH FAMILY MEDICINE: [address] [place] [address] Patient Instructions: Fall Prevention and Home Safety, Knee Pain Additional Instructions: EMERGENCY DEPARTMENT GENERAL DISCHARGE INSTRUCTIONS Thank you for coming to [facility] Emergency Department (ED) today and trusting us with you care. We trust that you had a positive experience in our Emergency Department. If you wish to speak to the department management, you may call the Director at [phone]. YOUR FOLLOW UP INSTRUCTIONS ARE FOLLOWS: 1. Do you have a private Doctor? If you do not have a private doctor, please ask for a resource list of physicians or clinics that may be able to assist you with follow up care. 2. The Emergency Physicain has interpreted your x-rays. The X-Ray specialist will also review them. If there is a change in the findings, you will be notified in 48 hours when at all possible. 3. A lab test or culture has been done, your results will be reviewed and you will be notified if you need a change in treatment. ADDITIONAL INSTRUCTIONS AND INFORMATION: 1. Your care today has been supervised by a physician who is specially trained in emergency care. Many problems require more than one evaluation for a complete diagnosis and treatment. We recommend that you schedule your follow up appointment as recommended to ensure complete treatment of you illness or injury. If you are unable to obtain follow up care and continue to have a problem, or if your condition worsens, we recommend that you return to the ED. 2. We are not able to safely determine your condition over the phone nor are we able to give sound medical advice over the phone. For these safety reasons, if you call for medical advice we will ask you to come to the ED for further evaluation. 3. If you have any questions regarding these discharge instructions please call the ED at [phone]. SAFETY INFORMATION: In the interest of safety, wellness, and injury prevention; we encourage you to wear your sealbelt, if you smoke; quite smoking, and we encourage family to use a protective helmet for bicycling and other sporting events that present an increased risk for head injury. IF YOUR SYMPTOMS WORSEN OR NEW SYMPTOMS DEVELOP, OR YOU HAVE CONCERNS ABOUT YOUR CONDITION; OR IF YOUR CONDITION WORSENS WHILE YOU ARE WAITING FOR YOUR FOLLOW UP APPOINTMENT; EITHER CONTACT YOUR PRIMARY CARE DOCTOR, THE PHYSICIAN WHOSE NAME AND NUMBER YOU WERE GIVEN, OR RETURN TO THE ED IMMEDIATELY. [facility] DO May 26, 2021 09:06
[2021-05-26 09:35] LABS: BASO % 1 % (0-3); EOS # 0.1 x10^3/uL (0.0-0.7); EOS % 2 % (0-3); HEMATOCRIT 36.3 % (36.0-47.0); HEMOGLOBIN 12.1 g/dL (12.0-15.5); LYMPH # 1.6 x10^3/uL (1.0-4.8); LYMPH % 27 % (24-48); MEAN CORPUSCULAR HEMOGLOBIN 31 pg (25-35); MEAN CORPUSCULAR HGB CONC 33 g/dL (31-37); MEAN CORPUSCULAR VOLUME 94 fL (79-100); MONO # 0.6 x10^3/uL (0.0-1.1); MONO % 10 % (0-9); NEUT # 3.4 x10^3/uL (1.8-7.7); NEUT % 60 % (31-73); PLATELET COUNT 261 x10^3/uL (140-400); RED BLOOD COUNT 3.85 x10^6/uL (3.50-5.40); RED CELL DISTRIBUTION WIDTH 16.1 % (11.5-14.5); WHITE BLOOD COUNT 5.7 x10^3/uL (4.0-11.0)
--- NOTE | 2021-05-26 09:40 | RAD ---
CT HEAD AND C-SPINE WO History: Fall on anticoagulation. Comparison: CT head 01/13/2020 Technique: Noncontrast CT of the head and cervical spine. Findings: CT HEAD: There is no evidence for intracranial mass or hemorrhage. There is no hydrocephalus or midline shift. No abnormal extra-axial fluid collections are present. No evidence of acute territorial infarction. Redemonstrated left occipital encephalomalacia change. The visualized paranasal sinuses and mastoid air cells are clear. There is a left temporal bone anchored hearing aid which causes metallic streak artifact. CT CERVICAL SPINE: There is no evidence for fracture in the cervical spine. Straightening of the normal cervical lordosis. Multilevel degenerative disc disease greatest at C5-C6 where osteophytes narrow the spinal canal to a pproximately 6 mm AP. Uncovertebral and facet hypertrophy narrow the neuroforamina at multiple levels greatest on the left at C6-C7 and C5-C6. No destructive osseous lesions are seen. Limited evaluation of the soft tissues of the neck and of the upper chest is unremarkable. Impression: 1. No acute intracranial findings. Chronic left occipital encephalomalacia. 2. No acute osseous abnormality in the cervical spine. 3. Degenerative disc and facet disease of the cervical spine narrowing the spinal canal to approxima tely 6 mm at the level of C5-C6 and causing multiple foraminal stenoses. ------- Exposure: One or more of the following individualized dose reduction techniques were utilized for thi s examination: 1. Automated exposure control 2. Adjustment of the mA and/or kV according to patient size 3. Use of iterative reconstruction technique. Electronically signed by: Markus White MD (05/26/2021 9:38 AM) [facility]
--- NOTE | 2021-05-26 09:41 | RAD ---
KNEE 3 VIEWS RIGHT Clinical Indication: Reason: anterior knee pain s/p fall / Spl. Instructions: / History: Comparison: None. Findings: There is no acute fracture or dislocation. There is mild joint space narrowing. There are tiny patell ar enthesophytes. The patella is in anatomic position. There may be mild prepatellar subcutaneous ind uration. Mild arterial calcifications. There is no obvious joint effusion. IMPRESSION: No acute fracture. Electronically signed by: Marcio Littlejohn MD (05/26/2021 9:38 AM) [facility]
[2021-05-26 09:43] LABS: PROTHROMBIN TIME PATIENT 18.2 SEC (11.7-14.0)
[2021-05-26 09:46] LABS: CALCIUM 9.2 mg/dL (8.5-10.1); CREATININE 1.4 mg/dL (0.6-1.0); GFR 44.7
[2021-05-26 09:52] LABS: ALBUMIN 3.8 g/dL (3.4-5.0); ALBUMIN/GLOBULIN RATIO 0.9 (1.0-1.7); TOTAL BILIRUBIN 0.3 mg/dL (0.2-1.0); TOTAL PROTEIN 7.9 g/dL (6.4-8.2)
--- NOTE | 2021-05-26 11:56 | RAD ---
XR LT WRIST 3VIEWS History: Lateral wrist pain. Comparison: 04/06/2021. Technique: 3 views of the left wrist. Findings: Osseous mineralization is normal. No acute fracture or dislocaton. Mild degenerative changes of the f irst CMC joint and thumb MCP joint. No focal soft tissue swelling. Impression: 1. Mild degenerative changes in the left wrist. No acute osseous abnormality. Electronically signed by: Markus White MD (05/26/2021 11:53 AM) [facility]
[2021-05-26 12:04] VITALS: BP 118/59
== END 2021-05-26 12:04 | disposition home or self-care (01) ==
LOC: ER 08:33
DX: M25.561 Pain in right knee (principal); M54.2 Cervicalgia; M25.532 Pain in left wrist; G89.11 Acute pain due to trauma; R51.9 Headache, unspecified; I11.0 Hypertensive heart disease with heart failure; I50.9 Heart failure, unspecified; I25.10 Atherosclerotic heart disease of native coronary artery without angina pectoris; I25.2 Old myocardial infarction; F17.200 Nicotine dependence, unspecified, uncomplicated; Z86.73 Personal history of transient ischemic attack (TIA), and cerebral infarction without residual deficits; Z95.5 Presence of coronary angioplasty implant and graft; Z90.49 Acquired absence of other specified parts of digestive tract; W10.8XXA Fall (on) (from) other stairs and steps, initial encounter; Y93.89 Activity, other specified; Y92.89 Other specified places as the place of occurrence of the external cause; Y99.8 Other external cause status
CPT/HCPCS: 36415; 70450; 72125; 73120; 73562; 80053; 85025; 85610; 85730; 99285-25

== ENCOUNTER 2021-08-02 16:21 | Inpatient (IN) | payer OTHER, MEDICAID ==
[~2021-08-02] VITALS: Ht 167.6 cm; Wt 103.7 kg
--- NOTE | 2021-08-02 16:50 | PHYS DOC ---
Past Medical History Past Medical History: CAD, CHF, Hypertension, MS, Stroke Past Surgical History: No Surgical History Additional Past Surgical Histo: cochlear implant Smoking Status: Current Every Day Smoker Alcohol Use: None Drug Use: None General Adult EDM: Chief Complaint: NEAR SYNCOPE HPI: HPI: Patient is a 71 year old female who presents with states she was feeling fine today and went to the bank and then as she is walking to the grocery store her whole body got weak and she felt light headed with some shortness of air and fell. She states she did not hit her head. She states she went and got back up and started walking and then fell again. She continues to deny back pain, neck pain or headache. She denies hitting her head. She states as long as she sitting down and sitting still she is fine. Patient denies chest pain, fever, cough, nausea, vomiting, abdominal pain, back pain, neck pain, hitting her head, headache, vision change, focal weakness. She has a history of CAD, CHF, hypertension, MS, stroke, high cholesterol, cochlear implant, smoker. She states that Dr. Flynn had stated for the patient to cut her blood pressure medications in half, but she does not know which ones. That was on July 17, 2021. Review of Systems: Review of Systems: Constitutional: Denies fever or chills. [] Eyes: Denies change in visual acuity. [] HENT: Denies nasal congestion or sore throat. [] Respiratory: Denies cough or +shortness of breath. [] Cardiovascular: Denies chest pain or edema. [] GI: Denies abdominal pain, nausea, vomiting, bloody stools or diarrhea. [] : Denies dysuria. [] Musculoskeletal: Denies back pain or joint pain. + Generalized weakness [] Integument: Denies rash. [] Neurologic: Denies headache, focal weakness or sensory changes. + Near syncope. + Dizziness [] Endocrine: Denies polyuria or polydipsia. [] Lymphatic: Denies swollen glands. [] Psychiatric: Denies depression or anxiety. [] Heart Score: C/O Chest Pain: No HEART Score for Chest Pain: HEART Score for Chest Pain Response (Comments) Value History Slighlty/Non-Suspicious 0 ECG Nonspecific Repolarizatio 1 Age > 65 2 Risk Factors >3 Risk Factors or Hx CAD 2 Troponin < Normal Limit 0 Total 5 Risk Factors: Risk Factors: DM, Current or recent (<one month) smoker, HTN, HLP, family history of CAD, obesity. Risk Scores: Score 0 - 3: 2.5% MACE over next 6 weeks - Discharge Home Score 4 - 6: 20.3% MACE over next 6 weeks - Admit for Clinical Observation Score 7 - 10: 72.7% MACE over next 6 weeks - Early Invasive Strategies Allergies: Allergies: Allergies Coded Allergies Type Severity Reaction Last Updated Verified No Known Drug Allergies 05/26/21 No Physical Exam: PE: Constitutional: Well developed, well nourished, no acute distress, non-toxic gunnar earance. [] HENT: Normocephalic, atraumatic, bilateral external ears normal, oropharynx moist, no oral exudates, nose normal. [] Eyes: PERRLA, EOMI, conjunctiva normal, no discharge. No nystagmus. [] Neck: Normal range of motion, no tenderness, supple, no stridor. [] Cardiovascular:Heart rate regular rhythm, no murmur [] Lungs & Thorax: Bilateral upper breath sounds clear and lower diminished to aus cultation [] Abdomen: Bowel sounds normal, soft, no tenderness, no masses, no pulsatile masses. [] Skin: Warm, dry, no erythema, no rash. [] Back: No tenderness, no CVA tenderness. [] Extremities: No tenderness, no cyanosis, no clubbing, ROM intact, no edema. [] Neurologic: Alert and oriented X 3, normal motor function, normal sensory function, no focal deficits noted. [] Psychologic: Affect normal, judgement normal, mood normal. [] EKG: EK and read by Dr. Mckinney is sinus rhythm with prolonged AL interval, no STEMI Radiology/Procedures: Radiology/Procedures: [] Impression: [facility] [address] [place], [place] [id number] IMAGING REPORT Signed PATIENT: JOHAN CAMARGO ACCOUNT: [id number] : 1950 LOCATION: ER AGE: 71 SEX: F EXAM STATUS: REG ER ORD. PHYSICIAN: WERO HARO APRN REASON: near syncope, soa PROCEDURE: PORTABLE CHEST 1V Single view chest dated 08/02/2021 5:13 PM: COMPARISON: 02/15/2021 Clinical Indication: Syncope. Findings: Single upright portable exam of the chest was performed. Heart size and mediastinal contours are within normal limits. Lungs are clear. No consolidation or pleural effusion. No pneumothorax. IMPRESSION: No acute radiographic abnormality. Electronically signed by: Boaz Kumar MD (08/02/2021 5:14 PM) [facility] [place] DICTATED and SIGNED BY: BOAZ KUMAR MD DATE: 08/02/21 [id number] [facility] [address] [place] [address] IMAGING REPORT Signed PATIENT: JOHAN CAMARGO ACCOUNT: [id number] : 1950 LOCATION: ER AGE: 71 SEX: F EXAM STATUS: REG ER ORD. PHYSICIAN: WERO HARO APRN REASON: near syncope, fall PROCEDURE: CT HEAD AND CERVICAL SPINE WO PQRS Compliance Statement: One or more of the following individualized dose reduction techniques were utilized for this examination: 1. Automated exposure control 2. Adjustment of the mA and/or kV according to patient size 3. Use of iterative reconstruction technique CT HEAD AND CERVICAL SPINE WITHOUT CONTRAST History: Reason: near syncope, fall Comparison: CT head and cervical spine without contrast, May 26, 2021. Procedure: Axial images are obtained of the head from the skull base through the vertex without IV contrast. Noncontrast helical CT of the cervical spine was performed. Axial, sagittal, and coronal reconstructions were obtained. Findings: Redemonstrated left cochlear implant. This creates beam hardening artifact and degrades image quality. The ventricles and sulci are normal for the patient's age. There is incidental cavum. There is unchanged left occipital lobe encephalomalacia. No mass-effect, midline shift, hemorrhage or obvious acute infarction is identified. Basilar cisterns are patent. Bone windows demonstrate no significant calvarial abnormality. The visualized paranasal sinuses are clear. Mastoid air cells are well aerated. There is no evidence of acute fracture or acute malalignment of the cervical spine. Straightening of normal cervical lordosis may be positional or due to muscle spasm. There are no perched or jumped facet joints. There is disc space narrowing and degenerative endplate spurring of C5/C6 and C6/C7. There is some degree of central canal stenosis at C5/C6. Neural foraminal narrowing is probably severe bilaterally. Visualized soft tissues of the neck demonstrate no significant abnormalities. The visualized lung apices are clear. IMPRESSION: 1. No acute intracranial abnormality. 2. No acute fracture of the cervical spine. Electronically signed by: Marcio Littlejohn MD (08/02/2021 5:34 PM) [facility] DICTATED and SIGNED BY: MARCIO LITTLEJOHN MD DATE: 08/02/21 [id number] 0 Course & Med Decision Making: Course & Med Decision Making Pertinent Labs and Imaging studies reviewed. (See chart for details) See HPI. Alert and oriented x4. Speaks in full clear sentences. Abdomen soft and nontender. Lungs are clear in upper lobes and diminished in lower lobes. No peripheral edema. Skin pink warm and dry. No nystagmus. Tkzyji-zvko-thbtry intact. Patient is orthostatic positive. Patient laying her blood pressure went from 101 systolically to sitting 93 systolically. I started a bag of normal saline. Patient will be admitted to the hospitalist. Chest x-ray shows no acute findings. Patient's kidney function is elevated more than has been in the past. Patient is receiving a liter of normal saline. Blood work otherwise unremarkable. [] Dragon Disclaimer: Dragchris Disclaimer: This electronic medical record was generated, in whole or in part, using a voice recognition dictation system. NIHSS Stroke Scale NIH Stroke Scale: NIH Stroke Scale Response (Comments) Value Level of Consciousness: 0 Alert/Responsive 0 LOC Questions: 0 Answers both correctly 0 LOC Commands: 0 Performs both tasks 0 Best Gaze: 0 Normal 0 Visual: 0 No visual loss 0 Facial Palsy: 0 Normal, symmetrical 0 Motor - Left Arm 0 No drift 0 Motor - Right Arm 0 No drift 0 Motor - Left Leg 0 No drift 0 Motor: Right Leg 0 No drift 0 Limb Ataxia: 0 Absent 0 Sensory: 0 No loss 0 Best Language: 0 Normal 0 Dysathria: 0 Normal 0 Extinction and Inattention: 0 Normal 0 Total 0 Departure Departure Impression: Primary Impression: Near syncope Additional Impressions: Orthostatic hypotension CLARA (acute kidney injury) Disposition: ADMITTED INPATIENT Admitting Physician: SATINDER Condition: STABLE Referrals: BOAZ FLYNN MD (PCP) WERO HARO APRN Aug 02, 2021 16:50
[2021-08-02 17:12] LABS: BASO # 0.1 x10^3/uL (0.0-0.2); BASO % 1 % (0-3); EOS # 0.1 x10^3/uL (0.0-0.7); EOS % 3 % (0-3); HEMOGLOBIN 13.3 g/dL (12.0-15.5); LYMPH # 1.5 x10^3/uL (1.0-4.8); LYMPH % 30 % (24-48); MEAN CORPUSCULAR HEMOGLOBIN 32 pg (25-35); MEAN CORPUSCULAR HGB CONC 33 g/dL (31-37); MEAN CORPUSCULAR VOLUME 95 fL (79-100); MONO # 0.5 x10^3/uL (0.0-1.1); MONO % 11 % (0-9); NEUT # 2.7 x10^3/uL (1.8-7.7); NEUT % 55 % (31-73); PLATELET COUNT 318 x10^3/uL (140-400); RED BLOOD COUNT 4.21 x10^6/uL (3.50-5.40); RED CELL DISTRIBUTION WIDTH 17.6 % (11.5-14.5); WHITE BLOOD COUNT 4.8 x10^3/uL (4.0-11.0)
--- NOTE | 2021-08-02 17:16 | RAD ---
Single view chest dated 08/02/2021 5:13 PM: COMPARISON: 02/15/2021 Clinical Indication: Syncope. Findings: Single upright portable exam of the chest was performed. Heart size and mediastinal contours are with in normal limits. Lungs are clear. No consolidation or pleural effusion. No pneumothorax. IMPRESSION: No acute radiographic abnormality. Electronically signed by: Boaz Kumar MD (08/02/2021 5:14 PM) JOSE
--- NOTE | 2021-08-02 17:36 | RAD ---
PQRS Compliance Statement: One or more of the following individualized dose reduction techniques were utilized for this examinat ion: 1. Automated exposure control 2. Adjustment of the mA and/or kV according to patient size 3. Use of iterative reconstruction technique CT HEAD AND CERVICAL SPINE WITHOUT CONTRAST History: Reason: near syncope, fall Comparison: CT head and cervical spine without contrast, May 26, 2021. Procedure: Axial images are obtained of the head from the skull base through the vertex without IV co ntrast. Noncontrast helical CT of the cervical spine was performed. Axial, sagittal, and coronal rec onstructions were obtained. Findings: Redemonstrated left cochlear implant. This creates beam hardening artifact and degrades image quality . The ventricles and sulci are normal for the patient's age. There is incidental cavum. There is unchanged left occipital lobe encephalomalacia. No mass-effect, midline shift, hemorrhage or obvious acute infarction is identified. Basilar cistern s are patent. Bone windows demonstrate no significant calvarial abnormality. The visualized paranasal sinuses are clear. Mastoid air cells are well aerated. There is no evidence of acute fracture or acute malalignment of the cervical spine. Straightening of normal cervical lordosis may be positional or due to muscle spasm. There are no perc hed or jumped facet joints. There is disc space narrowing and degenerative endplate spurring of C5/C6 and C6/C7. There is some degree of central canal stenosis at C5/C6. Neural foraminal narrowing is pr obably severe bilaterally. Visualized soft tissues of the neck demonstrate no significant abnormalities. The visualized lung api bre are clear. IMPRESSION: 1. No acute intracranial abnormality. 2. No acute fracture of the cervical spine. Electronically signed by: Marcio Littlejohn MD (08/02/2021 5:34 PM) [facility]
[2021-08-02] MEDS ORDERED: IV NORMAL SALINE 1000ML BAG 1,000 ML IV ONE (18:00)
[2021-08-02 18:12] LABS: CALCIUM 9.1 mg/dL (8.5-10.1); CREATININE 1.9 mg/dL (0.6-1.0); GFR 31.4; POTASSIUM 4.4 mmol/L (3.5-5.1)
[2021-08-02 18:17] LABS: ALBUMIN 3.9 g/dL (3.4-5.0); TOTAL BILIRUBIN 0.5 mg/dL (0.2-1.0); TOTAL PROTEIN 7.8 g/dL (6.4-8.2)
[2021-08-02 18:47] LABS: BILIRUBIN,URINE NEGATIVE (NEG); CLARITY,URINE CLEAR; COLOR,URINE YELLOW; NITRITE,URINE NEGATIVE (NEG); PROTEIN,URINE NEGATIVE (NEG-TRACE); UROBILINOGEN,URINE 0.2 mg/dL (0.2 mg/dL)
[2021-08-02 18:51] LABS: RBC,URINE 0 /HPF (0-2); WBC,URINE RARE /HPF (0-4)
[2021-08-02 18:52] LABS: BACTERIA,URINE 0 /HPF (0-FEW); HYALINE CASTS, URINE MODERATE /HPF
[2021-08-02 19:50] VITALS: BP_SYST 112; BP_SYST 117; BP_SYST 94; BP_DIAS 51; BP_DIAS 56; BP_DIAS 60
[2021-08-02] MEDS ORDERED: SPIR50TA4 PO (20:20)
[2021-08-02] MEDS ORDERED: NICO10CA INH (20:20)
[2021-08-02] MEDS ORDERED: CARV12.53 PO (20:20)
[2021-08-02] MEDS ORDERED: FURO40TA4 PO (20:20)
[2021-08-02] MEDS ORDERED: ROSU40TA22 PO (20:20)
[2021-08-02] MEDS ORDERED: ISOS1TAB2 PO (20:20)
[2021-08-02] MEDS ORDERED: POTA-112 PO (20:20)
[2021-08-02] MEDS ORDERED: CARV25TA2 PO (20:20)
[2021-08-02] MEDS ORDERED: FLUT1BLS3 INH (20:20)
[2021-08-02] MEDS ORDERED: IMIP50TA3 PO (20:20)
[2021-08-02] MEDS ORDERED: DAPA10TA PO (20:20)
[2021-08-02] MEDS ORDERED: NICOTINE 14MG PATCH. TD PRN (20:30)
[2021-08-02] MEDS: CETIRIZINE HCL 10 MG TABLET. PO SCH (20:30)
[2021-08-02] MEDS: RIVAROXABAN 15 MG TABLET. PO SCH (20:55)
[2021-08-02] MEDS: SACUBITRIL/VALSARTAN 49/51MG TABLET. PO SCH (20:56)
[2021-08-02 23:00] VITALS: BP_SYST 110; BP_SYST 140; BP_DIAS 49; BP_DIAS 69
--- NOTE | 2021-08-02 23:09 | HP ---
DATE OF SERVICE: 08/02/2021 ADMIT DATE: 08/02/2021 CHIEF COMPLAINT: Near syncope. HISTORY OF PRESENT ILLNESS: The patient is a pleasant 71-year-old female who follows with Dr. lFynn as her primary care doctor. Apparently, she went to [facility] recently. They went ahead and put her on some extra blood pressure meds. Since then, she has followed up with Dr. Flynn. He has been trying to wean her off of some of those meds. Sure enough today, she had a near syncopal episode. She has been bradycardic and hypotensive. I suspect she has got some orthostasis as well. I discussed the case with ER physician. We are going to admit the patient overnight for observation and hold her blood pressure meds. PAST MEDICAL HISTORY: CHF, hard of hearing, CAD, hypertension, myocardial infarction, stroke, cochlear implant, tobacco abuse and she continues to smoke. ALLERGIES: None. FAMILY HISTORY: Diabetes. SOCIAL HISTORY: She smokes. No drink or drugs. MEDICATIONS: Reviewed with the nurse. We are still trying to clarify those. The patient came in with an incomplete list, but according to the list we have she is on cyclobenzaprine, Zanaflex, Nicotrol, Xarelto, atorvastatin, rosuvastatin, omega 3 fish oil, Imdur, hydralazine, carvedilol, amlodipine, Entresto, Aldactone, naproxen, doxepin, imipramine, potassium, Lasix, Coricidin, dextromethorphan, Trelegy Ellipta, Flonase, Protonix, and Farxiga. REVIEW OF SYSTEMS: GENERAL: No history of weight change, weakness or fevers. SKIN: No bruising, hair changes or rashes. EYES: No blurred, double or loss of vision. NOSE AND THROAT: No history of nosebleeds, hoarseness or sore throat. HEART: No history of palpitations, chest pain or shortness of breath on exertion. LUNGS: Denies cough, hemoptysis, wheezing or shortness of breath. GASTROINTESTINAL: Denies changes in appetite, nausea, vomiting, diarrhea or constipation. GENITOURINARY: No history of frequency, urgency, hesitancy or nocturia. NEUROLOGIC: Denies history of numbness, tingling, tremor or weakness. PSYCHIATRIC: No history of panic, anxiety or depression. ENDOCRINE: No history of heat or cold intolerance, polyuria or polydipsia. EXTREMITIES: Denies muscle weakness, joint pain, pain on walking or stiffness. PHYSICAL EXAMINATION: VITALS: Within normal limits and are stable. GENERAL: No apparent distress. Alert and oriented. HEENT: Normal cephalic atraumatic, external auditory canals are patent EYES: Extraocular muscles are intact, pupils are equally round and reactive to light and accommodation MUSCULOSKELETAL: Well developed, well nourished, good range of motion ENDOCRINE: No thyromegaly was palpated LYMPHATICS: No cervical chain or axillary nodes were noted HEMATOPOIETIC: No bruising NECK: Supple, no JVD, no thyromegaly was noted. LUNGS: Clear to auscultation in all lung dorsey without rhonchi or wheezing. HEART: RRR, S1, S2 present. Peripheral pulses intact, no obvious murmurs were noted. ABDOMEN: Soft, nontender. Positive bowel sounds no organomegaly, normal bowel sounds. EXTREMITIES: Without any cyanosis, clubbing, or edema. Pedal pulses intact, Homans sign is negative. NEUROLOGIC: Normal speech, normal tone. A and O x 3, moves all extremities, no obvious focal deficits. PSYCHIATRIC: Normal affect, normal mood. Stable. SKIN: No ulcerations or rashes, good skin turgor, no jaundice. VASCULAR: Good capillary refill, neurovascular bundle appears to be intact. . LABORATORY DATA: White count 4, hemoglobin 13, platelets 318. Electrolytes are normal other than a BUN of 38 and creatinine 1.9. Urinalysis negative. DIAGNOSTIC DATA: Chest x-ray negative. CT of the head, no acute disease. ASSESSMENT AND PLAN: Probable autonomic dysfunction and near syncopal episode secondary to iatrogenic disease with too many medications. The patient has been admitted. We are going to put her on medication vacation, except for a few drugs, please see the orders. We will continue her cetirizine, her nicotine, and Entresto, Xarelto. We will consider resuming her carvedilol, but her rate has been slightly low into the 40s. We are going to hold that for tonight. PT, OT evaluate and treat. I told the nurse to check orthostatics. Cardiac monitoring. We will give her some gentle IV fluids. She is getting 1 bag and hope to discharge tomorrow if she is feeling better on less medications. THEODORA/PAUL/AMI DR: Juli TID: [id number]
[2021-08-03] VITALS (8 sets, daily range): BP systolic 121–153; BP diastolic 48–69
--- NOTE | 2021-08-03 07:27 | PDOC ---
[employer] PROGRESS NOTE Date of Service DOS: DATE: 08/03/21 TIME: 07:27 Chief Complaint Chief Complaint atrial fibrillation on chronic anticoagulation, history of CAD, CHF, diastolic CHF, hypertension, hyperlipidemia, history of prior Holter monitor with multifocal PVCs. History of EP study, which was negative for inducible VT. History of cerebrovascular accident, anxiety and depression. History of Present Illness History of Present Illness Ms Calabrese is a 71-year-old female w/ PMHx [place], CAD, HTN, CHF, smoker who follows with Dr. Flynn as her primary care doctor. Apparently, she went to [facility] recently. They went ahead and put her on some extra blood pressure meds. Since then, she has followed up with Dr. Flynn. He has been trying to wean her off of some of those meds. She had a near syncopal episode. She has been bradycardic and hypotensive. I suspect she has got some orthostasis as well. I discussed the case with ER physician. We are going to admit the patient overnight for observation and hold her blood pressure meds. 08/03: Positive orthostatics. Labs stable. She is anxious about restarting her bleeding meds. Vitals/I&O Vitals/I&O: Vital Signs Date Time Temp Pulse Resp B/P (MAP) Pulse Ox O2 Delivery O2 Flow Rate FiO2 08/03/21 02:59 97.6 62 16 124/56 (78) 98 Room Air 97.6 08/02/21 23:00 I & O 08/02/21 08/02/21 08/03/21 15:00 23:00 07:00 Output Total 300 ml Balance -300 ml Physical Exam Lungs: Other Labs Labs: Laboratory Tests Test 08/02/21 17:00 08/02/21 17:53 08/02/21 18:30 White Blood Count 4.8 x10^3/uL (4.0-11.0) Red Blood Count 4.21 x10^6/uL (3.50-5.40) Hemoglobin 13.3 g/dL (12.0-15.5) Hematocrit 40.0 % (36.0-47.0) Mean Corpuscular Volume 95 fL (79-100) Mean Corpuscular Hemoglobin 32 pg (25-35) Mean Corpuscular Hemoglobin Concent 33 g/dL (31-37) Red Cell Distribution Width 17.6 % (11.5-14.5) Platelet Count 318 x10^3/uL (140-400) Neutrophils (%) (Auto) 55 % (31-73) Lymphocytes (%) (Auto) 30 % (24-48) Monocytes (%) (Auto) 11 % (0-9) Eosinophils (%) (Auto) 3 % (0-3) Basophils (%) (Auto) 1 % (0-3) Neutrophils # (Auto) 2.7 x10^3/uL (1.8-7.7) Lymphocytes # (Auto) 1.5 x10^3/uL (1.0-4.8) Monocytes # (Auto) 0.5 x10^3/uL (0.0-1.1) Eosinophils # (Auto) 0.1 x10^3/uL (0.0-0.7) Basophils # (Auto) 0.1 x10^3/uL (0.0-0.2) Sodium Level 138 mmol/L (136-145) Potassium Level 4.4 mmol/L (3.5-5.1) Chloride Level 103 mmol/L (98-107) Carbon Dioxide Level 24 mmol/L (21-32) Anion Gap 11 (6-14) Blood Urea Nitrogen 38 mg/dL (7-20) Creatinine 1.9 mg/dL (0.6-1.0) Estimated GFR (Cockcroft-Gault) 31.4 BUN/Creatinine Ratio 20 (6-20) Glucose Level 89 mg/dL (70-99) Calcium Level 9.1 mg/dL (8.5-10.1) Total Bilirubin 0.5 mg/dL (0.2-1.0) Aspartate Amino Transf (AST/SGOT) 10 U/L (15-37) Alanine Aminotransferase (ALT/SGPT) 19 U/L (14-59) Alkaline Phosphatase 64 U/L (46-116) Troponin I High Sensitivity 28 ng/L (4-50) FW-Trd-C-Type Natriuretic Peptide 191 pg/mL (0-124) Total Protein 7.8 g/dL (6.4-8.2) Albumin 3.9 g/dL (3.4-5.0) Albumin/Globulin Ratio 1.0 (1.0-1.7) Urine Collection Type Unknown Urine Color Yellow Urine Clarity Clear Urine pH 6.0 (<5.0-8.0) Urine Specific [place] 1.020 (1.000-1.030) Urine Protein Negative mg/dL (NEG-TRACE) Urine Glucose (UA) 500 mg/dL (NEG) Urine Ketones (Stick) Negative mg/dL (NEG) Urine Blood Negative (NEG) Urine Nitrite Negative (NEG) Urine Bilirubin Negative (NEG) Urine Urobilinogen Dipstick 0.2 mg/dL (0.2 mg/dL) Urine Leukocyte Esterase Negative (NEG) Urine RBC 0 /HPF (0-2) Urine WBC Rare /HPF (0-4) Urine Squamous Epithelial Cells Occ /LPF Urine Bacteria 0 /HPF (0-FEW) Urine Hyaline Casts Moderate /HPF Urine Mucus Slight /LPF Assessment and Plan Assessmemt and Plan Problems Medical Problems: (1) CLAAR (acute kidney injury) Status: Acute (2) Near syncope Status: Acute (3) Orthostatic hypotension Status: Acute Comment Review of Relevant I have reviewed the following items amna (where applicable) has been applied. Medications: Current Medications Medications (Trade) Dose Ordered Sig/Daquan Route PRN Reason Start Time Stop Time Status Last Admin Dose Admin Sodium Chloride 1,000 ml @ 1,000 mls/hr 1X ONCE IV 08/02/21 18:00 08/02/21 18:59 DC 08/02/21 17:35 Nicotine (Nicoderm Cq 14mg) 1 patch PRN DAILY PRN TD SMOKING CESSATION 08/02/21 20:30 08/02/21 20:57 Sacubitril/ Valsartan (Entresto 49 Mg-51 Mg) 1 tab BID PO 08/02/21 21:00 08/02/21 20:56 Rivaroxaban (Xarelto) 15 mg DAILYWSUP PO 08/02/21 21:00 08/02/21 20:55 Justifications for Admission Other Justification YAQUELIN COE MD Aug 03, 2021 07:27
[2021-08-03] MEDS ORDERED: ONDANSETRON PF 4 MG/2 ML VIAL. IVP PRN (07:30)
[2021-08-03] MEDS ORDERED: ACETAMINOPHEN 325 MG TABLET. PO PRN (07:30)
[2021-08-03 07:47] LABS: CREATININE 1.8 mg/dL (0.6-1.0); GFR 33.5; POTASSIUM 4.5 mmol/L (3.5-5.1)
--- NOTE | 2021-08-03 09:23 | PDOC2 ---
DORI ALCALA IT ARCHITECTURE ANALYST 08/03/21 0922: CARDIAC CONSULT DATE OF CONSULT Date of Consult DATE: 08/03/21 TIME: 09:04 REASON FOR CONSULT Reason for Consult: Chronic AFIB, chf, orthostasis REFERRING PHYSICIAN Referring Physician: Mackenzie SOURCE Source: Chart review, Patient HISTORY OF PRESENT ILLNESS HISTORY OF PRESENT ILLNESS This is a 71 yo female admitted for complains of falls. Reports that she has had several aborted falls mainly due to weakness to her legs. At times she does get dizzy. In this one instance the other day she felt lightheaded, her knees got weak and and had some SOA and fell but no apparent injury. Denies any chest pain or palpitations. No visual disturbance. She is extremely hard of healing. Denies any fever or chills and no nausea vomiting or diarrhea. Her medications have been changed recently but could not ascertain which one. PAST MEDICAL HISTORY Past Medical History Cardiovascular: AFIB, CAD, CHF, HTN, Hyperlipidemia, Other (PVCs- Prior holter monitor with multifocal PVC, past EP study negative for inducible VT nor SVT in 12/2000; LV thormbus; cardiomyopathy) Pulmonary: COPD, Pneumonia CENTRAL NERVOUS SYSTEM: CVA GI: GERD Hepatobiliary: No pertinent hx Psych: Anxiety, Depression Musculoskeletal: Osteoarthritis ENT: Other (NIKOLAI) PAST SURGICAL HISTORY Past Surgical History Hysterectomy (partial), PCI FAMILY HISTORY Family History: Stroke (sister) SOCIAL HISTORY Smoke: Quit ALCOHOL: none Drugs: None Lives: with Family CURRENT MEDICATIONS CURRENT MEDICATIONS Current Medications Medications (Trade) Dose Ordered Sig/Daquan Route PRN Reason Start Time Stop Time Status Last Admin Dose Admin Sodium Chloride 1,000 ml @ 1,000 mls/hr 1X ONCE IV 08/02/21 18:00 08/02/21 18:59 DC 08/02/21 17:35 Nicotine (Nicoderm Cq 14mg) 1 patch PRN DAILY PRN TD SMOKING CESSATION 08/02/21 20:30 08/02/21 20:57 Sacubitril/ Valsartan (Entresto 49 Mg-51 Mg) 1 tab BID PO 08/02/21 21:00 08/02/21 20:56 Rivaroxaban (Xarelto) 15 mg DAILYWSUP PO 08/02/21 21:00 08/02/21 20:55 ALLERGIES ALLERGIES: Coded Allergies: No Known Drug Allergies (Unverified , 05/26/21) ROS Review of System 14 point ROS evaluated with pertinent positives noted per HPI PHYSICAL EXAM General: Alert, Oriented X3, Cooperative, No acute distress HEENT: Atraumatic, Mucous membr. moist/pink Lungs: Clear to auscultation, Normal air movement Heart: Regular rate (SR), Normal S1, Normal S2 Abdomen: Soft, No tenderness Extremities: No cyanosis, No edema Skin: No breakdown, No significant lesion Neuro: Normal speech, Sensation intact Psych/Mental Status: Mental status NL, Mood NL MUSCULOSKELETAL: Osteoarthritic changes both hands VITALS/I&O VITALS/I&O: Vital Signs Date Time Temp Pulse Resp B/P (MAP) Pulse Ox O2 Delivery O2 Flow Rate FiO2 08/03/21 07:00 98.3 56 17 128/52 (77) 99 Room Air 98.3 08/02/21 23:00 I & O 08/02/21 08/02/21 08/03/21 15:00 23:00 07:00 Output Total 300 ml Balance -300 ml LABS Lab: Laboratory Tests Test 08/02/21 17:00 08/02/21 17:53 08/02/21 18:30 08/03/21 06:53 White Blood Count 4.8 x10^3/uL (4.0-11.0) Red Blood Count 4.21 x10^6/uL (3.50-5.40) Hemoglobin 13.3 g/dL (12.0-15.5) Hematocrit 40.0 % (36.0-47.0) Mean Corpuscular Volume 95 fL (79-100) Mean Corpuscular Hemoglobin 32 pg (25-35) Mean Corpuscular Hemoglobin Concent 33 g/dL (31-37) Red Cell Distribution Width 17.6 % (11.5-14.5) H Platelet Count 318 x10^3/uL (140-400) Neutrophils (%) (Auto) 55 % (31-73) Lymphocytes (%) (Auto) 30 % (24-48) Monocytes (%) (Auto) 11 % (0-9) H Eosinophils (%) (Auto) 3 % (0-3) Basophils (%) (Auto) 1 % (0-3) Neutrophils # (Auto) 2.7 x10^3/uL (1.8-7.7) Lymphocytes # (Auto) 1.5 x10^3/uL (1.0-4.8) Monocytes # (Auto) 0.5 x10^3/uL (0.0-1.1) Eosinophils # (Auto) 0.1 x10^3/uL (0.0-0.7) Basophils # (Auto) 0.1 x10^3/uL (0.0-0.2) Sodium Level 138 mmol/L (136-145) 141 mmol/L (136-145) Potassium Level 4.4 mmol/L (3.5-5.1) 4.5 mmol/L (3.5-5.1) Chloride Level 103 mmol/L (98-107) 105 mmol/L (98-107) Carbon Dioxide Level 24 mmol/L (21-32) 25 mmol/L (21-32) Anion Gap 11 (6-14) 11 (6-14) Blood Urea Nitrogen 38 mg/dL (7-20) H 40 mg/dL (7-20) H Creatinine 1.9 mg/dL (0.6-1.0) H 1.8 mg/dL (0.6-1.0) H Estimated GFR (Cockcroft-Gault) 31.4 33.5 BUN/Creatinine Ratio 20 (6-20) Glucose Level 89 mg/dL (70-99) 100 mg/dL (70-99) H Calcium Level 9.1 mg/dL (8.5-10.1) 9.0 mg/dL (8.5-10.1) Total Bilirubin 0.5 mg/dL (0.2-1.0) Aspartate Amino Transferase (AST) 10 U/L (15-37) L Alanine Aminotransferase (ALT) 19 U/L (14-59) Alkaline Phosphatase 64 U/L (46-116) Troponin I High Sensitivity 28 ng/L (4-50) DF-Pzi-A-Type Natriuretic Peptide 191 pg/mL (0-124) H Total Protein 7.8 g/dL (6.4-8.2) Albumin 3.9 g/dL (3.4-5.0) Albumin/Globulin Ratio 1.0 (1.0-1.7) Urine Collection Type Unknown Urine Color Yellow Urine Clarity Clear Urine pH 6.0 (<5.0-8.0) Urine Specific [place] 1.020 (1.000-1.030) Urine Protein Negative mg/dL (NEG-TRACE) Urine Glucose (UA) 500 mg/dL (NEG) Urine Ketones (Stick) Negative mg/dL (NEG) Urine Blood Negative (NEG) Urine Nitrite Negative (NEG) Urine Bilirubin Negative (NEG) Urine Urobilinogen Dipstick 0.2 mg/dL (0.2 mg/dL) Urine Leukocyte Esterase Negative (NEG) Urine RBC 0 /HPF (0-2) Urine WBC Rare /HPF (0-4) Urine Squamous Epithelial Cells Occ /LPF Urine Bacteria 0 /HPF (0-FEW) Urine Hyaline Casts Moderate /HPF Urine Mucus Slight /LPF Laboratory Tests 08/02/21 17:00 Laboratory Tests 08/02/21 17:53 08/03/21 06:53 ECHOCARDIOGRAM ECHOCARDIOGRAM <Conclusion> Limited study. The Left Ventricle is mildly dilated. The systolic function is moderately impaired. LV ejection fraction is estimated at 35 to 40%. There is severe hypokinesis to akinesis in the apex, apical inferior, apical anterior and apical septal gonzalez. There is mild left ventricular hypertrophy. DATE: 08/10/20 [id number] STRESS TEST STRESS TEST Coronary angiography: LM: Large caliber vessel with normal angiographic appearance LAD: Large caliber vessel with rapid tapering in the mid to distal segment with a mid 60% stenosis. D1: Small caliber vessel with normal angiographic appearance LCX: Large caliber non-dominant vessel with mild luminal irregularities OM1: Moderate caliber vessel with mild luminal irregularities. RCA: Large caliber dominant vessel with 40% ISR of a mid stent. RPDA: Moderate caliber vessel with mild luminal irregularities. CLOSURE: At case completion the right radial sheath was removed and a Terumo radial band was applied with 11 mL of air. Hemostasis was achieved. COMPLICATIONS: No acute complications noted Conclusion 1. Mildly elevated left sided filling pressures. 2. Two vessel coronary disease with patent RCA stent. Recommendations 1. Likely type 2 NSTEMI due to elevated BP. 2. Aggressive medical therapy. Prior MPI with LAD territory infarct and no active ischemia, therefore, LAD PCI was deferred. DATE: 08/11/20 [id number] 0 ASSESSMENT/PLAN ASSESSMENT/PLAN 1. Presyncope with nontraumatic fall: likely from orthostasis. No arrhythmias 2. HTN urgency 3. Chronic systolic/diastolic CHF: compensated 4. CAD: past RCA stent. clinically stable 5. PAFIB: SR 6. ICM 7. Very NIKOLAI 8. CKD3 Recommendations 1. Several BP meds. Will hold for now and reinitiate per BP trend. Received IV bolus in ED will repeat orthostatic readings 2. Appears euvolemic. Hold lasix 3. Continue xarelto for stroke prevention 4. Secondary prevention measures. Recent LDL was 198, high dose statin 5. TTE and TSH CARL BAI MD 08/03/21 1639: CARDIAC CONSULT ASSESSMENT/PLAN ASSESSMENT/PLAN The patient was seen and interviewed as well as examined at the bedside. The chart was reviewed. The case was discussed. Agree with the plan of care. DORI ALCALA APRN Aug 03, 2021 09:22 CARL BAI MD Aug 03, 2021 16:39
[2021-08-03] MEDS: SACUBITRIL/VALSARTAN 49/51MG TABLET. PO SCH ×2 (10:18→21:19)
[2021-08-03] MEDS: CETIRIZINE HCL 10 MG TABLET. PO SCH (10:19)
[2021-08-03] MEDS ORDERED: CYCL10TA19 PO (12:00)
[2021-08-03] MEDS ORDERED: ATEN25TA PO (12:19)
[2021-08-03] MEDS ORDERED: LEVO5TAB29 PO (12:19)
[2021-08-03] MEDS ORDERED: LANS30TA6 PO (12:19)
[2021-08-03] MEDS ORDERED: IMIP25TA35 PO (12:19)
[2021-08-03] MEDS ORDERED: TRAZ-118 PO (12:19)
[2021-08-03] MEDS ORDERED: QUET50TA3 PO (12:19)
[2021-08-03] MEDS ORDERED: ZOLP5TAB5 PO (12:19)
[2021-08-03] MEDS ORDERED: LABE200T4 PO (12:19)
[2021-08-03] MEDS ORDERED: LORA10CA PO (12:19)
[2021-08-03] MEDS ORDERED: LISI20TA18 PO (12:19)
[2021-08-03] MEDS ORDERED: ESCITALOPRAM OX10 MG PO (12:19)
[2021-08-03] MEDS ORDERED: DEXL60CA2 PO (12:19)
[2021-08-03] MEDS ORDERED: WARF4TAB64 PO (12:19)
--- NOTE | 2021-08-03 12:20 | EKG ---
[facility] [address] [place] [address] Test Date: 2021-08-02 Test Time: 16:25:43 Pat Name: JOHAN CAMARGO Department: Room: 201 1 Gender: F Instructional Consultant: : 1950 Requested By: WERO HARO Order Number: [id number] Reading MD: Kranthi Augustine MD Measurements Intervals [place] Rate: 62 P: -25 LA: 222 QRS: -41 QRSD: 124 T: 98 QT: 428 QTc: 437 Interpretive Statements SINUS RHYTHM LAD POOR R WAVE PROGRESSION Electronically Signed On 08-06-2021 11:12:37 FORM GRADER by Kranthi Augustine MD
--- NOTE | 2021-08-03 12:24 | NUR ---
SW following. Discussed with RN, pt from home alone, room air, cardiac diet. PT/OT ordered. RN advised no SW needs at this time, possible discharge home today. SW will continue to follow.
[2021-08-03] MEDS: RIVAROXABAN 15 MG TABLET. PO SCH (17:35)
[2021-08-03] MEDS ORDERED: ATORVASTATIN CALCIUM 40 MG TABLET. PO SCH (21:00)
[2021-08-04 02:25] VITALS: BP 142/60
[2021-08-04 07:00] VITALS: BP 181/58
[2021-08-04] MEDS ORDERED: ASPIRIN ENTERIC COATED 81 MG TABLET.DR. PO SCH (08:00)
[2021-08-04] MEDS: CETIRIZINE HCL 10 MG TABLET. PO SCH (08:45)
[2021-08-04] MEDS: SACUBITRIL/VALSARTAN 49/51MG TABLET. PO SCH (08:45)
--- NOTE | 2021-08-04 09:37 | PDOC ---
PROGRESS NOTES Date of Service: DATE: 08/04/21 TIME: 09:37 Subjective Subjective Feeling much better. Denied any dizziness. Objective Objective Vital Signs Date Time Temp Pulse Resp B/P (MAP) Pulse Ox O2 Delivery O2 Flow Rate FiO2 08/04/21 08:45 65 181/58 08/04/21 08:00 Room Air 94.0 08/04/21 07:00 97.8 18 95 97.8 Intake and Output 08/04/21 07:00 Intake Total 1640 ml Balance 1640 ml Intake Oral 1640 ml # Voids 1 Physical Exam Abdomen: Soft, No tenderness Heart: Regular rate (SR), Normal S1, Normal S2 Extremities: No cyanosis, No edema General: Alert, Oriented X3, Cooperative, No acute distress HEENT: Atraumatic, Mucous membr. moist/pink Lungs: Clear to auscultation, Normal air movement MUSCULOSKELETAL: Osteoarthritic changes both hands Neuro: Normal speech, Sensation intact Psych/Mental Status: Mental status NL, Mood NL Skin: No breakdown, No significant lesion Assessment Assessment 1. Presyncope with nontraumatic fall: likely from orthostasis. No arrhythmias on telemetry 2. HTN urgency: Better controlled 3. Chronic systolic/diastolic CHF: well compensated 4. CAD: past RCA stent. clinically stable and chest pain-free 5. PAFIB: SR 6. ICM 7. Very [place] 8. CKD3 Recommendations 1. Symptoms improved with intravenous fluids 2. Continue secondary prevention measures 3. Continue xarelto for stroke prevention 4. Plan for 2D echo as an outpatient Plan Plan of Care Problems Medical Problems: (1) CLARA (acute kidney injury) Status: Acute (2) Near syncope Status: Acute (3) Orthostatic hypotension Status: Acute Comment Review of Relevant I have reviewed the following items amna (where applicable) has been applied. Medications Current Medications Aspirin (Ecotrin) 81 mg DAILYWBKFT PO Last administered on 08/04/21at 08:46; Start 08/04/21 at 08:00 Atorvastatin Calcium (Lipitor) 80 mg QHS PO Last administered on 08/03/21at 21:22; Start 08/03/21 at 21:00 Vitals/I & O Vital Sign - Last 24 Hours 08/03/21 08/03/21 08/03/21 08/03/21 09:46 09:46 09:47 10:18 Pulse 59 56 67 56 B/P (MAP) 151/66 (94) 146/57 (86) 125/69 (87) 128/52 08/03/21 08/03/21 08/03/21 08/03/21 11:00 15:00 19:05 21:19 Temp 97.9 98.2 98.0 97.9 98.2 98.0 Pulse 66 56 77 77 Resp 18 18 22 B/P (MAP) 130/48 (75) 121/52 (75) 141/57 (85) 141/57 Pulse Ox 93 93 O2 Delivery Room Air Room Air Room Air O2 Flow Rate 94.0 08/03/21 08/04/21 08/04/21 08/04/21 22:53 02:25 07:00 08:00 Temp 98.1 98.0 97.8 98.1 98.0 97.8 Pulse 58 59 65 Resp 20 16 18 B/P (MAP) 153/60 (91) 142/60 (87) 181/58 (99) Pulse Ox 94 95 95 O2 Delivery Room Air Room Air Room Air Room Air O2 Flow Rate 94.0 08/04/21 08:45 Pulse 65 B/P (MAP) 181/58 Intake and Output0 08/03/21 08/03/21 08/04/21 15:00 23:00 07:00 Intake Total 840 ml 480 ml 320 ml Balance 840 ml 480 ml 320 ml ASMITA MARROQUIN MD Aug 04, 2021 09:37
[2021-08-04 10:50] VITALS: BP 133/69
[2021-08-04] MEDS ORDERED: ASPI-886 PO (11:04)
--- NOTE | 2021-08-04 11:04 | DISCH ---
DISCHARGE INSTRUCTIONS Condition on Discharge Condition on Discharge: Stable Activity After Discharge Activity Instructions for Disc: Activity as tolerated Weight Bearing Status after Di: As tolerated Diet after Discharge Diet after Discharge: Cardiac Diet Texture: Regular Liquid Texture: Thin Liquid Checks after Discharge Checks after discharge: Check blood press - daily, Weigh Yourself Daily Treatment/Equipment after DC Adaptive Equipment Issued: None SASHA MURPHY MD Aug 04, 2021 11:04
--- NOTE | 2021-08-04 11:11 | PDOC ---
GENERAL General: Discharge summary [id number] VITAL SIGNS Vital Signs/I&O: Vital Signs Date Time Temp Pulse Resp B/P (MAP) Pulse Ox O2 Delivery O2 Flow Rate FiO2 08/04/21 10:50 97.8 57 18 133/69 (90) 96 Room Air 97.8 08/04/21 08:00 94.0 I & O 08/03/21 08/03/21 08/04/21 15:00 23:00 07:00 Intake Total 840 ml 480 ml 320 ml Balance 840 ml 480 ml 320 ml ALLERGIES Allergies: Allergies Coded Allergies Type Severity Reaction Last Updated Verified No Known Drug Allergies 05/26/21 No MEDS Medications: Current Medications Medications (Trade) Dose Ordered Sig/Daquan Route PRN Reason Start Time Stop Time Status Last Admin Dose Admin Atorvastatin Calcium (Lipitor) 80 mg QHS PO 08/03/21 21:00 08/03/21 21:22 Aspirin (Ecotrin) 81 mg DAILYWBKFT PO 08/04/21 08:00 08/04/21 08:46 Justifications for Admission Other Justification SASHA MURPHY MD Aug 04, 2021 11:11
--- NOTE | 2021-08-04 11:39 | DS ---
DATE OF DISCHARGE: 08/04/2021 HOSPITAL COURSE: This patient is a javier 71-year-old woman who is a continuity outpatient of Dr. Flynn. She has been working for over 20 years with him and is a new outpatient of Dr. Augustine. 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 She has a history of ischemic cardiomyopathy with an ejection fraction of about 35%, hypertension, near deafness, and debility from arthritis and chronic pain. She was brought in to the Emergency Department 3 days ago by 911 when she was unable to ambulate due to generalized weakness. She was found to be on a number of different medicines and it is unclear how well she has been able to organize and take these. Today is hospital day #3 and she has not had most of her medications and is actually feeling close to baseline and ready for discharge. She was seen by Cardiology and their assistance is appreciated. They have maintained her on Entresto, Xarelto, and aspirin. The patient is comfortable with this plan and will plan on following up with her outpatient team closely in the next week or two. PHYSICAL EXAMINATION: VITAL SIGNS: This morning is notable for that the patient has been afebrile, blood pressure has been mostly in the 130s-150s/60s. She did have one elevated level early this morning. Heart rate is in the 50s to 60s and regular. She is breathing comfortably and saturating normally on room air. GENERAL: She is a pleasant 71-year-old woman, alert and oriented x 3, in no acute distress. HEENT: Notable for a left cochlear implant. The patient is quite hard of hearing. NECK: Soft and supple. No adenopathy or thyromegaly noted. CHEST: Bilateral equal air entry, though diminished throughout. HEART: S1, S2 normal. Regular rate and rhythm. No murmurs or gallops are noted. ABDOMEN: Obese, soft, nontender, nondistended. No masses or organomegaly noted. EXTREMITIES: Unremarkable for acute abnormality. Greater than 30 minutes were spent on coordinating this discharge with greater than 50% in counseling and coordination of care, most of which in discussing with the patient regarding her course of care. FINAL DIAGNOSES: 1. Generalized weakness and malaise secondary to near syncope thought to be most likely due to polypharmacy perhaps an element of nonadherence to her medication regimen given the complexity. 2. Chronic multi-morbidity otherwise as outlined in the history and physical. JACKI DR: Madeline TID: [id number] CC: LEIGHA FLYNN MD, CARL AUGUSTINE MD [facility]
--- NOTE | 2021-08-04 11:44 | NUR ---
Discharge Note: JOHAN CAMARGO Discharge instructions and discharge home medications reviewed with Patient and a copy given. All questions have been answered and understanding verbalized. The following instructions and handouts were given: d/c instructions, cab pass to help patient get to car in [employer] parking lot Discontinued lines and drains: Peripheral IV intact. Patient discharged to Home or Self Care with Self via Wheelchair
== END 2021-08-04 12:57 | disposition home or self-care (01) | DRG 312 ==
LOC: ER 16:21 → 2 NORTH 17:24
PROVIDERS: ADMIT Internal Medicine; ATTEND Internal Medicine
DX: R55 Syncope and collapse (principal); N17.9 Acute kidney failure, unspecified; I13.0 Hypertensive heart and chronic kidney disease with heart failure and stage 1 through stage 4 chronic kidney disease, or unspecified chronic kidney disease; I48.20 Chronic atrial fibrillation, unspecified; I50.42 Chronic combined systolic (congestive) and diastolic (congestive) heart failure; G90.9 Disorder of the autonomic nervous system, unspecified; E78.00 Pure hypercholesterolemia, unspecified; E78.5 Hyperlipidemia, unspecified; F17.200 Nicotine dependence, unspecified, uncomplicated; H91.90 Unspecified hearing loss, unspecified ear; I16.0 Hypertensive urgency; I25.10 Atherosclerotic heart disease of native coronary artery without angina pectoris; I25.2 Old myocardial infarction; I25.5 Ischemic cardiomyopathy; I48.0 Paroxysmal atrial fibrillation; J44.9 Chronic obstructive pulmonary disease, unspecified; N18.30 Chronic kidney disease, stage 3 unspecified; Z79.01 Long term (current) use of anticoagulants; Z82.3 Family history of stroke; Z83.3 Family history of diabetes mellitus; Z86.73 Personal history of transient ischemic attack (TIA), and cerebral infarction without residual deficits; Z90.711 Acquired absence of uterus with remaining cervical stump; F32.A Depression, unspecified; F41.9 Anxiety disorder, unspecified; G89.29 Other chronic pain; K21.9 Gastro-esophageal reflux disease without esophagitis; M19.90 Unspecified osteoarthritis, unspecified site; R00.1 Bradycardia, unspecified; Z91.19 Patient's noncompliance with other medical treatment and regimen
CPT/HCPCS: 36415; 70450; 71045; 72125; 80048; 80053; 81001; 83880; 84443; 84484; 85025; 93005; 96360; 96361; J7030; 99285-25; G0378

== ENCOUNTER 2021-08-26 16:32 | Emergency (ER) | payer OTHER, MEDICAID ==
[~2021-08-26] VITALS: Ht 167.6 cm; Wt 106.9 kg
[~2021-08-26 16:32] MED LIST changes: +ASPI-886 PO; +ATEN25TA PO; +CARV12.53 PO; +CARV25TA2 PO; +DAPA10TA PO; +DEXL60CA2 PO; +FLUT1BLS3 INH; +IMIP25TA35 PO; +ISOS1TAB2 PO; +LANS30TA6 PO; +LEVO5TAB29 PO; +LORA10CA PO; +NICO10CA INH; +POTA-112 PO; +QUET50TA3 PO; +ROSU40TA22 PO; +SPIR50TA4 PO; +WARF4TAB64 PO; +ZOLP5TAB5 PO
[2021-08-26 17:08] VITALS: BP 173/107
[2021-08-26] MEDS ORDERED: AZIT250T6 PO (18:44)
--- NOTE | 2021-08-26 18:45 | PHYS DOC ---
Past Medical History Past Medical History: CAD, CHF, Hypertension, VA, Stroke Past Surgical History: Hysterectomy Additional Past Surgical Histo: cochlear implant,CARDIAC STENTS Smoking Status: Current Every Day Smoker Alcohol Use: None Drug Use: None General Adult EDM: Chief Complaint: COUGH HPI: HPI: Patient is a 71-year-old female who presents to the emergency department complaining of congestion of cough for the past week, states she is seeing Dr. Flynn and was prescribed a Z-Nayan, states that she had lost her prescription and has been unable to get a hold of the office to get this refilled, states she would like to have a refill of this medication. Patient denies recent fever or chills, states she does smoke cigarettes daily, denies alcohol use or illicit drug use, denies chest pains, dizziness, diaphoretic episodes. Patient denies other physical complaints or physical concerns. Review of Systems: Review of Systems: 14 body systems of review of systems have been reviewed. See HPI for pertinent positives and negative responses, otherwise all other systems are negative, nonpertinent or noncontributory. Constitutional: Negative except as outlined in HPI above. Skin: Negative except as outlined in HPI above. Eyes: Negative except as outlined in HPI above. HENT: Negative except as outlined in HPI above. Respiratory: Negative except as outlined in HPI above. Cardiovascular: Negative except as outlined in HPI above. GI: Negative except as outlined in HPI above. : Negative except as outlined in HPI above. Musculoskeletal: Negative except as outlined in HPI above. Integument: Negative except as outlined in HPI above. Neurologic: Negative except as outlined in HPI above. Endocrine: Negative except as outlined in HPI above. Lymphatic: Negative except as outlined in HPI above. Psychiatric: Negative except as outlined in HPI above. Heart Score: C/O Chest Pain: No Risk Factors: Risk Factors: DM, Current or recent (<one month) smoker, HTN, HLP, family history of CAD, obesity. Risk Scores: Score 0 - 3: 2.5% MACE over next 6 weeks - Discharge Home Score 4 - 6: 20.3% MACE over next 6 weeks - Admit for Clinical Observation Score 7 - 10: 72.7% MACE over next 6 weeks - Early Invasive Strategies Allergies: Allergies: Allergies Coded Allergies Type Severity Reaction Last Updated Verified No Known Drug Allergies 05/26/21 No Physical Exam: PE: Constitutional: Well developed, well nourished, no acute distress, non-toxic appearance. 71-year-old female in no apparent distress. HENT: Normocephalic, atraumatic. Eyes: Conjunctiva normal, no discharge. Neck: Normal range of motion, no stridor. Cardiovascular: No cyanosis appreciated, distal cap refill less than 2 seconds. Lungs & Thorax: Patient is in no respiratory distress, no audible adventitious lung sounds appreciated. Normal work of breathing, clear lung sounds ausculta tion Abdomen: Nontender, no abnormalities noted. Skin: Warm, dry, no erythema, no rash. Back: No tenderness, no deformities. Extremities: No tenderness, no cyanosis, no clubbing, ROM intact, no edema. Neurologic: Alert and oriented X 3, normal motor function, normal sensory function, no focal deficits noted. Psychologic: Affect normal, judgement normal, mood normal. Current Patient Data: Vital Signs: Vital Signs Date Time Temp Pulse Resp B/P (MAP) Pulse Ox O2 Delivery O2 Flow Rate FiO2 08/26/21 17:08 98.2 95 22 173/107 (129) 100 Room Air 98.2 EKG: EKG: [] Radiology/Procedures: Radiology/Procedures: [] Course & Med Decision Making: Course & Med Decision Making Pertinent Labs and Imaging studies reviewed. (See chart for details) 71-year-old female, vital signs reviewed, presents emergency department concerning medication refill. Physical examination is unremarkable, with it being the weekend and primary care physician offices are closed, will refill patient's prescription. Patient does present with hypertensive blood pressure however states she has not taken her evening dose of blood pressure medication. Discussed with the patient all findings and diagnostic testing as well as the need to follow-up with their primary care provider for further evaluation and treatment or return to the ED if any new or worsening symptoms. Strict return precautions were also discussed at length, the patient voiced understanding and agreement with the discharge planning. The patient was nontoxic in appearance, in no apparent distress, and hemodynamically stable at the time of disposition. Dragon Disclaimer: Dragon Disclaimer: This electronic medical record was generated, in whole or in part, using a voice recognition dictation system. Departure Departure Impression: Primary Impression: Encounter for medication refill Disposition: HOME / SELF CARE / HOMELESS Condition: GOOD Referrals: LEIGHA FLYNN MD (PCP) Additional Instructions: You were seen today for medication refill of your Z-Nayan. Please follow-up with Dr. Flynn for any additional medication refills and ongoing medication management. Thank you for visiting our Emergency Department. It was a pleasure taking care of you today in the emergency department and we appreciate you trusting us with your care. If any additional problems come up don't hesitate to return to visit us. Please follow up with your primary care provider so they can plan additional care if needed and know about the problem that you had. If symptoms worsen come back to the Emergency Department. Any concerning symptoms that start such as chest pain, shortness of air, weakness or numbness on one side of the body, running high fevers or any other concerning symptoms return to the ER. Scripts Azithromycin (AZITHROMYCIN TABLET) 250 Mg Tablet 1 PKG PO UD for 5 Days, #6 TAB 0 Refills 2 the first day followed by 1 for days 2-5 Prov: LEIGHA KRAMER APRN 08/26/21 LEIGHA KRAMER APRN Aug 26, 2021 18:45
== END 2021-08-26 18:59 | disposition home or self-care (01) ==
LOC: ER 16:32
DX: R05.9 Cough, unspecified (principal); Z76.0 Encounter for issue of repeat prescription; R09.81 Nasal congestion; I11.0 Hypertensive heart disease with heart failure; I50.9 Heart failure, unspecified; I25.10 Atherosclerotic heart disease of native coronary artery without angina pectoris; I25.2 Old myocardial infarction; Z86.73 Personal history of transient ischemic attack (TIA), and cerebral infarction without residual deficits; F17.200 Nicotine dependence, unspecified, uncomplicated; Z95.5 Presence of coronary angioplasty implant and graft
CPT/HCPCS: 99281; 99283

== ENCOUNTER 2021-09-21 14:53 | Inpatient (IN) | payer OTHER, MEDICAID ==
[~2021-09-21] VITALS: Ht 167.6 cm; Wt 111.9 kg
[~2021-09-21 14:53] MED LIST changes: +AZIT250T6 PO
--- NOTE | 2021-09-21 15:44 | PHYS DOC ---
Past Medical History Past Medical History: CAD, CHF, Hypertension, [place], Stroke Past Surgical History: Hysterectomy Additional Past Surgical Histo: cochlear implant,CARDIAC STENTS Smoking Status: Current Every Day Smoker Alcohol Use: None Drug Use: None General Adult EDM: Chief Complaint: SHORTNESS OF BREATH HPI: HPI: Patient is a 71 year old female presents to the ER with intermittent chest pain lower extremity edema dyspnea on exertion for over the last week. Patient states that she was recently hospitalized at . Patient reports the chest pain is worse with mild exertion. Denies any fevers or chills. Patient was started on antibiotics for possible pneumonia. Patient states that when she was at they changed her cardiac medications. Review of Systems: Review of Systems: Constitutional: Denies fever or chills. [] Eyes: Denies change in visual acuity. [] HENT: Denies nasal congestion or sore throat. [] Respiratory: Denies cough or shortness of breath. [] Cardiovascular: Denies chest pain or edema. [] GI: Denies abdominal pain, nausea, vomiting, bloody stools or diarrhea. [] : Denies dysuria. [] Musculoskeletal: Denies back pain or joint pain. [] Integument: Denies rash. [] Neurologic: Denies headache, focal weakness or sensory changes. [] Endocrine: Denies polyuria or polydipsia. [] Lymphatic: Denies swollen glands. [] Psychiatric: Denies depression or anxiety. [] Heart Score: C/O Chest Pain: Yes HEART Score for Chest Pain: HEART Score for Chest Pain Response (Comments) Value History Highly Suspicious 2 ECG Nonspecific Repolarizatio 1 Age > 65 2 Risk Factors >3 Risk Factors or Hx CAD 2 Total 7 Risk Factors: Risk Factors: DM, Current or recent (<one month) smoker, HTN, HLP, family history of CAD, obesity. Risk Scores: Score 0 - 3: 2.5% MACE over next 6 weeks - Discharge Home Score 4 - 6: 20.3% MACE over next 6 weeks - Admit for Clinical Observation Score 7 - 10: 72.7% MACE over next 6 weeks - Early Invasive Strategies Allergies: Allergies: Allergies Coded Allergies Type Severity Reaction Last Updated Verified No Known Drug Allergies 05/26/21 No Physical Exam: PE: Constitutional: Well developed, well nourished, no acute distress, non-toxic appearance. [] HENT: Normocephalic, atraumatic, bilateral external ears normal, oropharynx moist, no oral exudates, nose normal. [] Eyes: PERRLA, EOMI, conjunctiva normal, no discharge. [] Neck: Normal range of motion, no tenderness, supple, no stridor. [] Cardiovascular:Heart rate regular rhythm, no murmur [] Lungs & Thorax: Rhonchi heard. Mild rales. Normal respiratory effort Abdomen: Bowel sounds normal, soft, no tenderness, no masses, no pulsatile masses. [] Skin: Warm, dry, no erythema, no rash. [] Back: No tenderness, no CVA tenderness. [] Extremities: No tenderness, no cyanosis, no clubbing, ROM intact, lower extremity pitting edema +3 bilaterally in the lower extremity Neurologic: Alert and oriented X 3, normal motor function, normal sensory function, no focal deficits noted. [] Psychologic: Affect normal, judgement normal, mood normal. [] Current Patient Data: Vital Signs: Vital Signs Date Time Temp Pulse Resp B/P (MAP) Pulse Ox O2 Delivery O2 Flow Rate FiO2 09/21/21 14:55 98.2 64 20 185/88 (120) 97 Room Air 98.2 EKG: EKG: [] Sinus bradycardia with a heart rate of 59. QTC of 512. Patient has biphasic T waves in leads V2, V3, V4 consider [facility] Radiology/Procedures: Radiology/Procedures: []XR CHEST 1V History: Reason: Chest pain STARTING IV AT 345PM / Spl. Instructions: / History: Comparison: August 02, 2021 Findings: Mild bilateral interstitial thickening with ill-defined opacities. Hyperinflation. No pleural effusion. No pneumothorax. Enlarged cardiac size. Impression: 1. Mild diffuse interstitial thickening with ill-defined opacities, may represent pulmonary edema or infection. Course & Med Decision Making: Course & Med Decision Making Pertinent Labs and Imaging studies reviewed. (See chart for details) [] Discussed with cardiology. Recommends starting patient on nitro drip. No heparin at this time until pressures have been stabilized. Patient will require inpatient catheterization. Discussed with hospitalist Critical care 31 min. Geoff Disclaimer: Geoff Disclaimer: This electronic medical record was generated, in whole or in part, using a voice recognition dictation system. Departure Departure Referrals: LEIGHA CAMPOS MD (PCP) VALERIE SOSA DO Sep 21, 2021 15:44
--- NOTE | 2021-09-21 15:55 | NUR ---
DR. PINON REQUESTING ANOTHER EKG BE PERFORMED AND DR. PINON WILL BE IN THE E.R. IN TEN MINUTES. PHAM STEPHENSON NOTIFIED.
--- NOTE | 2021-09-21 16:01 | EKG ---
[facility] [address] [place] [address] Test Date: 2021-09-21 Test Time: 15:08:32 Pat Name: JOHAN CAMARGO Department: Room: Gender: F R D Internship: : 1950 Requested By: VALERIE SOSA Order Number: [id number] Reading MD: Adalid Jay Measurements Intervals [place] Rate: 59 P: 41 OR: 182 QRS: -39 QRSD: 118 T: -134 QT: 512 QTc: 512 Interpretive Statements SINUS RHYTHM LVH WITH REPOLARIZATION ABNORMALITY PROLONGED QT DIFFUSE ST T WAVE ABNORMALITIES PROBABLE ISCHEMIA Electronically Signed On 09-26-2021 17:55:02 CDT by Adalid Jay
--- NOTE | 2021-09-21 16:06 | EKG ---
[facility] [address] [place] [address] Test Date: 2021-09-21 Test Time: 16:00:41 Pat Name: JOHAN CAMARGO Department: Room: Gender: F Furn[employer]: : 1950 Requested By: VALERIE SOSA Order Number: [id number] Reading MD: Adalid Jay Measurements Intervals [place] Rate: 59 P: 41 [place]: 184 QRS: -39 QRSD: 116 T: 234 QT: 498 QTc: 493 Interpretive Statements SINUS RHYTHM LEFT ANTERIOR FASCICULAR BLOCK LVH WITH REPOLARIZATION ABNORMALITY QRS(T) CONTOUR ABNORMALITY CONSIDER ANTEROLATERAL INFARCT Electronically Signed On 09-26-2021 17:51:44 CDT by Adalid Jay
--- NOTE | 2021-09-21 16:13 | RAD ---
XR CHEST 1V History: Reason: Chest pain STARTING IV AT 345PM / Spl. Instructions: / History: Comparison: August 02, 2021 Findings: Mild bilateral interstitial thickening with ill-defined opacities. Hyperinflation. No pleural effusio n. No pneumothorax. Enlarged cardiac size. Impression: 1. Mild diffuse interstitial thickening with ill-defined opacities, may represent pulmonary edema or infection. Electronically signed by: Sacha Patricia DO (09/21/2021 4:10 PM) [facility]
[2021-09-21] MEDS ORDERED: NITROGLYCERIN PREMIX 250 ML IV ONE (16:30)
[2021-09-21 16:32] LABS: BASO # 0.1 x10^3/uL (0.0-0.2); BASO % 1 % (0-3); EOS # 0.2 x10^3/uL (0.0-0.7); EOS % 3 % (0-3); HEMATOCRIT 33.7 % (36.0-47.0); HEMOGLOBIN 11.2 g/dL (12.0-15.5); LYMPH # 1.4 x10^3/uL (1.0-4.8); LYMPH % 22 % (24-48); MEAN CORPUSCULAR HEMOGLOBIN 32 pg (25-35); MEAN CORPUSCULAR HGB CONC 33 g/dL (31-37); MEAN CORPUSCULAR VOLUME 95 fL (79-100); MONO # 0.5 x10^3/uL (0.0-1.1); MONO % 8 % (0-9); NEUT # 4.5 x10^3/uL (1.8-7.7); NEUT % 67 % (31-73); PLATELET COUNT 212 x10^3/uL (140-400); RED BLOOD COUNT 3.54 x10^6/uL (3.50-5.40); RED CELL DISTRIBUTION WIDTH 17.5 % (11.5-14.5); WHITE BLOOD COUNT 6.7 x10^3/uL (4.0-11.0)
[2021-09-21 16:47] LABS: CALCIUM 9.2 mg/dL (8.5-10.1); CREATININE 1.1 mg/dL (0.6-1.0); GFR 59.1; POTASSIUM 3.8 mmol/L (3.5-5.1)
[2021-09-21 16:53] LABS: ALBUMIN 3.5 g/dL (3.4-5.0); PROTHROMBIN TIME PATIENT 18.4 SEC (11.7-14.0); TOTAL BILIRUBIN 0.5 mg/dL (0.2-1.0); TOTAL PROTEIN 6.9 g/dL (6.4-8.2)
--- NOTE | 2021-09-21 17:02 | PDOC2 ---
CONSULT Date of Consult Date of Consult DATE: 09/21/21 TIME: 16:53 Reason for Consult Reason for Consult: Increased dyspnea on exertion and chest pressure Referring Physician Referring Physician: Dr. Flynn Identification/Chief Complaint Chief Complaint Increasing dyspnea on exertion Source Source: Chart review, Patient History of Present Illness Reason for Visit: The patient is a 71-year-old female who presented with 1 week of increasing dyspnea on exertion and some episodes of chest pressure. She denies any acute new onset of severe chest discomfort. She has an extensive cardiac history including coronary artery disease, cardiomyopathy, hypertension and hyperlipidemia. She has previously been seen in the heart failure clinic. She was also seen earlier this month in our office by Dr. Augustine. She states that she has recently had her medicines changed at although we do not have recent records. Since that time she has not been feeling well. At the present time she appears relatively comfortable in bed. Her chest discomfort has largely resolved. Her shortness of breath has improved. The patient's most recent catheterization was on 08/11/2020 that showed a patent stent in the right coronary artery and a mid to distal 60% LAD lesion. Her blood pressures remain significantly elevated in the emergency room and she is somewhat uncertain of what medications she is taking now. Initial lab is pending. Past Medical History Cardiovascular: AFIB, CAD, CHF, HTN, Hyperlipidemia, Other Pulmonary: COPD, Pneumonia CENTRAL NERVOUS SYSTEM: CVA GI: GERD Hepatobiliary: No pertinent hx Psych: Anxiety, Depression Musculoskeletal: Osteoarthritis Past Surgical History Past Surgical History: Hysterectomy, Other (Coronary stenting to the RCA) Family History Family History: Heart Disease, Stroke Social History <1 pack per day ALCOHOL: none Drugs: None Lives: with Family Current Medications Current Medications Current Medications Nitroglycerin/ Dextrose 250 ml @ 30 mls/hr 1X ONCE IV ; Start 09/21/21 at 16:30; Stop 09/22/21 at 00:49 Active Scripts Active Azithromycin Tablet (Azithromycin) 250 Mg Tablet 1 Pkg PO UD 5 Days 2 the first day followed by 1 for days 2-5 Aspirin Ec (Aspirin) 81 Mg Tablet. 81 Mg PO DAILYWBKFT 30 Days Entresto 49 mg-51 mg Tablet (Sacubitril/Valsartan) 1 Each Tablet 1 Tab PO BID 90 Days Atorvastatin Calcium 40 Mg Tablet 40 Mg PO QHS 30 Days Reported Xyzal (Levocetirizine Dihydrochloride) 5 Mg Tablet 5 Mg PO QHS Cyclobenzaprine Hcl 10 Mg Tablet 1 Tab PO QHS Nicotrol (Nicotine) 10 Mg Cartridge 1 INH QID PRN Xarelto (Rivaroxaban) 20 Mg Tablet 20 Mg PO DAILY Allergies Allergies: Coded Allergies: No Known Drug Allergies (Unverified , 05/26/21) ROS PSYCHOLOGICAL ROS: YES: Anxiety Respiratory: YES: Shortness of breath Cardiovascular: yes Chest Pain Physical Exam General: mild distress HEENT: Atraumatic Lungs: Other (Slightly decreased breath sounds in the bases.) Heart: Regular rate Abdomen: Normal bowel sounds Vitals VITALS Vital Signs Date Time Temp Pulse Resp B/P (MAP) Pulse Ox O2 Delivery O2 Flow Rate FiO2 09/21/21 16:33 62 29 192/82 (118) 98 09/21/21 14:55 98.2 Room Air 98.2 Labs Labs Laboratory Tests Test 09/21/21 15:48 White Blood Count 6.7 x10^3/uL (4.0-11.0) Red Blood Count 3.54 x10^6/uL (3.50-5.40) Hemoglobin 11.2 g/dL (12.0-15.5) Hematocrit 33.7 % (36.0-47.0) Mean Corpuscular Volume 95 fL (79-100) Mean Corpuscular Hemoglobin 32 pg (25-35) Mean Corpuscular Hemoglobin Concent 33 g/dL (31-37) Red Cell Distribution Width 17.5 % (11.5-14.5) Platelet Count 212 x10^3/uL (140-400) Neutrophils (%) (Auto) 67 % (31-73) Lymphocytes (%) (Auto) 22 % (24-48) Monocytes (%) (Auto) 8 % (0-9) Eosinophils (%) (Auto) 3 % (0-3) Basophils (%) (Auto) 1 % (0-3) Neutrophils # (Auto) 4.5 x10^3/uL (1.8-7.7) Lymphocytes # (Auto) 1.4 x10^3/uL (1.0-4.8) Monocytes # (Auto) 0.5 x10^3/uL (0.0-1.1) Eosinophils # (Auto) 0.2 x10^3/uL (0.0-0.7) Basophils # (Auto) 0.1 x10^3/uL (0.0-0.2) Sodium Level 141 mmol/L (136-145) Potassium Level 3.8 mmol/L (3.5-5.1) Chloride Level 106 mmol/L (98-107) Carbon Dioxide Level 24 mmol/L (21-32) Anion Gap 11 (6-14) Blood Urea Nitrogen 15 mg/dL (7-20) Creatinine 1.1 mg/dL (0.6-1.0) Estimated GFR (Cockcroft-Gault) 59.1 BUN/Creatinine Ratio 14 (6-20) Glucose Level 104 mg/dL (70-99) Calcium Level 9.2 mg/dL (8.5-10.1) Laboratory Tests Test 09/21/21 15:48 White Blood Count 6.7 x10^3/uL (4.0-11.0) Red Blood Count 3.54 x10^6/uL (3.50-5.40) Hemoglobin 11.2 g/dL (12.0-15.5) Hematocrit 33.7 % (36.0-47.0) Mean Corpuscular Volume 95 fL (79-100) Mean Corpuscular Hemoglobin 32 pg (25-35) Mean Corpuscular Hemoglobin Concent 33 g/dL (31-37) Red Cell Distribution Width 17.5 % (11.5-14.5) Platelet Count 212 x10^3/uL (140-400) Neutrophils (%) (Auto) 67 % (31-73) Lymphocytes (%) (Auto) 22 % (24-48) Monocytes (%) (Auto) 8 % (0-9) Eosinophils (%) (Auto) 3 % (0-3) Basophils (%) (Auto) 1 % (0-3) Neutrophils # (Auto) 4.5 x10^3/uL (1.8-7.7) Lymphocytes # (Auto) 1.4 x10^3/uL (1.0-4.8) Monocytes # (Auto) 0.5 x10^3/uL (0.0-1.1) Eosinophils # (Auto) 0.2 x10^3/uL (0.0-0.7) Basophils # (Auto) 0.1 x10^3/uL (0.0-0.2) Sodium Level 141 mmol/L (136-145) Potassium Level 3.8 mmol/L (3.5-5.1) Chloride Level 106 mmol/L (98-107) Carbon Dioxide Level 24 mmol/L (21-32) Anion Gap 11 (6-14) Blood Urea Nitrogen 15 mg/dL (7-20) Creatinine 1.1 mg/dL (0.6-1.0) Estimated GFR (Cockcroft-Gault) 59.1 BUN/Creatinine Ratio 14 (6-20) Glucose Level 104 mg/dL (70-99) Calcium Level 9.2 mg/dL (8.5-10.1) Assessment/Plan Assessment/Plan 1. Increasing dyspnea on exertion and chest discomfort. Patient is feeling better in the emergency room. She has a history of coronary disease as noted above. Also her EKG shows new ST-T wave changes in V1 and V2. At this time will control her hypertension with IV nitroglycerin. We will attempt to obtain clear records of her present medications. We will start IV heparin after her blood pressure is under better control. She will probably require a repeat catheterization in the next several days. 2. Cardiomyopathy. Has been seen at heart failure clinic. Most recent echocardiogram showed an ejection fraction of 40% with a dilated left ventricle. We will continue present medications. We will repeat an echocardiogram. 3. Hypertension. IV nitroglycerin initially and we will attempt to clarify her present antihypertensive medications. 4. Hyperlipidemia. Continue statin. 5. History of paroxysmal atrial fibrillation. We will continue to monitor. 6. History of COPD. Will resume baseline medications. Thank you for allowing us to participate in the care of your patient. JOSH PINON MD Sep 21, 2021 17:02
[2021-09-21 21:20] VITALS: BP 151/105
--- NOTE | 2021-09-21 21:37 | PDOC1 ---
History and Physical Date of Admission Date of Admission DATE: 09/21/21 TIME: 21:28 History of Present Illness History of Present Illness Ms. Calabrese is a 71 year old female admit with worsening chest pain and lower extremity edema. She has been started on nitro gtt and complains of headache, Patient states that she was recently hospitalized at and they changed all her meds and that is when the problems started because her meds were all wrong. Her story conflicts at times as she also tells me she hasnt been hospitalized in 20 years but was admitted her 6 weeks ago. she still smokes. she reported chest pain with exertion, Recent cardiac catheterization was on 08/11/2020 mid to distal 60% LAD lesion. Past Medical History Past Medical History coronary artery disease, cardiomyopathy, hypertension and hyperlipidemia Cardiovascular: AFIB, CAD, CHF, HTN, Hyperlipidemia, Other Pulmonary: COPD, Pneumonia CENTRAL NERVOUS SYSTEM: CVA GI: GERD Hepatobiliary: No pertinent hx Psych: Anxiety, Depression Musculoskeletal: Osteoarthritis Past Surgical History Past Surgical History: Hysterectomy, Other (Coronary stenting to the RCA) Family History Family History: Heart Disease, Stroke Social History Smoke: <1 pack per day ALCOHOL: none Drugs: None Current Problem List Problem List Problems Medical Problems: (1) CHF (congestive heart failure) Status: Acute (2) Unstable angina Status: Acute Current Medications Current Medications Current Medications Nitroglycerin/ Dextrose 250 ml @ 30 mls/hr 1X ONCE IV Last administered on 09/21/21at 17:50; Start 09/21/21 at 16:30; Stop 09/22/21 at 00:49 Active Scripts Active Azithromycin Tablet (Azithromycin) 250 Mg Tablet 1 Pkg PO UD 5 Days 2 the first day followed by 1 for days 2-5 Aspirin Ec (Aspirin) 81 Mg Tablet.dr 81 Mg PO DAILYWBKFT 30 Days Entresto 49 mg-51 mg Tablet (Sacubitril/Valsartan) 1 Each Tablet 1 Tab PO BID 90 Days Atorvastatin Calcium 40 Mg Tablet 40 Mg PO QHS 30 Days Reported Xyzal (Levocetirizine Dihydrochloride) 5 Mg Tablet 5 Mg PO QHS Cyclobenzaprine Hcl 10 Mg Tablet 1 Tab PO QHS Nicotrol (Nicotine) 10 Mg Cartridge 1 INH QID PRN Xarelto (Rivaroxaban) 20 Mg Tablet 20 Mg PO DAILY Allergies Allergies: Coded Allergies: No Known Drug Allergies (Unverified , 05/26/21) ROS General: YES: Fatigue, Malaise; No: Chills, Night Sweats, Appetite, Other PSYCHOLOGICAL ROS: YES: Sleep disturbances; No: Anxiety, Behavioral Disorder, Concentration difficultie, Decreased libido, Depression, Disorientation, Hallucinations, Hostility, Irritablity, Memory difficulties, Mood Swings, Obsessive thoughts, Other Eyes: No Blurry vision, No Decreased vision, No Double vision, No Dry eyes, No Eye Pain, No Itchy Eyes, No Loss of vision, No Photophobia, No Scotomata, No Uses contacts, No Uses glasses, No Other HEENT: YES: Heacaches; No: Visual Changes, Hearing change, Nasal congestion, Nasal discharge, Oral lesions, Sinus pain, Sore Throat, Epistaxis, Sneezing, Snoring, Tinnitus, Vertigo, Vocal changes, Other Respiratory: No: Cough, Hemoptysis, Orthopnea, Pleuritic Pain, Shortness of breath, SOB with excertion, Sputum Changes, Stridor, Tachypnea, Wheezing, Other Cardiovascular: yes Chest Pain; No Palpitations, No Orthopnea, No Paroxysmal Noc. Dyspnea, No Edema, No Lt Headedness, No Other Gastrointestinal: Yes Nausea; No Vomiting, No Abdominal Pain, No Diarrhea, No Constipation, No Melena, No Hematochezia, No Other Genitourinary: No Dysuria, No Frequency, No Incontinence, No Hematuria, No Retention, No Discharge, No Urgency, No Pain, No Flank Pain, No Other, No , No , No , No , No , No , No Musculoskeletal: Yes Joint Stiffness; No Gait Disturbance, No Joint Pain, No Joint Swelling, No Muscle Pain, No Muscular Weakness, No Pain In:, No Swelling In:, No Other Neurological: No Behavorial Changes, No Bowel/Bladder ControlChng, No Confusion, No Dizziness, No Gait Disturbance, No Headaches, No Impaired Coord/balance, No Memory Loss, No Numbness/Tingling, No Seizures, No Speech Problems, No Tremors, No Visual Changes, No Weakness, No Other Skin: No Dry Skin, No Eczema, No Hair Changes, No Lumps, No Mole Changes, No Mottling, No Nail Changes, No Pruritus, No Rash, No Skin Lesion Changes, No Other, No Acne Physical Exam General: Alert, Oriented X3, Cooperative, mild distress HEENT: PERRLA, EOMI Lungs: Clear to auscultation, Normal air movement Heart: no murmurs, irregularly irregular Abdomen: Normal bowel sounds Rectal Exam: not examined Extremities: No clubbing, No cyanosis, No edema Skin: No significant lesion Neuro: Normal speech, Cranial nerves 3-12 NL Psych/Mental Status: Mood NL Vitals Vitals Vital Signs Date Time Temp Pulse Resp B/P (MAP) Pulse Ox O2 Delivery O2 Flow Rate FiO2 09/21/21 21:20 98.2 66 20 151/105 (120) 93 Room Air 98.2 Labs Labs Laboratory Tests Test 09/21/21 15:48 White Blood Count 6.7 x10^3/uL (4.0-11.0) Red Blood Count 3.54 x10^6/uL (3.50-5.40) Hemoglobin 11.2 g/dL (12.0-15.5) Hematocrit 33.7 % (36.0-47.0) Mean Corpuscular Volume 95 fL (79-100) Mean Corpuscular Hemoglobin 32 pg (25-35) Mean Corpuscular Hemoglobin Concent 33 g/dL (31-37) Red Cell Distribution Width 17.5 % (11.5-14.5) Platelet Count 212 x10^3/uL (140-400) Neutrophils (%) (Auto) 67 % (31-73) Lymphocytes (%) (Auto) 22 % (24-48) Monocytes (%) (Auto) 8 % (0-9) Eosinophils (%) (Auto) 3 % (0-3) Basophils (%) (Auto) 1 % (0-3) Neutrophils # (Auto) 4.5 x10^3/uL (1.8-7.7) Lymphocytes # (Auto) 1.4 x10^3/uL (1.0-4.8) Monocytes # (Auto) 0.5 x10^3/uL (0.0-1.1) Eosinophils # (Auto) 0.2 x10^3/uL (0.0-0.7) Basophils # (Auto) 0.1 x10^3/uL (0.0-0.2) Prothrombin Time 18.4 SEC (11.7-14.0) Prothromb Time International Ratio 1.6 (0.8-1.1) Sodium Level 141 mmol/L (136-145) Potassium Level 3.8 mmol/L (3.5-5.1) Chloride Level 106 mmol/L (98-107) Carbon Dioxide Level 24 mmol/L (21-32) Anion Gap 11 (6-14) Blood Urea Nitrogen 15 mg/dL (7-20) Creatinine 1.1 mg/dL (0.6-1.0) Estimated GFR (Cockcroft-Gault) 59.1 BUN/Creatinine Ratio 14 (6-20) Glucose Level 104 mg/dL (70-99) Calcium Level 9.2 mg/dL (8.5-10.1) Total Bilirubin 0.5 mg/dL (0.2-1.0) Aspartate Amino Transf (AST/SGOT) 43 U/L (15-37) Alanine Aminotransferase (ALT/SGPT) 45 U/L (14-59) Alkaline Phosphatase 71 U/L (46-116) Troponin I High Sensitivity 50 ng/L (4-50) VL-Tiw-A-Type Natriuretic Peptide 5014 pg/mL (0-124) Total Protein 6.9 g/dL (6.4-8.2) Albumin 3.5 g/dL (3.4-5.0) Albumin/Globulin Ratio 1.0 (1.0-1.7) Laboratory Tests Test 09/21/21 15:48 White Blood Count 6.7 x10^3/uL (4.0-11.0) Red Blood Count 3.54 x10^6/uL (3.50-5.40) Hemoglobin 11.2 g/dL (12.0-15.5) Hematocrit 33.7 % (36.0-47.0) Mean Corpuscular Volume 95 fL (79-100) Mean Corpuscular Hemoglobin 32 pg (25-35) Mean Corpuscular Hemoglobin Concent 33 g/dL (31-37) Red Cell Distribution Width 17.5 % (11.5-14.5) Platelet Count 212 x10^3/uL (140-400) Neutrophils (%) (Auto) 67 % (31-73) Lymphocytes (%) (Auto) 22 % (24-48) Monocytes (%) (Auto) 8 % (0-9) Eosinophils (%) (Auto) 3 % (0-3) Basophils (%) (Auto) 1 % (0-3) Neutrophils # (Auto) 4.5 x10^3/uL (1.8-7.7) Lymphocytes # (Auto) 1.4 x10^3/uL (1.0-4.8) Monocytes # (Auto) 0.5 x10^3/uL (0.0-1.1) Eosinophils # (Auto) 0.2 x10^3/uL (0.0-0.7) Basophils # (Auto) 0.1 x10^3/uL (0.0-0.2) Prothrombin Time 18.4 SEC (11.7-14.0) Prothromb Time International Ratio 1.6 (0.8-1.1) Sodium Level 141 mmol/L (136-145) Potassium Level 3.8 mmol/L (3.5-5.1) Chloride Level 106 mmol/L (98-107) Carbon Dioxide Level 24 mmol/L (21-32) Anion Gap 11 (6-14) Blood Urea Nitrogen 15 mg/dL (7-20) Creatinine 1.1 mg/dL (0.6-1.0) Estimated GFR (Cockcroft-Gault) 59.1 BUN/Creatinine Ratio 14 (6-20) Glucose Level 104 mg/dL (70-99) Calcium Level 9.2 mg/dL (8.5-10.1) Total Bilirubin 0.5 mg/dL (0.2-1.0) Aspartate Amino Transf (AST/SGOT) 43 U/L (15-37) Alanine Aminotransferase (ALT/SGPT) 45 U/L (14-59) Alkaline Phosphatase 71 U/L (46-116) Troponin I High Sensitivity 50 ng/L (4-50) MQ-Ajd-F-Type Natriuretic Peptide 5014 pg/mL (0-124) Total Protein 6.9 g/dL (6.4-8.2) Albumin 3.5 g/dL (3.4-5.0) Albumin/Globulin Ratio 1.0 (1.0-1.7) VTE Prophylaxis Ordered VTE Prophylaxis Devices: Yes VTE Pharmacological Prophylaxi: Yes Assessment/Plan Assessment/Plan 1. Angina, admit to asses stability, consult CV, IV nitroglycerin started in ER per CV team, will treat headache plan to start IV heparin after the blood pressure is under better control. plan for cardiac cath 2. acute on chronic combined CHF, ischemi Cardiomyopathy. with hyperlipids, CAD, Has been seen at heart failure clinic. ON entresto 3. acclerated hypertension, IV nitroglycerin 4. COPD and ongoing tobacco abuse disorder 5. cognitive decline 6. obese, BMI 42 Justifications for Admission Other Justification BUCK CONLEY MD Sep 21, 2021 21:37
[2021-09-21] MEDS: CYCLOBENZAPRINE 10 MG TABLET. PO SCH (22:10)
[2021-09-21] MEDS: ZOLPIDEM 5 MG TABLET. PO PRN (22:11)
[2021-09-21] MEDS: SACUBITRIL/VALSARTAN 49/51MG TABLET. PO SCH (22:11)
[2021-09-21] MEDS: oxyCODONE/APAP 5/325 1 TAB TABLET PO PRN (22:12)
[2021-09-21] MEDS: ATORVASTATIN CALCIUM 40 MG TABLET. PO SCH (22:13)
[2021-09-21] MEDS: CETIRIZINE HCL 10 MG TABLET. PO SCH (22:13)
[2021-09-21] MEDS ORDERED: [UNRECOGNIZED DRUG - CODE] PO (22:46)
[2021-09-21 23:00] VITALS: BP 163/77
[2021-09-21] MEDS: NITROGLYCERIN PREMIX 250 ML IV PRN (23:21)
[2021-09-22] MEDS ORDERED: HEPARIN for IV BOLUS 10,000 UNIT/10 ML VIAL. IV PRN ×3 (01:45→02:15)
[2021-09-22] MEDS ORDERED: HEPARIN 25,000UTS/250ML PREMIX 250 ML IV PRN (01:45)
[2021-09-22] MEDS ORDERED: ANTI-COAG MONITOR BY PHARMACY. MC PRN (02:00)
[2021-09-22 02:31] LABS: BASO # 0.1 x10^3/uL (0.0-0.2); BASO % 1 % (0-3); EOS # 0.2 x10^3/uL (0.0-0.7); EOS % 3 % (0-3); HEMATOCRIT 30.2 % (36.0-47.0); HEMOGLOBIN 10.2 g/dL (12.0-15.5); LYMPH # 1.6 x10^3/uL (1.0-4.8); LYMPH % 24 % (24-48); MEAN CORPUSCULAR HEMOGLOBIN 32 pg (25-35); MEAN CORPUSCULAR HGB CONC 34 g/dL (31-37); MEAN CORPUSCULAR VOLUME 95 fL (79-100); MONO # 0.5 x10^3/uL (0.0-1.1); MONO % 7 % (0-9); NEUT # 4.3 x10^3/uL (1.8-7.7); NEUT % 65 % (31-73); PLATELET COUNT 204 x10^3/uL (140-400); RED BLOOD COUNT 3.19 x10^6/uL (3.50-5.40); RED CELL DISTRIBUTION WIDTH 17.3 % (11.5-14.5); WHITE BLOOD COUNT 6.6 x10^3/uL (4.0-11.0)
[2021-09-22] MEDS: HEPARIN 25,000UTS/250ML PREMIX 250 ML IV PRN (02:45)
[2021-09-22 02:51] LABS: ALBUMIN 3.1 g/dL (3.4-5.0); CALCIUM 8.8 mg/dL (8.5-10.1); CREATININE 1.1 mg/dL (0.6-1.0); GFR 59.1; POTASSIUM 3.7 mmol/L (3.5-5.1); TOTAL BILIRUBIN 0.6 mg/dL (0.2-1.0); TOTAL PROTEIN 6.1 g/dL (6.4-8.2)
[2021-09-22 03:00] VITALS: BP 181/75
[2021-09-22] MEDS: NITROGLYCERIN PREMIX 250 ML IV PRN ×5 (03:12→21:53)
[2021-09-22 07:00] VITALS: BP 151/68
--- NOTE | 2021-09-22 07:30 | NUR ---
Patient assessed for elopement risk per elopement policy and procedure, patient not deemed a risk.
[2021-09-22] MEDS: IPRATROPIUM BROMIDE 0.5 MG/2.5 ML NEBU. NEB SCH ×4 (07:40→21:04)
[2021-09-22] MEDS ORDERED: METO-239 PO (07:59)
[2021-09-22] MEDS ORDERED: ISOS30TA68 PO (07:59)
[2021-09-22] MEDS ORDERED: AMLO-186 PO (07:59)
[2021-09-22] MEDS ORDERED: HYDR-2868 PO (07:59)
[2021-09-22] MEDS ORDERED: DAPA10TA PO (07:59)
[2021-09-22] MEDS ORDERED: ASPIRIN ENTERIC COATED 81 MG TABLET.DR. PO SCH (08:00)
[2021-09-22] MEDS: SACUBITRIL/VALSARTAN 49/51MG TABLET. PO SCH ×2 (08:49→21:41)
[2021-09-22] MEDS: oxyCODONE/APAP 5/325 1 TAB TABLET PO PRN ×2 (09:03→21:46)
[2021-09-22 10:32] VITALS: BP 182/78
[2021-09-22] MEDS: hydrALAZINE 25 MG TABLET PO SCH ×2 (13:34→21:40)
[2021-09-22] MEDS ORDERED: METOPROLOL SUCC 24HR ER 25 MG TAB.ER.24H. PO SCH (14:00)
[2021-09-22 14:45] VITALS: BP 147/65
--- NOTE | 2021-09-22 16:18 | PDOC ---
PROGRESS NOTES Date of Service DATE: 09/22/21 TIME: 16:16 Subjective Subjective Patient seen and examined She looks and feels better today. Objective Objective Vital Signs Date Time Temp Pulse Resp B/P (MAP) Pulse Ox O2 Delivery O2 Flow Rate FiO2 09/22/21 15:57 94 Room Air 09/22/21 14:45 98.4 66 19 147/65 (92) 98.4 Intake and Output 09/22/21 07:00 Intake Total 420 ml Output Total 100 ml Balance 320 ml Intake Oral 420 ml Output Urine Total 100 ml Physical Exam Abdomen: Normal bowel sounds Heart: Regular rate General: No acute distress Lungs: Other (Mildly decreased breath sounds) Assessment Assessment Problems Medical Problems: (1) CHF (congestive heart failure) Status: Acute (2) Unstable angina Status: Acute 1. Increasing dyspnea on exertion and chest discomfort. The patient's chest pain has resolved. Troponins are normal at 50 and 44. We will complete rule out protocol. She does however have new ST-T wave changes in V1 and V2. Continuing present treatment. Possible catheterization Friday. The patient's dyspnea as well has improved but not resolved. Continuing present treatment. 2. Cardiomyopathy. Has been seen at heart failure clinic. Most recent echocardiogram showed an ejection fraction of 40% with a dilated left ventricle. We will continue present medications. We will repeat an echocardiogram. 3. Hypertension. IV nitroglycerin initially and we we will convert to oral medications. 4. Hyperlipidemia. Continue statin. 5. History of paroxysmal atrial fibrillation. We will continue to monitor. 6. History of COPD. Will resume baseline medications. Comment Review of Relevant I have reviewed the following items amna (where applicable) has been applied. Labs Laboratory Tests Test 09/21/21 15:48 09/22/21 02:00 09/22/21 08:15 09/22/21 15:00 White Blood Count 6.7 x10^3/uL (4.0-11.0) 6.6 x10^3/uL (4.0-11.0) Red Blood Count 3.54 x10^6/uL (3.50-5.40) 3.19 x10^6/uL (3.50-5.40) Hemoglobin 11.2 g/dL (12.0-15.5) 10.2 g/dL (12.0-15.5) Hematocrit 33.7 % (36.0-47.0) 30.2 % (36.0-47.0) Mean Corpuscular Volume 95 fL (79-100) 95 fL (79-100) Mean Corpuscular Hemoglobin 32 pg (25-35) 32 pg (25-35) Mean Corpuscular Hemoglobin Concent 33 g/dL (31-37) 34 g/dL (31-37) Red Cell Distribution Width 17.5 % (11.5-14.5) 17.3 % (11.5-14.5) Platelet Count 212 x10^3/uL (140-400) 204 x10^3/uL (140-400) Neutrophils (%) (Auto) 67 % (31-73) 65 % (31-73) Lymphocytes (%) (Auto) 22 % (24-48) 24 % (24-48) Monocytes (%) (Auto) 8 % (0-9) 7 % (0-9) Eosinophils (%) (Auto) 3 % (0-3) 3 % (0-3) Basophils (%) (Auto) 1 % (0-3) 1 % (0-3) Neutrophils # (Auto) 4.5 x10^3/uL (1.8-7.7) 4.3 x10^3/uL (1.8-7.7) Lymphocytes # (Auto) 1.4 x10^3/uL (1.0-4.8) 1.6 x10^3/uL (1.0-4.8) Monocytes # (Auto) 0.5 x10^3/uL (0.0-1.1) 0.5 x10^3/uL (0.0-1.1) Eosinophils # (Auto) 0.2 x10^3/uL (0.0-0.7) 0.2 x10^3/uL (0.0-0.7) Basophils # (Auto) 0.1 x10^3/uL (0.0-0.2) 0.1 x10^3/uL (0.0-0.2) Prothrombin Time 18.4 SEC (11.7-14.0) Prothromb Time International Ratio 1.6 (0.8-1.1) Sodium Level 141 mmol/L (136-145) 140 mmol/L (136-145) Potassium Level 3.8 mmol/L (3.5-5.1) 3.7 mmol/L (3.5-5.1) Chloride Level 106 mmol/L (98-107) 107 mmol/L (98-107) Carbon Dioxide Level 24 mmol/L (21-32) 25 mmol/L (21-32) Anion Gap 11 (6-14) 8 (6-14) Blood Urea Nitrogen 15 mg/dL (7-20) 17 mg/dL (7-20) Creatinine 1.1 mg/dL (0.6-1.0) 1.1 mg/dL (0.6-1.0) Estimated GFR (Cockcroft-Gault) 59.1 59.1 BUN/Creatinine Ratio 14 (6-20) 15 (6-20) Glucose Level 104 mg/dL (70-99) 110 mg/dL (70-99) Calcium Level 9.2 mg/dL (8.5-10.1) 8.8 mg/dL (8.5-10.1) Total Bilirubin 0.5 mg/dL (0.2-1.0) 0.6 mg/dL (0.2-1.0) Aspartate Amino Transf (AST/SGOT) 43 U/L (15-37) 31 U/L (15-37) Alanine Aminotransferase (ALT/SGPT) 45 U/L (14-59) 40 U/L (14-59) Alkaline Phosphatase 71 U/L (46-116) 58 U/L (46-116) Troponin I High Sensitivity 50 ng/L (4-50) 44 ng/L (4-50) [id number]-Type Natriuretic Peptide 5014 pg/mL (0-124) Total Protein 6.9 g/dL (6.4-8.2) 6.1 g/dL (6.4-8.2) Albumin 3.5 g/dL (3.4-5.0) 3.1 g/dL (3.4-5.0) Albumin/Globulin Ratio 1.0 (1.0-1.7) 1.0 (1.0-1.7) Activated Partial Thromboplast Time 28 SEC (24-38) > 150 SEC (24-38) Laboratory Tests Test 09/22/21 02:00 09/22/21 08:15 09/22/21 15:00 White Blood Count 6.6 x10^3/uL (4.0-11.0) Red Blood Count 3.19 x10^6/uL (3.50-5.40) Hemoglobin 10.2 g/dL (12.0-15.5) Hematocrit 30.2 % (36.0-47.0) Mean Corpuscular Volume 95 fL (79-100) Mean Corpuscular Hemoglobin 32 pg (25-35) Mean Corpuscular Hemoglobin Concent 34 g/dL (31-37) Red Cell Distribution Width 17.3 % (11.5-14.5) Platelet Count 204 x10^3/uL (140-400) Neutrophils (%) (Auto) 65 % (31-73) Lymphocytes (%) (Auto) 24 % (24-48) Monocytes (%) (Auto) 7 % (0-9) Eosinophils (%) (Auto) 3 % (0-3) Basophils (%) (Auto) 1 % (0-3) Neutrophils # (Auto) 4.3 x10^3/uL (1.8-7.7) Lymphocytes # (Auto) 1.6 x10^3/uL (1.0-4.8) Monocytes # (Auto) 0.5 x10^3/uL (0.0-1.1) Eosinophils # (Auto) 0.2 x10^3/uL (0.0-0.7) Basophils # (Auto) 0.1 x10^3/uL (0.0-0.2) Sodium Level 140 mmol/L (136-145) Potassium Level 3.7 mmol/L (3.5-5.1) Chloride Level 107 mmol/L (98-107) Carbon Dioxide Level 25 mmol/L (21-32) Anion Gap 8 (6-14) Blood Urea Nitrogen 17 mg/dL (7-20) Creatinine 1.1 mg/dL (0.6-1.0) Estimated GFR (Cockcroft-Gault) 59.1 BUN/Creatinine Ratio 15 (6-20) Glucose Level 110 mg/dL (70-99) Calcium Level 8.8 mg/dL (8.5-10.1) Total Bilirubin 0.6 mg/dL (0.2-1.0) Aspartate Amino Transf (AST/SGOT) 31 U/L (15-37) Alanine Aminotransferase (ALT/SGPT) 40 U/L (14-59) Alkaline Phosphatase 58 U/L (46-116) Troponin I High Sensitivity 44 ng/L (4-50) Total Protein 6.1 g/dL (6.4-8.2) Albumin 3.1 g/dL (3.4-5.0) Albumin/Globulin Ratio 1.0 (1.0-1.7) Activated Partial Thromboplast Time 28 SEC (24-38) > 150 SEC (24-38) Medications Current Medications Nitroglycerin/ Dextrose 250 ml @ 30 mls/hr 1X ONCE IV Last administered on 09/21/21at 17:50; Start 09/21/21 at 16:30; Stop 09/22/21 at 00:49; Status DC Oxycodone/ Acetaminophen (Percocet 5/325) 1 tab PRN Q4HRS PRN PO MODERATE PAIN 4-6 Last administered on 09/22/21at 09:03; Start 09/21/21 at 21:30 Zolpidem Tartrate (Ambien) 5 mg PRN QHS PRN PO INSOMNIA Last administered on 09/21/21at 22:11; Start 09/21/21 at 21:30 Ipratropium [place] (Atrovent) 0.5 mg RTQID NEB Last administered on 09/22/21at 15:55; Start 09/22/21 at 08:00 Aspirin (Ecotrin) 81 mg DAILYWBKFT PO Last administered on 09/22/21at 08:48; Start 09/22/21 at 08:00 Atorvastatin Calcium (Lipitor) 40 mg QHS PO Last administered on 09/21/21at 22:13; Start 09/21/21 at 22:00 Cyclobenzaprine HCl (Flexeril) 10 mg QHS PO Last administered on 09/21/21at 22:10; Start 09/21/21 at 22:00 Sacubitril/ Valsartan (Entresto 49 Mg-51 Mg) 1 tab BID PO Last administered on 09/22/21at 08:49; Start 09/21/21 at 22:00 Cetirizine HCl (ZyrTEC) 10 mg QHS PO Last administered on 09/21/21at 22:13; Start 09/21/21 at 22:00 Nitroglycerin/ Dextrose 250 ml @ 1.5 mls/hr CONT PRN IV SEE I/O RECORD Last administered on 09/22/21at 15:24; Start 09/21/21 at 23:00 Amlodipine Besylate (Norvasc) 5 mg 1X ONCE PO Last administered on 09/22/21at 02:41; Start 09/22/21 at 02:00; Stop 09/22/21 at 02:02; Status DC Heparin Sodium/ Dextrose 250 ml @ 10 mls/hr CONT PRN IV PER PROTOCOL; Start 09/22/21 at 01:45; Status Cancel Heparin Sodium (Porcine) (Heparin Sodium) 2,950 unit PRN Q6HRS PRN IV FOR UFH LEVEL LESS THAN 0.2; Start 09/22/21 at 01:45; Status Cancel Info (Anti-Coagulation Monitoring By Pharmacy) 1 each PRN DAILY PRN MC PER PROTOCOL Last administered on 09/22/21at 04:43; Start 09/22/21 at 02:00 Heparin Sodium/ Dextrose 250 ml @ 10 mls/hr CONT PRN IV PER PROTOCOL Last administered on 09/22/21at 02:45; Start 09/22/21 at 02:15 Heparin Sodium (Porcine) (Heparin Sodium) 25 UNITS / KG PRN Q6HRS PRN IV FOR PTT < 40; Start 09/22/21 at 02:15; Stop 09/22/21 at 02:05; Status DC Heparin Sodium (Porcine) (Heparin Sodium) 2,950 unit PRN Q6HRS PRN IV FOR PTT < 40 Last administered on 09/22/21at 09:21; Start 09/22/21 at 02:15 Amlodipine Besylate (Norvasc) 5 mg DAILY PO Last administered on 09/22/21at 13:34; Start 09/22/21 at 14:00 Hydralazine HCl (Apresoline) 25 mg BID PO Last administered on 09/22/21at 13:34; Start 09/22/21 at 14:00 Metoprolol Succinate (Toprol Xl) 25 mg DAILY PO Last administered on 09/22/21at 13:33; Start 09/22/21 at 14:00 Active Scripts Active Azithromycin Tablet (Azithromycin) 250 Mg Tablet 1 Pkg PO UD 5 Days 2 the first day followed by 1 for days 2-5 Aspirin Ec (Aspirin) 81 Mg Tablet.dr 81 Mg PO DAILYWBKFT 30 Days Entresto 49 mg-51 mg Tablet (Sacubitril/Valsartan) 1 Each Tablet 1 Tab PO BID 90 Days Atorvastatin Calcium 40 Mg Tablet 40 Mg PO QHS 30 Days Reported Farxiga (Dapagliflozin Propanediol) 10 Mg Tablet 1 Tab PO DAILY Amlodipine Besylate 5 Mg Tablet 1 Tab PO DAILY Metoprolol Succinate ( Xl ) (Metoprolol Succinate) 25 Mg Tab.er.24h 1 Tab PO DAILY Isosorbide Mononitrate Er (Isosorbide Mononitrate) 30 Mg Tab.er.24h 1 Tab PO DAILY Hydralazine Hcl 25 Mg Tablet 1 Tab PO BID Promethazine-Codeine Solution (Promethazine HCl/Codeine) 473 Ml Syrup 5 Ml PO PRN Q6HRS PRN Xyzal (Levocetirizine Dihydrochloride) 5 Mg Tablet 5 Mg PO QHS Cyclobenzaprine Hcl 10 Mg Tablet 1 Tab PO QHS Nicotrol (Nicotine) 10 Mg Cartridge 1 INH QID PRN Xarelto (Rivaroxaban) 20 Mg Tablet 20 Mg PO DAILY Vitals/I & O Vital Sign - Last 24 Hours 09/21/21 09/21/21 09/21/21 09/21/21 16:33 17:51 18:15 18:51 Pulse 62 69 62 70 Resp 29 16 20 28 B/P (MAP) 192/82 (118) 183/74 (110) 161/74 (103) 196/74 (114) Pulse Ox 98 95 97 93 O2 Delivery Room Air Room Air Room Air 09/21/21 09/21/21 09/21/21 09/21/21 19:13 19:39 20:35 21:20 Temp 98.2 98.2 Pulse 61 63 61 66 Resp 29 27 28 20 B/P (MAP) 196/74 (114) 170/76 (107) 169/76 (107) 151/105 (120) Pulse Ox 95 94 94 93 O2 Delivery Room Air Room Air Room Air Room Air 09/21/21 09/21/21 09/21/21 09/21/21 22:11 22:12 22:42 23:00 Temp 97.5 97.5 Pulse 66 70 Resp 22 20 20 B/P (MAP) 151/105 163/77 (105) Pulse Ox 93 97 97 O2 Delivery Room Air Room Air Room Air 09/21/21 09/22/21 09/22/21 09/22/21 23:30 02:41 03:00 07:00 Temp 98.1 98.1 Pulse 70 67 76 Resp 21 20 B/P (MAP) 163/77 181/75 (110) 151/68 (95) Pulse Ox 91 95 O2 Delivery Room Air Room Air Room Air 09/22/21 09/22/21 09/22/21 09/22/21 07:42 08:00 08:49 09:03 Pulse 67 B/P (MAP) 151/68 Pulse Ox 92 92 O2 Delivery Room Air Room Air Room Air 09/22/21 09/22/21 09/22/21 09/22/21 09:33 10:32 11:40 13:33 Temp 98.4 98.4 Pulse 88 65 Resp 19 B/P (MAP) 182/78 (112) 161/72 Pulse Ox 92 92 95 O2 Delivery Room Air Room Air Room Air 09/22/21 09/22/21 09/22/21 09/22/21 13:34 13:34 14:45 15:57 Temp 98.4 98.4 Pulse 65 65 66 Resp 19 B/P (MAP) 161/72 161/72 147/65 (92) Pulse Ox 93 94 O2 Delivery Room Air Room Air Intake and Output 09/21/21 09/21/21 09/22/21 15:00 23:00 07:00 Intake Total 120 ml 300 ml Output Total 100 ml Balance 120 ml 200 ml Justifications for Admission Other Justification JOSH PINON MD Sep 22, 2021 16:18
[2021-09-22 19:00] VITALS: BP 184/99
--- NOTE | 2021-09-22 21:10 | PDOC ---
[facility] PROGRESS NOTE Date of Service DOS: DATE: 09/22/21 TIME: 21:10 Vitals/I&O Vitals/I&O: Vital Signs Date Time Temp Pulse Resp B/P (MAP) Pulse Ox O2 Delivery O2 Flow Rate FiO2 09/22/21 21:05 94 Room Air 09/22/21 19:00 98.0 76 21 184/99 (127) 98.0 I & O 09/21/21 09/21/21 09/22/21 15:00 23:00 07:00 Intake Total 120 ml 300 ml Output Total 100 ml Balance 120 ml 200 ml Physical Exam General: No acute distress Heart: Regular rate Lungs: Other Abdomen: Normal bowel sounds Extremities: No clubbing, No cyanosis, No edema Skin: No significant lesion Labs Labs: Laboratory Tests Test 09/22/21 02:00 09/22/21 08:15 09/22/21 15:00 White Blood Count 6.6 x10^3/uL (4.0-11.0) Red Blood Count 3.19 x10^6/uL (3.50-5.40) Hemoglobin 10.2 g/dL (12.0-15.5) Hematocrit 30.2 % (36.0-47.0) Mean Corpuscular Volume 95 fL (79-100) Mean Corpuscular Hemoglobin 32 pg (25-35) Mean Corpuscular Hemoglobin Concent 34 g/dL (31-37) Red Cell Distribution Width 17.3 % (11.5-14.5) Platelet Count 204 x10^3/uL (140-400) Neutrophils (%) (Auto) 65 % (31-73) Lymphocytes (%) (Auto) 24 % (24-48) Monocytes (%) (Auto) 7 % (0-9) Eosinophils (%) (Auto) 3 % (0-3) Basophils (%) (Auto) 1 % (0-3) Neutrophils # (Auto) 4.3 x10^3/uL (1.8-7.7) Lymphocytes # (Auto) 1.6 x10^3/uL (1.0-4.8) Monocytes # (Auto) 0.5 x10^3/uL (0.0-1.1) Eosinophils # (Auto) 0.2 x10^3/uL (0.0-0.7) Basophils # (Auto) 0.1 x10^3/uL (0.0-0.2) Sodium Level 140 mmol/L (136-145) Potassium Level 3.7 mmol/L (3.5-5.1) Chloride Level 107 mmol/L (98-107) Carbon Dioxide Level 25 mmol/L (21-32) Anion Gap 8 (6-14) Blood Urea Nitrogen 17 mg/dL (7-20) Creatinine 1.1 mg/dL (0.6-1.0) Estimated GFR (Cockcroft-Gault) 59.1 BUN/Creatinine Ratio 15 (6-20) Glucose Level 110 mg/dL (70-99) Calcium Level 8.8 mg/dL (8.5-10.1) Total Bilirubin 0.6 mg/dL (0.2-1.0) Aspartate Amino Transf (AST/SGOT) 31 U/L (15-37) Alanine Aminotransferase (ALT/SGPT) 40 U/L (14-59) Alkaline Phosphatase 58 U/L (46-116) Troponin I High Sensitivity 44 ng/L (4-50) Total Protein 6.1 g/dL (6.4-8.2) Albumin 3.1 g/dL (3.4-5.0) Albumin/Globulin Ratio 1.0 (1.0-1.7) Activated Partial Thromboplast Time 28 SEC (24-38) > 150 SEC (24-38) Assessment and Plan Assessmemt and Plan Problems Medical Problems: (1) CHF (congestive heart failure) Status: Acute (2) Unstable angina Status: Acute Comment Review of Relevant I have reviewed the following items amna (where applicable) has been applied. Medications: Current Medications Medications (Trade) Dose Ordered Sig/Daqaun Route PRN Reason Start Time Stop Time Status Last Admin Dose Admin Oxycodone/ Acetaminophen (Percocet 5/325) 1 tab PRN Q4HRS PRN PO MODERATE PAIN 4-6 09/21/21 21:30 09/22/21 09:03 Zolpidem Tartrate (Ambien) 5 mg PRN QHS PRN PO INSOMNIA 09/21/21 21:30 09/21/21 22:11 Ipratropium [place] (Atrovent) 0.5 mg RTQID NEB 09/22/21 08:00 09/22/21 21:04 Aspirin (Ecotrin) 81 mg DAILYWBKFT PO 09/22/21 08:00 09/22/21 08:48 Atorvastatin Calcium (Lipitor) 40 mg QHS PO 09/21/21 22:00 09/21/21 22:13 Cyclobenzaprine HCl (Flexeril) 10 mg QHS PO 09/21/21 22:00 09/21/21 22:10 Sacubitril/ Valsartan (Entresto 49 Mg-51 Mg) 1 tab BID PO 09/21/21 22:00 09/22/21 08:49 Cetirizine HCl (ZyrTEC) 10 mg QHS PO 09/21/21 22:00 09/21/21 22:13 Nitroglycerin/ Dextrose 250 ml @ 1.5 mls/hr CONT PRN IV SEE I/O RECORD 09/21/21 23:00 09/22/21 15:24 Amlodipine Besylate (Norvasc) 5 mg 1X ONCE PO 09/22/21 02:00 09/22/21 02:02 DC 09/22/21 02:41 Info (Anti-Coagulation Monitoring By Pharmacy) 1 each PRN DAILY PRN MC PER PROTOCOL 09/22/21 02:00 09/22/21 04:43 Heparin Sodium/ Dextrose 250 ml @ 10 mls/hr CONT PRN IV PER PROTOCOL 09/22/21 02:15 09/22/21 02:45 Heparin Sodium (Porcine) (Heparin Sodium) 2,950 unit PRN Q6HRS PRN IV FOR PTT < 40 09/22/21 02:15 09/22/21 09:21 Amlodipine Besylate (Norvasc) 5 mg DAILY PO 09/22/21 14:00 09/22/21 13:34 Hydralazine HCl (Apresoline) 25 mg BID PO 09/22/21 14:00 09/22/21 13:34 Metoprolol Succinate (Toprol Xl) 25 mg DAILY PO 09/22/21 14:00 09/22/21 13:33 Justifications for Admission Other Justification YAQUELIN CLARK MD Sep 22, 2021 21:10
[2021-09-22] MEDS: CYCLOBENZAPRINE 10 MG TABLET. PO SCH (21:39)
[2021-09-22] MEDS: CETIRIZINE HCL 10 MG TABLET. PO SCH (21:42)
[2021-09-22] MEDS: ATORVASTATIN CALCIUM 40 MG TABLET. PO SCH (21:42)
[2021-09-22] MEDS: ZOLPIDEM 5 MG TABLET. PO PRN (21:47)
[2021-09-22 22:50] VITALS: BP 159/70
--- NOTE | 2021-09-23 01:30 | NUR ---
Pt disoriented and pulled out PIV in which heparin and nitro were infusing. Pressure was held until hemostasis was obtained. Gown and linen changed. New IV started in R hand. Attempted to reorientate pt but pt remains very forgetful. Pt keeps removing her BP cuff despite reminding pt that we are taking her BP often because of her nitro gtt. Bed alarm on but pt continues to set it off about every 5 min. Plans on moving pt up to a closer room when a closer room is available. POC discussed with pt. Pt v/u and reminders given frequently. Pt returned to bed. Bed alarm on. Call light within reach. Will monitor.
[2021-09-23 02:06] VITALS: BP 164/74
[2021-09-23] MEDS: HEPARIN 25,000UTS/250ML PREMIX 250 ML IV PRN (02:07)
[2021-09-23] MEDS: NITROGLYCERIN PREMIX 250 ML IV PRN (03:46)
--- NOTE | 2021-09-23 06:30 | NUR ---
Pt requesting to go outside and smoke. Informed pt that she is on cardiac drips and cannot go outside. Pt then stated that she wants to leave AMA then. Nursing supervisor cutting and sewing room notified and he discussed risks of leaving AMA with pt. Nursing supervisor cutting and sewing room verified that pt was A and Ox4 and able to make her own medical decisions. I notified pt's emergency contact, her son Fredy to also discuss staying at the hospital. All avenues unsuccessful and pt still wishes to leave AMA after risks discussed with her. Pt signed AMA paper. Pt's PIV DC'ed. Hemostasis obtained. No complications. Pt left via wheelchair to her own private vehicle. Notified Dr Sweeney.
== END 2021-09-23 06:30 | disposition left against medical advice (07) | DRG 291 ==
LOC: ER 14:53 → 6 SOUTH 16:33
PROVIDERS: ADMIT Internal Medicine; ATTEND Internal Medicine
DX: I11.0 Hypertensive heart disease with heart failure (principal); I50.43 Acute on chronic combined systolic (congestive) and diastolic (congestive) heart failure; Z68.41 Body mass index [BMI] 40.0-44.9, adult; I25.2 Old myocardial infarction; I25.110 Atherosclerotic heart disease of native coronary artery with unstable angina pectoris; I42.9 Cardiomyopathy, unspecified; E66.9 Obesity, unspecified; E78.5 Hyperlipidemia, unspecified; F17.210 Nicotine dependence, cigarettes, uncomplicated; I48.0 Paroxysmal atrial fibrillation; I50.9 Heart failure, unspecified; J44.9 Chronic obstructive pulmonary disease, unspecified; Z82.3 Family history of stroke; Z86.73 Personal history of transient ischemic attack (TIA), and cerebral infarction without residual deficits; Z90.710 Acquired absence of both cervix and uterus; Z95.5 Presence of coronary angioplasty implant and graft; F32.A Depression, unspecified; F41.9 Anxiety disorder, unspecified; K21.9 Gastro-esophageal reflux disease without esophagitis; M19.90 Unspecified osteoarthritis, unspecified site; Z53.29 Procedure and treatment not carried out because of patient's decision for other reasons
CPT/HCPCS: 36415; 71045; 80053; 83880; 84484; 85025; 85610; 85730; 93005; 94640; 94760; 96365; 99406; J1644; J3490; 99291-25; G0378; J7644